=== PATIENT | female | born 1960 ===

== ENCOUNTER 2020-02-08 13:05 | Inpatient (IN) | payer MEDICAID, SELFPAY ==
[2020-02-08] VITALS (8 sets, daily range): BP systolic 124–137; BP diastolic 77–91; PULSE 72–101; RESP 18–22; TEMP 36.1–37.5; O2SAT 2–100; BMI 25.0
--- NOTE | 2020-02-08 13:27 | XR_ITS ---
EXAMINATION: XR CHEST CLINICAL INFORMATION: Shortness of breath COMPARISON: November 21, 2019 TECHNIQUE: AP portable view of the chest was obtained. FINDINGS: There is region of parenchymal disease seen within the left lower lobe as well as some blunting of the left costophrenic angle. Heart normal size. No evidence of pulmonary effusion. No pneumothorax. Mediastinal contour unremarkable. XR/XR chest 1V IMPRESSION: Left lower lobe disease. Question small left pleural effusion.
--- NOTE | 2020-02-08 13:36 | ED.SOB ---
HPI - SOB/Dyspnea General Chief Complaint: Dyspnea Stated Complaint: SOB Covid + Time Seen by Provider: 02/08/20 13:27 Source: patient Mode of arrival: ambulatory Limitations: no limitations History of Present Illness HPI Narrative: 59-year-old female with past medical history that is significant for asthma, anemia, diverticulosis, endometriosis as well as other history as noted below presenting ambulatory via triage with complaint of feeling shortness of breath. States she has had a URI for past week or so was here previous Tuesday (4 days ago) tested positive for COVID-19 and has since been feeling worse and increasing shortness of breath. States she has pain in the chest with the shortness of breath and has chills. MD elicited complaint: shortness of breath and cough Pertinent past history: asthma Onset (ago): day(s) Context: recent illness Timing: constant Severity: severe Exacerbating factors: coughing and inspiration Known history of: asthma Associated symptoms: chest pain, cough, wheezing and sputum production (clear ) Treatment prior to arrival: bronchodilator Related Data Home Medications Medication Instructions Recorded Confirmed Flovent 02/08/20 No Known Home Meds 02/08/20 02/08/20 albuterol 02/08/20 citalopram 02/08/20 simvastatin 02/08/20 Allergies Allergy/AdvReac Type Severity Reaction Status Date / Time erythromycin base Allergy Mild SWELLING/STOMACH Unverified 12/20/19 15:39 [Erythromycin Base] PAIN/ORAL BLISTERS aspirin [ASA] Allergy Unknown STOMACH Unverified 12/20/19 15:39 PAIN tramadol [TRAMADOL] AdvReac Unknown DIZZY,NAUSE Unverified 12/20/19 15:39 A Erythromycin Allergy Unknown Uncoded 07/19/19 00:00 Review of Systems Review of Systems: Constitutional: No Weight loss ENT/Mouth: No Hearing loss, No Ear Pain, + Nasal Congestion, No Sinus Pain, No Hoarseness, No sore throat, + Rhinorrhea, No Swallowing Difficulty Eyes: No Eye Pain, No Swelling, No Redness, No Foreign Body, No Discharge, No Vision Changes Cardiovascular: + Chest Pain, + SOB, + Dyspnea on Exertion, No Edema, No Palpitations Respiratory: + Cough, + Sputum, + Wheezing, No Smoke Exposure Gastrointestinal: No Nausea, No Vomiting, No Diarrhea, No Constipation, No abdominal Pain, No Hematochezia, No Melena Genitourinary: no irregular bleeding, No Dysuria, No Urinary Frequency, No Hematuria, No Urinary Incontinence, No Urgency, No Flank Pain, No Urinary Flow Changes, No Hesitancy Musculoskeletal: No joint pain, No Myalgias, No Joint Swelling Skin: No Skin Lesions, No rash Neuro: No Weakness, No Numbness, No Paresthesias, No Loss of Consciousness, No Dizziness, No Headache Psych: No Anxiety/Panic, No Depression Heme/Lymph: No Bruising, No Bleeding,No Lymphadenopathy Endocrine: No Polyuria, No Polydipsia, No Temperature Intolerance Yes all other systems are reviewed and are negative [facility] Past Medical History Attestation statement: The following information was validated with the patient. Medical History Asthma Hypercholesteremia Social History Social History Alcohol intake: never Smoked in Last 30 Days: No Use of substances other than those prescribed or required for medical reasons: No Advance Directives: No Advance Directives Information Provided: Yes Physical Exam Vital Signs: Vital Signs: Last Vital Signs Temp 99.3 F 02/08/20 19:35 Pulse 78 02/08/20 19:35 Resp 18 02/08/20 19:35 BP 136/91 H 02/08/20 19:35 Pulse Ox 97 02/08/20 19:35 Body Mass Index 25.0 Reviewed Const: General: cooperative and intoxicated appearing Nutritional Appearance: average body habitus Orientation/consciousness: patient oriented x3 HENMT: Head: Yes normal to inspection Ears: hearing grossly normal bilaterally General nose exam: Nasal discharge present Eyes: General: appearance normal, both eyes and all related structures Visual [place]: normal visual bolton by confrontation Neck: Neck: Yes normal visual inspection and No tender Thyroid: Thyroid normal Chest: Chest palpation & inspection: normal inspection of the chest Resp: Effort & Inspection: able to speak in complete sentences, audible wheezes and Actively coughing Auscultation: wheezes Cardio: Jugular venous distension: no JVD Rate: tachycardic GI: Inspection: Yes normal to inspection Percussion: Yes normal to percussion Auscultation: normal bowel sounds : General: Yes no CVA tenderness Back/Spine/Pelvis: Back: no CVA tenderness Skin: General skin exam: no rashes or lesions noted Neuro: General: patient oriented x3 Extrem: General: Yes normal to inspection Psych: Appearance: grossly normal Course Course Course Narrative: 1335 Interview 59-year-old female with history of asthma with recent positive COVID-19, 4 days ago presenting with worsening symptoms of shortness of breath and chills and cough associated chest pain. Audible wheezing and bronchial cough. Afebrile is slightly tacky and 94% on room air shortness of breath on exertion. At this time labs including cardiac enzymes, lactic acid blood cultures, chest x-ray EKG ordered. Will treat with gradual IV fluids, neb and IV Solu-Medrol. At this time does not meet sepsis criteria. 1408 CXR left lower lobe disease, question small left pleural effusion. Labs still pending Empirically given ceftriaxone/azithromycin. Reevaluation(s) Reevaluation #1: CT findings reviewed with patient. At rest her oxygen level was 94% however on exertion just dropped down to 92 and she is tachypneic. No evidence of some PE. Plan for admission she did have a COVID test that was positive and her primary care doctor at [facility] at this point no need to repeat. Case discussed with hospitalist for admission. MDM - SOB/Dyspnea Differential Diagnosis Differential diagnosis: Likely pneumonia, asthma with exacerbation and pulmonary embolism; Unlikely acute exacerbation of chronic obstructive airways disease, congestive heart failure, pleural effusion, sleep apnea and anemia Medical Records Attestation: I reviewed the patient's medical records. Lab Data Result diagrams: 02/08/20 15:35 02/08/20 15:35 Labs: Lab Results 02/08/20 02/08/20 02/08/20 Range/Units 15:35 15:35 15:35 WBC 5.1 (4.8-10.8) X10*3/uL RBC 4.94 (4.20-5.50) X10*6/uL Hgb 13.9 (12.0-16.0) g/dl Hct 41.7 (37-47) % MCV 84.4 (80-98) fL MCH 28.1 (27.0-33.0) pg MCHC 33.3 (31.0-35.0) g/dl RDW 12.5 (11.0-16.0) % Plt Count 145 L (160-400) X10*3/uL MPV 11.0 (9.4-12.3) fL Immature Gran % (Auto) 0.2 (0.0-0.4) % Neut % (Auto) 48.6 (45-73) % Lymph % (Auto) 38.8 (20-40) % [place] % (Auto) 11.4 H (2-11) % Eos % (Auto) 0.8 (0-4) % Baso % (Auto) 0.2 (0-2) % Lymph # (Auto) 2.0 (1.2-4.9) X10*3/uL [place] # (Auto) 0.6 (0.1-1.2) X10*3/uL Eos # (Auto) 0.0 (0.0-0.4) X10*3/uL Baso # (Auto) 0.0 (0.0-0.2) X10*3/uL Abs Immat Gran (auto) 0.01 (0.00-0.03) X10*3/uL Absolute Neuts (auto) 2.5 (2.0-8.3) X10*3/uL Absolute Nucleated RBC 0.000 (0.0-0.012) X10*3/uL Nucleated RBC % (auto) 0.0 (0.0-0.2) /100WBC Smear Tech's Comments VERIFIED PT 13.5 H (10.8-13.0) SEC INR 1.1 (0.9-1.1) APTT 31.7 (24.1-38.0) SEC D-Dimer 575 NG/ML Sodium 141 (135-145) mmol/L Potassium 3.5 (3.3-5.1) mmol/l Chloride 100 (96-108) mmol/L Carbon Dioxide 29 (22-29) mmol/L Anion Gap 16 (12-20) BUN 10 (9-16) mg/dL Creatinine 0.71 (0.5-1.4) mg/dL Estim Creat Clear Calc 74.8 Estimated GFR > 60 Random Glucose 91 (60-115) mg/dL Lactic Acid (0.5-2.0) mmol/L Calcium 9.0 (8.4-10.2) mg/dL Total Bilirubin 0.7 (0.0-1.0) mg/dL AST 25 (5-31) U/L ALT 16 (0-31) U/L Alkaline Phosphatase 95 (39-117) U/L Lactate Dehydrogenase 269 H (122-220) U/L Troponin I High Sens (<3.5-17.0) ng/L B-Natriuretic Peptide (<100) pg/mL Total Protein 8.4 H (6.5-8.0) g/dL Albumin 4.5 (3.5-5.0) g/dL Urine Color Urine Appearance Urine pH (5.0-8.0) Ur Specific [place] (1.005-1.025) Urine Protein (NEG-TRACE) MG/DL Urine Glucose (UA) (NEG) MG/DL Urine Ketones (NEG) MG/DL Urine Blood (NEG) Urine Nitrite (NEG) Ur Leukocyte Esterase (NEG) 02/08/20 02/08/20 02/08/20 Range/Units 15:35 15:35 17:05 WBC (4.8-10.8) X10*3/uL RBC (4.20-5.50) X10*6/uL Hgb (12.0-16.0) g/dl Hct (37-47) % MCV (80-98) fL MCH (27.0-33.0) pg MCHC (31.0-35.0) g/dl RDW (11.0-16.0) % Plt Count (160-400) X10*3/uL MPV (9.4-12.3) fL Immature Gran % (Auto) (0.0-0.4) % Neut % (Auto) (45-73) % Lymph % (Auto) (20-40) % [place] % (Auto) (2-11) % Eos % (Auto) (0-4) % Baso % (Auto) (0-2) % Lymph # (Auto) (1.2-4.9) X10*3/uL [place] # (Auto) (0.1-1.2) X10*3/uL Eos # (Auto) (0.0-0.4) X10*3/uL Baso # (Auto) (0.0-0.2) X10*3/uL Abs Immat Gran (auto) (0.00-0.03) X10*3/uL Absolute Neuts (auto) (2.0-8.3) X10*3/uL Absolute Nucleated RBC (0.0-0.012) X10*3/uL Nucleated RBC % (auto) (0.0-0.2) /100WBC Smear Tech's Comments PT (10.8-13.0) SEC INR (0.9-1.1) APTT (24.1-38.0) SEC D-Dimer NG/ML Sodium (135-145) mmol/L Potassium (3.3-5.1) mmol/l Chloride (96-108) mmol/L Carbon Dioxide (22-29) mmol/L Anion Gap (12-20) BUN (9-16) mg/dL Creatinine (0.5-1.4) mg/dL Estim Creat Clear Calc Estimated GFR Random Glucose (60-115) mg/dL Lactic Acid 1.2 (0.5-2.0) mmol/L Calcium (8.4-10.2) mg/dL Total Bilirubin (0.0-1.0) mg/dL AST (5-31) U/L ALT (0-31) U/L Alkaline Phosphatase (39-117) U/L Lactate Dehydrogenase (122-220) U/L Troponin I High Sens < 3.5 (<3.5-17.0) ng/L B-Natriuretic Peptide < 10 (<100) pg/mL Total Protein (6.5-8.0) g/dL Albumin (3.5-5.0) g/dL Urine Color YELLOW Urine Appearance CLEAR Urine pH 6.0 (5.0-8.0) Ur Specific [place] 1.010 (1.005-1.025) Urine Protein NEG (NEG-TRACE) MG/DL Urine Glucose (UA) NEG (NEG) MG/DL Urine Ketones 15 (NEG) MG/DL Urine Blood NEG (NEG) Urine Nitrite NEG (NEG) Ur Leukocyte Esterase NEG (NEG) Discharge Plan Discharge Clinical Impression: Asthma with exacerbation, Community acquired pneumonia, COVID-19 Patient Disposition: Admitted As Inpatient Prescriptions: No Action Flovent RF: 0 No Known Home Meds RF: 0 albuterol RF: 0 citalopram RF: 0 simvastatin RF: 0
[2020-02-08] MEDS: Albuterol Sulfate 90 MCG 8 GM INHALER 4 PUFF INHALE (15:02)
[2020-02-08 16:05] LABS: Basophils Percent Auto 0.2 % (0-2); Eosinophils Percent Auto 0.8 % (0-4); Hematocrit 41.7 % (37-47); Hemoglobin 13.9 g/dl (12.0-16.0); Imm Gran Abs Auto 0.01 X10*3/uL (0.00-0.03); Imm Gran Pct Auto 0.2 % (0.0-0.4); Lymphocytes Percent Auto 38.8 % (20-40); MANUAL DIFF FLAG SCAN; Mean Corpuscular HGB Conc 33.3 g/dl (31.0-35.0); Mean Corpuscular Hemoglobin 28.1 pg (27.0-33.0); Mean Corpuscular Volume 84.4 fL (80-98); Monocytes Absolute Auto 0.6 X10*3/uL (0.1-1.2); Monocytes Percent Auto 11.4 % (2-11); Neutrophils Absolute Auto 2.5 X10*3/uL (2.0-8.3); Neutrophils Percent Auto 48.6 % (45-73); Platelet Count 145 X10*3/uL (160-400); Red Blood Count 4.94 X10*6/uL (4.20-5.50); Red Cell Distribution Width 12.5 % (11.0-16.0); SCAN SMEAR FLAG 1; White Blood Count 5.1 X10*3/uL (4.8-10.8)
[2020-02-08 16:10] LABS: INTERNATIONAL NORM RATIO 1.1 (0.9-1.1); Prothrombin Time 13.5 SEC (10.8-13.0)
[2020-02-08 16:12] LABS: Partial Thromboplastin Time 31.7 SEC (24.1-38.0)
[2020-02-08 16:13] LABS: D Dimer 575 NG/ML
[2020-02-08 16:18] LABS: Lactic Acid 1.2 mmol/L (0.5-2.0)
[2020-02-08 16:31] LABS: SLIDE REVIEW VERIFIED
[2020-02-08 16:46] LABS: Alanine Aminotransferase 16 U/L (0-31); Albumin Level 4.5 g/dL (3.5-5.0); Alkaline Phosphatase 95 U/L (39-117); Anion Gap 16 (12-20); Aspartate Amino Transferase 25 U/L (5-31); Bilirubin Total 0.7 mg/dL (0.0-1.0); Blood Urea Nitrogen 10 mg/dL (9-16); Carbon Dioxide 29 mmol/L (22-29); Chloride 100 mmol/L (96-108); Creatinine Clr Calc Pharmacy 74.8; Estimated Glomerular Filt Rate > 60; Glucose Random 91 mg/dL (60-115); Lactate Dehydrogenase 269 U/L (122-220); Potassium 3.5 mmol/l (3.3-5.1); Sodium 141 mmol/L (135-145); Total Protein 8.4 g/dL (6.5-8.0)
[2020-02-08 16:50] LABS: B Type Natriuretic Peptide < 10 pg/mL (<100); Troponin-I High Sensitivity < 3.5 ng/L (<3.5-17.0)
[2020-02-08] MEDS: 0.9 % Sodium Chloride 500 ML IV (16:50)
[2020-02-08] MEDS: dexAMETHasone sod phosphate 4 MG/ML VIAL 6 MG IVPUSH (16:54)
[2020-02-08] MEDS: cefTRIAXone sodium 1 GM in 0.9 % Sodium Chloride 50 ML IV (16:54)
--- NOTE | 2020-02-08 16:54 | CT_ITS ---
EXAMINATION: CT PULMONARY EMBOLISM STUDY CLINICAL INFORMATION: Shortness of breath. Elevated d-dimer. COMPARISON: July 23, 2019. TECHNIQUE: Contiguous helical images of the chest were obtained following the administration of IV contrast. Multiplanar reconstructions were performed. MIPS were obtained and reviewed. DLP: 245 mGy-cm. CONTRAST: 65 cc of Omnipaque 350 were administered without incident. FINDINGS: The heart is of normal size. There is no pericardial effusion. The great vessels are unremarkable. Specifically, there is no pulmonary arterial filling defect. There is no CT evidence for pulmonary embolism. There are no chest wall masses. Review of lung windows demonstrates that there are neither pleural effusions nor pneumothoraces. There are small bilateral posterior basal segment lower lobe consolidations. There is patchy groundglass opacification. There are no pulmonary parenchymal nodules. Limited evaluation of the upper abdomen demonstrates that the liver is of normal size and attenuation without focal lesions. Normal adrenal glands are identified. CT/CT angio chest PE protocol IMPRESSION: No CT evidence for pulmonary embolism. Bilateral posterior basal segment lower lobe consolidations and patchy multifocal groundglass opacification. Automated exposure control (Care Dose) Adjustment of the mA and/or kv according to patient size (this includes techniques or standardized protocols for targeted exams where dose is matched to indication / reason for exam; i.e. extremities or head).
[2020-02-08 17:15] LABS: Glucose Urine UA NEG (NEG); Leukocyte Esterase Urine NEG (NEG); Nitrite Urine NEG (NEG); Urine Blood NEG (NEG); Urine Ketones 15 MG/DL (NEG); Urine Protein NEG (NEG-TRACE)
[2020-02-08 17:16] LABS: Appearance Urine CLEAR; Color Urine YELLOW
[2020-02-08] MEDS: iohexoL 350 MG/ML 100 ML INFUS..BTL IV (19:00)
[2020-02-08] MEDS: Azithromycin 500 MG in 0.9 % Sodium Chloride 250 ML 125 MG IV (19:36)
[2020-02-08 21:26] LABS: Procalcitonin 0.08 ng/mL
--- NOTE | 2020-02-08 21:46 | P.HPHOSP_ITS ---
History of Present Illness Date of Service: 02/08/20 Chief Complaint: SOB 59 y/o female with PMHx of asthma, anemia, diverticulosis, endometriosis, GERD, Psychiatric disorder, Peirpheral neuropathy and HLP who presented from home c/o SOB x 1 week. Per history provided by the patient, she has been having worsening difficulty breathing for the past week associated with dry cough, subjective fever, nausea, poor appetite and chest discomfort when coughing only. Patient reports that recently was tested for covid and found to be positive. On presentation to the ED patient was found to be tachycardic, tachypneic, BP of 134/82 mmHg, CT showing evidence of bilateral Lower lobe infiltrates concerning for PNA. Patient placed on isolation, given rocephin, zithromax and steroids. Decision for admission given. Patient seen and examined at the bedside, laying down in bed in no acute distress. ROS as above otherwise negative. Physical exam unremarkable. PMHX: asthma, anemia, diverticulosis, endometriosis, HLP, psychiatric disorder, GERD, Peripheral neuropathy PSx: none Toxic habits: No hx of alcohol abuse, smoking or IVDA Review of Systems Constitutional: Constitutional: Reports malaise Cardiovascular: Cardiovascular: Reports dyspnea Respiratory: Respiratory: Reports cough and Reports dyspnea Gastrointestinal: Gastrointestinal: Reports diarrhea and Reports nausea PMFSH Medical History Asthma Hypercholesteremia Functional capacity: independent ambulation Social History Alcohol intake: never Smoked in Last 30 Days: No Use of substances other than those prescribed or required for medical reasons: No Advance Directives: No Advance Directives Information Provided: Yes Meds Allergies Allergy/AdvReac Type Severity Reaction Status Date / Time erythromycin base Allergy Mild SWELLING/STOMACH Unverified 12/20/19 15:39 [Erythromycin Base] PAIN/ORAL BLISTERS aspirin [ASA] Allergy Unknown STOMACH Unverified 12/20/19 15:39 PAIN tramadol [TRAMADOL] AdvReac Unknown DIZZY,NAUSE Unverified 12/20/19 15:39 A Erythromycin Allergy Unknown Uncoded 07/19/19 00:00 Home Medications Medication Instructions Recorded Confirmed Type cholecalciferol (vitamin D3) 50 mcg PO DAILY 02/08/20 02/08/20 History [Vitamin D3] citalopram 20 mg PO DAILY 02/08/20 02/08/20 History clonazepam 0.5 mg PO BEDTIME PRN 02/08/20 02/08/20 History conj estrog-medroxyprogest chyna 1 tab PO DAILY 02/08/20 02/08/20 History [Prempro] gabapentin 100 mg PO BID 02/08/20 02/08/20 History loratadine 10 mg PO DAILY 02/08/20 02/08/20 History pantoprazole 40 mg PO DAILY 02/08/20 02/08/20 History penicillin V potassium 500 mg PO TID 02/08/20 02/08/20 History simvastatin 20 mg PO BEDTIME 02/08/20 02/08/20 History topiramate 25 mg PO BEDTIME 02/08/20 02/08/20 History topiramate 50 mg PO BID 02/08/20 02/08/20 History Physical Exam Vital Signs and Narrative: Vital Signs: Last Vital Signs Temp 99.3 F 02/08/20 19:35 Pulse 73 02/08/20 20:54 Resp 22 H 02/08/20 20:54 BP 134/82 02/08/20 20:54 Pulse Ox 100 02/08/20 20:54 Body Mass Index 25.0 Const: General: cooperative, comfortable and no acute distress Orientation/consciousness: oriented to person, oriented to place, oriented to time and patient oriented x3 HENMT: Head: Yes normal to inspection Eyes: General: appearance normal, both eyes and all related structures Neck: Yes normal visual inspection Chest: Chest palpation & inspection: normal inspection of the chest Resp: Effort & Inspection: normal respiratory effort Cardio: Jugular venous distension: no JVD Rate: regular rate Rhythm: regular rhythm Heart sounds: S1 normal heart sound present and S2 normal heart sound present GI: Inspection: Yes normal to inspection Skin: General skin exam: no rashes or lesions noted Neuro: General: oriented to person, oriented to place, oriented to time and p atient oriented x3 Cognition (Neuro): normal cognition Extrem: General: Yes normal to inspection Psych: Appearance: grossly normal Results Labs CBC and Chem 7: 02/08/20 15:35 02/08/20 15:35 Labs: Laboratory Results - last 24 hr 02/08/20 02/08/20 02/08/20 15:35 15:35 15:35 MCV 84.4 MCH 28.1 MCHC 33.3 RDW 12.5 Plt Count 145 L MPV 11.0 Immature Gran % (Auto) 0.2 Neut % (Auto) 48.6 Lymph % (Auto) 38.8 [place] % (Auto) 11.4 H Eos % (Auto) 0.8 Baso % (Auto) 0.2 Lymph # (Auto) 2.0 [place] # (Auto) 0.6 Eos # (Auto) 0.0 Baso # (Auto) 0.0 Abs Immat Gran (auto) 0.01 Absolute Neuts (auto) 2.5 Absolute Nucleated RBC 0.000 Nucleated RBC % (auto) 0.0 Smear Tech's Comments VERIFIED PT 13.5 H INR 1.1 APTT 31.7 D-Dimer 575 Anion Gap 16 Estim Creat Clear Calc 74.8 Estimated GFR > 60 Random Glucose 91 Lactic Acid Calcium 9.0 Total Bilirubin 0.7 AST 25 ALT 16 Alkaline Phosphatase 95 Lactate Dehydrogenase 269 H Troponin I High Sens B-Natriuretic Peptide Total Protein 8.4 H Albumin 4.5 Procalcitonin Urine Color Urine Appearance Urine pH Ur Specific [place] Urine Protein Urine Glucose (UA) Urine Ketones Urine Blood Urine Nitrite Ur Leukocyte Esterase 02/08/20 02/08/20 02/08/20 15:35 15:35 15:35 MCV MCH MCHC RDW Plt Count MPV Immature Gran % (Auto) Neut % (Auto) Lymph % (Auto) [place] % (Auto) Eos % (Auto) Baso % (Auto) Lymph # (Auto) [place] # (Auto) Eos # (Auto) Baso # (Auto) Abs Immat Gran (auto) Absolute Neuts (auto) Absolute Nucleated RBC Nucleated RBC % (auto) Smear Tech's Comments PT INR APTT D-Dimer Anion Gap Estim Creat Clear Calc Estimated GFR Random Glucose Lactic Acid 1.2 Calcium Total Bilirubin AST ALT Alkaline Phosphatase Lactate Dehydrogenase Troponin I High Sens < 3.5 B-Natriuretic Peptide < 10 Total Protein Albumin Procalcitonin 0.08 Urine Color Urine Appearance Urine pH Ur Specific [place] Urine Protein Urine Glucose (UA) Urine Ketones Urine Blood Urine Nitrite Ur Leukocyte Esterase 02/08/20 17:05 MCV MCH MCHC RDW Plt Count MPV Immature Gran % (Auto) Neut % (Auto) Lymph % (Auto) [place] % (Auto) Eos % (Auto) Baso % (Auto) Lymph # (Auto) [place] # (Auto) Eos # (Auto) Baso # (Auto) Abs Immat Gran (auto) Absolute Neuts (auto) Absolute Nucleated RBC Nucleated RBC % (auto) Smear Tech's Comments PT INR APTT D-Dimer Anion Gap Estim Creat Clear Calc Estimated GFR Random Glucose Lactic Acid Calcium Total Bilirubin AST ALT Alkaline Phosphatase Lactate Dehydrogenase Troponin I High Sens B-Natriuretic Peptide Total Protein Albumin Procalcitonin Urine Color YELLOW Urine Appearance CLEAR Urine pH 6.0 Ur Specific [place] 1.010 Urine Protein NEG Urine Glucose (UA) NEG Urine Ketones 15 Urine Blood NEG Urine Nitrite NEG Ur Leukocyte Esterase NEG Imaging Radiologist's Impressions: Impressions Chest X-Ray 02/08/20 13:27 IMPRESSION: Left lower lobe disease. Question small left pleural effusion. Chest CTA 02/08/20 16:54 IMPRESSION: No CT evidence for pulmonary embolism. Bilateral posterior basal segment lower lobe consolidations and patchy multifocal groundglass opacification. Automated exposure control (Care Dose) Adjustment of the mA and/or kv according to patient size (this includes techniques or standardized protocols for targeted exams where dose is matched to indication / reason for exam; i.e. extremities or head). Assessment and Plan (1) Community acquired pneumonia: Status: Acute S/p IV antbx in the ED and Bcx collected Continue with Rocephin for gram neg coverage Continue with doxy for atypical coverage Follow up Bcx as collected in the ED Infectious disease consult in the ED (2) Sepsis: Status: Acute plan as above trend lactate Keep MAP >65 mmHg (3) COVID-19: Status: Acute Isolation now (4) Asthma with exacerbation: Status: Acute as above Nebulizer updraft as ordered (5) Psychiatric disorder: Status: Acute continue with citalopram home dose continue with clonazepam home dose continue with topiramate home dose (6) Peripheral neuropathy: Status: Acute continue with gabapentin home dose (7) GERD (gastroesophageal reflux disease): Status: Acute continue with PPI home dose (8) Hypercholesteremia: Status: Acute continue with statin home dose
--- NOTE | 2020-02-08 22:46 | PC.NURSE ---
resting comfortably, up to br with noted sob. recovers quickly at rest. awaiting transfer to floor
[2020-02-09 02:00] VITALS: BP 130/84; PULSE 69; RESP 16; TEMP 37.6; O2SAT 2
[2020-02-09 02:50] LABS: SARS COV2 PCR INHOUSE POSITIVE (Negative)
[2020-02-09 04:41] VITALS: BP 142/80; PULSE 73; RESP 18; O2SAT 99
[2020-02-09] MEDS: Heparin Sodium,Porcine 5,000 UNIT/ML VIAL 5000 UNIT SUBCUT ×3 (06:28→23:01)
[2020-02-09] MEDS: 0.9 % Sodium Chloride Flush 3 ML SYRINGE IVFLUSH ×4 (06:28→23:16)
[2020-02-09 07:05] VITALS: BP 125/72; PULSE 75; RESP 18; TEMP 36.6; O2SAT 97
[2020-02-09 07:11] LABS: Basophils Percent Auto 0.3 % (0-2); Hemoglobin 12.4 g/dl (12.0-16.0); Imm Gran Abs Auto 0.01 X10*3/uL (0.00-0.03); Imm Gran Pct Auto 0.3 % (0.0-0.4); Lymphocytes Percent Auto 29.8 % (20-40); MANUAL DIFF FLAG SCAN; Mean Corpuscular HGB Conc 32.6 g/dl (31.0-35.0); Mean Corpuscular Volume 85.8 fL (80-98); Mean Platelet Volume 11.1 fL (9.4-12.3); Monocytes Absolute Auto 0.3 X10*3/uL (0.1-1.2); Monocytes Percent Auto 7.6 % (2-11); Platelet Count 195 X10*3/uL (160-400); Red Blood Count 4.43 X10*6/uL (4.20-5.50); Red Cell Distribution Width 12.5 % (11.0-16.0); SCAN SMEAR FLAG 1; White Blood Count 3.3 X10*3/uL (4.8-10.8)
[2020-02-09 07:45] LABS: Anion Gap 14 (12-20); Blood Urea Nitrogen 13 mg/dL (9-16); Calcium 8.4 mg/dL (8.4-10.2); Carbon Dioxide 27 mmol/L (22-29); Chloride 104 mmol/L (96-108); Creatinine Clr Calc Pharmacy 79.3; Estimated Glomerular Filt Rate > 60; Glucose Random 132 mg/dL (60-115); Potassium 4.2 mmol/l (3.3-5.1); Sodium 141 mmol/L (135-145)
[2020-02-09 07:54] LABS: SLIDE REVIEW VERIFIED
[2020-02-09] MEDS: Cholecalciferol (Vitamin D3) 25 MCG TABLET 50 MCG PO (08:37)
[2020-02-09] MEDS: Omeprazole 20 MG CAPSULE.DR PO (08:37)
[2020-02-09] MEDS: Atorvastatin Calcium 10 MG TABLET PO (08:38)
[2020-02-09] MEDS: Doxycycline Hyclate 100 MG in 0.9 % Sodium Chloride 250 ML 166.67 MG IV (08:38)
[2020-02-09] MEDS: Escitalopram Oxalate 10 MG TABLET PO (08:38)
[2020-02-09] MEDS: Gabapentin 100 MG CAPSULE PO ×2 (08:38→20:57)
[2020-02-09 11:13] VITALS: BP 107/68; PULSE 88; RESP 20; TEMP 35.5; O2SAT 97
--- NOTE | 2020-02-09 11:25 | MHC.CM.PN ---
Patient is on the Covid Unit; CM spoke with . Patient lives with her on the first floor of a 2 family house, with other family members living on the second floor. Patient is functionally independent and the goal for dc is to return home. CM has initiated and will follow for dc planning. PCP is Dr. Britni Tyler.
[2020-02-09] MEDS: guaiFENesin DM 600/30 1 TAB TAB.ER.12H PO ×2 (11:33→20:57)
[2020-02-09] MEDS: Benzonatate 100 MG CAPSULE 200 MG PO ×3 (11:33→20:57)
[2020-02-09] MEDS: dexAMETHasone sod phosphate 4 MG/ML VIAL 6 MG IVPUSH (12:47)
[2020-02-09] MEDS: Topiramate 25 MG TABLET PO (15:09)
[2020-02-09] MEDS: cefTRIAXone sodium 1 GM in 0.9 % Sodium Chloride 50 ML IV (15:10)
--- NOTE | 2020-02-09 15:11 | W.PM.IDCN ---
History of Present Illness Data of Consult Service Date: 02/09/20 Requesting physician: Geraldine Prince Primary Care Provider: Britni Tyler NP HPI Reason for consult: shortness of breath Patient reports shortness of breath for a day She has with exertion mostly She has low grade temperature and no productive sputum She had recent COVID positive test within week She has no oxygen requirements now but was on 2 liter overnight Review of Systems Review of Systems: Yes all other systems are reviewed and are negative Cardiovascular: Cardiovascular: Reports dyspnea on exertion Respiratory: Respiratory: Reports dyspnea on exertion Comments: better [facility] Past Medical History Medical History Asthma Hypercholesteremia Functional capacity: independent ambulation Social History Social History Household Members: Family Housing: House Do you presently have visiting nurse or other home services: No Alcohol intake: never Smoking Status: Former smoker Smoked in Last 30 Days: No Patient Interested in Nicotine Replacement: No Patient Given Instructions on How to Stop Smoking: No Second Hand Smoke Exposure: No Use of substances other than those prescribed or required for medical reasons: No Currently Displaying Signs/Symptoms of Drug Intoxication Withdrawal: No Any prior treatment program specific to substance use: No Have you been hit, kicked, punched, or otherwise hurt by someone within the past year? If so, by whom?: No Do you feel safe in your current relationship?: Yes Is there a partner from a previous relationship who is making you feel unsafe now?: No Are you made to feel afraid or neglected: No Advance Directives: No Advance Directives Information Provided: Yes Do you have thoughts of harming others: None Do you have a plan to hurt others: No Plan Recently lost weight without trying: No service: No Current occupational status: disabled Meds Allergies Allergy/AdvReac Type Severity Reaction Status Date / Time erythromycin base Allergy Mild SWELLING/STOMACH Unverified 12/20/19 15:39 [Erythromycin Base] PAIN/ORAL BLISTERS aspirin [ASA] Allergy Unknown STOMACH Unverified 12/20/19 15:39 PAIN tramadol [TRAMADOL] AdvReac Unknown DIZZY,NAUSE Unverified 12/20/19 15:39 A Erythromycin Allergy Unknown Uncoded 04/16/20 00:00 Home Medications Medication Instructions Recorded Confirmed Type Prempro 1 tab PO DAILY 02/08/20 02/08/20 History cholecalciferol (vitamin D3) 50 mcg PO DAILY 02/08/20 02/08/20 History [Vitamin D3] citalopram 20 mg PO DAILY 02/08/20 02/08/20 History clonazepam 0.5 mg PO BEDTIME PRN 02/08/20 02/08/20 History gabapentin 100 mg PO BEDTIME 02/08/20 02/09/20 History loratadine 10 mg PO DAILY 02/08/20 02/08/20 History pantoprazole 40 mg PO DAILY 02/08/20 02/08/20 History penicillin V potassium 500 mg PO TID 02/08/20 02/08/20 History simvastatin 20 mg PO BEDTIME 02/08/20 02/08/20 History topiramate 25 mg PO DAILY@1600 02/08/20 02/09/20 History Physical Exam Vital Signs: Vital Signs: Last Vital Signs Temp 96 F L 02/09/20 11:13 Pulse 88 02/09/20 11:13 Resp 20 02/09/20 11:13 BP 107/68 02/09/20 11:13 Pulse Ox 97 02/09/20 11:13 Body Mass Index 25.0 Const: General: cooperative and no acute distress Orientation/consciousness: oriented to person, oriented to place and oriented to time HENMT: Head: Yes normal to inspection Ears: hearing grossly normal bilaterally Mouth: oropharynx normal Eyes: General: appearance normal, both eyes and all related structures Resp: Effort & Inspection: normal respiratory effort Cardio: Rate: regular rate Rhythm: regular rhythm GI: Inspection: Yes normal to inspection : General: Yes no CVA tenderness Back/Spine/Pelvis: Back: no CVA tenderness Skin: General skin exam: no rashes or lesions noted Neuro: General: oriented to person, oriented to place and oriented to time Extrem: General: Yes normal to inspection Assessment and Plan (1) COVID-19: Status: Acute would give Dexamethasone for 10 d ,po when better No antibiotics now No need Remdesivir unless oxygen requirement increases No convalescent plasma (2) Asthma with exacerbation: Qualifiers: Asthma persistence: persistent Asthma severity: moderate Qualified Code(s): J45.41 - Moderate persistent asthma with (acute) exacerbation Status: Acute Results Labs CBC & Chem 7: 02/12/20 05:52 02/12/20 05:52 Labs: Short CBC 02/08/20 02/09/20 Range/Units 15:35 06:18 WBC 5.1 3.3 L (4.8-10.8) X10*3/uL Hgb 13.9 12.4 (12.0-16.0) g/dl Hct 41.7 38.0 (37-47) % Plt Count 145 L 195 D (160-400) X10*3/uL BMP 02/08/20 02/09/20 15:35 06:18 Sodium 141 141 Potassium 3.5 4.2 Chloride 100 104 Carbon Dioxide 29 27 BUN 10 13 Creatinine 0.71 0.67 Calcium 9.0 8.4 D Liver Function 02/08/20 Range/Units 15:35 Total Bilirubin 0.7 (0.0-1.0) mg/dL AST 25 (5-31) U/L ALT 16 (0-31) U/L Alkaline Phosphatase 95 (39-117) U/L Albumin 4.5 (3.5-5.0) g/dL Urine 02/08/20 Range/Units 17:05 Urine Color YELLOW Urine Appearance CLEAR Urine pH 6.0 (5.0-8.0) Ur Specific [place] 1.010 (1.005-1.025) Urine Protein NEG (NEG-TRACE) MG/DL Urine Glucose (UA) NEG (NEG) MG/DL Microbiology Microbiology Results: Microbiology 02/08/20 15:35 Blood - Venous Blood Culture - Preliminary
[2020-02-09 16:00] VITALS: BP 115/77; PULSE 81; RESP 18; TEMP 36.7; O2SAT 96
--- NOTE | 2020-02-09 16:11 | P.PNIM_ITS ---
Subjective Subjective Date of Service: 02/09/20 Interval History: the patient was seen and evaluated this morning Laying in bed, feels mildly short of breath, having some central chest pain related to cough Denies any fever, chills or chest pain Feels better overall since admission No reported other overnight events. Physical Exam Vital Signs: Vital Signs: Last Vital Signs Temp 98.1 F 02/09/20 16:00 Pulse 81 02/09/20 16:00 Resp 18 02/09/20 16:00 BP 115/77 02/09/20 16:00 Pulse Ox 96 02/09/20 16:00 Body Mass Index 25.0 Constitutional : Alert, oriented, not in distress Neck : Normal inspection, Supple Cardiovascular : RRR, S1 S2, no lower extremity edema Respiratory : Fair bilateral air entry, bilateral basal rhonchi and crackles Gastrointestinal: soft, lax, Normal bowel sounds, Non tender Skin : Warm/Dry, No rash Neurological : Alert & oriented x3, No focal deficit Objective Data Current Medications Generic Name Dose Route Start Last Admin Trade Name Freq PRN Reason Stop Dose Admin Atorvastatin Calcium 10 mg 02/09/20 09:00 02/09/20 08:38 Atorvastatin Calcium 10 Mg Tablet PO 10 mg DAILY MYRA Administration Benzonatate 200 mg 02/09/20 11:00 02/09/20 15:09 Benzonatate 100 Mg Capsule PO 200 mg TID MYRA Administration Clonazepam 0.5 mg 02/09/20 08:28 Clonazepam 0.5 Mg Tablet PO BEDTIME PRN Anxiety Dexamethasone Sodium Phosphate 6 mg 02/09/20 13:00 02/09/20 12:47 Dexamethasone Sod Phosphate 4 Mg/Ml Vial IVPUSH 6 mg DAILY MYRA Administration Escitalopram Oxalate 10 mg 02/09/20 09:00 02/09/20 08:38 Escitalopram Oxalate 10 Mg Tablet PO 10 mg DAILY MYRA Administration Gabapentin 100 mg 02/09/20 21:00 Gabapentin 100 Mg Capsule PO BEDTIME MYRA Guaifenesin/Dextromethorphan 1 tab 02/09/20 11:00 02/09/20 11:33 Guaifenesin Dm 600/30 1 Tab Tab.Er.12h PO 1 tab BID MYRA Administration Heparin Sodium (Porcine) 5,000 unit 02/09/20 06:00 02/09/20 12:47 Heparin Sodium,Porcine 5,000 Unit/Ml Vial SUBCUT 5,000 unit Q8H MYRA Administration Omeprazole 20 mg 02/09/20 08:30 02/09/20 08:37 Omeprazole 20 Mg Capsule. PO 20 mg DAILY@0630 [facility] Administration Pharmacy Consult 1 each 02/08/20 19:37 Consult Rx Perform Med Rec MISCELLANE ONCE PRN Consult order Sodium Chloride 3 ml 02/09/20 04:38 02/09/20 15:10 0.9 % Sodium Chloride Flush 3 Ml Syringe IVFLUSH 3 ml QSHIFT [facility] Administration Topiramate 25 mg 02/09/20 16:00 02/09/20 15:09 Topiramate 25 Mg Tablet PO 25 mg DAILY@1600 [facility] Administration Vitamin D 50 mcg 02/09/20 09:00 02/09/20 08:37 Cholecalciferol (Vitamin D3) 25 Mcg Tablet PO 50 mcg DAILY MYRA Administration Labs CBC & Chem 7: 02/09/20 06:18 02/09/20 06:18 Microbiology Microbiology Results: Microbiology 02/08/20 15:35 Blood - Venous Blood Culture - Preliminary Assessment and Plan (1) COVID-19: Status: Acute (2) Community acquired pneumonia: Status: Acute (3) Asthma with exacerbation: Status: Acute (4) Sepsis: Status: Acute (5) Hypercholesteremia: Status: Acute (6) Psychiatric disorder: Status: Acute (7) GERD (gastroesophageal reflux disease): Status: Acute (8) Peripheral neuropathy: Status: Acute Assessment and Plan: A 59 years old lady who presents to the hospital with shortness of breath and cough. Found to have COVID infection. COVID-19 infection Signs of infection on image in, no infiltrate discontinue antibiotics for now per ID Continue dexamethasone next Lyme continue O2 supplement as needed Pending culture Id input appreciated Cough medication Asthma exacerbation To give inhalers for now Mood Disorder next Lyme continue citalopram, clonazepam and topiramate Peripheral neuropathy Gabapentin HLD Statin DVT PPX Heparin
[2020-02-09 19:21] VITALS: BP 118/74; PULSE 79; RESP 18; TEMP 36.9; O2SAT 95
[2020-02-09] MEDS: clonazePAM 0.5 MG TABLET PO (20:57)
[2020-02-10] VITALS: BP 121/77; PULSE 72; RESP 18; TEMP 37.2; O2SAT 96
[2020-02-10 03:12] VITALS: BP 117/77; PULSE 69; RESP 18; TEMP 36.8; O2SAT 97
[2020-02-10] MEDS: Heparin Sodium,Porcine 5,000 UNIT/ML VIAL 5000 UNIT SUBCUT ×3 (06:00→20:02)
[2020-02-10] MEDS: Omeprazole 20 MG CAPSULE.DR PO (06:01)
[2020-02-10 07:11] LABS: MANUAL DIFF FLAG NO
[2020-02-10 07:26] LABS: D Dimer 429 NG/ML
[2020-02-10 07:31] LABS: Hematocrit 35.5 % (37-47); Hemoglobin 11.8 g/dl (12.0-16.0); Imm Gran Abs Auto 0.03 X10*3/uL (0.00-0.03); Imm Gran Pct Auto 0.4 % (0.0-0.4); Lymphocytes Absolute Auto 1.5 X10*3/uL (1.2-4.9); Lymphocytes Percent Auto 21.6 % (20-40); Mean Corpuscular HGB Conc 33.2 g/dl (31.0-35.0); Mean Corpuscular Hemoglobin 28.4 pg (27.0-33.0); Mean Corpuscular Volume 85.3 fL (80-98); Mean Platelet Volume 11.1 fL (9.4-12.3); Monocytes Absolute Auto 0.7 X10*3/uL (0.1-1.2); Monocytes Percent Auto 9.6 % (2-11); Neutrophils Absolute Auto 4.7 X10*3/uL (2.0-8.3); Neutrophils Percent Auto 68.4 % (45-73); Platelet Count 172 X10*3/uL (160-400); Red Blood Count 4.16 X10*6/uL (4.20-5.50); Red Cell Distribution Width 12.4 % (11.0-16.0); White Blood Count 6.9 X10*3/uL (4.8-10.8)
[2020-02-10 07:52] VITALS: BP 136/79; PULSE 74; RESP 18; TEMP 36.7; O2SAT 96
[2020-02-10 07:59] LABS: Anion Gap 13 (12-20); Blood Urea Nitrogen 17 mg/dL (9-16); C Reactive Protein 3.59 mg/dL (< or = 0.50); Calcium 8.1 mg/dL (8.4-10.2); Carbon Dioxide 24 mmol/L (22-29); Chloride 108 mmol/L (96-108); Creatinine Clr Calc Pharmacy 78.1; Estimated Glomerular Filt Rate > 60; Glucose Random 102 mg/dL (60-115); Lactate Dehydrogenase 194 U/L (122-220); Sodium 141 mmol/L (135-145)
[2020-02-10] MEDS: guaiFENesin DM 600/30 1 TAB TAB.ER.12H PO ×2 (08:06→20:02)
[2020-02-10] MEDS: dexAMETHasone sod phosphate 4 MG/ML VIAL 6 MG IVPUSH (08:06)
[2020-02-10] MEDS: Cholecalciferol (Vitamin D3) 25 MCG TABLET 50 MCG PO (08:06)
[2020-02-10] MEDS: 0.9 % Sodium Chloride Flush 3 ML SYRINGE IVFLUSH ×3 (08:06→20:03)
[2020-02-10] MEDS: Benzonatate 100 MG CAPSULE 200 MG PO ×3 (08:07→20:02)
[2020-02-10] MEDS: Atorvastatin Calcium 10 MG TABLET PO (08:07)
[2020-02-10] MEDS: Escitalopram Oxalate 10 MG TABLET PO (08:07)
[2020-02-10 11:51] VITALS: BP 123/74; PULSE 71; RESP 20; TEMP 36.8; O2SAT 95
--- NOTE | 2020-02-10 13:40 | HO.PM.IMPN ---
Subjective Subjective Date of Service: 02/10/20 Interval History: the patient was seen and evaluated this morning Laying in bed, feels mildly short of breath, having some central chest pain related to cough Denies any fever, chills or chest pain Feels better overall since admission No reported other overnight events. Constitutional No fever, chills or weakness No chest pain, palpitation Reporting shortness of breath or coughing No abdominal pain, nausea or vomiting No urinary symptoms No any rash or wounds Physical Exam Vital Signs: Vital Signs: Last Vital Signs Temp 98.3 F 02/10/20 11:51 Pulse 71 02/10/20 11:51 Resp 20 02/10/20 11:51 BP 123/74 02/10/20 11:51 Pulse Ox 95 02/10/20 11:51 Body Mass Index 25.0 Constitutional : Alert, oriented, not in distress Neck : Normal inspection, Supple Cardiovascular : RRR, S1 S2, no lower extremity edema Respiratory : Fair bilateral air entry, bilateral basal rhonchi and crackles Gastrointestinal: soft, lax, Normal bowel sounds, Non tender Skin : Warm/Dry, No rash Neurological : Alert & oriented x3, No focal deficit Objective Data Current Medications Generic Name Dose Route Start Last Admin Trade Name Freq PRN Reason Stop Dose Admin Atorvastatin Calcium 10 mg 02/09/20 09:00 02/10/20 08:07 Atorvastatin Calcium 10 Mg Tablet PO 10 mg DAILY MYRA Administration Benzonatate 200 mg 02/09/20 11:00 02/10/20 08:07 Benzonatate 100 Mg Capsule PO 200 mg TID MYRA Administration Clonazepam 0.5 mg 02/09/20 08:28 02/09/20 20:57 Clonazepam 0.5 Mg Tablet PO 0.5 mg BEDTIME PRN Administration Anxiety Dexamethasone Sodium Phosphate 6 mg 02/09/20 13:00 02/10/20 08:06 Dexamethasone Sod Phosphate 4 Mg/Ml Vial IVPUSH 6 mg DAILY MYRA Administration Escitalopram Oxalate 10 mg 02/09/20 09:00 02/10/20 08:07 Escitalopram Oxalate 10 Mg Tablet PO 10 mg DAILY MYRA Administration Gabapentin 100 mg 02/09/20 21:00 02/09/20 20:57 Gabapentin 100 Mg Capsule PO 100 mg BEDTIME MYRA Administration Guaifenesin/Dextromethorphan 1 tab 02/09/20 11:00 02/10/20 08:06 Guaifenesin Dm 600/30 1 Tab Tab.Er.12h PO 1 tab BID MYRA Administration Heparin Sodium (Porcine) 5,000 unit 02/09/20 06:00 02/10/20 06:00 Heparin Sodium,Porcine 5,000 Unit/Ml Vial SUBCUT 5,000 unit Q8H MYRA Administration Omeprazole 20 mg 02/09/20 08:30 02/10/20 06:01 Omeprazole 20 Mg Capsule. PO 20 mg DAILY@0630 [facility] Administration Pharmacy Consult 1 each 02/08/20 19:37 Consult Rx Perform Med Rec MISCELLANE ONCE PRN Consult order Sodium Chloride 3 ml 02/09/20 04:38 02/10/20 08:06 0.9 % Sodium Chloride Flush 3 Ml Syringe IVFLUSH 3 ml QSHIFT MYRA Administration Topiramate 25 mg 02/09/20 16:00 02/09/20 15:09 Topiramate 25 Mg Tablet PO 25 mg DAILY@1600 MYRA Administration Vitamin D 50 mcg 02/09/20 09:00 02/10/20 08:06 Cholecalciferol (Vitamin D3) 25 Mcg Tablet PO 50 mcg DAILY MYRA Administration Labs CBC & Chem 7: 02/10/20 06:17 02/10/20 06:17 Microbiology Microbiology Results: Microbiology 02/08/20 15:37 Blood - Venous Blood Culture - Preliminary No growth after 24 hours. 02/08/20 15:35 Blood - Venous Blood Culture - Preliminary Assessment and Plan (1) COVID-19: Status: Acute (2) Community acquired pneumonia: Status: Acute (3) Asthma with exacerbation: Status: Acute (4) Sepsis: Status: Acute (5) Hypercholesteremia: Status: Acute (6) Psychiatric disorder: Status: Acute (7) GERD (gastroesophageal reflux disease): Status: Acute (8) Peripheral neuropathy: Status: Acute Assessment and Plan: A 59 years old lady who presents to the hospital with shortness of breath and cough. Found to have COVID infection. COVID-19 infection Stable, hopefully improving CXR showed no infiltrates discontinue antibiotics Continue dexamethasone continue O2 supplement as needed Pending culture Id input appreciated Cough medication Asthma exacerbation To give inhalers for now Mood Disorder continue citalopram, clonazepam and topiramate Peripheral neuropathy Gabapentin HLD Statin DVT PPX Heparin
[2020-02-10] MEDS: Topiramate 25 MG TABLET PO (14:09)
[2020-02-10 15:15] VITALS: BP 120/73; PULSE 70; RESP 18; TEMP 36.9; O2SAT 95
[2020-02-10 19:06] VITALS: BP 133/87; PULSE 68; RESP 18; TEMP 36.9; O2SAT 96
[2020-02-10] MEDS: Gabapentin 100 MG CAPSULE PO (20:02)
[2020-02-10] MEDS: clonazePAM 0.5 MG TABLET PO (20:02)
[2020-02-11] VITALS (10 sets, daily range): BP systolic 113–156; BP diastolic 65–84; PULSE 56–71; RESP 18; TEMP 35.8–37; O2SAT 93–98
[2020-02-11] MEDS: Omeprazole 20 MG CAPSULE.DR PO (06:11)
[2020-02-11] MEDS: Heparin Sodium,Porcine 5,000 UNIT/ML VIAL 5000 UNIT SUBCUT ×3 (06:11→20:14)
[2020-02-11 06:19] LABS: Hematocrit 35.7 % (37-47); Hemoglobin 11.7 g/dl (12.0-16.0); Mean Corpuscular HGB Conc 32.8 g/dl (31.0-35.0); Mean Corpuscular Hemoglobin 28.3 pg (27.0-33.0); Mean Corpuscular Volume 86.4 fL (80-98); Mean Platelet Volume 10.8 fL (9.4-12.3); Platelet Count 170 X10*3/uL (160-400); Red Blood Count 4.13 X10*6/uL (4.20-5.50); Red Cell Distribution Width 12.4 % (11.0-16.0); White Blood Count 7.9 X10*3/uL (4.8-10.8)
[2020-02-11 07:13] LABS: Anion Gap 11 (12-20); Blood Urea Nitrogen 21 mg/dL (9-16); Calcium 8.7 mg/dL (8.4-10.2); Carbon Dioxide 26 mmol/L (22-29); Chloride 107 mmol/L (96-108); Estimated Glomerular Filt Rate > 60; Glucose Random 94 mg/dL (60-115); Potassium 3.8 mmol/l (3.3-5.1); Sodium 140 mmol/L (135-145)
[2020-02-11] MEDS: Cholecalciferol (Vitamin D3) 25 MCG TABLET 50 MCG PO (07:32)
[2020-02-11] MEDS: guaiFENesin DM 600/30 1 TAB TAB.ER.12H PO ×2 (07:33→20:14)
[2020-02-11] MEDS: Atorvastatin Calcium 10 MG TABLET PO (07:33)
[2020-02-11] MEDS: Escitalopram Oxalate 10 MG TABLET PO (07:33)
[2020-02-11] MEDS: Benzonatate 100 MG CAPSULE 200 MG PO ×3 (07:33→20:14)
[2020-02-11] MEDS: dexAMETHasone sod phosphate 4 MG/ML VIAL 6 MG IVPUSH (07:33)
[2020-02-11] MEDS: 0.9 % Sodium Chloride Flush 3 ML SYRINGE IVFLUSH ×3 (07:34→20:14)
--- NOTE | 2020-02-11 08:28 | P.CDIC_ITS ---
CDI Concurrent Query Service Date: 02/11/20 Documentation Clarification: Please clarify if you are treating a proba ble/suspected/likely or confirmed: Sepsis, treated Sepsis, ruled out Provider Response: Other Other Diagnosis: Sepsis, ruled out PLEASE DO NOT DELETE/MODIFY EXISTING CONTENT Additional information is needed in order to code to the highest accuracy and appropriate Severity of Illness (SOI). Please clarify the information noted below in your progress notes and discharge summary. Risk Factors/Clinical Indicators/Treatments 59 year old female admitted with + COVID with worsening dyspnea, chills, cough, chest pain Per H&P: Sepsis, CAP, COVID, Asthma WBC 5.1 LA 1.2 T99.3, P 78, R 18, BP 136/91, SAT 94% on room air Per ID: no signs bacterial superinfection No antibiotic now. Recommend Decadron CDS: Jen Kay RN Contact Number: [phone] Please Review the information above and exercise your independent professional judgment in responding to the query. If you concur, pleas document in the PROGRESS NOTES and DISCHARGE SUMMARY. If you do not agree with the query, please document in the query above. THIS QUERY IS PART OF THE PERMANENT MEDICAL RECORD
[2020-02-11] MEDS: Acetaminophen 325 MG TABLET 650 MG PO (09:34)
--- NOTE | 2020-02-11 11:36 | P.PNIM_ITS ---
Subjective Subjective Interval History: the patient was seen and evaluated this morning Laying in bed, feels mildly short of breath but overall better Denies any fever, chills or chest pain No reported other overnight events. Review of Systems Review of Systems: Yes all other systems are reviewed and are negative Constitutional No fever, chills or weakness central mild chest pain with cough, palpitation mild shortness of breath , improving coughing No abdominal pain, nausea or vomiting No urinary symptoms No any rash or wounds back pain Physical Exam Vital Signs: Vital Signs: Last Vital Signs Temp 97.2 F 02/11/20 11:31 Pulse 68 02/11/20 11:31 Resp 18 02/11/20 11:31 BP 113/74 02/11/20 11:31 Pulse Ox 95 02/11/20 11:31 Body Mass Index 25.0 Constitutional : Alert, oriented, not in distress Neck : Normal inspection, Supple Cardiovascular : RRR, S1 S2, no lower extremity edema Respiratory : Fair bilateral air entry, bilateral basal rhonchi and crackles Gastrointestinal: soft, lax, Normal bowel sounds, Non tender Skin : Warm/Dry, No rash Neurological : Alert & oriented x3, No focal deficit Objective Data Current Medications Generic Name Dose Route Start Last Admin Trade Name Freq PRN Reason Stop Dose Admin Acetaminophen 650 mg 02/11/20 08:55 02/11/20 09:34 Acetaminophen 325 Mg Tablet PO 650 mg Q6H PRN Administration Pain and Fever Atorvastatin Calcium 10 mg 02/09/20 09:00 02/11/20 07:33 Atorvastatin Calcium 10 Mg Tablet PO 10 mg DAILY MYRA Administration Benzonatate 200 mg 02/09/20 11:00 02/11/20 07:33 Benzonatate 100 Mg Capsule PO 200 mg TID MYRA Administration Clonazepam 0.5 mg 02/09/20 08:28 02/10/20 20:02 Clonazepam 0.5 Mg Tablet PO 0.5 mg BEDTIME PRN Administration Anxiety Dexamethasone Sodium Phosphate 6 mg 02/09/20 13:00 02/11/20 07:33 Dexamethasone Sod Phosphate 4 Mg/Ml Vial IVPUSH 6 mg DAILY MYRA Administration Escitalopram Oxalate 10 mg 02/09/20 09:00 02/11/20 07:33 Escitalopram Oxalate 10 Mg Tablet PO 10 mg DAILY MYRA Administration Gabapentin 100 mg 02/09/20 21:00 02/10/20 20:02 Gabapentin 100 Mg Capsule PO 100 mg BEDTIME MYRA Administration Guaifenesin/Dextromethorphan 1 tab 02/09/20 11:00 02/11/20 07:33 Guaifenesin Dm 600/30 1 Tab Tab.Er.12h PO 1 tab BID MYRA Administration Heparin Sodium (Porcine) 5,000 unit 02/09/20 06:00 02/11/20 06:11 Heparin Sodium,Porcine 5,000 Unit/Ml Vial SUBCUT 5,000 unit Q8H MYRA Administration Omeprazole 20 mg 02/09/20 08:30 02/11/20 06:11 Omeprazole 20 Mg Capsule. PO 20 mg DAILY@0630 [facility] Administration Pharmacy Consult 1 each 02/08/20 19:37 Consult Rx Perform Med Rec MISCELLANE ONCE PRN Consult order Sodium Chloride 3 ml 02/09/20 04:38 02/11/20 07:34 0.9 % Sodium Chloride Flush 3 Ml Syringe IVFLUSH 3 ml QSHIFT [facility] Administration Topiramate 25 mg 02/09/20 16:00 02/10/20 14:09 Topiramate 25 Mg Tablet PO 25 mg DAILY@1600 [facility] Administration Vitamin D 50 mcg 02/09/20 09:00 02/11/20 07:32 Cholecalciferol (Vitamin D3) 25 Mcg Tablet PO 50 mcg DAILY MYRA Administration Labs CBC & Chem 7: 02/11/20 05:38 02/11/20 05:38 Microbiology Microbiology Results: Microbiology 02/08/20 15:37 Blood - Venous Blood Culture - Preliminary No growth after 48 hours. 02/08/20 15:35 Blood - Venous Blood Culture - Preliminary No growth after 48 hours. Assessment and Plan (1) COVID-19: Status: Acute (2) Community acquired pneumonia: Status: Acute (3) Asthma with exacerbation: Status: Acute (4) Sepsis: Status: Acute (5) Hypercholesteremia: Status: Acute (6) Psychiatric disorder: Status: Acute (7) GERD (gastroesophageal reflux disease): Status: Acute (8) Peripheral neuropathy: Status: Acute Assessment and Plan: A 59 years old lady who presents to the hospital with shortness of breath and cough. Found to have COVID infection. COVID-19 infection Stable, improving CXR showed no infiltrates discontinued antibiotics Continue dexamethasone Wean O2 down as tolerated negative culture Id input appreciated Cough medication Asthma exacerbation bronchodiltor inhalers for now Mood Disorder continue citalopram, clonazepam and topiramate Peripheral neuropathy Gabapentin HLD Statin DVT PPX Heparin
--- NOTE | 2020-02-11 12:06 | PC.NURSE ---
Addendum entered by Nicolasa Portillo RN 02/11/20 16:36: In afternoon pt still dizzy with ambulation, discussed w/. Order for orthos supine HR 61 BPo 122/78 sitting HR 64 BP 125/84 standing HR 70 BP 125/81 notified, no new orders at this timel; orthos negative- will follow up on dizziness again in am and ?if need PT eval- pt has been using call pablo anytime wants to get OOB to bathroom -encouraged pt to continue Original Note: Titrated pt down to room air satting mid 90s at this time. Pt still has nonproductive cough and is slightly PEREIRA but reports feeling better. 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 Pt did appear slighty unsteady while walking and was reminded to call again if she wanted to ambulate for safety reasons while still feeling some dizziness.
[2020-02-11] MEDS: Topiramate 25 MG TABLET PO (14:27)
[2020-02-11] MEDS: Gabapentin 100 MG CAPSULE PO (20:14)
[2020-02-12 03:52] VITALS: BP 106/64; PULSE 66; RESP 18; TEMP 37.1; O2SAT 92
[2020-02-12] MEDS: Heparin Sodium,Porcine 5,000 UNIT/ML VIAL 5000 UNIT SUBCUT (06:15)
[2020-02-12] MEDS: Omeprazole 20 MG CAPSULE.DR PO (06:15)
[2020-02-12 07:12] LABS: Hematocrit 37.7 % (37-47); Hemoglobin 12.4 g/dl (12.0-16.0); Mean Corpuscular HGB Conc 32.9 g/dl (31.0-35.0); Mean Corpuscular Hemoglobin 28.2 pg (27.0-33.0); Mean Corpuscular Volume 85.9 fL (80-98); Mean Platelet Volume 11.1 fL (9.4-12.3); Platelet Count 199 X10*3/uL (160-400); Red Blood Count 4.39 X10*6/uL (4.20-5.50); Red Cell Distribution Width 12.2 % (11.0-16.0); White Blood Count 9.3 X10*3/uL (4.8-10.8)
[2020-02-12 07:37] LABS: Anion Gap 11 (12-20); Blood Urea Nitrogen 20 mg/dL (9-16); Calcium 8.6 mg/dL (8.4-10.2); Carbon Dioxide 27 mmol/L (22-29); Chloride 108 mmol/L (96-108); Creatinine Clr Calc Pharmacy 69.9; Estimated Glomerular Filt Rate > 60; Glucose Random 79 mg/dL (60-115); Potassium 4.2 mmol/l (3.3-5.1); Sodium 142 mmol/L (135-145)
[2020-02-12] MEDS: Escitalopram Oxalate 10 MG TABLET PO (07:37)
[2020-02-12] MEDS: Benzonatate 100 MG CAPSULE 200 MG PO (07:37)
[2020-02-12] MEDS: Cholecalciferol (Vitamin D3) 25 MCG TABLET 50 MCG PO (07:37)
[2020-02-12] MEDS: Atorvastatin Calcium 10 MG TABLET PO (07:37)
[2020-02-12] MEDS: dexAMETHasone sod phosphate 4 MG/ML VIAL 6 MG IVPUSH (07:38)
[2020-02-12] MEDS: guaiFENesin DM 600/30 1 TAB TAB.ER.12H PO (07:38)
[2020-02-12] MEDS: 0.9 % Sodium Chloride Flush 3 ML SYRINGE IVFLUSH (07:38)
[2020-02-12 07:47] VITALS: BP 137/86; PULSE 67; RESP 18; TEMP 36.2; O2SAT 97
[2020-02-12 11:25] VITALS: BP 112/73; PULSE 86; RESP 18; TEMP 36.2; O2SAT 96
--- NOTE | 2020-02-12 11:27 | MHC.CM.PN ---
DC today to home no services. /transport.
--- NOTE | 2020-02-12 13:01 | P.DS_ITS ---
DS: Providers Provider Date of admission: 02/08/20 21:40 Primary care physician: Britni Tyler NP Consults: 02/09/20 04:38 Consult to Infectious Diseases Routine Consulting Provider: Infectious Disease Reason for consultation: asthma exacerbation Has provider been notified: No DS: Diagnosis Discharge Diagnosis (1) COVID-19: Status: Acute (2) Community acquired pneumonia: Status: Acute (3) Asthma with exacerbation: Status: Acute (4) Sepsis: Status: Acute DS: Summary Hospital Course Hospital Course: admission note HPI 59 y/o female with PMHx of asthma, anemia, diverticulosis, endometriosis, GERD, Psychiatric disorder, Peirpheral neuropathy and HLP who presented from home c/o SOB x 1 week. Per history provided by the patient, she has been having worsening difficulty breathing for the past week associated with dry cough, subjective fever, nausea, poor appetite and chest discomfort when coughing only. Patient reports that recently was tested for covid and found to be positive. On presentation to the ED patient was found to be tachycardic, tachypneic, BP of 134/82 mmHg, CT showing evidence of bilateral Lower lobe infiltrates concerning for PNA. Patient placed on isolation, given rocephin, zithromax and steroids. Decision for admission given. Patient seen and examined at the bedside, laying down in bed in no acute distress. ROS as above otherwise negative. Physical exam unremarkable. Hospital course The patient was admitted to the hospital for treatment of COVID-19 infection. Her chest x-ray did not show any specific infiltrates. She was started on IV antibiotics which was later discontinued. Evaluated by infectious disease and treated with oxygen supplement, dexamethasone, bronchodilator inhalers and cough medicine with good response. Blood cultures remain negative during the hospital stay. She was weaned off the oxygen slowly over the course of hospital stay. To be discharged home on doxepin methadone orally to finish total of 10 Time Spent with Patient Time attestation: Total time spent providing and/or coordinating discharge services: Physical Exam Vital Signs: Vital Signs: Last Vital Signs Temp 97.1 F 02/12/20 11:25 Pulse 86 02/12/20 11:25 Resp 18 02/12/20 11:25 BP 112/73 02/12/20 11:25 Pulse Ox 96 02/12/20 11:25 Body Mass Index 25.0 Constitutional : Alert, oriented, not in distress Neck : Normal inspection, Supple Cardiovascular : RRR, S1 S2, no lower extremity edema Respiratory : good bilateral air entry, Scattered wheezes, no rhonchi and crackles Gastrointestinal: soft, lax, Normal bowel sounds, Non tender Skin : Warm/Dry, No rash Neurological : Alert & oriented x3, No focal deficit DS: Data Data Completed and Pending Labs on day of discharge: 02/08/20 13:27 XR chest 1V Stat 0.9 % Sodium Chloride [Ns] 500 ml IV 500 mls/hr 02/08/20 13:29 dexAMETHasone sod phosphate [Decadron] 6 mg IVPUSH ONCE ONE 02/08/20 13:34 Azithromycin [Zithromax] 500 mg 0.9 % Sodium Chloride [Ns] 250 ml IV ONCE cefTRIAXone sodium [Rocephin] 1 gm 0.9 % Sodium Chloride [Ns] 50 ml IV ONCE 02/08/20 13:35 Albuterol Sulfate [Ventolin] 4 puff INHALE ONCE ONE 02/08/20 15:35 B Type Natriuretic Peptide Stat Complete Blood Count Auto Diff Stat Comprehensive Met. Panel Stat D Dimer Stat Lactate Dehydrogenase Stat Lactic Acid Stat Partial Thromboplastin Time Stat Procalcitonin Stat Prothrombin Time INR Stat SLIDE REVIEW Stat Troponin-I High Sensitivity Stat 02/08/20 16:37 Azithromycin [Zithromax] 500 mg IV .STK-MED ONE cefTRIAXone sodium [Rocephin] 1 gm .ROUTE .STK-MED ONE 02/08/20 16:54 CT angio chest PE protocol Stat 02/08/20 17:05 UA CC w/rflx Micro + Cult Stat 02/08/20 19:00 iohexoL 350 MG/ML [Omnipaque 350 MG/ML] 100 ml IV ONCE ONE 02/08/20 21:35 clonazePAM [KlonoPIN] 0.5 mg PO BEDTIME PRN 02/08/20 21:40 Transfer Order Routine 02/09/20 01:50 SARS COV2 PCR INHOUSE Stat 02/09/20 06:18 Basic Metabolic Panel Routine Complete Blood Count Auto Diff Routine SLIDE REVIEW Routine 02/09/20 08:34 Doxycycline Hyclate [Vibramycin] 100 mg IV .STK-MED ONE 02/09/20 09:00 Atorvastatin Calcium [Lipitor] 10 mg PO DAILY Cholecalciferol (Vitamin D3) [Vitamin D3] 50 mcg PO DAILY Doxycycline Hyclate [Vibramycin] 100 mg 0.9 % Sodium Chloride [Ns] 250 ml IV Q12H Escitalopram Oxalate [Lexapro] 10 mg PO DAILY Gabapentin [Neurontin] 100 mg PO BID Gabapentin [Neurontin] 100 mg PO BID Omeprazole [PriLOSEC] 20 mg PO DAILY Topiramate [Topamax] 50 mg PO BID Topiramate [Topamax] 50 mg PO BID 02/09/20 Breakfast Cardiac Diet 02/09/20 15:00 cefTRIAXone sodium [Rocephin] 1 gm .ROUTE .STK-MED ONE 02/09/20 16:00 cefTRIAXone sodium [Rocephin] 1 gm 0.9 % Sodium Chloride [Ns] 50 ml IV Q24H 02/09/20 21:00 Topiramate [Topamax] 25 mg PO BEDTIME Topiramate [Topamax] 25 mg PO BEDTIME 02/10/20 06:17 Basic Metabolic Panel DAILY@0600 C Reactive Protein Routine Complete Blood Count Auto Diff DAILY@0600 D Dimer Routine Lactate Dehydrogenase Routine 02/11/20 05:38 Basic Metabolic Panel DAILY@0600 Complete Blood Count no Diff DAILY@0600 02/12/20 05:52 Basic Metabolic Panel DAILY@0600 Complete Blood Count no Diff DAILY@0600 Laboratory Last Values WBC 9.3 X10*3/uL (4.8-10.8) 02/12/20 05:52 RBC 4.39 X10*6/uL (4.20-5.50) 02/12/20 05:52 Hgb 12.4 g/dl (12.0-16.0) 02/12/20 05:52 Hct 37.7 % (37-47) 02/12/20 05:52 MCV 85.9 fL (80-98) 02/12/20 05:52 MCH 28.2 pg (27.0-33.0) 02/12/20 05:52 MCHC 32.9 g/dl (31.0-35.0) 02/12/20 05:52 RDW 12.2 % (11.0-16.0) 02/12/20 05:52 Plt Count 199 X10*3/uL (160-400) 02/12/20 05:52 MPV 11.1 fL (9.4-12.3) 02/12/20 05:52 Immature Gran % (Auto) 0.4 % (0.0-0.4) 02/10/20 06:17 Neut % (Auto) 68.4 % (45-73) 02/10/20 06:17 Lymph % (Auto) 21.6 % (20-40) 02/10/20 06:17 [place] % (Auto) 9.6 % (2-11) 02/10/20 06:17 Eos % (Auto) 0.0 % (0-4) 02/10/20 06:17 Baso % (Auto) 0.0 % (0-2) 02/10/20 06:17 Lymph # (Auto) 1.5 X10*3/uL (1.2-4.9) 02/10/20 06:17 [place] # (Auto) 0.7 X10*3/uL (0.1-1.2) 02/10/20 06:17 Eos # (Auto) 0.0 X10*3/uL (0.0-0.4) 02/10/20 06:17 Baso # (Auto) 0.0 X10*3/uL (0.0-0.2) 02/10/20 06:17 Abs Immat Gran (auto) 0.03 X10*3/uL (0.00-0.03) 02/10/20 06:17 Absolute Neuts (auto) 4.7 X10*3/uL (2.0-8.3) 02/10/20 06:17 Absolute Nucleated RBC 0.000 X10*3/uL (0.0-0.012) 02/12/20 05:52 Nucleated RBC % (auto) 0.0 /100WBC (0.0-0.2) 02/12/20 05:52 Smear Tech's Comments VERIFIED 02/09/20 06:18 PT 13.5 SEC (10.8-13.0) H 02/08/20 15:35 INR 1.1 (0.9-1.1) 02/08/20 15:35 APTT 31.7 SEC (24.1-38.0) 02/08/20 15:35 D-Dimer 429 NG/ML 02/10/20 06:17 Sodium 142 mmol/L (135-145) 02/12/20 05:52 Potassium 4.2 mmol/l (3.3-5.1) 02/12/20 05:52 Chloride 108 mmol/L (96-108) 02/12/20 05:52 Carbon Dioxide 27 mmol/L (22-29) 02/12/20 05:52 Anion Gap 11 (12-20) L 02/12/20 05:52 BUN 20 mg/dL (9-16) H 02/12/20 05:52 Creatinine 0.76 mg/dL (0.5-1.4) 02/12/20 05:52 Estim Creat Clear Calc 69.9 02/12/20 05:52 Estimated GFR > 60 02/12/20 05:52 Random Glucose 79 mg/dL (60-115) 02/12/20 05:52 Lactic Acid 1.2 mmol/L (0.5-2.0) 02/08/20 15:35 Calcium 8.6 mg/dL (8.4-10.2) 02/12/20 05:52 Total Bilirubin 0.7 mg/dL (0.0-1.0) 02/08/20 15:35 AST 25 U/L (5-31) 02/08/20 15:35 ALT 16 U/L (0-31) 02/08/20 15:35 Alkaline Phosphatase 95 U/L (39-117) 02/08/20 15:35 Lactate Dehydrogenase 194 U/L (122-220) 02/10/20 06:17 Troponin I High Sens < 3.5 ng/L (<3.5-17.0) 02/08/20 15:35 C-Reactive Protein 3.59 mg/dL (< or = 0.50) H 02/10/20 06:17 B-Natriuretic Peptide < 10 pg/mL (<100) 02/08/20 15:35 Total Protein 8.4 g/dL (6.5-8.0) H 02/08/20 15:35 Albumin 4.5 g/dL (3.5-5.0) 02/08/20 15:35 Procalcitonin 0.08 ng/mL 02/08/20 15:35 Urine Color YELLOW 02/08/20 17:05 Urine Appearance CLEAR 02/08/20 17:05 Urine pH 6.0 (5.0-8.0) 02/08/20 17:05 Ur Specific [place] 1.010 (1.005-1.025) 02/08/20 17:05 Urine Protein NEG MG/DL (NEG-TRACE) 02/08/20 17:05 Urine Glucose (UA) NEG MG/DL (NEG) 02/08/20 17:05 Urine Ketones 15 MG/DL (NEG) 02/08/20 17:05 Urine Blood NEG (NEG) 02/08/20 17:05 Urine Nitrite NEG (NEG) 02/08/20 17:05 Ur Leukocyte Esterase NEG (NEG) 02/08/20 17:05 Coronavirus (PCR) POSITIVE (Negative) A 02/09/20 01:50 Preliminary micro results at discharge 02/08/20 15:37 Blood Culture - Preliminary Blood - Venous No growth after 48 hours. 02/08/20 15:35 Blood Culture - Preliminary Blood - Venous No growth after 48 hours. Discharge Plan Discharge Patient Disposition: Home, Self-Care Referrals: Britni Tyler NP [Primary Care Provider] - Discharge Medications: New benzonatate 100 mg Capsule 200 mg PO TID PRN (Reason: Cough) Qty: 30 RF: 0 Mucinex DM 30-600 mg Tablet Extended Release 12 Hr 1 tab PO BID Qty: 12 RF: 0 dexamethasone 6 mg tablet 6 mg PO DAILY Qty: 5 RF: 0 Continued clonazepam 0.5 mg Tablet 0.5 mg PO BEDTIME PRN (Reason: Anxiety) RF: 0 penicillin V potassium 500 mg Tablet 500 mg PO TID RF: 0 topiramate 25 mg Tablet 25 mg PO DAILY@1600 RF: 0 citalopram 20 mg Tablet 20 mg PO DAILY RF: 0 pantoprazole 40 mg Tablet,Delayed Release (Dr/Ec) 40 mg PO DAILY RF: 0 simvastatin 20 mg Tablet 20 mg PO BEDTIME RF: 0 gabapentin 100 mg Capsule 100 mg PO BEDTIME RF: 0 Prempro 0.625-2.5 mg Tablet 1 tab PO DAILY RF: 0 loratadine 10 mg Tablet 10 mg PO DAILY RF: 0 cholecalciferol (vitamin D3) [Vitamin D3] 50 mcg (2,000 unit) Tablet 50 mcg PO DAILY RF: 0 Discharge Orders: Discharge Order (Routine); Ordered 02/12/20 Ordered By: Geraldine Prince Diet: advance to your usual diet Activity on Discharge: As tolerated Visit Report Forms: Patient Portal Discharge page Care Plan Goals: read below Health Concerns: read below Plan of Treatment: you were admitted to the hospital for treatment of difficulty breathing and cough. Found to COVID-19 infection. Evaluated by infectious disease and treated with steroids, Oxygen supplement, breathing treatment with good r esponse as you were weaned off the oxygen. Keep yourself in quarantine for at least 1 week Continue dexamethasone for 5 more days Cough medicine as needed To follow-up with PCP within the next 2 weeks.
== END 2020-02-12 13:38 | disposition home or self-care (01) | DRG 137 ==
LOC: HO.ED 23:04 → HO.IMC 02-09 02:59
PROVIDERS: Nurse Practitioner Primary Care; Admitting Provider Internal Medicine; Emergency Provider Internal Medicine; PCP Nurse Practitioner Family; Visit Provider Student in an Organized Health Care Education/Training Program
DX: U07.1 COVID-19 (principal); J18.9 Pneumonia, unspecified organism; J45.41 Moderate persistent asthma with (acute) exacerbation; G62.9 Polyneuropathy, unspecified; E78.5 Hyperlipidemia, unspecified; Z87.891 Personal history of nicotine dependence; Z79.890 Hormone replacement therapy; Z79.899 Other long term (current) drug therapy
CPT/HCPCS: 36415; 71045; 71275; 80048; 80053; 81003; 83605; 83615; 83880; 84145; 84484; 85025; 85027; 85379; 85610; 85730; 86140; 87040; 94640; 96361; 96365; 96367; 96375; 99285; J0456; J0696; J1100; Q9967; U0003

== ENCOUNTER → 2020-07-25 13:03 | Outpatient (BNVA) | payer MEDICAID, SELFPAY | PROVIDERS: PCP Nurse Practitioner Family; Visit Provider Student in an Organized Health Care Education/Training Program | DX: M25.50 Pain in unspecified joint (principal) | CPT/HCPCS: 99212 ==

== ENCOUNTER 2020-07-31 17:49 | Emergency (ER) | payer MEDICAID, SELFPAY ==
[2020-07-31 17:52] VITALS: BP 157/93; PULSE 72; RESP 20; TEMP 37; O2SAT 98; BMI 26.4
[2020-07-31 19:17] VITALS: BP 137/93; PULSE 79; RESP 18; O2SAT 98
--- NOTE | 2020-07-31 19:19 | PC.NURSE ---
Pt aaox4, sitting on stretcher in NAD, breathing with ease on RA. Pt reports she received covid vaccine #2 today and immediately afterwards felt severe pain in R shoulder, R axilla with radiation up to R side of neck with movement. +CMS intact though motor is limited 2/2 pain. Pt RR even and unlabored, neuros grossly intact. Stretcher in lowest locked position, rails raised, call pablo within reach.
--- NOTE | 2020-07-31 20:25 | ED.GENADULT ---
HPI - General Adult General Source: patient and family Mode of arrival: ambulatory Limitations: no limitations History of Present Illness HPI narrative: Patient had 2nd dose of Moderna vaccine today to her right deltoid and now complains of her whole arm very painful. Complains of neck pain and body aches. She denies SOB, fever or chills. Related Data Home Medications Medication Instructions Recorded Confirmed Prempro 1 tab PO DAILY 02/08/20 07/25/20 cholecalciferol (vitamin D3) 50 mcg PO DAILY 02/08/20 07/25/20 [Vitamin D3] citalopram 20 mg PO DAILY 02/08/20 07/25/20 clonazepam 0.5 mg PO BEDTIME PRN 02/08/20 07/25/20 loratadine 10 mg PO DAILY 02/08/20 07/25/20 pantoprazole 40 mg PO DAILY 02/08/20 07/25/20 simvastatin 20 mg PO BEDTIME 02/08/20 07/25/20 dextromethorphan-guaifenesin 30 1 tab PO BID tab 07/25/20 07/25/20 mg-600 mg tablet extended [id number] hr Previous Rx's Medication Instructions Recorded gabapentin 100 mg capsule 100 mg PO BEDTIME #90 cap 07/25/20 Allergies Allergy/AdvReac Type Severity Reaction Status Date / Time erythromycin base Allergy Mild SWELLING/STOMACH Verified 07/25/20 13:10 [Erythromycin Base] PAIN/ORAL BLISTERS aspirin [ASA] Allergy Unknown STOMACH Verified 07/25/20 13:10 PAIN tramadol [TRAMADOL] AdvReac Unknown DIZZY,NAUSE Verified 07/25/20 13:10 A Review of Systems Review of Systems: Yes all other systems are reviewed and are negative [facility] Past Medical History Medical History Asthma GERD (gastroesophageal reflux disease) Hypercholesteremia Peripheral neuropathy Psychiatric disorder Social History Social History Household Members: Family Housing: House Alcohol intake: never Smoking Status: Former smoker Second Hand Smoke Exposure: No Advance Directives: No Advance Directives Information Provided: Yes service: No Current occupational status: disabled Physical Exam Vital Signs: Vital Signs: Last Vital Signs Temp 98.6 F 07/31/20 17:52 Pulse 79 07/31/20 19:17 Resp 18 07/31/20 19:17 BP 137/93 H 07/31/20 19:17 Pulse Ox 98 07/31/20 19:17 Body Mass Index 26.4 Const: General: healthy appearing, no acute distress and well developed Nutritional Appearance: well nourished Orientation/consciousness: patient oriented x3 Neck: Neck: Yes normal visual inspection, Yes full ROM and Yes trachea midline Thyroid: Thyroid normal Resp: Auscultation: clear to auscultation bilaterally Cardio: Rate: regular rate Rhythm: regular rhythm GI: Inspection: Yes normal to inspection and No distended Palpation (GI): No hepatosplenomegaly present Auscultation: normal bowel sounds Skin: General skin exam: elasticity normal, turgor normal and dry skin Trauma: other (1 mm puncture from vaccine.) Neuro: General: patient oriented x3 Course Course Course Narrative: Patient received her 2nd dose of COVID vaccine and complains of right arm pain. Area of the injection site examined and negative for bruising, swelling or redness. Patient has good ROM. Patient is afebrile. Vital signs reviewed and normal except for blood pressure her diastolic pressure is elevated Discharge Plan Discharge Clinical Impression: Injection site irritation Patient Disposition: Home, Self-Care Instructions: Arm Pain (ED) Additional Instructions: You received COVID-19 vaccine today. One of the side effects of the vaccine is injection site pain, body aches. Please put warm compress to the site. Monitor for worsening symptoms. Do not take ibuprofen for the next 24 hours. Please follow-up with your primary care doctor in the next 2-3 days. You may return to emergency department with worsening symptoms or any other concerning symptoms. Prescriptions: No Action clonazepam 0.5 mg Tablet 0.5 mg PO BEDTIME PRN (Reason: Anxiety) RF: 0 citalopram 20 mg Tablet 20 mg PO DAILY RF: 0 pantoprazole 40 mg Tablet,Delayed Release (Dr/Ec) 40 mg PO DAILY RF: 0 simvastatin 20 mg Tablet 20 mg PO BEDTIME RF: 0 Prempro 0.625-2.5 mg Tablet 1 tab PO DAILY RF: 0 loratadine 10 mg Tablet 10 mg PO DAILY RF: 0 cholecalciferol (vitamin D3) [Vitamin D3] 50 mcg (2,000 unit) Tablet 50 mcg PO DAILY RF: 0 Mucinex DM 30-600 mg tablet extended release 12 hr 1 tab PO BID RF: 0 gabapentin 100 mg capsule 100 mg PO BEDTIME Qty: 90 RF: 1 Interventions: ED Discharge Assessment Last Done: 07/31/20 20:46 Discharge Date/Time: 07/31/20 20:47
== END 2020-07-31 20:47 | disposition home or self-care (01) ==
PROVIDERS: Emergency Provider Internal Medicine
DX: M79.621 Pain in right upper arm (principal); T50.B95A Adverse effect of other viral vaccines, initial encounter; X58.XXXA Exposure to other specified factors, initial encounter
CPT/HCPCS: 99282; 99284

== ENCOUNTER 2020-12-09 14:54 | Outpatient (REF) | payer MEDICAID, SELFPAY ==
--- NOTE | ~2020-12-09 | MM_ITS ---
EXAMINATION: MM SCREENING DIGITAL BREAST TOMOSYNTHESIS, BILATERAL CLINICAL INFORMATION: Screening. Asymptomatic. The lifetime risk of breast cancer based on the Tyrer-Cuzick Model is 8%. COMPARISON: Mammography: 12/03/2019, 11/24/2018, 11/22/2017 TECHNIQUE: Digital breast tomosynthesis is performed in both the craniocaudal and mediolateral oblique views along with computer-aided detection (CAD). Synthesized 2D images are generated from the tomosynthesis. FINDINGS: There are scattered areas of fibroglandular density (ACR BI-RADS breast composition Category b). Breast tissue composition borders on heterogeneously dense. There is fine fibronodular parenchymal pattern with minor asymmetries similar to prior studies. There is no significant mass or architectural abnormality or abnormal calcifications. Dermal lesion again seen overlying the posterior upper outer left breast. The axilla are unremarkable. There are no significant changes. MM/MM tomosynthesis screening BI IMPRESSION: No mammographic evidence of malignancy. ASSESSMENT: BI-RADS 2: Benign RECOMMENDATION: Routine annual mammography screening. This patient's information was entered into a reminder system with a target due date for their next mammogram.
== END 2020-12-09 14:55 | disposition home or self-care (01) ==
LOC: HO.MAMMO 14:54
PROVIDERS: Visit Provider Nurse Practitioner Family
DX: Z12.31 Encounter for screening mammogram for malignant neoplasm of breast (principal)
CPT/HCPCS: 77063; 77067

== ENCOUNTER 2021-07-04 08:02 | Outpatient (REF) | payer MEDICAID, SELFPAY ==
[2021-07-04 08:28] LABS: MANUAL DIFF FLAG NO
[2021-07-04 09:31] LABS: Eosinophils Absolute Auto 0.2 X10*3/uL (0.0-0.4); Eosinophils Percent Auto 3.9 % (0-4); Hematocrit 38.4 % (37.0-47.0); Hemoglobin 12.7 g/dl (12.0-16.0); Imm Gran Abs Auto 0.01 X10*3/uL (0.00-0.03); Imm Gran Pct Auto 0.3 % (0.0-0.4); Lymphocytes Absolute Auto 1.7 X10*3/uL (1.2-4.9); Lymphocytes Percent Auto 43.4 % (20-40); Mean Corpuscular HGB Conc 33.1 g/dl (31.0-35.0); Mean Corpuscular Hemoglobin 28.2 pg (27.0-33.0); Mean Corpuscular Volume 85.3 fL (80.0-98.0); Monocytes Absolute Auto 0.6 X10*3/uL (0.1-1.2); Monocytes Percent Auto 14.5 % (2-11); Neutrophils Absolute Auto 1.4 x10*3/uL (2.0-8.3); Neutrophils Percent Auto 36.9 % (45-73); Platelet Count 232 X10*3/uL (160-400); Red Cell Distribution Width 13.2 % (11.0-16.0); White Blood Count 3.9 X10*3/uL (4.8-10.8)
[2021-07-04 09:36] LABS: Estimated Average Glucose 114 mg/dL; Hemoglobin A1c % 5.6 %
[2021-07-04 10:12] LABS: Alanine Aminotransferase 13 U/L (0-31); Albumin Level 4.3 g/dL (3.5-5.0); Alkaline Phosphatase 127 U/L (39-117); Anion Gap 13 (12-20); Aspartate Amino Transferase 18 U/L (5-31); Bilirubin Total 0.6 mg/dL (0.0-1.0); Blood Urea Nitrogen 17 mg/dL (9-16); Calcium 9.7 mg/dL (8.4-10.2); Carbon Dioxide 27 mmol/L (22-29); Chloride 106 mmol/L (96-108); Cholesterol 192 mg/dL; Estimated Glomerular Filt Rate > 60; Glucose Random 90 mg/dL (60-115); HDL Cholesterol 47 mg/dL; LDL Cholesterol Calculated 133 mg/dl; Potassium 4.3 mmol/L (3.3-5.1); Sodium 142 mmol/L (135-145); Total Protein 7.7 g/dL (6.5-8.0); Triglycerides 62 mg/dL
[2021-07-04 10:17] LABS: TSH reflex Free T4 0.74 uIU/mL (0.32-4.0); Vitamin D 25-OH Total 26.8 ng/mL (>30)
[2021-07-06 08:45] LABS: Vitamin B12 307 pg/mL (200-900)
== END 2021-07-04 08:03 | disposition home or self-care (01) ==
LOC: HO.LAB 08:02
PROVIDERS: PCP Internal Medicine; Visit Provider Internal Medicine
DX: E53.8 Deficiency of other specified B group vitamins (principal); E55.9 Vitamin D deficiency, unspecified; E78.2 Mixed hyperlipidemia; J45.30 Mild persistent asthma, uncomplicated; M06.9 Rheumatoid arthritis, unspecified; R51.9 Headache, unspecified
CPT/HCPCS: 36415; 80053; 80061; 82306; 82607; 83036; 84443; 85025

== ENCOUNTER 2021-08-07 14:27 | Outpatient (REF) | payer MEDICAID, SELFPAY ==
--- NOTE | ~2021-08-07 | MM_ITS ---
EXAMINATION: BONE DENSITOMETRY CLINICAL INDICATION: Menopause. COMPARISON: Baseline BD dated 08/14/2009. TECHNIQUE: Using a [employer] DXA System (software version: 13.1) manufactured by [employer], dual-energy x-ray absorptiometry was performed of the lumbar spine and left hip. The images are of good technical quality. Summary results are attached. FINDINGS: AP SPINE L1-L4: Current: BMD 1.116 g/cm2, Z-score 0.8, T-score -0.5, normal, 6.3% decrease from baseline (<5% change is not significant). Baseline: BMD 1.191 g/cm2. LEFT FEMUR, NECK: Current: BMD 0.896 g/cm2, Z-score 0.3, T-score -1.0, normal. Baseline: BMD 1.052 g/cm2. LEFT FEMUR, TOTAL: Current: BMD 0.894 g/cm2, Z-score 0.1, T-score -0.9, normal, 14.7% decrease from baseline (<5% change is not significant). Baseline: BMD 1.048 g/cm2. IDENTIFIED RISK FACTORS: Rheumatoid arthritis, height loss, menopause, right oophorectomy. HISTORY OF FRACTURE: None listed. MEDICATIONS: Calcium supplements or multivitamin, vitamin D. MM/XR DEXA axial skeleton IMPRESSION: 1. DIAGNOSIS: Normal bone density based on the lowest T-score value of -1.0 in the femoral neck applying World Health Organization criteria. 2. 10-YEAR FRACTURE RISK PREDICTION, FRAX: Major osteoporotic fracture (clinical spine, forearm, hip or shoulder) 5.5%. Hip fracture 0.4%. 3. Treatment Recommendations: NOF guidelines recommend consideration for treatment in postmenopausal women and men age 50 and older presenting with the following: -A hip or vertebral (clinical or morphometric) fracture. -T-score less than or equal to -2.5 at the femoral neck or spine after appropriate evaluation to exclude secondary causes. -Low bone mass at the hip or spine and a 10-year fracture probability by FRAX of greater than or equal to 3% for hip fracture or greater than or equal to 20% for major osteoporotic fracture based on the [place] adapted WHO algorithm. 4. Other Recommendations: All treatment decisions require clinical judgment and consideration of individual patient factors, including patient preferences, comorbidities, previous drug use, risk factors not captured in the FRAX model (e.g. frailty, falls, vitamin D deficiency, increased bone turnover, interval significant decline in bone density) and possible under or overestimation of fracture risk by FRAX. FUTURE SCAN RECOMMENDATION: People with diagnosed cases of osteoporosis or at high risk for fracture should have regular bone mineral density tests. For patients eligible for Medicare, routine testing is allowed once every 2 years. The testing frequency can be increased to one year for patients who have rapidly progressing disease, those who are receiving or discontinuing medical therapy to restore bone mass, or have additional risk factors.
== END 2021-08-07 14:28 | disposition home or self-care (01) ==
LOC: HO.MAMMO 14:27
PROVIDERS: PCP Internal Medicine; Visit Provider Internal Medicine
DX: Z13.820 Encounter for screening for osteoporosis (principal); Z78.0 Asymptomatic menopausal state; M06.9 Rheumatoid arthritis, unspecified; Z90.721 Acquired absence of ovaries, unilateral
CPT/HCPCS: 77080

== ENCOUNTER → 2021-09-01 13:57 | Outpatient (BNVA) | payer MEDICAID, SELFPAY | PROVIDERS: PCP Nurse Practitioner Family; Visit Provider Nurse Practitioner Family | DX: M25.50 Pain in unspecified joint (principal); M79.671 Pain in right foot; M79.672 Pain in left foot; M25.512 Pain in left shoulder | CPT/HCPCS: 99212 ==

== ENCOUNTER 2021-09-21 08:55 | Outpatient (REF) | payer MEDICAID, SELFPAY ==
--- NOTE | ~2021-09-21 | XR_ITS ---
EXAMINATION: XR FOOT, BILATERAL XR HAND, BILATERAL XR SHOULDER, LEFT CLINICAL INFORMATION: Pain left shoulder. Pain bilateral hand and foot. COMPARISON: None TECHNIQUE: 3 views each foot, 4 views left shoulder, 3 views each hand. FINDINGS: LEFT SHOULDER: The glenohumeral and AC joint space is maintained normal. No acute fracture, dislocation or subluxation seen. No bony erosive changes. No soft tissue calcification. RIGHT HAND: There is mild loss of PIP and DIP joint spaces without bony erosive changes or spurring. No acute fracture or dislocation. LEFT HAND: There is no visible acute fracture, dislocation or bony erosive changes. Mild loss of PIP and DIP joint space is seen without any periarticular spurring or soft tissue abnormality. RIGHT FOOT: The ankle mortise and subtalar joints are normal. The joint spaces are maintained normal. No visible bony abnormality, fracture or dislocation. The soft tissues are normal. LEFT FOOT: There is maintained joint space. The ankle mortise and subtalar joints are normal. No visible acute fracture or dislocation seen. XR/XR foot RT 2V IMPRESSION: Unremarkable bilateral foot exam. Unremarkable left shoulder exam. Mild reduction of bilateral PIP and DIP joints but no periarticular spurring or bony erosive changes. Suspect diffuse mild osteopenia.
--- NOTE | ~2021-09-21 | XR_ITS ---
EXAMINATION: XR FOOT, BILATERAL XR HAND, BILATERAL XR SHOULDER, LEFT CLINICAL INFORMATION: Pain left shoulder. Pain bilateral hand and foot. COMPARISON: None TECHNIQUE: 3 views each foot, 4 views left shoulder, 3 views each hand. FINDINGS: LEFT SHOULDER: The glenohumeral and AC joint space is maintained normal. No acute fracture, dislocation or subluxation seen. No bony erosive changes. No soft tissue calcification. RIGHT HAND: There is mild loss of PIP and DIP joint spaces without bony erosive changes or spurring. No acute fracture or dislocation. LEFT HAND: There is no visible acute fracture, dislocation or bony erosive changes. Mild loss of PIP and DIP joint space is seen without any periarticular spurring or soft tissue abnormality. RIGHT FOOT: The ankle mortise and subtalar joints are normal. The joint spaces are maintained normal. No visible bony abnormality, fracture or dislocation. The soft tissues are normal. LEFT FOOT: There is maintained joint space. The ankle mortise and subtalar joints are normal. No visible acute fracture or dislocation seen. XR/XR foot LT 2V IMPRESSION: Unremarkable bilateral foot exam. Unremarkable left shoulder exam. Mild reduction of bilateral PIP and DIP joints but no periarticular spurring or bony erosive changes. Suspect diffuse mild osteopenia.
--- NOTE | ~2021-09-21 | XR_ITS ---
EXAMINATION: XR FOOT, BILATERAL XR HAND, BILATERAL XR SHOULDER, LEFT CLINICAL INFORMATION: Pain left shoulder. Pain bilateral hand and foot. COMPARISON: None TECHNIQUE: 3 views each foot, 4 views left shoulder, 3 views each hand. FINDINGS: LEFT SHOULDER: The glenohumeral and AC joint space is maintained normal. No acute fracture, dislocation or subluxation seen. No bony erosive changes. No soft tissue calcification. RIGHT HAND: There is mild loss of PIP and DIP joint spaces without bony erosive changes or spurring. No acute fracture or dislocation. LEFT HAND: There is no visible acute fracture, dislocation or bony erosive changes. Mild loss of PIP and DIP joint space is seen without any periarticular spurring or soft tissue abnormality. RIGHT FOOT: The ankle mortise and subtalar joints are normal. The joint spaces are maintained normal. No visible bony abnormality, fracture or dislocation. The soft tissues are normal. LEFT FOOT: There is maintained joint space. The ankle mortise and subtalar joints are normal. No visible acute fracture or dislocation seen. XR/XR hand RT min 3V IMPRESSION: Unremarkable bilateral foot exam. Unremarkable left shoulder exam. Mild reduction of bilateral PIP and DIP joints but no periarticular spurring or bony erosive changes. Suspect diffuse mild osteopenia.
--- NOTE | ~2021-09-21 | XR_ITS ---
EXAMINATION: XR FOOT, BILATERAL XR HAND, BILATERAL XR SHOULDER, LEFT CLINICAL INFORMATION: Pain left shoulder. Pain bilateral hand and foot. COMPARISON: None TECHNIQUE: 3 views each foot, 4 views left shoulder, 3 views each hand. FINDINGS: LEFT SHOULDER: The glenohumeral and AC joint space is maintained normal. No acute fracture, dislocation or subluxation seen. No bony erosive changes. No soft tissue calcification. RIGHT HAND: There is mild loss of PIP and DIP joint spaces without bony erosive changes or spurring. No acute fracture or dislocation. LEFT HAND: There is no visible acute fracture, dislocation or bony erosive changes. Mild loss of PIP and DIP joint space is seen without any periarticular spurring or soft tissue abnormality. RIGHT FOOT: The ankle mortise and subtalar joints are normal. The joint spaces are maintained normal. No visible bony abnormality, fracture or dislocation. The soft tissues are normal. LEFT FOOT: There is maintained joint space. The ankle mortise and subtalar joints are normal. No visible acute fracture or dislocation seen. XR/XR shoulder LT min 2V IMPRESSION: Unremarkable bilateral foot exam. Unremarkable left shoulder exam. Mild reduction of bilateral PIP and DIP joints but no periarticular spurring or bony erosive changes. Suspect diffuse mild osteopenia.
--- NOTE | ~2021-09-21 | XR_ITS ---
EXAMINATION: XR FOOT, BILATERAL XR HAND, BILATERAL XR SHOULDER, LEFT CLINICAL INFORMATION: Pain left shoulder. Pain bilateral hand and foot. COMPARISON: None TECHNIQUE: 3 views each foot, 4 views left shoulder, 3 views each hand. FINDINGS: LEFT SHOULDER: The glenohumeral and AC joint space is maintained normal. No acute fracture, dislocation or subluxation seen. No bony erosive changes. No soft tissue calcification. RIGHT HAND: There is mild loss of PIP and DIP joint spaces without bony erosive changes or spurring. No acute fracture or dislocation. LEFT HAND: There is no visible acute fracture, dislocation or bony erosive changes. Mild loss of PIP and DIP joint space is seen without any periarticular spurring or soft tissue abnormality. RIGHT FOOT: The ankle mortise and subtalar joints are normal. The joint spaces are maintained normal. No visible bony abnormality, fracture or dislocation. The soft tissues are normal. LEFT FOOT: There is maintained joint space. The ankle mortise and subtalar joints are normal. No visible acute fracture or dislocation seen. XR/XR hand LT min 3V IMPRESSION: Unremarkable bilateral foot exam. Unremarkable left shoulder exam. Mild reduction of bilateral PIP and DIP joints but no periarticular spurring or bony erosive changes. Suspect diffuse mild osteopenia.
== END 2021-09-21 08:56 | disposition home or self-care (01) ==
LOC: HO.XRAY 08:55
PROVIDERS: PCP Internal Medicine; Visit Provider Nurse Practitioner Family
DX: M25.512 Pain in left shoulder (principal); M79.641 Pain in right hand; M79.642 Pain in left hand; M79.671 Pain in right foot; M79.672 Pain in left foot
CPT/HCPCS: 73030; 73130; 73620

== ENCOUNTER → 2021-12-02 14:28 | Outpatient (BNVA) | payer MEDICAID, SELFPAY | PROVIDERS: PCP Internal Medicine; Visit Provider Nurse Practitioner Family | DX: M79.7 Fibromyalgia (principal); M79.641 Pain in right hand; M79.642 Pain in left hand; M79.671 Pain in right foot; M79.672 Pain in left foot; M25.512 Pain in left shoulder | CPT/HCPCS: 99212 ==

== ENCOUNTER 2021-12-11 09:54 | Outpatient (REF) | payer MEDICAID, SELFPAY ==
[2021-12-11 11:22] LABS: Alanine Aminotransferase 18 U/L (0-31); Aspartate Amino Transferase 22 U/L (5-31); C Reactive Protein 0.28 mg/dL (< or = 0.50); Estimated Glomerular Filt Rate > 60
[2021-12-11 11:27] LABS: Erythrocyte Sedimentation Rate 20 MM/HR (0-20)
== END 2021-12-11 09:55 | disposition home or self-care (01) ==
LOC: HO.LAB 09:54
PROVIDERS: PCP Internal Medicine; Visit Provider Nurse Practitioner Family
DX: M25.50 Pain in unspecified joint (principal)
CPT/HCPCS: 36415; 82565; 84450; 84460; 85652; 86140

== ENCOUNTER 2021-12-14 14:15 | Outpatient (REF) | payer MEDICAID, SELFPAY ==
--- NOTE | ~2021-12-14 | MM_ITS ---
EXAMINATION: MM SCREENING DIGITAL BREAST TOMOSYNTHESIS, BILATERAL CLINICAL INFORMATION: Screening. Asymptomatic. The lifetime risk of breast cancer based on the Tyrer-Cuzick Model is 7%. COMPARISON: Mammography: 12/09/2020, 12/03/2019, 11/24/2018 TECHNIQUE: Digital breast tomosynthesis is performed in both the craniocaudal and mediolateral oblique views along with computer-aided detection (CAD). Synthesized 2D images are generated from the tomosynthesis. FINDINGS: There are scattered areas of fibroglandular density (ACR BI-RADS breast composition Category b). Parenchymal pattern is similar to prior studies. There is no developing density or interval architectural abnormality. No abnormal calcifications. The axilla are unremarkable. There are dermal lesions overlying the bilateral upper breasts on MLO views. MM/MM tomosynthesis screening BI IMPRESSION: No mammographic evidence of malignancy. ASSESSMENT: BI-RADS 2: Benign RECOMMENDATION: Routine annual mammography screening. This patient's information was entered into a reminder system with a target due date for their next mammogram.
== END 2021-12-14 14:16 | disposition home or self-care (01) ==
LOC: HO.MAMMO 14:15
PROVIDERS: PCP Internal Medicine; Visit Provider Internal Medicine
DX: Z12.31 Encounter for screening mammogram for malignant neoplasm of breast (principal)
CPT/HCPCS: 77063; 77067

== ENCOUNTER 2022-01-07 08:00 | Outpatient (RCR) | payer MEDICAID, SELFPAY ==
--- NOTE | 2022-02-09 08:47 | MHC.PT.DC ---
[facility] [place] Office [place] Office [place] Office [address] Sabine Marino [address] [phone] F: [phone] F: [phone] F: [phone] F: [phone] Physical Therapy Discharge Report Diagnosis: PAIN IN LEFT SHOULDER (KP) Date of Surgery: NA Date of Evaluation: 12/31/21 Date of Discharge: 02/09/22 Treatments to Date: 3 Cancellations to Date: 0 No Shows to Date: 0 Discharge Status: Discharge Summary: Spring unfortunately called to cancel her visits stating she was ill and would call to reschedule when she felt better. As it has been over 30 days since her last attended visit we will discharge her at this time and if further therapy is required we will perform a new evaluation at that time. Electronically signed by: Suzi Cisneros PT, DPT Please sign and return to therapist. Thank you for your referral.
== END 2022-02-09 08:47 | disposition home or self-care (01) ==
LOC: HO.PT 08:00
PROVIDERS: PCP Internal Medicine; Visit Provider Nurse Practitioner Family
DX: M25.512 Pain in left shoulder (principal)
CPT/HCPCS: 97110; 97112; 97140; 97161

== ENCOUNTER 2022-03-01 11:33 | Emergency (ER) | payer MEDICAID, SELFPAY ==
--- NOTE | ~2022-03-01 | CT_ITS ---
EXAMINATION: CT ABDOMEN AND PELVIS WITH CONTRAST CLINICAL INFORMATION: Urinary sx, left flank pain, fever COMPARISON: CT abdomen pelvis 04/12/2011 TECHNIQUE: Multidetector volumetric images were obtained from the superior aspect of the liver through the pubic symphysis following administration 85 mL of Omnipaque 350 intravenous contrast. Sagittal and coronal reformatted images were obtained on the technologist's workstation. Oral contrast: No This CT examination was performed using dose optimization techniques as appropriate, variously including the following: *Automated exposure control *Adjustment of mA and/or kV according to patient size (this includes techniques or standardized protocols for targeted exams where dose is matched to indication/reason for exam; i.e. extremities or head) *Use of iterative reconstruction technique DLP: 529 mGy-cm FINDINGS: LUNG BASES: The visualized lung bases are unremarkable. LIVER, GALLBLADDER, AND BILIARY TREE: The liver is normal in size, shape, and attenuation. No focal hepatic lesion or biliary ductal dilatation is present. The gallbladder is unremarkable with no evidence of radiopaque gallstones, gallbladder wall thickening, or obvious pericholecystic inflammatory changes. PANCREAS: Unremarkable. SPLEEN: Unremarkable. ADRENAL GLANDS: Unremarkable. KIDNEYS AND URETERS: The kidneys are normal in size, shape, and attenuation. No hydronephrosis, hydroureter, or calculi seen. No perinephric stranding. BLADDER: Unremarkable. GASTROINTESTINAL TRACT: The small and large bowel are unremarkable. The appendix is unremarkable. ABDOMINAL WALL: No significant hernia is appreciated. LYMPH NODES: Normal. VASCULAR: Unremarkable. PELVIC VISCERA: Unremarkable. OSSEOUS STRUCTURES: Mild degenerative changes are present in the spine. Changes are most marked at L2-L3 where there is grade 1 retrolisthesis of L2 upon L3. CT/CT abdomen pelvis w IV con IMPRESSION: A cause for the patient's left flank pain and fever has not been found. Fleischner guidelines were followed.
--- NOTE | 2022-03-01 13:08 | ED_ITS ---
HPI - General Adult General Chief complaint: Abdominal Pain <NAVNEET Yang - Last Filed: 03/01/22 13:12> Stated complaint: Pelvic pain sent by [facility] <NAVNEET Yang - Last Filed: 03/01/22 13:12> Time Seen by Provider: 03/01/22 21:44 <NAVNEET Yang - Last Filed: 03/01/22 13:12> Source: patient <Germaine Medeiros CNP - Last Filed: 03/01/22 23:29> Mode of arrival: ambulatory <Germaine Medeiros CNP - Last Filed: 03/01/22 23:29> Limitations: no limitations <Germaine Medeiros CNP - Last Filed: 03/01/22 23:29> History of Present Illness HPI narrative: Patient is a 61-year-old female who presents to the emergency department today coming from the doctor's office. She has been experiencing right lower quadrant abdominal pain, left flank pain, and fever and associated nausea for the past 2 days. Denies any vomiting. She states ?I feel terrible?. Had outpatient COVID-19 influenza testing which were negative. Denies dysuria, urinary frequency. Denies upper right-sided abdominal pain, denies dizziness or constipation. Denies pelvic pain, abnormal vaginal bleeding or pelvic discharge. <Germaine Medeiros CNP - Last Filed: 03/01/22 23:29> Related Data Home medications: Home Medications Medication Instructions Recorded Confirmed cholecalciferol (vitamin D3) 50 50 mcg PO DAILY 02/08/20 09/01/21 mcg (2,000 unit) tablet (Vitamin D3) clonazepam 0.5 mg tablet 0.5 mg PO BEDTIME PRN Anxiety 02/08/20 09/01/21 loratadine 10 mg tablet 10 mg PO DAILY 02/08/20 09/01/21 pantoprazole 40 mg tablet,delayed 40 mg PO DAILY 02/08/20 09/01/21 release cyanocobalamin (vitamin B-12) 1,000 mcg PO DAILY 09/01/21 09/01/21 1,000 mcg tablet fluticasone propionate 220 0 mcg PO BID 09/01/21 09/01/21 mcg/actuation HFA aerosol inhaler (Flovent HFA) meloxicam 15 mg tablet 15 mg PO DAILY 09/01/21 09/01/21 rosuvastatin 10 mg tablet 10 mg PO DAILY 09/01/21 09/01/21 sertraline 25 mg tablet 25 mg PO DAILY 12/02/21 Previous Rx's Medication Instructions Recorded gabapentin 100 mg capsule 100 mg PO BEDTIME #90 caps 12/24/21 cefuroxime axetil 250 mg tablet 500 mg PO Q12H 7 days #28 tabs 03/01/22 <NAVNEET Yang - Last Filed: 03/01/22 13:12> Allergies/adverse reactions: Allergies Allergy/AdvReac Type Severity Reaction Status Date / Time erythromycin base Allergy Mild SWELLING/STOMACH Verified 12/02/21 14:51 [Erythromycin Base] PAIN/ORAL BLISTERS aspirin [ASA] Allergy Unknown STOMACH Verified 12/02/21 14:51 PAIN tramadol [TRAMADOL] AdvReac Unknown DIZZY,NAUSE Verified 12/02/21 14:51 A <NAVNEET Yang - Last Filed: 03/01/22 13:12> Review of Systems Review of Systems: Constitutional : No Weight loss, No Fever, No Chills ENT/Mouth :? No sore throat, No Rhinorrhea Eyes: No Swelling, No Redness Cardiovascular : No Chest Pain, No SOB, No Edema Respiratory : No Cough, No Sputum, No Wheezing Gastrointestinal : Positive Nausea, no Vomiting, no Diarrhea, positive abdominal pain, No Hematochezia, No Melena Genitourinary : No Dysuria, No Urinary Frequency, No Hematuria, No Urgency? Musculoskeletal : No joint pain, No Myalgias, No Joint Swelling Skin : No Skin Lesions, No rash Neuro : No Weakness, No Numbness, No Dizziness, No Headache Psych : No Anxiety/Panic, No Depression Heme/Lymph: No Bruising, No Lymphadenopathy Endocrine : No Polyuria, No Polydipsia <Germaine Medeiros CNP - Last Filed: 03/01/22 23:29> Yes all other systems are reviewed and are negative <Germaine Medeiros CNP - Last Filed: 03/01/22 23:29> PMFSH Past Medical History Attestation statement: The following information was validated with the patient. <Germaine Medeiros CNP - Last Filed: 03/01/22 23:29> Source: old records reviewed <Germaine Medeiros CNP - Last Filed: 03/01/22 23:29> Medical History: Medical History Asthma GERD (gastroesophageal reflux disease) Hypercholesteremia Peripheral neuropathy Psychiatric disorder <NAVNEET Yang - Last Filed: 03/01/22 13:12> Surgical History: Surgical History H/O ovarian cystectomy History of endometrial ablation History of tonsillectomy and adenoidectomy <NAVNEET Yang - Last Filed: 03/01/22 13:12> Family History Family History: Family History Father No problems noted. Mother Rheumatoid arthritis <NAVNEET Yang - Last Filed: 03/01/22 13:12> Social History Social History: Social History Household Members: Family Housing: House Do you presently have visiting nurse or other home services: No Alcohol intake: never Second Hand Smoke Exposure: No Advance Directives: No Advance Directives Information Provided: Yes service: No Current occupational status: disabled <NAVNEET Yang - Last Filed: 03/01/22 13:12> Physical Exam ED Vital Signs: Vital Signs - 24 hr 03/01/22 13:11 03/01/22 20:34 03/01/22 23:03 Temperature 100 F 98.9 F 98.0 F Pulse Rate 100 84 80 Respiratory Rate 16 16 16 Blood Pressure 116/75 121/74 144/87 H Pulse Oximetry 95 98 98 Oxygen Delivery Method Room Air Room Air Room Air BMI result Body Mass Index 25.0 <NAVNEET Yang - Last Filed: 03/01/22 13:12> Vital Signs - 24 hr 03/01/22 13:11 03/01/22 20:34 03/01/22 23:03 Temperature 100 F 98.9 F 98.0 F Pulse Rate 100 84 80 Respiratory Rate 16 16 16 Blood Pressure 116/75 121/74 144/87 H Pulse Oximetry 95 98 98 Oxygen Delivery Method Room Air Room Air Room Air BMI result Body Mass Index 25.0 <Germaine Medeiros CNP - Last Filed: 03/01/22 23:29> Appearance: Alert.?Oriented to person, place and time. No acute distress.?Normal affect. Eyes: Pupils equal, round and reactive to light.? ENT: Pharynx normal.?? Neck: Normal inspection.? Neck supple.?? CVS: Heart sounds normal. Normal heart rate and rhythm.? Pulses normal.?? Respiratory: No respiratory distress.? Lung sounds clear to auscultation bilaterally?? Abdomen: Soft with left lower quadrant tenderness upon palpation. Positive left CVA tenderness. Normoactive bowel sounds. No pulsatile mass.?? Skin: Skin warm and dry.? Normal skin color.? Extremities: No lower extremity edema.? Neuro: Moves all extremities spontaneously. Sensation intact bilaterally. No focal neuro deficits. Ambulates with normal steady gait. <Germaine Medeiros CNP - Last Filed: 03/01/22 23:29> Course Course Course Narrative: Patient is a 61-year-old female with a past medical history of asthma, GERD, hyperlipidemia, peripheral neuropathy, hypertension, rheumatoid arthritis, depression, anxiety, hermansky oudlak syndrome presenting for abdominal pain as noted in HPI. At the time of examination she states that her nausea has subsided. Pain is currently 8/10. The labs obtained from [facility] reviewed, CBC and CMP are overall unremarkable. Urinalysis with 1+ leukocyte esterase, >50 WBC and 4+ bacteria concerning for urinary tract infection, no microscopic hematuria. Ceftriaxone 1 g IV ordered. 1 L normal saline, Toradol 15 mg IV for pain. At this time she is nontoxic appearing, vital signs are stable, afebrile without tachycardia. CT of the abdomen and pelvis is pending at this time. <Germaine Medeiros CNP - Last Filed: 03/01/22 23:29> Reevaluation(s) Reevaluation #1: RME: 61 year old female pmhx htn, bpv, hermansky oudlak syndrome, RA, depression, anxiety presents w/ llq abd pain, flank pain, fever (T max 104 at home today 100.4 at [facility]), nause X2 days. Sent in by [facility], had negative flu and covid test. Reports decreased urinary frequency. Feels terrible. PE: temp 100. LLQ pain on exam and L. CVA tenderness. Plan: labs, ct abd and pelvis w/ contrast (? pylo) <NAVNEET Yang - Last Filed: 03/01/22 13:12> Time: 13:11 <NAVNEET Yang - Last Filed: 03/01/22 13:12> Reevaluation #2: CT of the abdomen and pelvis without acute abnormalities. Discussed all findings with patient. At this time patient will be discharged home, treatment for urinary tract infection, possible early pyelonephritis. Does not meet SIRS/sepsis criteria. Lactic acid is within normal limits. No prior urine cultures available for review. Will discharge patient home with oral Ceftin. All questions answered. Discharged in stable condition. <Germaine Medeiros CNP - Last Filed: 03/01/22 23:29> Time: 23:17 <Germaine Medeiros CNP - Last Filed: 03/01/22 23:29> Medications Administered Discontinued Medications Generic Name Dose Route Start Last Admin Trade Name Adrianq PRN Reason Stop Dose Admin Sodium Chloride 1,000 mls @ 999 mls/hr 03/01/22 22:00 03/01/22 22:02 Ns IV 03/01/22 23:00 999 mls/hr .Q1H1M MYRA Administration Ceftriaxone Sodium 1 gm/ 50 mls @ 100 mls/hr 03/01/22 22:01 03/01/22 22:37 Sodium Chloride IV 03/01/22 22:30 100 mls/hr ONCE ONE Administration Iohexol 100 ml 03/01/22 22:21 03/01/22 22:21 Iohexol 350 Mg/Ml 100 Ml Infus..Btl IV 03/01/22 22:22 85 ml ONCE ONE Administration Ketorolac Tromethamine 15 mg 03/01/22 21:55 03/01/22 22:02 Ketorolac Tromethamine 15 Mg/Ml Vial IVPUSH 03/01/22 21:56 15 mg ONCE ONE Administration <NAVNEET Yang - Last Filed: 03/01/22 13:12> Medications Administered Discontinued Medications Generic Name Dose Route Start Last Admin Trade Name Delfino PRN Reason Stop Dose Admin Sodium Chloride 1,000 mls @ 999 mls/hr 03/01/22 22:00 03/01/22 22:02 Ns IV 03/01/22 23:00 999 mls/hr .Q1H1M MYRA Administration Ceftriaxone Sodium 1 gm/ 50 mls @ 100 mls/hr 03/01/22 22:01 03/01/22 22:37 Sodium Chloride IV 03/01/22 22:30 100 mls/hr ONCE ONE Administration Iohexol 100 ml 03/01/22 22:21 03/01/22 22:21 Iohexol 350 Mg/Ml 100 Ml Infus..Btl IV 03/01/22 22:22 85 ml ONCE ONE Administration Ketorolac Tromethamine 15 mg 03/01/22 21:55 03/01/22 22:02 Ketorolac Tromethamine 15 Mg/Ml Vial IVPUSH 03/01/22 21:56 15 mg ONCE ONE Administration <Germaine Medeiros CNP - Last Filed: 03/01/22 23:29> Medical Decision Making Medical Records Medical records reviewed: Yes I reviewed the patient's medical records. <Germaine Medeiros CNP - Last Filed: 03/01/22 23:29> Lab Data Lab results reviewed: Yes I reviewed the patient's lab results. <Germaine Medeiros CNP - Last Filed: 03/01/22 23:29> Result diagrams: : 03/01/22 19:00 03/01/22 19:00 <NAVNEET Yang - Last Filed: 03/01/22 13:12> Labs: Lab Results 03/01/22 03/01/22 03/01/22 Range/Units 19:00 19:00 19:00 WBC 9.5 (4.8-10.8) X10*3/uL RBC 5.01 (4.20-5.50) X10*6/uL Hgb 14.0 (12.0-16.0) g/dl Hct 42.0 (37.0-47.0) % MCV 83.8 (80.0-98.0) fL MCH 27.9 (27.0-33.0) pg MCHC 33.3 (31.0-35.0) g/dl RDW 13.9 (11.0-16.0) % Plt Count 194 (160-400) X10*3/uL MPV 11.2 (9.4-12.3) fL Immature Gran % (Auto) 0.4 (0.0-0.4) % Neut % (Auto) 65.7 (45-73) % Lymph % (Auto) 20.0 (20-40) % [place] % (Auto) 13.6 H (2-11) % Eos % (Auto) 0.0 (0-4) % Baso % (Auto) 0.3 (0-2) % Lymph # (Auto) 1.9 (1.2-4.9) X10*3/uL [place] # (Auto) 1.3 H (0.1-1.2) X10*3/uL Eos # (Auto) 0.0 (0.0-0.4) X10*3/uL Baso # (Auto) 0.0 (0.0-0.2) X10*3/uL Abs Immat Gran (auto) 0.04 H (0.00-0.03) X10*3/uL Absolute Neuts (auto) 6.3 (2.0-8.3) x10*3/uL Absolute Nucleated RBC 0.000 (0.0-0.012) X10*3/uL Nucleated RBC % (auto) 0.0 (0.0-0.2) /100WBC Sodium 139 (135-145) mmol/L Potassium 3.6 (3.3-5.1) mmol/L Chloride 101 (96-108) mmol/L Carbon Dioxide 23 (22-29) mmol/L Anion Gap 19 (12-20) BUN 20 H (9-16) mg/dL Creatinine 0.96 (0.5-1.4) mg/dL Estim Creat Clear Calc 56.1 Estimated GFR 59 Random Glucose 94 (60-115) mg/dL Lactic Acid 0.9 (0.5-2.0) mmol/L Calcium 10.1 (8.4-10.2) mg/dL Magnesium 2.1 (1.6-2.6) mg/dL Total Bilirubin 1.4 H (0.0-1.0) mg/dL AST 23 (5-31) U/L ALT 17 (0-31) U/L Alkaline Phosphatase 114 (39-117) U/L Total Protein 8.6 H (6.5-8.0) g/dL Albumin 4.9 (3.5-5.0) g/dL Urine Color Urine Appearance Urine pH (5.0-9.0) Ur Specific Pillow (1.005-1.025) Urine Protein (Neg-Trace) mg/dL Urine Glucose (UA) (Negative) mg/dL Urine Ketones (Negative) mg/dL Urine Blood (Negative) Urine Nitrite (Negative) Ur Leukocyte Esterase (Negative) Urine RBC (0-2) /HPF Urine WBC (0-5) /HPF Ur Squamous Epith Cells (0-2) /HPF Urine Bacteria (None Seen) Hyaline Casts (0-2) /LPF COVID-19 ([facility]) (Negative) COVID-19 Clin Com 03/01/22 03/01/22 Range/Units 19:00 20:36 WBC (4.8-10.8) X10*3/uL RBC (4.20-5.50) X10*6/uL Hgb (12.0-16.0) g/dl Hct (37.0-47.0) % MCV (80.0-98.0) fL MCH (27.0-33.0) pg MCHC (31.0-35.0) g/dl RDW (11.0-16.0) % Plt Count (160-400) X10*3/uL MPV (9.4-12.3) fL Immature Gran % (Auto) (0.0-0.4) % Neut % (Auto) (45-73) % Lymph % (Auto) (20-40) % [place] % (Auto) (2-11) % Eos % (Auto) (0-4) % Baso % (Auto) (0-2) % Lymph # (Auto) (1.2-4.9) X10*3/uL [place] # (Auto) (0.1-1.2) X10*3/uL Eos # (Auto) (0.0-0.4) X10*3/uL Baso # (Auto) (0.0-0.2) X10*3/uL Abs Immat Gran (auto) (0.00-0.03) X10*3/uL Absolute Neuts (auto) (2.0-8.3) x10*3/uL Absolute Nucleated RBC (0.0-0.012) X10*3/uL Nucleated RBC % (auto) (0.0-0.2) /100WBC Sodium (135-145) mmol/L Potassium (3.3-5.1) mmol/L Chloride (96-108) mmol/L Carbon Dioxide (22-29) mmol/L Anion Gap (12-20) BUN (9-16) mg/dL Creatinine (0.5-1.4) mg/dL Estim Creat Clear Calc Estimated GFR Random Glucose (60-115) mg/dL Lactic Acid (0.5-2.0) mmol/L Calcium (8.4-10.2) mg/dL Magnesium (1.6-2.6) mg/dL Total Bilirubin (0.0-1.0) mg/dL AST (5-31) U/L ALT (0-31) U/L Alkaline Phosphatase (39-117) U/L Total Protein (6.5-8.0) g/dL Albumin (3.5-5.0) g/dL Urine Color Dark Yellow Urine Appearance Cloudy Urine pH 5.5 (5.0-9.0) Ur Specific Pillow >= 1.030 H (1.005-1.025) Urine Protein 30 (1+) H (Neg-Trace) mg/dL Urine Glucose (UA) Negative (Negative) mg/dL Urine Ketones 15 (Negative) mg/dL Urine Blood Negative (Negative) Urine Nitrite Negative (Negative) Ur Leukocyte Esterase Small (1+) H (Negative) Urine RBC 6-10 H (0-2) /HPF Urine WBC >50 H (0-5) /HPF Ur Squamous Epith Cells >20 (0-2) /HPF Urine Bacteria 4+ (None Seen) Hyaline Casts 0-2 (0-2) /LPF COVID-19 ([facility]) Negative (Negative) COVID-19 Clin Com See Note <NAVNEET Yang - Last Filed: 03/01/22 13:12> Lab Results 03/01/22 03/01/22 03/01/22 Range/Units 19:00 19:00 19:00 WBC 9.5 (4.8-10.8) X10*3/uL RBC 5.01 (4.20-5.50) X10*6/uL Hgb 14.0 (12.0-16.0) g/dl Hct 42.0 (37.0-47.0) % MCV 83.8 (80.0-98.0) fL MCH 27.9 (27.0-33.0) pg MCHC 33.3 (31.0-35.0) g/dl RDW 13.9 (11.0-16.0) % Plt Count 194 (160-400) X10*3/uL MPV 11.2 (9.4-12.3) fL Immature Gran % (Auto) 0.4 (0.0-0.4) % Neut % (Auto) 65.7 (45-73) % Lymph % (Auto) 20.0 (20-40) % [place] % (Auto) 13.6 H (2-11) % Eos % (Auto) 0.0 (0-4) % Baso % (Auto) 0.3 (0-2) % Lymph # (Auto) 1.9 (1.2-4.9) X10*3/uL [place] # (Auto) 1.3 H (0.1-1.2) X10*3/uL Eos # (Auto) 0.0 (0.0-0.4) X10*3/uL Baso # (Auto) 0.0 (0.0-0.2) X10*3/uL Abs Immat Gran (auto) 0.04 H (0.00-0.03) X10*3/uL Absolute Neuts (auto) 6.3 (2.0-8.3) x10*3/uL Absolute Nucleated RBC 0.000 (0.0-0.012) X10*3/uL Nucleated RBC % (auto) 0.0 (0.0-0.2) /100WBC Sodium 139 (135-145) mmol/L Potassium 3.6 (3.3-5.1) mmol/L Chloride 101 (96-108) mmol/L Carbon Dioxide 23 (22-29) mmol/L Anion Gap 19 (12-20) BUN 20 H (9-16) mg/dL Creatinine 0.96 (0.5-1.4) mg/dL Estim Creat Clear Calc 56.1 Estimated GFR 59 Random Glucose 94 (60-115) mg/dL Lactic Acid 0.9 (0.5-2.0) mmol/L Calcium 10.1 (8.4-10.2) mg/dL Magnesium 2.1 (1.6-2.6) mg/dL Total Bilirubin 1.4 H (0.0-1.0) mg/dL AST 23 (5-31) U/L ALT 17 (0-31) U/L Alkaline Phosphatase 114 (39-117) U/L Total Protein 8.6 H (6.5-8.0) g/dL Albumin 4.9 (3.5-5.0) g/dL Urine Color Urine Appearance Urine pH (5.0-9.0) Ur Specific Pillow (1.005-1.025) Urine Protein (Neg-Trace) mg/dL Urine Glucose (UA) (Negative) mg/dL Urine Ketones (Negative) mg/dL Urine Blood (Negative) Urine Nitrite (Negative) Ur Leukocyte Esterase (Negative) Urine RBC (0-2) /HPF Urine WBC (0-5) /HPF Ur Squamous Epith Cells (0-2) /HPF Urine Bacteria (None Seen) Hyaline Casts (0-2) /LPF COVID-19 ([facility]) (Negative) COVID-19 Clin Com 03/01/22 03/01/22 Range/Units 19:00 20:36 WBC (4.8-10.8) X10*3/uL RBC (4.20-5.50) X10*6/uL Hgb (12.0-16.0) g/dl Hct (37.0-47.0) % MCV (80.0-98.0) fL MCH (27.0-33.0) pg MCHC (31.0-35.0) g/dl RDW (11.0-16.0) % Plt Count (160-400) X10*3/uL MPV (9.4-12.3) fL Immature Gran % (Auto) (0.0-0.4) % Neut % (Auto) (45-73) % Lymph % (Auto) (20-40) % [place] % (Auto) (2-11) % Eos % (Auto) (0-4) % Baso % (Auto) (0-2) % Lymph # (Auto) (1.2-4.9) X10*3/uL [place] # (Auto) (0.1-1.2) X10*3/uL Eos # (Auto) (0.0-0.4) X10*3/uL Baso # (Auto) (0.0-0.2) X10*3/uL Abs Immat Gran (auto) (0.00-0.03) X10*3/uL Absolute Neuts (auto) (2.0-8.3) x10*3/uL Absolute Nucleated RBC (0.0-0.012) X10*3/uL Nucleated RBC % (auto) (0.0-0.2) /100WBC Sodium (135-145) mmol/L Potassium (3.3-5.1) mmol/L Chloride (96-108) mmol/L Carbon Dioxide (22-29) mmol/L Anion Gap (12-20) BUN (9-16) mg/dL Creatinine (0.5-1.4) mg/dL Estim Creat Clear Calc Estimated GFR Random Glucose (60-115) mg/dL Lactic Acid (0.5-2.0) mmol/L Calcium (8.4-10.2) mg/dL Magnesium (1.6-2.6) mg/dL Total Bilirubin (0.0-1.0) mg/dL AST (5-31) U/L ALT (0-31) U/L Alkaline Phosphatase (39-117) U/L Total Protein (6.5-8.0) g/dL Albumin (3.5-5.0) g/dL Urine Color Dark Yellow Urine Appearance Cloudy Urine pH 5.5 (5.0-9.0) Ur Specific Pillow >= 1.030 H (1.005-1.025) Urine Protein 30 (1+) H (Neg-Trace) mg/dL Urine Glucose (UA) Negative (Negative) mg/dL Urine Ketones 15 (Negative) mg/dL Urine Blood Negative (Negative) Urine Nitrite Negative (Negative) Ur Leukocyte Esterase Small (1+) H (Negative) Urine RBC 6-10 H (0-2) /HPF Urine WBC >50 H (0-5) /HPF Ur Squamous Epith Cells >20 (0-2) /HPF Urine Bacteria 4+ (None Seen) Hyaline Casts 0-2 (0-2) /LPF COVID-19 ([facility]) Negative (Negative) COVID-19 Clin Com See Note <Germaine Medeiros CNP - Last Filed: 03/01/22 23:29> Imaging Data CT scan - abdomen: Radiologist's impression: CT/CT abdomen pelvis w IV con IMPRESSION: A cause for the patient's left flank pain and fever has not been found. <Germaine Medeiros CNP - Last Filed: 03/01/22 23:29> Discharge Plan Discharge Clinical Impression: Pyelonephritis <NAVNEET Yang - Last Filed: 03/01/22 13:12> Patient Disposition: Home, Self-Care <NAVNEET Yang - Last Filed: 03/01/22 13:12> Instructions: Kidney Infection (ED) <NAVNEET Yang - Last Filed: 03/01/22 13:12> Additional Instructions: As discussed, please be sure to stay well hydrated and drink plenty of fluids. Take the entire course of antibiotic as prescribed. Return to emergency department for any new or worsening symptoms or concerns. This might include but is not limited to, fevers, shaking chills, nausea persistent vomiting, severe worsening abdominal pain, pain with urination, inability to urinate. Contact your primary care provider and arrange for follow-up visit within the next week. <NAVNEET Yang - Last Filed: 03/01/22 13:12> Prescriptions: New cefuroxime axetil 250 mg tablet 500 mg PO Q12H 7 Days Qty: 28 0RF No Action gabapentin 100 mg capsule 100 mg PO BEDTIME Qty: 90 0RF clonazepam 0.5 mg Tablet 0.5 mg PO BEDTIME PRN (Reason: Anxiety) pantoprazole 40 mg Tablet,Delayed Release (Dr/Ec) 40 mg PO DAILY loratadine 10 mg Tablet 10 mg PO DAILY cholecalciferol (vitamin D3) [Vitamin D3] 50 mcg (2,000 unit) Tablet 50 mcg PO DAILY rosuvastatin 10 mg tablet 10 mg PO DAILY cyanocobalamin (vitamin B-12) 1,000 mcg tablet 1,000 mcg PO DAILY meloxicam 15 mg tablet 15 mg PO DAILY Flovent HFA 220 mcg/actuation HFA aerosol inhaler 0 mcg PO BID sertraline 25 mg tablet 25 mg PO DAILY <NAVNEET Yang - Last Filed: 03/01/22 13:12> Referrals: Julius Sahu MD [Primary Care Provider] - <NAVNEET Yang - Last Filed: 03/01/22 13:12>
[2022-03-01 13:11] VITALS: BP 116/75; PULSE 100; RESP 16; TEMP 37.7; O2SAT 95; BMI 25.0
[2022-03-01 19:07] LABS: MANUAL DIFF FLAG NO
[2022-03-01 19:18] LABS: Basophils Percent Auto 0.3 % (0-2); Imm Gran Abs Auto 0.04 X10*3/uL (0.00-0.03); Imm Gran Pct Auto 0.4 % (0.0-0.4); Lymphocytes Absolute Auto 1.9 X10*3/uL (1.2-4.9); Mean Corpuscular HGB Conc 33.3 g/dl (31.0-35.0); Mean Corpuscular Hemoglobin 27.9 pg (27.0-33.0); Mean Corpuscular Volume 83.8 fL (80.0-98.0); Mean Platelet Volume 11.2 fL (9.4-12.3); Monocytes Absolute Auto 1.3 X10*3/uL (0.1-1.2); Monocytes Percent Auto 13.6 % (2-11); Neutrophils Absolute Auto 6.3 x10*3/uL (2.0-8.3); Neutrophils Percent Auto 65.7 % (45-73); Platelet Count 194 X10*3/uL (160-400); Red Blood Count 5.01 X10*6/uL (4.20-5.50); Red Cell Distribution Width 13.9 % (11.0-16.0); White Blood Count 9.5 X10*3/uL (4.8-10.8)
[2022-03-01 19:22] LABS: COVID-19 Test Negative (Negative); IDNOW Serial# 16C4AD1C; Lactic Acid 0.9 mmol/L (0.5-2.0)
[2022-03-01 19:27] LABS: Alanine Aminotransferase 17 U/L (0-31); Albumin Level 4.9 g/dL (3.5-5.0); Alkaline Phosphatase 114 U/L (39-117); Anion Gap 19 (12-20); Aspartate Amino Transferase 23 U/L (5-31); Bilirubin Total 1.4 mg/dL (0.0-1.0); Blood Urea Nitrogen 20 mg/dL (9-16); Calcium 10.1 mg/dL (8.4-10.2); Carbon Dioxide 23 mmol/L (22-29); Chloride 101 mmol/L (96-108); Creatinine Clr Calc Pharmacy 56.1; Estimated Glomerular Filt Rate 59; Glucose Random 94 mg/dL (60-115); Magnesium 2.1 mg/dL (1.6-2.6); Potassium 3.6 mmol/L (3.3-5.1); Sodium 139 mmol/L (135-145); Total Protein 8.6 g/dL (6.5-8.0)
[2022-03-01 20:34] VITALS: BP 121/74; PULSE 84; RESP 16; TEMP 37.2; O2SAT 98
[2022-03-01 21:20] LABS: Appearance Urine Cloudy; Color Urine Dark Yellow; Glucose Urine UA Negative (Negative); Leukocyte Esterase Urine Small (1+) (Negative); Nitrite Urine Negative (Negative); PH 5.5 (5.0-9.0); Specific Gravity - Urine >= 1.030 (1.005-1.025); UMIC TRIGGER UACC YES; Urine Blood Negative (Negative); Urine Ketones 15 mg/dL (Negative); Urine Protein 30 (1+) mg/dL (Neg-Trace)
[2022-03-01 21:53] LABS: Bacteria Urine 4+ (None Seen); Hyaline Casts Urine 0-2 /LPF (0-2); Squamous Epithelial Cell Urine >20 /HPF (0-2); UACC Culture Trigger YES; WBC Urine >50 /HPF (0-5)
[2022-03-01] MEDS: 0.9 % Sodium Chloride 1,000 ML 999 ML IV (22:02)
[2022-03-01] MEDS: Ketorolac Tromethamine 15 MG/ML VIAL IVPUSH (22:02)
[2022-03-01] MEDS: iohexoL 350 MG/ML 100 ML INFUS..BTL IV (22:21)
[2022-03-01] MEDS: cefTRIAXone sodium 1 GM in 0.9 % Sodium Chloride 50 ML IV (22:37)
--- NOTE | 2022-03-01 23:02 | PC.NURSE ---
Pt. resting in bed with at bedside. IV access in place and pt. pending results from CT.
[2022-03-01 23:03] VITALS: BP 144/87; PULSE 80; RESP 16; TEMP 36.7; O2SAT 98
== END 2022-03-01 23:57 | disposition home or self-care (01) ==
PROVIDERS: Physician Assistant; Emergency Provider Internal Medicine; PCP Internal Medicine
DX: N12 Tubulo-interstitial nephritis, not specified as acute or chronic (principal); R50.9 Fever, unspecified; R10.32 Left lower quadrant pain; Z20.822 Contact with and (suspected) exposure to COVID-19; I10 Essential (primary) hypertension; E78.00 Pure hypercholesterolemia, unspecified; Z79.02 Long term (current) use of antithrombotics/antiplatelets
CPT/HCPCS: 74177; 80053; 81001; 81003; 83605; 83735; 85025; 87040; 87086; 87635; 96361; 96374; 96375; 99284; J0696; J1885; Q9967

== ENCOUNTER 2022-06-03 12:16 | Outpatient (REF) | payer MEDICAID, SELFPAY ==
--- NOTE | ~2022-06-03 | XR_ITS ---
EXAMINATION: XR FOOT, LEFT CLINICAL INFORMATION: Pain COMPARISON: Foot radiographs 09/21/2021 TECHNIQUE: 3 views of the foot FINDINGS: No fracture or dislocation. Joint spaces are maintained. No joint effusion. Soft tissues are unremarkable. XR/XR foot LT 2V IMPRESSION: No acute osseous abnormality.
[2022-06-03 14:54] LABS: Alanine Aminotransferase 23 U/L (0-31); Albumin Level 4.6 g/dL (3.5-5.0); Alkaline Phosphatase 117 U/L (39-117); Anion Gap 13 (12-20); Aspartate Amino Transferase 28 U/L (5-31); Bilirubin Total 0.9 mg/dL (0.0-1.0); Blood Urea Nitrogen 15 mg/dL (9-16); C Reactive Protein 0.37 mg/dL (< or = 0.50); Calcium 9.9 mg/dL (8.4-10.2); Carbon Dioxide 29 mmol/L (22-29); Chloride 104 mmol/L (96-108); Estimated Glomerular Filt Rate > 60; Glucose Random 90 mg/dL (60-115); Potassium 4.1 mmol/L (3.3-5.1); Sodium 142 mmol/L (135-145); Total Protein 7.9 g/dL (6.5-8.0)
[2022-06-03 15:30] LABS: Erythrocyte Sedimentation Rate 26 MM/HR (0-20)
== END 2022-06-03 12:17 | disposition home or self-care (01) ==
LOC: HO.XRAY 12:16
PROVIDERS: PCP Internal Medicine; Visit Provider Nurse Practitioner Family
DX: M25.50 Pain in unspecified joint (principal); M25.512 Pain in left shoulder; M79.672 Pain in left foot; M06.00 Rheumatoid arthritis without rheumatoid factor, unspecified site; M79.7 Fibromyalgia; Z79.899 Other long term (current) drug therapy
CPT/HCPCS: 36415; 73620; 80053; 85652; 86140; 99212

== ENCOUNTER 2022-07-05 12:50 | Outpatient (REF) | payer MEDICAID, SELFPAY ==
--- NOTE | ~2022-07-05 | MR_ITS ---
EXAMINATION: MR SHOULDER WITHOUT CONTRAST, LEFT CLINICAL INFORMATION: Left shoulder pain, ? impingement, ? rotator cuff dysfunction. COMPARISON: X-rays of left shoulder September 2021. TECHNIQUE: MRI of the left shoulder was performed on a high-field 1.5 [employer] MRI scanner. FINDINGS: ROTATOR CUFF: Supraspinatus: There is a full-thickness insertional tear of the anterior supraspinatus tendon. The tear results in a tendon gap measuring 11 mm transverse and 12 mm AP. The tendon gap/defect is new compared to the prior examination. Previously, there is abnormality of the tendon more compatible with tendinosis and partial tearing. The muscle is normal without atrophy or fatty infiltration. Infraspinatus: There is a small area of cystic change at the musculotendinous junction indicative of minimal partial tearing but no measurable defect. This is new compared to prior. No atrophy or fatty infiltration of the muscle. Teres Minor: Normal. Subscapularis: Normal. BICEPS TENDON: Normal. CORACOACROMIAL ARCH: Normal. BURSA: Trace fluid in the subacromial-subdeltoid bursa. LABRUM/CAPSULE: Normal. GLENOHUMERAL JOINT: Normal. MR/MR shoulder LT wo con IMPRESSION: 1. Small full-thickness insertional tear of the anterior supraspinatus tendon, new compared to MRI in 2006. Findings noted previously compatible with partial tearing and tendinosis. 2. Minimal cystic change at the musculotendinous junction of the infraspinatus compatible with minimal partial tearing but no measurable defect. 3. Trace fluid in the subacromial-subdeltoid bursa compatible with a mild bursitis.
== END 2022-07-05 12:51 | disposition home or self-care (01) ==
LOC: HO.MRI 12:50
PROVIDERS: PCP Internal Medicine; Visit Provider Nurse Practitioner Family
DX: M25.512 Pain in left shoulder (principal)
CPT/HCPCS: 73221

== ENCOUNTER → 2022-08-19 13:59 | Outpatient (BNVA) | payer MEDICAID, SELFPAY | PROVIDERS: PCP Registered Nurse; Visit Provider Physician Assistant | DX: M75.102 Unspecified rotator cuff tear or rupture of left shoulder, not specified as traumatic (principal) | CPT/HCPCS: 99202 ==

== ENCOUNTER → 2022-08-26 13:04 | Outpatient (BNVA) | payer MEDICAID, SELFPAY | PROVIDERS: PCP Registered Nurse; Visit Provider Orthopaedic Surgery | DX: M75.102 Unspecified rotator cuff tear or rupture of left shoulder, not specified as traumatic (principal) | CPT/HCPCS: 99212 ==

== ENCOUNTER → 2022-09-16 13:53 | Outpatient (BNVA) | payer MEDICAID, SELFPAY | PROVIDERS: PCP Registered Nurse; Visit Provider Physician Assistant | DX: M75.100 Unspecified rotator cuff tear or rupture of unspecified shoulder, not specified as traumatic (principal) | CPT/HCPCS: 99212 ==

== ENCOUNTER 2022-09-20 10:34 | Emergency (ER) | payer MEDICAID, SELFPAY ==
--- NOTE | ~2022-09-20 | CT_ITS ---
EXAMINATION: CT ABDOMEN AND PELVIS WITH CONTRAST CLINICAL INFORMATION: Question diverticulitis COMPARISON: Previous CT of the abdomen and pelvis most recent February 2022 TECHNIQUE: Multidetector volumetric images were obtained from the superior aspect of the liver through the pubic symphysis following administration 85 mL of Omnipaque 350 intravenous contrast. Sagittal and coronal reformatted images were obtained on the technologist's workstation. Oral contrast: Yes This CT examination was performed using dose optimization techniques as appropriate, variously including the following: *Automated exposure control *Adjustment of mA and/or kV according to patient size (this includes techniques or standardized protocols for targeted exams where dose is matched to indication/reason for exam; i.e. extremities or head) *Use of iterative reconstruction technique DLP: 446 mGy-cm FINDINGS: LUNG BASES: The visualized lung bases are unremarkable. LIVER, GALLBLADDER, AND BILIARY TREE: The liver is normal in size, shape, and attenuation. No focal hepatic lesion or biliary ductal dilatation is present. The gallbladder is unremarkable with no evidence of radiopaque gallstones, gallbladder wall thickening, or obvious pericholecystic inflammatory changes. PANCREAS: Unremarkable. SPLEEN: Unremarkable. ADRENAL GLANDS: Unremarkable. KIDNEYS AND URETERS: The kidneys are normal in size, shape, and attenuation. No hydronephrosis, hydroureter, or calculi seen. No perinephric stranding. BLADDER: Unremarkable. GASTROINTESTINAL TRACT: There is diverticulosis of the colon. There is wall thickening and wall edema of the left colon. There is stranding of the adjacent fat. Differential would include diverticulitis and colitis. No evidence of obstruction, perforation or abscess. Small and large bowel are otherwise unremarkable. The appendix is unremarkable. ABDOMINAL WALL: No significant hernia is appreciated. LYMPH NODES: Normal. VASCULAR: There is evidence of atherosclerotic disease. No aneurysm. PELVIC VISCERA: Unremarkable. OSSEOUS STRUCTURES: Unremarkable. CT/CT abdomen pelvis w IV con IMPRESSION: Diverticulitis versus colitis of the left colon. No evidence of obstruction, perforation or abscess. Fleischner guidelines were followed.
[2022-09-20 11:11] VITALS: BP 149/100; PULSE 84; RESP 18; TEMP 37.1; O2SAT 97; BMI 24.5
--- NOTE | 2022-09-20 11:13 | ED.GENADULT ---
HPI - General Adult General Chief complaint: Abdominal Pain Stated complaint: abd pain, side pain Time Seen by Provider: 09/20/22 12:14 Source: patient Mode of arrival: ambulatory Limitations: no limitations History of Present Illness HPI narrative: 61-year-old female with a past medical history of asthma, GERD, hyperlipidemia, peripheral neuropathy, hypertension, rheumatoid arthritis, depression, anxiety, pyelonephritis, diverticulitis, ovarian cysts, hermansky oudlak syndrome presenting today with intermittent left sided abdominal pain x4 days. Patient reports acute onset of left sided abdominal pain and nausea 4 days ago that's been intermittent. gradually worsening, and never completely resolves, worse with palpation. Associated with one episode of thin black stool. Last colonoscopy was 2-3 yrs ago and unremarkable. Denies fever, chills, chest pain, SOB, flank pain, vomiting, diarrhea, constipation, dysuria, hematuria, or vaginal discharge. Onset (ago): day(s) (5) Location: abdomen (left lower and left upper) Radiation: abdomen (right lower abdomen) Pain Consistency: intermittent Associated symptoms: nausea/vomiting Treatments prior to arrival: none Related Data Home Medications Medication Instructions Recorded Confirmed cholecalciferol (vitamin D3) 50 50 mcg PO DAILY 02/08/20 09/16/22 mcg (2,000 unit) tablet (Vitamin D3) clonazepam 0.5 mg tablet 0.5 mg PO BEDTIME PRN Anxiety 02/08/20 09/16/22 pantoprazole 40 mg tablet,delayed 40 mg PO DAILY 02/08/20 09/16/22 release cyanocobalamin (vitamin B-12) 1,000 mcg PO DAILY 09/01/21 09/16/22 1,000 mcg tablet fluticasone propionate 220 0 mcg PO BID 09/01/21 09/16/22 mcg/actuation HFA aerosol inhaler (Flovent HFA) rosuvastatin 10 mg tablet 10 mg PO DAILY 09/01/21 09/16/22 sertraline 25 mg tablet 25 mg PO DAILY 12/02/21 09/16/22 azelastine 137 mcg (0.1 %) nasal 2 spray intranasal DAILY 06/03/22 09/16/22 spray aerosol cetirizine 10 mg tablet 10 mg PO QAM PRN allergies 06/03/22 09/16/22 Previous Rx's Medication Instructions Recorded gabapentin 100 mg capsule 100 mg PO BEDTIME #90 caps 07/23/22 amoxicillin 875 mg-potassium 1 tab PO BID #20 tabs 09/20/22 clavulanate 125 mg tablet ketorolac 10 mg tablet 10 mg PO Q8H PRN pain #15 tabs 09/20/22 ondansetron 4 mg disintegrating 4 mg PO Q8H PRN nausea and 09/20/22 tablet vomiting 3 days #12 tabs Allergies Allergy/AdvReac Type Severity Reaction Status Date / Time erythromycin base Allergy Mild SWELLING/STOMACH Verified 09/20/22 11:14 [Erythromycin Base] PAIN/ORAL BLISTERS aspirin [ASA] Allergy Unknown STOMACH Verified 09/20/22 11:14 PAIN doxycycline Allergy Abdominal Verified 09/20/22 11:14 Pain tramadol [TRAMADOL] AdvReac Unknown DIZZY,NAUSE Verified 09/20/22 11:14 A Review of Systems Review of Systems: Yes all other systems are reviewed and are negative PMFSH Past Medical History Attestation statement: The following information was validated with the patient. Source: old records reviewed and nursing notes reviewed Medical History Asthma GERD (gastroesophageal reflux disease) Hypercholesteremia Peripheral neuropathy Psychiatric disorder Surgical History H/O ovarian cystectomy History of endometrial ablation History of tonsillectomy and adenoidectomy Family History Family History Father No problems noted. Mother Rheumatoid arthritis Social History Social History Household Members: Family Housing: House Do you presently have visiting nurse or other home services: No Alcohol intake: never Patient Tobacco Use Status: Never used Tobacco Second Hand Smoke Exposure: No Advance Directives: No Advance Directives Information Provided: Yes service: No Current occupational status: disabled Physical Exam ED Vital Signs: Vital Signs - 24 hr 09/20/22 11:11 09/20/22 14:10 09/20/22 14:57 Temperature 98.7 F 98.7 F Pulse Rate 84 70 90 Respiratory Rate 18 18 18 Blood Pressure 149/100 H 126/84 115/81 Pulse Oximetry 97 97 96 Oxygen Delivery Method Room Air Room Air Room Air BMI result Body Mass Index 24.5 Appearance: Alert. Oriented X3. No acute distress. Head: normocephalic, atraumatic. Eyes: Pupils equal, round and reactive to light. Neck: Normal inspection. Neck supple. CVS: Normal heart rate and rhythm. Pulses normal. Respiratory: No respiratory distress. Breath sounds normal. Abdomen: Soft, nondistended, tender to palpation to LLQ and RUQ with guarding bilaterally, no rebound, normoactive BS throughout Skin: Skin warm and dry. Normal skin color. Normal skin turgor. No rashes. Extremities: No lower extremity edema. No joint swelling. Neuro/psych: Oriented X 3. Course Course Course Narrative: RME- 61-year-old female presents for evaluation of left lower quadrant. She reports a history of diverticulitis. Her symptoms started 3 days ago and have been gradually worsening. She is guarding to palpation of the left lower quadrant. Plan for labs, UA and CT scan of the abdomen pelvis. Medications Administered Discontinued Medications Generic Name Dose Route Start Last Admin Trade Name Adrianq PRN Reason Stop Dose Admin Iohexol 85 ml 09/20/22 12:07 09/20/22 12:08 Iohexol 350 Mg/Ml 100 Ml Infus..Btl IV 09/20/22 12:08 85 ml ONCE ONE Administration Ketorolac Tromethamine 30 mg 09/20/22 12:58 09/20/22 13:01 Ketorolac Tromethamine 30 Mg/Ml Vial IVPUSH 09/20/22 12:59 30 mg ONCE ONE Administration Ondansetron HCl 4 mg 09/20/22 12:48 09/20/22 13:02 Ondansetron Hcl 4 Mg/2 Ml Vial IVPUSH 09/20/22 12:49 4 mg ONCE ONE Administration Medical Decision Making Medical Decision Making MDM Narrative: 61-year-old female with a past medical history of asthma, GERD, hyperlipidemia, peripheral neuropathy, hypertension, rheumatoid arthritis, depression, anxiety, pyelonephritis, diverticulitis, ovarian cysts, hermansky oudlak syndrome presenting today with intermittent and gradudally worsening left sided abdominal pain, nausea, and one episode of thin black stool x4 days. Patient is hemodynamically stable, patient is afebrile. Physical exam significant for tenderness to palpation in the RLQ and LLQ with guarding bilaterally, no rebound tenderness, normoactive BS throughout. Clinical suspicion for acute diverticulitis vs colon malignancy vs ruptured ovarian cyst Low suspicion for SBO, appendicitis, ischemic colitis, TOA, pyelonephritis, UTI Plan: labs, CT abd/ pelvis, pain control, antiemetics On re-evaluation, patient is feeling better. Discussed lab results and imaging results. Discussed diagnosis of diverticulitis. Patient feel safe for discharge with outpatient antibiotic and pain control with GI follow up. At this time patient is stable for discharge. Differential Diagnosis Differential Diagnoses: The differential diagnosis associated with the presentation includes diverticulitis, colon malignancy, ruptured ovarian cyst, ovarian torsion, pyelonephritis, nephrolithiasis, TOA Admission/Observation Consideration of admission/observation: Escalation of care including admission/observation considered I considered admission due to history of diverticulitis and patient's worsening pain/ nausea with diverticulitis noted on CT, however patient is hemodynamically stable with pain under control. I feel safe treating them as outpatient. Lab Data MDM Lab Attestation statement: I reviewed the patient's lab results. No leukocytosis 09/20/22 11:18 09/20/22 11:18 Labs: Lab Results 09/20/22 09/20/22 09/20/22 Range/Units 11:18 11:18 12:14 WBC 10.7 (4.8-10.8) X10*3/uL RBC 5.01 (4.20-5.50) X10*6/uL Hgb 14.0 (12.0-16.0) g/dl Hct 42.5 (37.0-47.0) % MCV 84.8 (80.0-98.0) fL MCH 27.9 (27.0-33.0) pg MCHC 32.9 (31.0-35.0) g/dl RDW 14.0 (11.0-16.0) % Plt Count 216 (160-400) X10*3/uL MPV 10.7 (9.4-12.3) fL Immature Gran % (Auto) 0.3 (0.0-0.4) % Neut % (Auto) 75.1 H (45-73) % Lymph % (Auto) 13.8 L (20-40) % [place] % (Auto) 9.8 (2-11) % Eos % (Auto) 0.7 (0-4) % Baso % (Auto) 0.3 (0-2) % Lymph # (Auto) 1.5 (1.2-4.9) X10*3/uL [place] # (Auto) 1.0 (0.1-1.2) X10*3/uL Eos # (Auto) 0.1 (0.0-0.4) X10*3/uL Baso # (Auto) 0.0 (0.0-0.2) X10*3/uL Abs Immat Gran (auto) 0.03 (0.00-0.03) X10*3/uL Absolute Neuts (auto) 8.0 (2.0-8.3) x10*3/uL Absolute Nucleated RBC 0.000 (0.0-0.012) X10*3/uL Nucleated RBC % (auto) 0.0 (0.0-0.2) /100WBC Sodium 140 (135-145) mmol/L Potassium 4.1 (3.3-5.1) mmol/L Chloride 104 (96-108) mmol/L Carbon Dioxide 27 (22-29) mmol/L Anion Gap 13 (12-20) BUN 12 (9-16) mg/dL Creatinine 0.80 (0.5-1.4) mg/dL Estim Creat Clear Calc 62.1 Estimated GFR > 60 Random Glucose 96 (60-115) mg/dL Calcium 10.3 H (8.4-10.2) mg/dL Total Bilirubin 1.4 H (0.0-1.0) mg/dL AST 25 (5-31) U/L ALT 21 (0-31) U/L Alkaline Phosphatase 134 H (39-117) U/L Total Protein 8.5 H (6.5-8.0) g/dL Albumin 4.6 (3.5-5.0) g/dL Lipase 16 (8-78) U/L Urine Color Yellow Urine Appearance Clear Urine pH 7.5 (5.0-9.0) Ur Specific Barney 1.010 (1.005-1.025) Urine Protein Negative (Neg-Trace) mg/dL Urine Glucose (UA) Negative (Negative) mg/dL Urine Ketones Negative (Negative) mg/dL Urine Blood Negative (Negative) Urine Nitrite Negative (Negative) Ur Leukocyte Esterase Small (1+) H (Negative) Urine RBC 0-2 (0-2) /HPF Urine WBC 0-5 (0-5) /HPF Ur Squamous Epith Cells 0-2 (0-2) /HPF Urine Bacteria None Seen (None Seen) Hyaline Casts 0-2 (0-2) /LPF Independent Interpretation I performed an independent interpretation of an: CT Scan Interpretation: CT showing inflammation and outpouching of the colon, agree with radiologists interpretation. Radiology Impression Discussion of test interpretation with radiology: I have reviewed the radiologist's reading. Radiologist Impression: CT abdomen pelvis w IV con IMPRESSION: Diverticulitis versus colitis of the left colon. No evidence of obstruction, perforation or abscess. Independent Historian Clinical information obtained from an independent historian. History obtained from or confirmed by: Spouse External Record Review External record reviewed: Inpatient record Prescription Management I considered prescription management with: Pain Medication Chronic Conditions Patient?s care impacted by: Other asthma, GERD, hyperlipidemia, peripheral neuropathy, hypertension, rheumatoid arthritis, depression, anxiety, pyelonephritis, diverticulitis, ovarian cysts, hermansky oudlak syndrome Critical Care Time Critical Care Time Critical Care Time: No Discharge Plan Discharge Clinical Impression: Diverticulitis, Abdominal pain Patient Disposition: Home, Self-Care Instructions: Diverticulitis (ED), Diverticulitis Diet (ED) Additional Instructions: Your lab work was normal. Your CT scan showed that you have diverticulitis with inflammation of the colon. An antibiotic has been sent to your pharmacy. Take this as prescribed and do not miss any doses Toradol has also been sent to your pharmacy. Take this as needed for pain. Zofran has been sent to your pharmacy. Take this as needed for nausea. Consume a liquid diet for the next few days and slowly incorporate more solid foods into your diet. Return to the ED if symptoms worsen. Follow up with out of town collection clerk. Prescriptions: New amoxicillin-pot clavulanate 875-125 mg tablet 1 tab PO BID Qty: 20 0RF ketorolac 10 mg tablet 10 mg PO Q8H PRN (Reason: pain) Qty: 15 0RF ondansetron 4 mg tablet,disintegrating 4 mg PO Q8H PRN (Reason: nausea and vomiting) 3 Days Qty: 12 0RF No Action gabapentin 100 mg capsule 100 mg PO BEDTIME Qty: 90 0RF clonazepam 0.5 mg Tablet 0.5 mg PO BEDTIME PRN (Reason: Anxiety) pantoprazole 40 mg Tablet,Delayed Release (Dr/Ec) 40 mg PO DAILY cholecalciferol (vitamin D3) [Vitamin D3] 50 mcg (2,000 unit) Tablet 50 mcg PO DAILY rosuvastatin 10 mg tablet 10 mg PO DAILY cyanocobalamin (vitamin B-12) 1,000 mcg tablet 1,000 mcg PO DAILY Flovent HFA 220 mcg/actuation HFA aerosol inhaler 0 mcg PO BID azelastine 137 mcg (0.1 %) aerosol,spray 2 spray intranasal DAILY cetirizine 10 mg tablet 10 mg PO QAM PRN (Reason: allergies) sertraline 25 mg tablet 25 mg PO DAILY Referrals: [facility] [place] [facility] [Provider Group] Interventions: ED Discharge Assessment Last Done: 09/20/22 15:19 Discharge Date/Time: 09/20/22 15:19
[2022-09-20 11:22] LABS: MANUAL DIFF FLAG NO
[2022-09-20 11:23] LABS: Basophils Percent Auto 0.3 % (0-2); Eosinophils Absolute Auto 0.1 X10*3/uL (0.0-0.4); Eosinophils Percent Auto 0.7 % (0-4); Hematocrit 42.5 % (37.0-47.0); Imm Gran Abs Auto 0.03 X10*3/uL (0.00-0.03); Imm Gran Pct Auto 0.3 % (0.0-0.4); Lymphocytes Absolute Auto 1.5 X10*3/uL (1.2-4.9); Lymphocytes Percent Auto 13.8 % (20-40); Mean Corpuscular HGB Conc 32.9 g/dl (31.0-35.0); Mean Corpuscular Hemoglobin 27.9 pg (27.0-33.0); Mean Corpuscular Volume 84.8 fL (80.0-98.0); Mean Platelet Volume 10.7 fL (9.4-12.3); Monocytes Percent Auto 9.8 % (2-11); Neutrophils Percent Auto 75.1 % (45-73); Platelet Count 216 X10*3/uL (160-400); Red Blood Count 5.01 X10*6/uL (4.20-5.50); White Blood Count 10.7 X10*3/uL (4.8-10.8)
[2022-09-20 11:37] LABS: Alanine Aminotransferase 21 U/L (0-31); Albumin Level 4.6 g/dL (3.5-5.0); Alkaline Phosphatase 134 U/L (39-117); Anion Gap 13 (12-20); Aspartate Amino Transferase 25 U/L (5-31); Bilirubin Total 1.4 mg/dL (0.0-1.0); Blood Urea Nitrogen 12 mg/dL (9-16); Calcium 10.3 mg/dL (8.4-10.2); Carbon Dioxide 27 mmol/L (22-29); Chloride 104 mmol/L (96-108); Creatinine Clr Calc Pharmacy 62.1; Estimated Glomerular Filt Rate > 60; Glucose Random 96 mg/dL (60-115); Lipase 16 U/L (8-78); Potassium 4.1 mmol/L (3.3-5.1); Sodium 140 mmol/L (135-145); Total Protein 8.5 g/dL (6.5-8.0)
[2022-09-20] MEDS: iohexoL 350 MG/ML 100 ML INFUS..BTL 85 ML IV (12:08)
[2022-09-20 12:23] LABS: Appearance Urine Clear; Color Urine Yellow; Glucose Urine UA Negative (Negative); Leukocyte Esterase Urine Small (1+) (Negative); Nitrite Urine Negative (Negative); PH 7.5 (5.0-9.0); UMIC TRIGGER UACC YES; Urine Blood Negative (Negative); Urine Ketones Negative (Negative); Urine Protein Negative (Neg-Trace)
[2022-09-20 12:31] LABS: Bacteria Urine None Seen (None Seen); Hyaline Casts Urine 0-2 /LPF (0-2); RBC Urine 0-2 /HPF (0-2); Squamous Epithelial Cell Urine 0-2 /HPF (0-2); UACC Culture Trigger YES; WBC Urine 0-5 /HPF (0-5)
[2022-09-20] MEDS: Ketorolac Tromethamine 30 MG/ML VIAL IVPUSH (13:01)
[2022-09-20] MEDS: ondansetron HCL 4 MG/2 ML VIAL IVPUSH (13:02)
--- NOTE | 2022-09-20 13:47 | PC.NURSE ---
Alert and oriented, declined morphine. Medicated with prn toradol with some effect.
[2022-09-20 14:10] VITALS: BP 126/84; PULSE 70; RESP 18; TEMP 37.1; O2SAT 97
[2022-09-20 14:57] VITALS: BP 115/81; PULSE 90; RESP 18; O2SAT 96
--- NOTE | 2022-09-20 15:19 | PC.NURSE ---
Alert and oriented, reviewed discharge instructions with patient and who verbalized understanding
== END 2022-09-20 15:19 | disposition home or self-care (01) ==
PROVIDERS: Physician Assistant; Emergency Provider Student in an Organized Health Care Education/Training Program
DX: K57.92 Diverticulitis of intestine, part unspecified, without perforation or abscess without bleeding (principal); R10.31 Right lower quadrant pain; R10.12 Left upper quadrant pain; Z79.899 Other long term (current) drug therapy
CPT/HCPCS: 36415; 74177; 80053; 81001; 83690; 85025; 87086; 96374; 96375; 99284; J1885; J2405; Q9967

== ENCOUNTER 2022-10-09 07:43 | Outpatient (REF) | payer MEDICAID, SELFPAY ==
[2022-10-09 08:59] LABS: Alanine Aminotransferase 15 U/L (0-31); Albumin Level 4.3 g/dL (3.5-5.0); Alkaline Phosphatase 132 U/L (39-117); Anion Gap 14 (12-20); Aspartate Amino Transferase 20 U/L (5-31); Bilirubin Total 0.6 mg/dL (0.0-1.0); Blood Urea Nitrogen 17 mg/dL (9-16); Calcium 10.2 mg/dL (8.4-10.2); Carbon Dioxide 27 mmol/L (22-29); Chloride 108 mmol/L (96-108); Cholesterol 164 mg/dL; Estimated Glomerular Filt Rate > 60; Glucose Random 93 mg/dL (60-115); HDL Cholesterol 49 mg/dL; LDL Cholesterol Calculated 100 mg/dl; Potassium 4.1 mmol/L (3.3-5.1); Sodium 145 mmol/L (135-145); Total Protein 7.8 g/dL (6.5-8.0); Triglycerides 79 mg/dL
[2022-10-09 09:19] LABS: TSH reflex Free T4 0.88 uIU/mL (0.32-4.0)
[2022-10-14 15:34] LABS: HIV RNA PCR Qn Copies Not Detected Copies/mL; HIV RNA PCR Qn Log Copies Not Detected Log cps/mL
== END 2022-10-09 07:44 | disposition home or self-care (01) ==
LOC: HO.LAB 07:43
PROVIDERS: PCP Registered Nurse; Visit Provider Registered Nurse
DX: Z00.00 Encounter for general adult medical examination without abnormal findings (principal); Z11.4 Encounter for screening for human immunodeficiency virus [HIV]
CPT/HCPCS: 0353U; 80053; 80061; 83036; 84443; 85025; 86780; 86803; 87536; 87900

== ENCOUNTER 2022-12-04 08:31 | Outpatient (REF) | payer MEDICAID, SELFPAY ==
[2022-12-04 10:09] LABS: Alanine Aminotransferase 16 U/L (0-31); Albumin Level 4.5 g/dL (3.5-5.0); Alkaline Phosphatase 126 U/L (39-117); Aspartate Amino Transferase 22 U/L (5-31); Bilirubin Direct 0.3 mg/dL (0.0-0.5); Bilirubin Total 0.9 mg/dL (0.0-1.0); Total Protein 8.1 g/dL (6.5-8.0)
[2022-12-04 10:38] LABS: Gamma Glutamyl Transpeptidase 18 U/L (7-33)
== END 2022-12-04 08:32 | disposition home or self-care (01) ==
LOC: HO.LAB 08:31
PROVIDERS: PCP Registered Nurse; Visit Provider Registered Nurse
DX: R74.8 Abnormal levels of other serum enzymes (principal)
CPT/HCPCS: 36415; 80076; 82977

== ENCOUNTER 2022-12-16 13:51 | Outpatient (REF) | payer MEDICAID, SELFPAY | END 2022-12-16 13:52 | disposition home or self-care (01) | LOC: HO.MAMMO 13:51 | PROVIDERS: PCP Registered Nurse; Visit Provider Internal Medicine | DX: Z12.31 Encounter for screening mammogram for malignant neoplasm of breast (principal) | CPT/HCPCS: 77063; 77067 ==

== ENCOUNTER → 2022-12-16 14:00 | Outpatient (BNV) | payer MEDICAID, SELFPAY | PROVIDERS: PCP Registered Nurse; Visit Provider Radiology Diagnostic Radiology | DX: Z12.31 Encounter for screening mammogram for malignant neoplasm of breast (principal) | CPT/HCPCS: 77063; 77067 ==

== ENCOUNTER 2023-02-11 13:20 | Outpatient (REF) | payer MEDICAID, SELFPAY ==
[2023-02-11 14:29] LABS: Appearance Urine Clear; Color Urine Yellow; Glucose Urine UA Negative (Negative); Leukocyte Esterase Urine Large (3+) (Negative); Nitrite Urine Negative (Negative); UMIC TRIGGER UACC YES; Urine Blood Negative (Negative); Urine Ketones Negative (Negative); Urine Protein Negative (Neg-Trace)
[2023-02-11 14:35] LABS: Bacteria Urine Trace (None Seen); Hyaline Casts Urine 0-2 /LPF (0-2); RBC Urine 0-2 /HPF (0-2); UACC Culture Trigger YES
== END 2023-02-11 13:21 | disposition home or self-care (01) ==
LOC: HO.CHCLNP 13:20
PROVIDERS: Visit Provider Registered Nurse
DX: R39.9 Unspecified symptoms and signs involving the genitourinary system (principal)
CPT/HCPCS: 81001; 87086

== ENCOUNTER 2023-02-14 16:14 | Outpatient (REF) | payer MEDICAID, SELFPAY ==
[2023-02-16 11:32] LABS: Influenza A PCR NEGATIVE (Negative); Influenza B PCR NEGATIVE (Negative); Resp Syncy Virus RNA Qual PCR NEGATIVE (Negative); SARS COV2 PCR INHOUSE NEGATIVE (Negative)
== END 2023-02-14 16:15 | disposition home or self-care (01) ==
LOC: HO.CHCLNP 16:14
PROVIDERS: Visit Provider Registered Nurse
DX: R50.9 Fever, unspecified (principal); Z11.52 Encounter for screening for COVID-19
CPT/HCPCS: 0241U; 87070

== ENCOUNTER 2023-02-26 08:35 | Outpatient (REF) | payer MEDICAID, SELFPAY ==
[2023-02-26 09:34] LABS: Alanine Aminotransferase 20 U/L (0-31); Albumin Level 4.1 g/dL (3.5-5.0); Alkaline Phosphatase 112 U/L (39-117); Aspartate Amino Transferase 20 U/L (5-31); Bilirubin Direct 0.2 mg/dL (0.0-0.5); Bilirubin Total 0.6 mg/dL (0.0-1.0); Gamma Glutamyl Transpeptidase 29 U/L (7-33); Total Protein 7.9 g/dL (6.5-8.0)
== END 2023-02-26 08:36 | disposition home or self-care (01) ==
LOC: HO.LAB 08:35
PROVIDERS: PCP Registered Nurse; Visit Provider Internal Medicine Gastroenterology
DX: R79.89 Other specified abnormal findings of blood chemistry (principal)
CPT/HCPCS: 36415; 80076; 82977

== ENCOUNTER 2023-03-15 09:43 | Day surgery (SDC) | payer MEDICAID, SELFPAY ==
[2023-02-11 14:00] VITALS: BMI 24.2
--- NOTE | 2023-02-14 08:38 | P.CONAN_ITS ---
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 Mother Rheumatoid arthritis Surgical History Surgical History Hx of cystoscopy Hx of colonoscopy Hx of esophagogastroduodenoscopy H/O ovarian cystectomy History of tonsillectomy and adenoidectomy History of endometrial ablation Social History Social History Household Members: Family Housing: House Do you presently have visiting nurse or other home services: No Alcohol intake: never Comment: PT SLEEPING Patient Tobacco Use Status: Never used Tobacco Second Hand Smoke Exposure: No Are you DNR?: No Advance Directives: No Advance Directives Information Provided: Yes Nutrition Risks: No Nutritional Risk service: No Current occupational status: disabled Meds Allergies Allergy/AdvReac Type Severity Reaction Status Date / Time erythromycin base Allergy Mild SWELLING/STOMACH Verified 03/15/23 09:56 [Erythromycin Base] PAIN/ORAL BLISTERS aspirin [ASA] Allergy Unknown STOMACH Verified 03/15/23 09:56 PAIN doxycycline Allergy Abdominal Verified 03/15/23 09:56 Pain tramadol [TRAMADOL] AdvReac Unknown DIZZY,NAUSE Verified 03/15/23 09:56 A Home Medications Medication Instructions Recorded Confirmed Last Taken Type cholecalciferol (vitamin D3) 50 50 mcg PO DAILY 02/08/20 09/16/22 Unknown History mcg (2,000 unit) tablet (Vitamin D3) clonazepam 0.5 mg tablet 0.5 mg PO BEDTIME PRN Anxiety 02/08/20 09/16/22 Unknown History pantoprazole 40 mg tablet,delayed 40 mg PO DAILY 02/08/20 03/15/23 03/15/23 History release cyanocobalamin (vitamin B-12) 1,000 mcg PO DAILY 09/01/21 09/16/22 Unknown History 1,000 mcg tablet fluticasone propionate 220 0 mcg PO BID 09/01/21 09/16/22 Unknown History mcg/actuation HFA aerosol inhaler (Flovent HFA) rosuvastatin 10 mg tablet 10 mg PO DAILY 09/01/21 09/16/22 Unknown History sertraline 25 mg tablet 25 mg PO DAILY 12/02/21 03/15/23 03/15/23 History azelastine 137 mcg (0.1 %) nasal 2 spray intranasal DAILY 06/03/22 09/16/22 Unknown History spray aerosol cetirizine 10 mg tablet 10 mg PO QAM PRN allergies 06/03/22 09/16/22 Unknown History Exam Exam Date and Time: February 14, 2023 0838 Height,Weight and Vital Signs: Height 5 ft 4.5 in Weight 64.864 kg Pertinent Lab Results Pertinent Lab Results: Laboratory Tests 10/09/22 08:06 WBC 4.7 L Hgb 13.4 Hct 40.3 Plt Count 222 Sodium 145 Potassium 4.1 Chloride 108 Carbon Dioxide 27 BUN 17 H Creatinine 0.82 Assessment and Plan Assessment Anesthesia Assessment: Chart Reviewed Documented by User: Mahendra James MD 03/15/23 10:09 [facility] Past Medical History Medical History Rheumatoid arthritis Hermansky-Pudlak syndrome Interstitial cystitis Arthritis Diverticulosis Depression GERD (gastroesophageal reflux disease) Peripheral neuropathy Psychiatric disorder Hypercholesteremia Asthma Family History Family History Father No problems noted. Mother Rheumatoid arthritis Family history of problems with anesthesia: No Surgical History Surgical History Hx of cystoscopy Hx of colonoscopy Hx of esophagogastroduodenoscopy H/O ovarian cystectomy History of tonsillectomy and adenoidectomy History of endometrial ablation History of Problems with Anesthesia: No Social History Social History Household Members: Family Housing: House Do you presently have visiting nurse or other home services: No Alcohol intake: never Comment: PT SLEEPING Patient Tobacco Use Status: Never used Tobacco Second Hand Smoke Exposure: No Are you DNR?: No Advance Directives: No Advance Directives Information Provided: Yes Nutrition Risks: No Nutritional Risk service: No Current occupational status: disabled Meds Allergies Allergy/AdvReac Type Severity Reaction Status Date / Time erythromycin base Allergy Mild SWELLING/STOMACH Verified 03/15/23 09:56 [Erythromycin Base] PAIN/ORAL BLISTERS aspirin [ASA] Allergy Unknown STOMACH Verified 03/15/23 09:56 PAIN doxycycline Allergy Abdominal Verified 03/15/23 09:56 Pain tramadol [TRAMADOL] AdvReac Unknown DIZZY,NAUSE Verified 03/15/23 09:56 A Home Medications Medication Instructions Recorded Confirmed Last Taken Type cholecalciferol (vitamin D3) 50 50 mcg PO DAILY 02/08/20 09/16/22 Unknown History mcg (2,000 unit) tablet (Vitamin D3) clonazepam 0.5 mg tablet 0.5 mg PO BEDTIME PRN Anxiety 02/08/20 09/16/22 Unknown History pantoprazole 40 mg tablet,delayed 40 mg PO DAILY 02/08/20 03/15/23 03/15/23 History release cyanocobalamin (vitamin B-12) 1,000 mcg PO DAILY 09/01/21 09/16/22 Unknown History 1,000 mcg tablet fluticasone propionate 220 0 mcg PO BID 09/01/21 09/16/22 Unknown History mcg/actuation HFA aerosol inhaler (Flovent HFA) rosuvastatin 10 mg tablet 10 mg PO DAILY 09/01/21 09/16/22 Unknown History sertraline 25 mg tablet 25 mg PO DAILY 12/02/21 03/15/23 03/15/23 History azelastine 137 mcg (0.1 %) nasal 2 spray intranasal DAILY 06/03/22 09/16/22 Unknown History spray aerosol cetirizine 10 mg tablet 10 mg PO QAM PRN allergies 06/03/22 09/16/22 Unknown History Exam Airway Mallampati Class: II TM Dist: >3cm Neck ROM: Limited Heart: rrr Lungs: cta Assessment and Plan Assessment Anesthesia Assessment: Anesthesia Plan Discussed Final Anesthetic Review Family History of Problems with Anesthesia: No History of Problems with Anesthesia: No NPO: Yes ASA Class: II Final Preanesthetic Review: No Changes in Pt Med Stat, Meds/Allgs Chart Reviewed and Anes Risks/Benef Reviewed Patient Risk: Intermediate Procedure Risk: Low Anesthetic Plan Anesthetic Plan: MAC: and Agree w/ Assess. and Plan Disposition: Standard PACU
[2023-03-15 09:56] VITALS: BMI 23.8
[2023-03-15] MEDS: Lactated Ringers 1,000 ML 100 ML IVCONT (10:00)
[2023-03-15 10:05] VITALS: BP 118/79; PULSE 67; RESP 18; TEMP 36.8; O2SAT 99
--- NOTE | 2023-03-15 10:39 | MHC.SHP ---
Pre-Procedural Eval Section A Date of Service: 03/15/23 Section B Chief Complaint: Diverticulitis of intestine, part unspecified, Details of Present Illness: see H&P no changes Relevant Family History (Specify if Yes): No Relevant Social History: None Present Medications: see Short Stay Collaborative assessment Medical History: No relevant PMH History of Previous Operations: No relevant previous surgery Allergies: Allergies Allergy/AdvReac Type Severity Reaction Status Date / Time erythromycin base Allergy Mild SWELLING/STOMACH Verified 03/15/23 09:56 [Erythromycin Base] PAIN/ORAL BLISTERS aspirin [ASA] Allergy Unknown STOMACH Verified 03/15/23 09:56 PAIN doxycycline Allergy Abdominal Verified 03/15/23 09:56 Pain tramadol [TRAMADOL] AdvReac Unknown DIZZY,NAUSE Verified 03/15/23 09:56 A Review of Systems Sugical H&P ROS: Negative: Constitution, Cardiovascular, Respiratory, Neurological, Psychiatric, Hem-Onc, Allergic/Immunologic, Gastrointestinal, Genitourinary, Musculoskeletal, Integumentary, Endocrine and Eyes/Ears/Nose/Throat Exam Surgical H&P Exam: Normal: HEENT, Normal: Heart, Normal: Lungs, Normal: Extremities, Normal: Abdomen, Normal: Skin and Normal: Neurological Plan Diagnosis/Plan: Unchanged I have reviewed the history and physical and performed a pertinent physical examination on my patient. No changes have occurred unless specified. Time Spent With Patient Time: Total time managing care of this patient today ____ minutes.
--- NOTE | 2023-03-15 11:13 | PM.OP ---
Brief Operative Note Date of Service: 03/15/23 Pre-op diagnosis: diverticulitis Post-op diagnosis: same Procedure: colonoscopy Surgeon: Deepak Rogers MD Anesthesia: MAC Was an Can Reconditioner used for this Procedure?: No Estimated blood loss (mL): 2 Pathology: other Condition: stable Disposition: PACU
[2023-03-15 11:18] VITALS: BP 111/69; PULSE 74; RESP 16; TEMP 36.3; O2SAT 98
[2023-03-15 11:33] VITALS: BP 124/86; PULSE 61; RESP 16; TEMP 36.9; O2SAT 99
--- NOTE | 2023-03-15 11:45 | OP_ITS ---
DATE OF SERVICE: 03/15/2023 SURGEON: Deepak Rogers MD INDICATIONS: Diverticulitis PREOPERATIVE DIAGNOSIS: POSTOPERATIVE DIAGNOSIS: PROCEDURE PERFORMED: Colonoscopy to the terminal ileum with biopsy. ESTIMATED BLOOD LOSS: COMPLICATIONS: ANESTHESIA: Monitored anesthesia care. ASSISTANTS: SPECIMENS: DESCRIPTION OF PROCEDURE: A history and physical was performed. The risks and benefits of the procedure were explained to the patient. Informed consent was obtained. The patient was placed in the left lateral decubitus position. A digital rectal exam was performed and was found to be normal. The Olympus pediatric video colonoscope was introduced into the rectum and advanced to the cecum. The cecum was identified by transillumination, palpation, and identification of ileocecal valve. Examination was performed. The scope was removed. She tolerated the procedure well and was returned to the recovery area in stable condition. FINDINGS: The terminal ileum was normal. The visualized colonic mucosa was normal. There was moderate sigmoid diverticulosis but no evidence of diverticulitis. There were few scattered diverticula throughout the remainder of the colon. A single polyp measuring less than 5 mm was identified at 70 cm from the anal verge, removed with biopsy forceps. Retroflexed examination showed moderate-sized internal hemorrhoids. The quality of the prep was good. IMPRESSION: Colon polyp. RECOMMENDATION: Follow up the biopsy results. MD RICHARD Hurley/SANTY / [id number]
== END 2023-03-15 12:12 | disposition home or self-care (01) ==
PROVIDERS: PCP Registered Nurse; Visit Provider Internal Medicine Gastroenterology
PROC: 0DJD8ZZ Inspection of Lower Intestinal Tract, Via Natural or Artificial Opening Endoscopic (ICD-10-PCS; CPT 45378; principal; 2023-03-15 11:20)
DX: D12.4 Benign neoplasm of descending colon (principal); K57.30 Diverticulosis of large intestine without perforation or abscess without bleeding; K64.8 Other hemorrhoids; E78.00 Pure hypercholesterolemia, unspecified; K21.9 Gastro-esophageal reflux disease without esophagitis; J45.909 Unspecified asthma, uncomplicated; E70.30 Albinism, unspecified; Z79.02 Long term (current) use of antithrombotics/antiplatelets; Z79.899 Other long term (current) drug therapy
CPT/HCPCS: 45380; 88305; J2704

== ENCOUNTER 2023-04-25 11:22 | Outpatient (REF) | payer MEDICAID, SELFPAY | END 2023-04-25 11:23 | disposition home or self-care (01) | LOC: HO.LNP 11:22 | PROVIDERS: PCP Registered Nurse; Visit Provider Nurse Practitioner Family | DX: N39.0 Urinary tract infection, site not specified (principal) | CPT/HCPCS: 51798; 81003; 87086; 99212 ==

== ENCOUNTER 2023-04-25 11:22 | Outpatient (AMB) | payer MEDICAID, SELFPAY ==
--- NOTE | 2023-04-25 11:25 | A.OFFVIS_ITS ---
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 Accompanied by: Self / Same As Patient Allergies doxycycline Allergy (Verified 04/25/23 12:09) Unknown erythromycin Allergy (Unknown, Uncoded 04/25/23 12:09) Unknown Medication List - Last Reconciled 04/25/23 by OVIDIO Lujan azelastine 2 sprays intranasal DAILY chlorthalidone 25 mg PO DAILY clonazepam 0.5 mg PO BID PRN fluticasone propionate 220 mcg/actuation (Flovent HFA) inhalation BID gabapentin 100 mg PO BEDTIME pantoprazole 40 mg PO QAM rosuvastatin 10 mg PO BEDTIME sertraline 25 mg PO DAILY PFSH Medical History Diverticulitis Tear of left supraspinatus tendon Headache disorder Fibromyalgia Allergic rhinitis Benign paroxysmal positional vertigo Cobalamin deficiency Dysphagia Dyssomnia Essential hypertension Gastroesophageal reflux disease Hermansky-Pudlak syndrome Mixed anxiety and depressive disorder Legal blindness Mild persistent asthma Hypercholesteremia 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 Vitamin D deficiency Office Procedures Post Void Residual Post Residual Void Post Void Residual (PVR): 0 [id number] Void Residual by ultrasound Results AMB Urinalysis, Automated UA Leukoctes 15 Becky/uL Last Edit by Rome Guerra on 04/25/23 11:57 UA Nitrite Negative Last Edit by Rome Guerra on 04/25/23 11:57 UA Urobilinogen 0.2 mg/dL Last Edit by Rome Guerra on 04/25/23 11:57 UA Protein 0 mg/dL Last Edit by Rome Guerra on 04/25/23 11:57 UA pH 6.0 Last Edit by Rome Guerra on 04/25/23 11:57 UA Blood 0 Denzel/uL Last Edit by Rome Guerra on 04/25/23 11:57 UA Specific [place] 1.015 Last Edit by Rome Guerra on 04/25/23 11:57 UA Ketone Negative Last Edit by Rome Guerra on 04/25/23 11:57 UA Bilirubin 0 mg/dL Last Edit by Rome Guerra on 04/25/23 11:57 UA Glucose 0 mg/dL Last Edit by Rome Guerra on 04/25/23 11:57 Results Reviewed Results Reviewed: Laboratory Last Values Urine pH (Auto) 6.0 04/25/23 11:53 Specific [place] (Auto) 1.015 04/25/23 11:53 Urine Protein (Auto) 0 mg/dL 04/25/23 11:53 Glucose (UA)(Auto) 0 mg/dL 04/25/23 11:53 Urine Ketones (Auto) Negative 04/25/23 11:53 Urine Blood (Auto) 0 Denzel/uL 04/25/23 11:53 Urine Nitrite (Auto) Negative 04/25/23 11:53 Urine Bilirubin (Auto) 0 mg/dL 04/25/23 11:53 Urine Urobilinogen (Auto) 0.2 mg/dL 04/25/23 11:53 Leukocyte Esterase (Auto) 15 Becky/uL 04/25/23 11:53 Assessment & Plan Assessment & Plan Orders: Orders Urine Culture Today Z13.9 - Encounter for screening, unspecified US retroperitoneal comp Today N39.0 - Urinary tract infection, site not specified AMB Urinalysis Automated Today Z13.9 - Encounter for screening, unspecified AMB Post Void Residual by ultrasound Today Z13.9 - Encounter for screening, unspecified Coding CPT Codes Post Residual Void - PVR CPT Code: 21287-Mftz Void Residual by ultrasound ([id number])
--- NOTE | 2023-04-25 11:47 | A.OFFVIS_ITS ---
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 Name: Priyank--[id number] Allergies doxycycline Allergy (Verified 04/25/23 12:09) Unknown erythromycin Allergy (Unknown, Uncoded 04/25/23 12:09) Unknown Medication List - Last Reconciled 04/25/23 by YENY Lujan- azelastine 2 sprays intranasal DAILY chlorthalidone 25 mg PO DAILY clonazepam 0.5 mg PO BID PRN fluticasone propionate 220 mcg/actuation (Flovent HFA) inhalation BID gabapentin 100 mg PO BEDTIME pantoprazole 40 mg PO QAM rosuvastatin 10 mg PO BEDTIME sertraline 25 mg PO DAILY HPI HPI Comments History of Present Illness Details Spring is a pleasant Portuguese-speaking 62-year-old female patient of Dr. Waters. She has a past medical history of diverticulitis, headaches, fibromyalgia, allergic rhinitis, hypertension, GERD, anxiety, depression, legally blind, asthma, hypercholesteremia, ocular albinism, rheumatoid arthritis, vitamin-D deficiency, and Hermansky-Pudlak Syndrome. She presents to the office today as a new patient for recurrent urinary tract symptoms. In discussion with the patient today she reports having followed up with her PCP for ongoing lower urinary tract symptoms she had been experiencing. She reports she was unsure if symptoms were related to urology verses gastroenterology. She reports having had recent colonoscopy at which time polyps were removed and she continues to deal with her ongoing diverticulitis. She reports noting symptoms have since subsided since February. She reports symptoms of left-sided lower abdominal pressure/discomfort with feelings of incomplete bladder emptying. She otherwise denies urinary urgency, urinary frequency, incontinence, nocturia, hematuria, dysuria, foul smelling urine, changes to urinary stream, flank pain, fever, and or chills. She is happy with her current voiding parameters. Discussed at length potential causes for lower urinary tract symptoms patient has experience. Discussed further workup with retroperitoneal ultrasound. Discussed bladder triggers/irritants. In office urinalysis results reviewed with the patient today. PVR 0 mL. She otherwise offers no other issues or concerns at this time. 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 Vitamin D deficiency Review of Systems Eyes Reports as per HPI ENT Reports no additional complaints Card Reports as per HPI Resp Reports as per [facility] GI Reports as per HPI Reports as per HPI Musc Reports as per HPI Neuro Reports as per HPI Psych Reports as per HPI Endo Reports no additional complaints Castillo/Lymph Reports no additional complaints Aller/Immun Reports no additional complaints Physical Exam Const General: cooperative, healthy appearing, comfortable, no acute distress, well developed, alert and awake Orientation/consciousness: patient oriented x3 Limitations: no limitations HEENT Head: Yes normal to inspection, Yes normocephalic and Yes atraumatic Ears: hearing grossly normal bilaterally Eyes General: appearance normal, both eyes and all related structures Neck Neck: Yes normal visual inspection and Yes trachea midline Chest Chest palpation & inspection: normal inspection of the chest Resp Effort & Inspection: normal respiratory effort and able to speak in complete sentences Cardio Rate: regular rate GI Inspection: Yes normal to inspection General: Yes no CVA tenderness Back/Spine/Pelvis Back: no CVA tenderness Skin General skin exam: no rashes or lesions noted Neuro General: patient oriented x3 Extrem General: Yes normal to inspection Psych Appearance: grossly normal and well kempt Mental Status: mental status grossly normal Speech and movement: Normal speech and movement present and Clear speech present Affect: normal affect Attitude: cooperative Thought process: Normal thought process present Thought content: Normal thought content present Insight: Fair insight present (Psych) Judgement: Fair judgement present (Psych) Office Procedures Post Void Residual Post Residual Void Post Void Residual (PVR): 0 [id number] Void Residual by ultrasound Results AMB Urinalysis, Automated UA Leukoctes 15 Becky/uL Last Edit by Rome Guerra on 04/25/23 11:57 UA Nitrite Negative Last Edit by Rome Guerra on 04/25/23 11:57 UA Urobilinogen 0.2 mg/dL Last Edit by Rome Guerra on 04/25/23 11:57 UA Protein 0 mg/dL Last Edit by Rome Guerra on 04/25/23 11:57 UA pH 6.0 Last Edit by Rome Guerra on 04/25/23 11:57 UA Blood 0 Denzel/uL Last Edit by Rome Guerra on 04/25/23 11:57 UA Specific [place] 1.015 Last Edit by Rome Guerra on 04/25/23 11:57 UA Ketone Negative Last Edit by Rome Guerra on 04/25/23 11:57 UA Bilirubin 0 mg/dL Last Edit by Rome Guerra on 04/25/23 11:57 UA Glucose 0 mg/dL Last Edit by Rome Guerra on 04/25/23 11:57 Results Reviewed Results Reviewed: Laboratory Last Values Urine pH (Auto) 6.0 04/25/23 11:53 Specific [place] (Auto) 1.015 04/25/23 11:53 Urine Protein (Auto) 0 mg/dL 04/25/23 11:53 Glucose (UA)(Auto) 0 mg/dL 04/25/23 11:53 Urine Ketones (Auto) Negative 04/25/23 11:53 Urine Blood (Auto) 0 Denzel/uL 04/25/23 11:53 Urine Nitrite (Auto) Negative 04/25/23 11:53 Urine Bilirubin (Auto) 0 mg/dL 04/25/23 11:53 Urine Urobilinogen (Auto) 0.2 mg/dL 04/25/23 11:53 Leukocyte Esterase (Auto) 15 Becky/uL 04/25/23 11:53 Assessment & Plan Assessment & Plan (1) Recurrent UTI: Code(s): N39.0 - Urinary tract infection, site not specified Plan In office urinalysis results reviewed with the patient today; as noted above; will send for urine culture. PVR 0 mL Patient currently denies any bothersome urinary issues or concerns. Will obtain retroperitoneal ultrasound for further assessment evaluation. Discussed possible Estrace cream in the setting a hisotry of recurrent urinary tract infections. Discussed UTI prevention with D mannose supplement, vitamin-C, increasing fluid intake, behavioral therapy with timed voiding, perineal hygiene and postcoital voiding, and management of constipation with stool softeners and increased fiber intake. She is happy with her current voiding parameters. Follow-up in 1-2 months with imaging to be completed prior; or sooner with any issues, concerns, and or questions. Orders: Orders Urine Culture Today Z13.9 - Encounter for screening, unspecified US retroperitoneal comp Today N39.0 - Urinary tract infection, site not sp ecified AMB Urinalysis Automated Today Z13.9 - Encounter for screening, unspecified AMB Post Void Residual by ultrasound Today Z13.9 - Encounter for screening, unspecified Patient Instructions: The patient had an opportunity to ask questions regarding the treatment plan. All questions were answered. Physical exam, labs, and imaging were discussed and reviewed in detail. As well as risks, benefits, and discussion of treatment choices. No major barriers to understanding were identified. The patient expressed understanding and agreement with the above treatment plan. The patient was made aware they should contact our office by phone for worsening of their current condition, the appearance of new symptoms, or with any questions or concerns. Compliance is encouraged with any medications and follow up testing that is ordered. It is a privilege to be allowed the opportunity to participate in? your urological care.? Again, if you have any questions or concerns If you have any questions or concerns please do not hesitate to contact me. The office is [phone]. This note is constructed using voice recognition software. While every effort has been made to ensure accuracy lump inspector errors may have been included. Yours sincerely, OVIDIO Lujan Coding Level of Care Code New Pt Level 3 (01521) Diagnoses Recurrent UTI N39.0 CPT Codes Post Residual Void - PVR CPT Code: 38070-Ekoi Void Residual by ultrasound ([id number])
== END 2023-04-25 12:09 | disposition home or self-care (01) ==
LOC: HO.HUSH 11:22
PROVIDERS: PCP Registered Nurse; Visit Provider Nurse Practitioner Family
DX: N39.0 Urinary tract infection, site not specified (principal); Z13.9 Encounter for screening, unspecified
CPT/HCPCS: 99203

== ENCOUNTER 2023-06-06 09:57 | Outpatient (REF) | payer MEDICAID, SELFPAY ==
--- NOTE | ~2023-06-06 | US_ITS ---
EXAMINATION: US RETROPERITONEAL COMPLETE (RENAL) CLINICAL INFORMATION: Urinary tract infection, site not specified. COMPARISON: CT abdomen and pelvis 09/20/2022. X-ray abdomen KUB 04/03/2014. Ultrasound abdomen 08/14/2008. Renal ultrasound 12/06/2007. TECHNIQUE: Real-time imaging of the kidneys and bladder. FINDINGS: RIGHT KIDNEY: 9.9 x 4.6 x 5.4 cm (SAG x AP x TRV). The kidney is normal in size, contour, and echogenicity. Renal cortical thickness is normal. No calculi or focal parenchymal lesions. No hydronephrosis. LEFT KIDNEY: 10.2 x 4.1 x 5.5 cm (SAG x AP x TRV). The kidney is normal in size, contour, and echogenicity. Renal cortical thickness is normal. No renal calculi or focal parenchymal lesions. BLADDER: Well distended and normal. Bilateral ureteral jets are demonstrated. Prevoid bladder volume is 316.6 mL. Postvoid bladder volume is 20.4 mL. US/US retroperitoneal comp IMPRESSION: Mild left hydronephrosis.
== END 2023-06-06 09:58 | disposition home or self-care (01) ==
LOC: HO.US 09:57
PROVIDERS: PCP Registered Nurse; Visit Provider Nurse Practitioner Family
DX: N39.0 Urinary tract infection, site not specified (principal)
CPT/HCPCS: 76770

== ENCOUNTER 2023-06-10 08:24 | Outpatient (AMB) | payer MEDICAID, SELFPAY ==
--- NOTE | 2023-06-10 08:34 | MHC.OFFVIS ---
Intake Intake Visit Reasons: 6w/US Intake Note: Patient presents for follow up visit for incomplete bladder emptying Urology Medications: none Blood Thinner: none PVR: 0ml's Checker In Required: Yes Accompanied by: Self / Same As Patient Allergies erythromycin base [Erythromycin Base] Allergy (Mild, Verified 06/10/23 09:08) SWELLING/STOMACH PAIN/ORAL BLISTERS aspirin [ASA] Allergy (Unknown, Verified 06/10/23 09:08) STOMACH PAIN doxycycline Allergy (Verified 06/10/23 09:08) Abdominal Pain tramadol [TRAMADOL] Adverse Reaction (Unknown, Verified 06/10/23 09:08) DIZZY,NAUSEA erythromycin Allergy (Unknown, Uncoded 06/10/23 09:08) Unknown Medication List - Last Reconciled 06/10/23 by OVIDIO Lujan amoxicillin-pot clavulanate 875-125 mg 1 tab PO BID azelastine 2 sprays intranasal DAILY azelastine 2 sprays intranasal DAILY cetirizine 10 mg PO QAM PRN chlorthalidone 25 mg PO DAILY cholecalciferol (vitamin D3) (Vitamin D3) 50 mcg PO DAILY clonazepam 0.5 mg PO BID PRN cyanocobalamin (vitamin B-12) 1,000 mcg PO DAILY fluticasone propionate 220 mcg/actuation (Flovent HFA) 0 mcg PO BID fluticasone propionate 220 mcg/actuation (Flovent HFA) inhalation BID gabapentin 100 mg PO BEDTIME pantoprazole 40 mg PO QAM rosuvastatin 10 mg PO BEDTIME sertraline 25 mg PO DAILY HPI HPI Comments History of Present Illness Details Spring is a pleasant Tajik-speaking 62-year-old female patient of Dr. Waters. She has a past medical history of diverticulitis, headaches, fibromyalgia, allergic rhinitis, hypertension, GERD, anxiety, depression, legally blind, asthma, hypercholesteremia, ocular albinism, rheumatoid arthritis, vitamin-D deficiency, and Hermansky-Pudlak Syndrome. She presents to the office today for follow-up. Of note, patient was seen approximately 6 weeks ago as a new patient for recurrent urinary tract symptoms at which time a retroperitoneal ultrasound was ordered for further assessment evaluation. These results reviewed with the patient today. Bilateral kidneys with no lesions or calculi. Mild left hydronephrosis. Bladder is well distended and normal. Bilateral ureteral jets are demonstrated. Pre void bladder volume is approximately 315 mL. Postvoid bladder volume is approximately 20 mL. In discussion with the patient today she reports noting improvement in lower urinary tract symptoms since her last office visit here. She reports she has not experienced any bladder pressure, lower abdominal pain, urinary urgency and or urinary frequency. Discussed at length potential causes for symptom she had been experiencing. She otherwise denies urinary urgency, urinary frequency, incontinence, nocturia, hematuria, dysuria, foul smelling urine, changes to urinary stream, flank pain, fever, and or chills. She is happy with her current voiding parameters. Discussed bladder triggers/irritants. In office urinalysis results reviewed with the patient today. PVR 0 mL. She otherwise offers no other issues or concerns at this time. 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 Mother Rheumatoid arthritis Social History (System 06/03/23 @ 16:10 by Connie Almendarez) Household Members: Family Housing: House Do you presently have visiting nurse or other home services: No Alcohol intake: never Comment: PT SLEEPING Patient Tobacco Use Status: Never used Tobacco Second Hand Smoke Exposure: No service: No Current occupational status: disabled Review of Systems Eyes Reports as per HPI ENT Reports no additional complaints Card Reports as per HPI Resp Reports as per HPI GI Reports as per HPI Reports as per HPI Musc Reports as per HPI Neuro Reports as per HPI Psych Reports as per HPI Endo Reports no additional complaints Castillo/Lymph Reports no additional complaints Aller/Immun Reports no additional complaints Physical Exam Const General: cooperative, healthy appearing, comfortable, no acute distress, well developed, alert and awake Orientation/consciousness: patient oriented x3 Limitations: no limitations HEENT Head: Yes normal to inspection, Yes normocephalic and Yes atraumatic Ears: hearing grossly normal bilaterally Eyes General: appearance normal, both eyes and all related structures Neck Neck: Yes normal visual inspection and Yes trachea midline Chest Chest palpation & inspection: normal inspection of the chest Resp Effort & Inspection: normal respiratory effort and able to speak in complete sentences Cardio Rate: regular rate GI Inspection: Yes normal to inspection General: Yes no CVA tenderness Back/Spine/Pelvis Back: no CVA tenderness Skin General skin exam: no rashes or lesions noted Neuro General: patient oriented x3 Extrem General: Yes normal to inspection Psych Appearance: grossly normal and well kempt Mental Status: mental status grossly normal Speech and movement: Normal speech and movement present and Clear speech present Affect: normal affect Attitude: cooperative Thought process: Normal thought process present Thought content: Normal thought content present Insight: Fair insight present (Psych) Judgement: Fair judgement present (Psych) Office Procedures Post Void Residual Post Residual Void Post Void Residual (PVR): 0 [id number] Void Residual by ultrasound Results AMB Urinalysis, Automated UA Leukoctes 0 Becky/uL Last Edit by Rome Guerra on 06/10/23 09:00 UA Nitrite Negative Last Edit by Rome Guerra on 06/10/23 09:00 UA Urobilinogen 0.2 mg/dL Last Edit by Rome Guerra on 06/10/23 09:00 UA Protein 0 mg/dL Last Edit by Rome Guerra on 06/10/23 09:00 UA pH 7.0 Last Edit by Rome Guerra on 06/10/23 09:00 UA Blood 0 Denzel/uL Last Edit by Rome Guerra on 06/10/23 09:00 UA Specific [place] 1.010 Last Edit by Rome Guerra on 06/10/23 09:00 UA Ketone Negative Last Edit by Rome Guerra on 06/10/23 09:00 UA Bilirubin 0 mg/dL Last Edit by [facility] Guerra on 06/10/23 09:00 UA Glucose 0 mg/dL Last Edit by Rome Guerra on 06/10/23 09:00 Results Reviewed Results Reviewed: Laboratory Last Values Urine pH (Auto) 7.0 06/10/23 08:57 Specific [place] (Auto) 1.010 06/10/23 08:57 Urine Protein (Auto) 0 mg/dL 06/10/23 08:57 Glucose (UA)(Auto) 0 mg/dL 06/10/23 08:57 Urine Ketones (Auto) Negative 06/10/23 08:57 Urine Blood (Auto) 0 Denzel/uL 06/10/23 08:57 Urine Nitrite (Auto) Negative 06/10/23 08:57 Urine Bilirubin (Auto) 0 mg/dL 06/10/23 08:57 Urine Urobilinogen (Auto) 0.2 mg/dL 06/10/23 08:57 Leukocyte Esterase (Auto) 0 Becky/uL 06/10/23 08:57 Date of Service: 06/06/23 EXAMINATION: US RETROPERITONEAL COMPLETE (RENAL) FINDINGS: RIGHT KIDNEY: 9.9 x 4.6 x 5.4 cm (SAG x AP x TRV). The kidney is normal in size, contour, and echogenicity. Renal cortical thickness is normal. No calculi or focal parenchymal lesions. No hydronephrosis. LEFT KIDNEY: 10.2 x 4.1 x 5.5 cm (SAG x AP x TRV). The kidney is normal in size, contour, and echogenicity. Renal cortical thickness is normal. No renal calculi or focal parenchymal lesions. BLADDER: Well distended and normal. Bilateral ureteral jets are demonstrated. Prevoid bladder volume is 316.6 mL. Postvoid bladder volume is 20.4 mL. IMPRESSION: Mild left hydronephrosis. Assessment & Plan Assessment & Plan (1) Recurrent UTI: Code(s): N39.0 - Urinary tract infection, site not specified Plan In office urinalysis results reviewed with the patient today; as noted above. PVR 0 mL. Patient reports lower urinary tract symptoms she had been experiencing have since subsided. She is happy with her current voiding parameters. Recent retroperitoneal ultrasound results reviewed with the patient today; as noted above. Discussed bladder triggers/irritants. Discussed possible Estrace cream in the setting of recurrent urinary tract infections. Discussed UTI prevention with D mannose supplement, vitamin-C, increasing fluid intake, behavioral therapy with timed voiding, perineal hygiene and postcoital voiding, and management of constipation with stool softeners and increased fiber intake. Will continue with surveillance monitoring at this time Follow-up in 3 months with PVR; or sooner with any issues, concerns, and or questions. Orders: Orders AMB Post Void Residual by ultrasound Today N39.0 - Urinary tract infection, site not specified AMB Urinalysis Automated Today Z13.9 - Encounter for screening, unspecified Patient Instructions: The patient had an opportunity to ask questions regarding the treatment plan. All questions were answered. Physical exam, labs, and imaging were discussed and reviewed in detail. As well as risks, benefits, and discussion of treatment choices. No major barriers to understanding were identified. The patient expressed understanding and agreement with the above treatment plan. The patient was made aware they should contact our office by phone for worsening of their current condition, the appearance of new symptoms, or with any questions or concerns. Compliance is encouraged with any medications and follow up testing that is ordered. It is a privilege to be allowed the opportunity to participate in? your urological care.? Again, if you have any questions or concerns If you have any questions or concerns please do not hesitate to contact me. The office is [phone]. This note is constructed using voice recognition software. While every effort has been made to ensure accuracy annealing torch operator errors may have been included. Yours sincerely, OVIDIO Lujan Coding Level of Care Code Est Pt Level 3 (71215) Diagnoses Recurrent UTI N39.0 CPT Codes Post Residual Void - PVR CPT Code: 46256-[id number] Void Residual by ultrasound ([id number])
== END 2023-06-10 09:03 | disposition home or self-care (01) ==
LOC: HO.HUSH 08:25
PROVIDERS: PCP Registered Nurse; Visit Provider Nurse Practitioner Family
DX: N39.0 Urinary tract infection, site not specified (principal); Z13.9 Encounter for screening, unspecified
CPT/HCPCS: 99213

== ENCOUNTER → 2023-06-10 08:24 | Outpatient (BNVA) | payer MEDICAID, SELFPAY | PROVIDERS: PCP Registered Nurse; Visit Provider Nurse Practitioner Family | DX: N39.0 Urinary tract infection, site not specified (principal) | CPT/HCPCS: 51798; 81003; 99212 ==

== ENCOUNTER 2023-08-01 06:50 | Day surgery (SDC) | payer MEDICAID, SELFPAY ==
[2023-07-26 14:42] VITALS: BMI 24.8
--- NOTE | 2023-07-28 15:10 | P.CONAN_ITS ---
Documented by User: Angeles Arechiga NP 07/28/23 15:10 HPI - Anesthesia Eval Consult details Narrative: 62yo F for Right Cataract Extraction IOL Insertion Medically Cleared No previous cataract on record COUNT INCLUDES THE [facility] Active Problems Active Problems: All Active Problems Recurrent UTI (Acute) Supraspinatus tendon tear (Acute) Albinism (Acute) Strabismus (Acute) Myopia of both eyes (Acute) Polyarthralgia (Acute) Past Medical History Medical History Diverticulitis Tear of left supraspinatus tendon Headache disorder Fibromyalgia Allergic rhinitis Benign paroxysmal positional vertigo Cobalamin deficiency Dysphagia Dyssomnia Essential hypertension Gastroesophageal reflux disease Hermansky-Pudlak syndrome Mixed anxiety and depressive disorder Legal blindness Mild persistent asthma Hypercholesteremia 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 Mother Rheumatoid arthritis Family history of problems with anesthesia: No Surgical History Surgical History Hx of cystoscopy Hx of colonoscopy Hx of esophagogastroduodenoscopy H/O ovarian cystectomy History of tonsillectomy and adenoidectomy History of endometrial ablation History of Problems with Anesthesia: No Social History Social History Household Members: Family Housing: House Do you presently have visiting nurse or other home services: No Alcohol intake: never Comment: PT SLEEPING Patient Tobacco Use Status: Never used Tobacco Second Hand Smoke Exposure: No Advance Directives: No Advance Directives Information Provided: Yes Advance Directives on File: No service: No Current occupational status: disabled Meds Allergies Allergy/AdvReac Type Severity Reaction Status Date / Time aspirin [ASA] Allergy Intermediate STOMACH Verified 08/01/23 07:14 PAIN doxycycline Allergy Intermediate Abdominal Verified 08/01/23 07:14 Pain erythromycin base Allergy Mild SWELLING/STOMACH Verified 08/01/23 07:14 [Erythromycin Base] PAIN/ORAL BLISTERS tramadol [TRAMADOL] AdvReac Intermediate DIZZY,NAUSE Verified 08/01/23 07:14 A Home Medications ?Medication ?Instructions ?Recorded ?Confirmed ?Last Taken ?Type cholecalciferol (vitamin D3) 50 50 mcg PO DAILY 02/08/20 07/26/23 Unknown History mcg (2,000 unit) tablet (Vitamin D3) cyanocobalamin (vitamin B-12) 1,000 mcg PO DAILY 09/01/21 07/26/23 Unknown History 1,000 mcg tablet cetirizine 10 mg tablet 10 mg PO QAM PRN allergies 06/03/22 07/26/23 Unknown History azelastine 137 mcg (0.1 %) nasal 2 spray intranasal DAILY 04/25/23 07/26/23 Unknown History spray aerosol chlorthalidone 25 mg tablet 25 mg PO DAILY 04/25/23 07/26/23 Unknown History clonazepam 0.5 mg tablet 0.5 mg PO BID PRN Anxiety 04/25/23 07/26/23 Unknown History fluticasone propionate 220 inhalation BID 04/25/23 Unknown History mcg/actuation HFA aerosol inhaler (Flovent HFA) gabapentin 100 mg capsule 100 mg PO BEDTIME 04/25/23 07/26/23 Unknown History pantoprazole 40 mg tablet,delayed 40 mg PO QAM 04/25/23 08/01/23 08/01/23 History release rosuvastatin 10 mg tablet 10 mg PO BEDTIME 04/25/23 07/26/23 Unknown History sertraline 25 mg tablet 25 mg PO DAILY 04/25/23 07/26/23 Unknown History albuterol sulfate 2.5 mg/3 mL 2.5 mg inhalation Q4H PRN 07/26/23 07/26/23 Unknown History (0.083 %) solution for nebulization Shortness Of Breath albuterol sulfate 90 mcg/actuation 1 inh inhalation QID PRN Shortness 07/26/23 07/26/23 Unknown History aerosol inhaler (Ventolin HFA) Of Breath fluticasone furoate 27.5 1 spray intranasal BID 07/26/23 07/26/23 Unknown History mcg/actuation nasal spray,suspension (Flonase Sensimist) ibuprofen 800 mg tablet 800 mg PO Q8H PRN Pain 07/26/23 07/26/23 Unknown History mometasone 200 mcg/actuation HFA 1 inh inhalation BID 07/26/23 07/26/23 Unknown History aerosol inhaler (Asmanex HFA) ondansetron 4 mg disintegrating 4 mg PO BID PRN Nausea 07/26/23 07/26/23 Unknown History tablet Exam Height,Weight and Vital Signs: Height 5 ft 4 in Weight 65.5 kg Assessment and Plan Assessment Anesthesia Assessment: Chart Reviewed Final Anesthetic Review Family History of Problems with Anesthesia: No History of Problems with Anesthesia: No Documented by User: Winnie Dao MD 08/01/23 07:34 COUNT INCLUDES THE [facility] Past Medical History Medical History Diverticulitis Tear of left supraspinatus tendon Headache disorder Fibromyalgia Allergic rhinitis Benign paroxysmal positional vertigo Cobalamin deficiency Dysphagia Dyssomnia Essential hypertension Gastroesophageal reflux disease Hermansky-Pudlak syndrome Mixed anxiety and depressive disorder Legal blindness Mild persistent asthma Hypercholesteremia 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 Mother Rheumatoid arthritis Surgical History Surgical History Hx of cystoscopy Hx of colonoscopy Hx of esophagogastroduodenoscopy H/O ovarian cystectomy History of tonsillectomy and adenoidectomy History of endometrial ablation Social History Social History Household Members: Family Housing: House Do you presently have visiting nurse or other home services: No Alcohol intake: never Comment: PT SLEEPING Patient Tobacco Use Status: Never used Tobacco Second Hand Smoke Exposure: No Advance Directives: No Advance Directives Information Provided: Yes Advance Directives on File: No service: No Current occupational status: disabled Meds Allergies Allergy/AdvReac Type Severity Reaction Status Date / Time aspirin [ASA] Allergy Intermediate STOMACH Verified 08/01/23 07:14 PAIN doxycycline Allergy Intermediate Abdominal Verified 08/01/23 07:14 Pain erythromycin base Allergy Mild SWELLING/STOMACH Verified 08/01/23 07:14 [Erythromycin Base] PAIN/ORAL BLISTERS tramadol [TRAMADOL] AdvReac Intermediate DIZZY,NAUSE Verified 08/01/23 07:14 A Home Medications ?Medication ?Instructions ?Recorded ?Confirmed ?Last Taken ?Type cholecalciferol (vitamin D3) 50 50 mcg PO DAILY 02/08/20 07/26/23 Unknown History mcg (2,000 unit) tablet (Vitamin D3) cyanocobalamin (vitamin B-12) 1,000 mcg PO DAILY 09/01/21 07/26/23 Unknown History 1,000 mcg tablet cetirizine 10 mg tablet 10 mg PO QAM PRN allergies 06/03/22 07/26/23 Unknown History azelastine 137 mcg (0.1 %) nasal 2 spray intranasal DAILY 04/25/23 07/26/23 Unknown History spray aerosol chlorthalidone 25 mg tablet 25 mg PO DAILY 04/25/23 07/26/23 Unknown History clonazepam 0.5 mg tablet 0.5 mg PO BID PRN Anxiety 04/25/23 07/26/23 Unknown History fluticasone propionate 220 inhalation BID 04/25/23 Unknown History mcg/actuation HFA aerosol inhaler (Flovent HFA) gabapentin 100 mg capsule 100 mg PO BEDTIME 04/25/23 07/26/23 Unknown History pantoprazole 40 mg tablet,delayed 40 mg PO QAM 04/25/23 08/01/23 08/01/23 History release rosuvastatin 10 mg tablet 10 mg PO BEDTIME 04/25/23 07/26/23 Unknown History sertraline 25 mg tablet 25 mg PO DAILY 04/25/23 07/26/23 Unknown History albuterol sulfate 2.5 mg/3 mL 2.5 mg inhalation Q4H PRN 07/26/23 07/26/23 Unknown History (0.083 %) solution for nebulization Shortness Of Breath albuterol sulfate 90 mcg/actuation 1 inh inhalation QID PRN Shortness 07/26/23 07/26/23 Unknown History aerosol inhaler (Ventolin HFA) Of Breath fluticasone furoate 27.5 1 spray intranasal BID 07/26/23 07/26/23 Unknown History mcg/actuation nasal spray,suspension (Flonase Sensimist) ibuprofen 800 mg tablet 800 mg PO Q8H PRN Pain 07/26/23 07/26/23 Unknown History mometasone 200 mcg/actuation HFA 1 inh inhalation BID 07/26/23 07/26/23 Unknown History aerosol inhaler (Asmanex HFA) ondansetron 4 mg disintegrating 4 mg PO BID PRN Nausea 07/26/23 07/26/23 Unknown History tablet Exam Airway Mallampati Class: II TM Dist: >3cm Neck ROM: Full Loose/Missing/Broken Teeth: No Heart: RRR Lungs: CTA Assessment and Plan Assessment Anesthesia Assessment: Anesthesia Plan Discussed Final Anesthetic Review NPO: Yes ASA Class: II Final Preanesthetic Review: Meds/Allgs Chart Reviewed, Consent Obtained/Reviewed and Anes Risks/Benef Reviewed Patient Risk: Low Procedure Risk: Low Anesthetic Plan Anesthetic Plan: MAC: Disposition: Standard PACU
[2023-08-01] MEDS: Tetracaine HCl/PF 0.5% Oph Sol 4 ML DROPS 1 DROP EYE-RIGHT (07:17)
[2023-08-01] MEDS: Tropicamide 1 % Ophth Sol 3 ML BTL 1 DROP EYE-RIGHT ×3 (07:18→07:36)
[2023-08-01] MEDS: Ketorolac Tromethamine 0.5% Op 10 ML DROPS 1 DROP EYE-RIGHT ×3 (07:21→07:39)
[2023-08-01] MEDS: Lactated Ringers 500 ML 50 ML IV (07:22)
[2023-08-01] MEDS: Phenylephrine HCL 2.5% Oph SoL 2 ML BOTTLE 1 DROP EYE-RIGHT ×3 (07:24→07:42)
[2023-08-01 07:25] VITALS: BP 128/87; PULSE 67; RESP 16; TEMP 36.1; O2SAT 97
--- NOTE | 2023-08-01 07:28 | MHC.SHP ---
Pre-Procedural Eval Section A - 24 Hr Update-Section A only Date of Service: 08/01/23 The patient is an INPATIENT: No Changes since office visit: No Cold of Flu in the past 2 weeks, No New Medical Problems, No Changes in Medication and No Patient answered all questions The patient has been examined within 24 hours of the surgical procedure. The History & Physical has been completed within 30 days and I have reviewed it.: Yes Section B - Complete if H&P > 30 days Chief Complaint: Age-related nuclear cataract, right eye Allergies: Allergies Allergy/AdvReac Type Severity Reaction Status Date / Time aspirin [ASA] Allergy Intermediate STOMACH Verified 08/01/23 07:14 PAIN doxycycline Allergy Intermediate Abdominal Verified 08/01/23 07:14 Pain erythromycin base Allergy Mild SWELLING/STOMACH Verified 08/01/23 07:14 [Erythromycin Base] PAIN/ORAL BLISTERS tramadol [TRAMADOL] AdvReac Intermediate DIZZY,NAUSE Verified 08/01/23 07:14 A Plan Diagnosis/Plan: Unchanged I have reviewed the history and physical and performed a pertinent physical examination on my patient. No changes have occurred unless specified. Time Spent With Patient Time: Total time managing care of this patient today ____ minutes.
--- NOTE | 2023-08-01 09:39 | P.PCNO_ITS ---
Ophthalmology Procedure Procedure Date of Service: 08/01/23 Ophthalmology Viscoelastic: Healon Duet Dual Pack Pro Ophthalmology Lenses: IOL Acrysof MP - [id number] (17) Procedure Notes: PREOPERATIVE DIAGNOSIS: Decreased visual acuity right eye secondary to cataract POSTOPERATIVE DIAGNOSIS: Same PROCEDURE: Right cataract extraction with intraocular lens insertion SURGEON: Raffy Barrow M.D. ANESTHESIA: Topical/MAC ESTIMATED BLOOD LOSS: None COMPLICATIONS: None After obtaining informed consent, the patient was brought to the operating room suite and placed in the supine position. After adequate sedation per anesthesia, topical drops of Tetracaine were given to the right eye. The eye was then prepped and draped in the usual sterile fashion. The operating room microscope was then positioned over the operative eye and a lid speculum placed. A paracentesis was created. Viscoelastic was then instilled into the anterior chamber. A three plane incision was then created temporally, utilizing a 2.85 mm keratome. Capsulotomy forceps were then utilized to create a circular tear capsulotomy. Hydrodissection and hydrodelineation were carried out until adequate mobilization of the nucleus occurred. Phacoemulsification was then utilized to remove the dense central nucl eus followed by removal of the cortical material utilizing the automated aspiration irrigation unit. Viscoelastic was instilled into the posterior capsular bag followed by placement of a posterior chamber intraocular lens without difficulty. The residual Viscoelastic was then removed utilizing the automated IA machine. The wound was checked and found to be watertight. The patient tolerated the procedure well and the lid speculum was removed. Intracameral injection of Vigamox 0.1 mL followed by a subtenon injection of Kenalog-40 0.2 mL were administered. The patient will be seen in the a.m.
[2023-08-01 10:16] VITALS: BP 116/69; PULSE 62; RESP 16; TEMP 36.1; O2SAT 96
== END 2023-08-01 10:38 | disposition home or self-care (01) ==
PROVIDERS: PCP Registered Nurse; Visit Provider Ophthalmology
PROC: (CPT 66985; principal; 2023-08-01 09:00)
DX: H25.11 Age-related nuclear cataract, right eye (principal); H52.4 Presbyopia; E70.3 Albinism; H50.00 Unspecified esotropia; H04.123 Dry eye syndrome of bilateral lacrimal glands; H55.09 Other forms of nystagmus; M06.9 Rheumatoid arthritis, unspecified; G43.909 Migraine, unspecified, not intractable, without status migrainosus; Z79.899 Other long term (current) drug therapy; Z88.1 Allergy status to other antibiotic agents
CPT/HCPCS: 66984; J2250; J3010; J3301; V2630

== ENCOUNTER 2023-08-15 06:30 | Day surgery (SDC) | payer MEDICAID, SELFPAY ==
[2023-07-26 14:47] VITALS: BMI 24.8
--- NOTE | 2023-08-11 15:21 | P.CONAN_ITS ---
Documented by User: Angeles Arechiga NP 08/11/23 15:21 HPI - Anesthesia Eval Consult details Narrative: 62yo F for Left Cataract Extraction IOL Insertion s/p Right eye 08/01/23: Fent 50, Midaz 2 PMFSH Active Problems Active Problems: All Active Problems Recurrent UTI (Acute) Supraspinatus tendon tear (Acute) Albinism (Acute) Strabismus (Acute) Myopia of both eyes (Acute) Polyarthralgia (Acute) Past Medical History Medical History Diverticulitis Tear of left supraspinatus tendon Headache disorder Fibromyalgia Allergic rhinitis Benign paroxysmal positional vertigo Cobalamin deficiency Dysphagia Dyssomnia Essential hypertension Gastroesophageal reflux disease Hermansky-Pudlak syndrome Mixed anxiety and depressive disorder Legal blindness Mild persistent asthma Hypercholesteremia 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 Mother Rheumatoid arthritis Family history of problems with anesthesia: No Surgical History Surgical History Hx of cystoscopy Hx of colonoscopy Hx of esophagogastroduodenoscopy H/O ovarian cystectomy History of tonsillectomy and adenoidectomy History of endometrial ablation History of Problems with Anesthesia: No Social History Social History Household Members: Family Housing: House Do you presently have visiting nurse or other home services: No Alcohol intake: never Comment: PT SLEEPING Patient Tobacco Use Status: Never used Tobacco Second Hand Smoke Exposure: No Advance Directives: No (unknown) Advance Directives Information Provided: Yes Advance Directives on File: No service: No Current occupational status: disabled Meds Allergies Allergy/AdvReac Type Severity Reaction Status Date / Time aspirin [ASA] Allergy Intermediate STOMACH Verified 08/15/23 06:46 PAIN doxycycline Allergy Intermediate Abdominal Verified 08/15/23 06:46 Pain erythromycin base Allergy Mild SWELLING/STOMACH Verified 08/15/23 06:46 [Erythromycin Base] PAIN/ORAL BLISTERS tramadol [TRAMADOL] AdvReac Intermediate DIZZY,NAUSE Verified 08/15/23 06:46 A Home Medications ?Medication ?Instructions ?Recorded ?Confirmed ?Last Taken ?Type cholecalciferol (vitamin D3) 50 50 mcg PO DAILY 02/08/20 07/26/23 Unknown His tory mcg (2,000 unit) tablet (Vitamin D3) cyanocobalamin (vitamin B-12) 1,000 mcg PO DAILY 09/01/21 07/26/23 Unknown History 1,000 mcg tablet cetirizine 10 mg tablet 10 mg PO QAM PRN allergies 06/03/22 07/26/23 Unknown History azelastine 137 mcg (0.1 %) nasal 2 spray intranasal DAILY 04/25/23 07/26/23 Unknown History spray aerosol chlorthalidone 25 mg tablet 25 mg PO DAILY 04/25/23 07/26/23 Unknown History clonazepam 0.5 mg tablet 0.5 mg PO BID PRN Anxiety 04/25/23 07/26/23 Unknown History fluticasone propionate 220 inhalation BID 04/25/23 Unknown History mcg/actuation HFA aerosol inhaler (Flovent HFA) gabapentin 100 mg capsule 100 mg PO BEDTIME 04/25/23 07/26/23 Unknown History pantoprazole 40 mg tablet,delayed 40 mg PO QAM 04/25/23 08/01/23 08/15/23 05:00 History release rosuvastatin 10 mg tablet 10 mg PO BEDTIME 04/25/23 07/26/23 Unknown History sertraline 25 mg tablet 25 mg PO DAILY 04/25/23 07/26/23 Unknown History albuterol sulfate 2.5 mg/3 mL 2.5 mg inhalation Q4H PRN 07/26/23 07/26/23 Unknown History (0.083 %) solution for nebulization Shortness Of Breath albuterol sulfate 90 mcg/actuation 1 inh inhalation QID PRN Shortness 07/26/23 07/26/23 Unknown History aerosol inhaler (Ventolin HFA) Of Breath fluticasone furoate 27.5 1 spray intranasal BID 07/26/23 07/26/23 Unknown History mcg/actuation nasal spray,suspension (Flonase Sensimist) ibuprofen 800 mg tablet 800 mg PO Q8H PRN Pain 07/26/23 07/26/23 Unknown History mometasone 200 mcg/actuation HFA 1 inh inhalation BID 07/26/23 07/26/23 Unknown History aerosol inhaler (Asmanex HFA) ondansetron 4 mg disintegrating 4 mg PO BID PRN Nausea 07/26/23 07/26/23 Unknown History tablet Exam Height,Weight and Vital Signs: Height 5 ft 4 in Weight 65.5 kg Assessment and Plan Final Anesthetic Review Family History of Problems with Anesthesia: No History of Problems with Anesthesia: No Documented by User: Winnie Dao MD 08/15/23 07:21 [facility] Past Medical History Medical History Diverticulitis Tear of left supraspinatus tendon Headache disorder Fibromyalgia Allergic rhinitis Benign paroxysmal positional vertigo Cobalamin deficiency Dysphagia Dyssomnia Essential hypertension Gastroesophageal reflux disease Hermansky-Pudlak syndrome Mixed anxiety and depressive disorder Legal blindness Mild persistent asthma Hypercholesteremia 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 Mother Rheumatoid arthritis Surgical History Surgical History Hx of cystoscopy Hx of colonoscopy Hx of esophagogastroduodenoscopy H/O ovarian cystectomy History of tonsillectomy and adenoidectomy History of endometrial ablation Social History Social History Household Members: Family Housing: House Do you presently have visiting nurse or other home services: No Alcohol intake: never Comment: PT SLEEPING Patient Tobacco Use Status: Never used Tobacco Second Hand Smoke Exposure: No Advance Directives: No (unknown) Advance Directives Information Provided: Yes Advance Directives on File: No service: No Current occupational status: disabled Meds Allergies Allergy/AdvReac Type Severity Reaction Status Date / Time aspirin [ASA] Allergy Intermediate STOMACH Verified 08/15/23 06:46 PAIN doxycycline Allergy Intermediate Abdominal Verified 08/15/23 06:46 Pain erythromycin base Allergy Mild SWELLING/STOMACH Verified 08/15/23 06:46 [Erythromycin Base] PAIN/ORAL BLISTERS tramadol [TRAMADOL] AdvReac Intermediate DIZZY,NAUSE Verified 08/15/23 06:46 A Home Medications ?Medication ?Instructions ?Recorded ?Confirmed ?Last Taken ?Type cholecalciferol (vitamin D3) 50 50 mcg PO DAILY 02/08/20 07/26/23 Unknown History mcg (2,000 unit) tablet (Vitamin D3) cyanocobalamin (vitamin B-12) 1,000 mcg PO DAILY 09/01/21 07/26/23 Unknown History 1,000 mcg tablet cetirizine 10 mg tablet 10 mg PO QAM PRN allergies 06/03/22 07/26/23 Unknown History azelastine 137 mcg (0.1 %) nasal 2 spray intranasal DAILY 04/25/23 07/26/23 Unknown History spray aerosol chlorthalidone 25 mg tablet 25 mg PO DAILY 04/25/23 07/26/23 Unknown History clonazepam 0.5 mg tablet 0.5 mg PO BID PRN Anxiety 04/25/23 07/26/23 Unknown History fluticasone propionate 220 inhalation BID 04/25/23 Unknown History mcg/actuation HFA aerosol inhaler (Flovent HFA) gabapentin 100 mg capsule 100 mg PO BEDTIME 04/25/23 07/26/23 Unknown History pantoprazole 40 mg tablet,delayed 40 mg PO QAM 04/25/23 08/01/23 08/15/23 05:00 History release rosuvastatin 10 mg tablet 10 mg PO BEDTIME 04/25/23 07/26/23 Unknown History sertraline 25 mg tablet 25 mg PO DAILY 04/25/23 07/26/23 Unknown History albuterol sulfate 2.5 mg/3 mL 2.5 mg inhalation Q4H PRN 07/26/23 07/26/23 Unknown History (0.083 %) solution for nebulization Shortness Of Breath albuterol sulfate 90 mcg/actuation 1 inh inhalation QID PRN Shortness 07/26/23 07/26/23 Unknown History aerosol inhaler (Ventolin HFA) Of Breath fluticasone furoate 27.5 1 spray intranasal BID 07/26/23 07/26/23 Unknown History mcg/actuation nasal spray,suspension (Flonase Sensimist) ibuprofen 800 mg tablet 800 mg PO Q8H PRN Pain 07/26/23 07/26/23 Unknown History mometasone 200 mcg/actuation HFA 1 inh inhalation BID 07/26/23 07/26/23 Unknown History aerosol inhaler (Asmanex HFA) ondansetron 4 mg disintegrating 4 mg PO BID PRN Nausea 07/26/23 07/26/23 Unknown History tablet Exam Airway Mallampati Class: II TM Dist: >3cm Neck ROM: Full Loose/Missing/Broken Teeth: No Heart: RRR Lungs: CTA Assessment and Plan Assessment Anesthesia Assessment: Anesthesia Plan Discussed and Chart Reviewed Final Anesthetic Review NPO: Yes ASA Class: II Final Preanesthetic Review: Meds/Allgs Chart Reviewed, Consent Obtained/Reviewed and Anes Risks/Benef Reviewed Patient Risk: Low Procedure Risk: Low Anesthetic Plan Anesthetic Plan: MAC: Disposition: Standard PACU
[2023-08-15 06:58] VITALS: BP 138/83; PULSE 64; RESP 15; TEMP 36.3; O2SAT 97
[2023-08-15] MEDS: Tetracaine HCl/PF 0.5% Oph Sol 4 ML DROPS 1 DROP EYE-LEFT (07:02)
[2023-08-15] MEDS: Cyclopentolate 1 % Ophth Sol 2 ML DRPBTL 1 DROP EYE-LEFT ×3 (07:05→07:17)
[2023-08-15] MEDS: Lactated Ringers 500 ML 50 ML IV (07:06)
[2023-08-15] MEDS: Tropicamide 1 % Ophth Sol 3 ML BTL 1 DROP EYE-LEFT ×3 (07:07→07:18)
[2023-08-15] MEDS: Ketorolac Tromethamine 0.5% Op 10 ML DROPS 1 DROP EYE-LEFT ×3 (07:08→07:19)
[2023-08-15] MEDS: Phenylephrine HCL 2.5% Oph SoL 2 ML BOTTLE 1 DROP EYE-LEFT ×3 (07:10→07:20)
--- NOTE | 2023-08-15 07:55 | MHC.SHP ---
Pre-Procedural Eval Section A - 24 Hr Update-Section A only Date of Service: 08/15/23 The patient is an INPATIENT: No Changes since office visit: No Cold of Flu in the past 2 weeks, No New Medical Problems, No Changes in Medication and No Patient answered all questions The patient has been examined within 24 hours of the surgical procedure. The History & Physical has been completed within 30 days and I have reviewed it.: Yes Section B - Complete if H&P > 30 days Chief Complaint: Age-related nuclear cataract, left eye Allergies: Allergies Allergy/AdvReac Type Severity Reaction Status Date / Time aspirin [ASA] Allergy Intermediate STOMACH Verified 08/15/23 06:46 PAIN doxycycline Allergy Intermediate Abdominal Verified 08/15/23 06:46 Pain erythromycin base Allergy Mild SWELLING/STOMACH Verified 08/15/23 06:46 [Erythromycin Base] PAIN/ORAL BLISTERS tramadol [TRAMADOL] AdvReac Intermediate DIZZY,NAUSE Verified 08/15/23 06:46 A Plan Diagnosis/Plan: Unchanged I have reviewed the history and physical and performed a pertinent physical examination on my patient. No changes have occurred unless specified. Time Spent With Patient Time: Total time managing care of this patient today ____ minutes.
--- NOTE | 2023-08-15 07:55 | HO.PNOPHT ---
Ophthalmology Procedure Procedure Date of Service: 08/15/23 Ophthalmology Viscoelastic: Tatiana Fernandezt Dual Pack Pro (14.5) Procedure Notes: PREOPERATIVE DIAGNOSIS: Decreased visual acuity left eye secondary to cataract POSTOPERATIVE DIAGNOSIS: Same PROCEDURE: Left cataract extraction with intraocular lens insertion SURGEON: Raffy Barrow M.D. ANESTHESIA: Topical/MAC ESTIMATED BLOOD LOSS: None COMPLICATIONS: None After obtaining informed consent, the patient was brought to the operation room suite and placed in the supine position. After adequate sedation per anesthesia, topical drops of Tetracaine were given to the left eye. The eye was then prepped and draped in the usual sterile fashion. The operating room microscope was then positioned over the operative eye and a lid speculum placed. A paracentesis was created. Viscoelastic was then instilled into the anterior chamber. A three plane incision was then created temporally, utilizing a 2.85 mm keratome. Capsulotomy forceps were then utilized to create a circular tear capsulotomy. Hydrodissection and hydrodelineation were carried out until adequate mobilization of the nucleus occurred. Phacoemulsification was then utilized to remove the dense central nucleus followed by removal of the cortical material utilizing the automated aspiration irrigation unit. Viscoat elastic was instilled into the posterior capsular bag followed by placement of a posterior chamber intraocular lens without difficulty. The residual Viscoat elastic was then removed utilizing the automated IA machine. The wound was check and found to be watertight. The patient tolerated the procedure well and the lid speculum was removed. Intracameral injection of Vigamox 0.1 mL followed by a subtenon injection of Kenalog-40 0.2 mL were administered. The patient will be seen in the a.m.
[2023-08-15 08:24] VITALS: BP 135/80; PULSE 65; RESP 18; TEMP 36.9; O2SAT 94
== END 2023-08-15 08:31 | disposition home or self-care (01) ==
PROVIDERS: PCP Registered Nurse; Visit Provider Ophthalmology
PROC: (CPT 66985; principal; 2023-08-15 08:00)
DX: H25.12 Age-related nuclear cataract, left eye (principal); H52.4 Presbyopia; H50.00 Unspecified esotropia; H04.123 Dry eye syndrome of bilateral lacrimal glands; E70.3 Albinism; H55.09 Other forms of nystagmus; M06.9 Rheumatoid arthritis, unspecified; G43.909 Migraine, unspecified, not intractable, without status migrainosus; Z79.899 Other long term (current) drug therapy; Z88.8 Allergy status to other drugs, medicaments and biological substances
CPT/HCPCS: 66984; J2250; J2405; J3010; J3301; V2630

== ENCOUNTER 2023-09-12 10:48 | Outpatient (AMB) | payer MEDICAID, SELFPAY ==
--- NOTE | 2023-09-12 11:05 | MHC.OFFVIS ---
Intake Visit Reasons: 3m/PVR Intake Note: Patient presents for follow up visit for incomplete bladder emptying Urology Medications: none Blood Thinner: none PVR: 0ml's Chemotherapist Required: Yes Accompanied by: Self / Same As Patient Allergies aspirin [ASA] Allergy (Intermediate, Verified 09/12/23 11:21) STOMACH PAIN doxycycline Allergy (Intermediate, Verified 09/12/23 11:21) Abdominal Pain erythromycin base [Erythromycin Base] Allergy (Mild, Verified 09/12/23 11:21) SWELLING/STOMACH PAIN/ORAL BLISTERS tramadol [TRAMADOL] Adverse Reaction (Intermediate, Verified 09/12/23 11:21) DIZZY,NAUSEA Medication List - Last Reconciled 09/12/23 by OVIDIO Lujan albuterol sulfate 2.5 mg inhalation Q4H PRN albuterol sulfate 90 mcg/actuation (Ventolin HFA) 1 inh inhalation QID PRN azelastine 2 sprays intranasal DAILY cetirizine 10 mg PO QAM PRN chlorthalidone 25 mg PO DAILY cholecalciferol (vitamin D3) (Vitamin D3) 50 mcg PO DAILY clonazepam 0.5 mg PO BID PRN cyanocobalamin (vitamin B-12) 1,000 mcg PO DAILY fluticasone furoate 27.5 mcg/actuation (Flonase Sensimist) 1 spray intranasal BID fluticasone propionate 220 mcg/actuation (Flovent HFA) inhalation BID gabapentin 100 mg PO BEDTIME ibuprofen 800 mg PO Q8H PRN mometasone 200 mcg/actuation (Asmanex HFA) 1 inh inhalation BID ondansetron 4 mg PO BID PRN pantoprazole 40 mg PO QAM rosuvastatin 10 mg PO BEDTIME sertraline 25 mg PO DAILY HPI Comments Details: Spring is a pleasant 62-year-old female patient of Dr. Waters. She has a past medical history of diverticulitis, headaches, fibromyalgia, allergic rhinitis, hypertension, GERD, anxiety, depression, legally blind, asthma, hypercholesteremia, ocular albinism, rheumatoid arthritis, vitamin-D deficiency, and Hermansky-Pudlak Syndrome. She presents to the office today for follow-up of her lower urinary tract symptoms. In discussion with the patient today she reports to be doing and feeling well. She reports feeling urinary symptoms very however does not find them bothersome. She reports having episodes of urinary urgency and frequency and feelings of incomplete bladder emptying at times. In office urinalysis results reviewed with the patient today. PVR 0 mL. Previous workup has included a retroperitoneal ultrasound noting bilateral kidneys with no lesions or calculi. Mild left hydronephrosis. Bladder is well distended and normal. Bilateral ureteral jets are demonstrated. Pre void bladder volume is approximately 315 mL. Postvoid bladder volume is approximately 20 mL. In discussion with the patient today she reports noting improvement in lower urinary tract symptoms since her last office visit here. Discussed at length potential causes for lower urinary tract symptoms patient experiences from time to time. She currently denies any bothersome urinary issues or concerns. She denies urinary urgency, urinary frequency, incontinence, nocturia, hematuria, dysuria, foul smelling urine, changes to urinary stream, flank pain, fever, and or chills. She is happy with her current voiding parameters. Discussed bladder triggers/irritants. She otherwise offers no other issues or concerns at this time. 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 Mother Rheumatoid arthritis Social History Household Members: Family Housing: House Do you presently have visiting nurse or other home services: No Alcohol intake: never Comment: PT SLEEPING Patient Tobacco Use Status: Never used Tobacco Second Hand Smoke Exposure: No service: No Current occupational status: disabled Review of Systems Eyes Reports as per HPI ENT Reports no additional complaints Card Reports as per [facility] Resp Reports as per [facility] GI Reports as per [facility] Reports as per [facility] Musc Reports as per [facility] Neuro Reports as per [facility] Psych Reports as per [facility] Endo Reports no additional complaints Castillo/Lymph Reports no additional complaints Aller/Immun Reports no additional complaints Physical Exam Const General: cooperative, healthy appearing, comfortable, no acute distress, well developed, alert and awake Orientation/consciousness: patient oriented x3 Limitations: no limitations HEENT Head: Yes normal to inspection, Yes normocephalic and Yes atraumatic Ears: hearing grossly normal bilaterally Eyes General: appearance normal, both eyes and all related structures Neck Neck: Yes normal visual inspection and Yes trachea midline Chest Chest palpation & inspection: normal inspection of the chest Resp Effort & Inspection: normal respiratory effort and able to speak in complete sentences Cardio Rate: regular rate GI Inspection: Yes normal to inspection General: Yes no CVA tenderness Back/Spine/Pelvis Back: no CVA tenderness Skin General skin exam: no rashes or lesions noted Neuro General: patient oriented x3 Extrem General: Yes normal to inspection Psych Appearance: grossly normal and well kempt Mental Status: mental status grossly normal Speech and movement: Normal speech and movement present and Clear speech present Affect: normal affect Attitude: cooperative Thought process: Normal thought process present Thought content: Normal thought content present Insight: Fair insight present (Psych) Judgement: Fair judgement present (Psych) Office Procedures Post Void Residual Post Residual Void Post Void Residual (PVR): 0 49584-[id number] Void Residual by ultrasound Results AMB Urinalysis, Automated UA Leukoctes 15 Becky/uL Last Edit by Live[employer] on 09/12/23 11:17 UA Nitrite Negative Last Edit by [employer] on 09/12/23 11:17 UA Urobilinogen 0.2 mg/dL Last Edit by [employer] on 09/12/23 11:17 UA Protein 0 mg/dL Last Edit by [employer] on 09/12/23 11:17 UA pH 6.0 Last Edit by [employer] on 09/12/23 11:17 UA Blood 0 Denzel/uL Last Edit by [employer] on 09/12/23 11:17 UA Specific [place] 1.010 Last Edit by [employer] on 09/12/23 11:17 UA Ketone Negative Last Edit by Rome Guerra on 09/12/23 11:17 UA Bilirubin 0 mg/dL Last Edit by Rome Guerra on 09/12/23 11:17 UA Glucose 0 mg/dL Last Edit by Rome Guerra on 09/12/23 11:17 Results Reviewed Results Reviewed: Laboratory Last Values Urine pH (Auto) 6.0 09/12/23 11:16 Specific [place] (Auto) 1.010 09/12/23 11:16 Urine Protein (Auto) 0 mg/dL 09/12/23 11:16 Glucose (UA)(Auto) 0 mg/dL 09/12/23 11:16 Urine Ketones (Auto) Negative 09/12/23 11:16 Urine Blood (Auto) 0 Denzel/uL 09/12/23 11:16 Urine Nitrite (Auto) Negative 09/12/23 11:16 Urine Bilirubin (Auto) 0 mg/dL 09/12/23 11:16 Urine Urobilinogen (Auto) 0.2 mg/dL 09/12/23 11:16 Leukocyte Esterase (Auto) 15 Becky/uL 09/12/23 11:16 Assessment & Plan Assessment & Plan (1) Recurrent UTI: Code(s): N39.0 - Urinary tract infection, site not specified Category: Medical Plan In office urinalysis results reviewed with the patient today; as noted above. PVR 0 mL. Patient reports lower urinary tract symptoms very and does not feel they are bothersome at this time She is happy with her current voiding parameters. Discussed bladder triggers/irritants. Discussed UTI prevention with D mannose supplement, vitamin-C, increasing fluid intake, behavioral therapy with timed voiding, perineal hygiene and postcoital voiding, and management of constipation with stool softeners and increased fiber intake. Will continue with surveillance monitoring at this time. Follow-up in 6months with PVR; or sooner with any issues, concerns, and or questions. Orders: Orders AMB Urinalysis Automated Today Z13.9 - Encounter for screening, unspecified AMB Post Void Residual by ultrasound Today N39.0 - Urinary tract infection, site not specified Patient Instructions: The patient had an opportunity to ask questions regarding the treatment plan. All questions were answered. Physical exam, labs, and imaging were discussed and reviewed in detail. As well as risks, benefits, and discussion of treatment choices. No major barriers to understanding were identified. The patient expressed understanding and agreement with the above treatment plan. The patient was made aware they should contact our office by phone for worsening of their current condition, the appearance of new symptoms, or with any questions or concerns. Compliance is encouraged with any medications and follow up testing that is ordered. It is a privilege to be allowed the opportunity to participate in? your urological care.? Again, if you have any questions or concerns If you have any questions or concerns please do not hesitate to contact me. The office is [phone]. This note is constructed using voice recognition software. While every effort has been made to ensure accuracy psychiatric rn errors may have been included. Yours sincerely, YENY Lujan-RICHARD Coding Level of Care Code Est Pt Level 3 (65050) Diagnoses Recurrent UTI N39.0 CPT Codes Post Residual Void - PVR CPT Code: 38477-Pekb Void Residual by ultrasound ([id number])
== END 2023-09-12 11:25 | disposition home or self-care (01) ==
PROVIDERS: PCP Registered Nurse; Visit Provider Nurse Practitioner Family
DX: Z13.9 Encounter for screening, unspecified (principal); N39.0 Urinary tract infection, site not specified
CPT/HCPCS: 99213

== ENCOUNTER → 2023-09-12 10:48 | Outpatient (BNVA) | payer MEDICAID, SELFPAY | PROVIDERS: PCP Registered Nurse; Visit Provider Nurse Practitioner Family | DX: N39.0 Urinary tract infection, site not specified (principal) | CPT/HCPCS: 51798; 81003; 99212 ==

== ENCOUNTER 2023-10-12 14:50 | Outpatient (AMB) | payer MEDICAID, SELFPAY ==
--- NOTE | 2023-10-12 14:51 | MHC.OFFVIS ---
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 ramosen/htn/racing heart beat Manufacturing Finance Manager Required: No Manufacturing Finance Manager Services: Manufacturing Finance Manager Present Manufacturing Finance Manager Name: Balbir-spouse Accompanied by: Spouse Allergies aspirin [ASA] Allergy (Intermediate, Verified 09/12/23 11:21) STOMACH PAIN doxycycline Allergy (Intermediate, Verified 09/12/23 11:21) Abdominal Pain erythromycin base [Erythromycin Base] Allergy (Mild, Verified 09/12/23 11:21) SWELLING/STOMACH PAIN/ORAL BLISTERS tramadol [TRAMADOL] Adverse Reaction (Intermediate, Verified 09/12/23 11:21) DIZZY,NAUSEA Medication List - Last Reconciled 10/12/23 by Blair Montoya MD albuterol sulfate 2.5 mg inhalation Q4H PRN albuterol sulfate 90 mcg/actuation (Ventolin HFA) 1 inh inhalation QID PRN azelastine 2 sprays intranasal DAILY cetirizine 10 mg PO QAM PRN cholecalciferol (vitamin D3) (Vitamin D3) 50 mcg PO DAILY clonazepam 0.5 mg PO BID PRN cyanocobalamin (vitamin B-12) 1,000 mcg PO DAILY fluticasone furoate 27.5 mcg/actuation (Flonase Sensimist) 1 spray intranasal BID fluticasone propionate 220 mcg/actuation (Flovent HFA) inhalation BID ibuprofen 800 mg PO Q8H PRN mometasone 200 mcg/actuation (Asmanex HFA) 1 inh inhalation BID pantoprazole 40 mg PO QAM rosuvastatin 10 mg PO BEDTIME sertraline 25 mg PO DAILY HPI Comments Details: Patient is here for cardiac evaluation. is helping with interpretation. PCP note also reviewed. Patient does not have any history of known cardiac issues like coronary disease or cardiomyopathy. It seems that she has sensations of heart racing at different times. Additionally, she feels as though her chest gets tight and she cannot breathe at times. Associated with headache and additionally, she may feel as though she is very weak and tired after these symptoms. Per PCP note, there is also mention of high blood pressures at home as much as 170 mm Hg but clinic pressures here are completely normal at 120/76 mm Hg. 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 Vitamin D deficiency Rheumatoid arthritis Interstitial cystitis Arthritis Diverticulosis Depression GERD (gastroesophageal reflux disease) Peripheral neuropathy Psychiatric disorder Hypercholesteremia Asthma Surgical History Hx of cystoscopy Hx of colonoscopy Hx of esophagogastroduodenoscopy H/O ovarian cystectomy History of tonsillectomy and adenoidectomy History of endometrial ablation Family History (Updated 10/12/23 @ 14:58 by Tere Maravilla CMA) Father Heart attack Mother Rheumatoid arthritis Social History Household Members: Family Housing: House Do you presently have visiting nurse or other home services: No Alcohol intake: never Comment: PT SLEEPING Patient Tobacco Use Status: Never used Tobacco Second Hand Smoke Exposure: No service: No Current occupational status: disabled Review of Systems Const Denies chills, Denies daytime sleepiness, Denies fatigue, Denies fever(s), Denies poor appetite, Denies snoring, Denies stops breathing during sleep, Denies weakness, Denies weight gain and Denies weight loss Eyes Denies loss of vision ENT Denies dizziness and Reports hearing loss Card Denies chest pain, Denies irregular heart rhythm, Denies claudication, Denies leg edema, Denies lightheadedness, Denies palpitations, Denies dyspnea on exertion and Denies orthopnea Resp Denies cough, Denies excessive phlegm production, Denies dyspnea on exertion, Denies snoring and Denies wheezing GI Denies abdominal pain, Denies hematochezia, Denies change in bowel habits, Denies nausea and Denies vomiting Denies urinary frequency and Denies dysuria Musc Denies arthralgias, Denies muscle weakness, Denies numbness and Denies other Skin/Breast Denies nail changes and Denies rash Neuro Denies Abnormal speech present, Denies dizziness, Denies loss of vision, Denies memory loss, Denies numbness and Denies weakness Psych Denies depression and Denies memory loss Endo Denies fatigue and Denies palpitations Castillo/Lymph Denies easy bruising Aller/Immun Denies wheezing Physical Exam Vital Signs: Last Vital Signs Pulse 69 10/12/23 14:54 BP 120/76 10/12/23 14:54 BMI result Body Mass Index 24.7 Const General: comfortable and no acute distress Orientation/consciousness: patient oriented x3 HEENT Other: Unremarkable Head: Yes normal to inspection Neck Neck: Yes normal visual inspection Chest Chest palpation & inspection: normal inspection of the chest Resp Auscultation: clear to auscultation bilaterally Cardio Palpation: normal PMI Heart sounds: S1 normal heart sound present, S2 normal heart sound present, no gallops, no murmurs and no rubs GI Palpation (GI): Soft to palpation Back/Spine/Pelvis Other: unremarkable Skin General skin exam: no rashes or lesions noted Neuro General: patient oriented x3 Speech: No Abnormal speech present Extrem General: Yes normal to inspection Psych Mental Status: mental status grossly normal Office Procedures EKG Details: EKG with sinus rhythm at 69/Min; no significant ST-T changes and otherwise unremarkable. [place] [address]-[id number], Complete Assessment & Plan Assessment & Plan (1) SOB (shortness of breath): Code(s): R06.02 - Shortness of breath Category: Medical (2) Chest tightness: Code(s): R07.89 - Other chest pain Category: Medical (3) Heart palpitations: Code(s): R00.2 - Palpitations Category: Medical Plan Various symptoms including chest tightness, shortness of breath and palpitations associated with weakness but difficult to clarify due to language barrier. Nothing obvious on clinical exam. Baseline EKGs unremarkable. We will get a comprehensive workup with echocardiogram/stress test and Holter. Follow-up after the above. Discussed with who understands Lebanese and acted as spanish medical interpreter. Appropriate form was signed. Orders: Orders CA echo transthoracic complete Today R07.89 - Other chest pain CA echo stress exercise Today R07.89 - Other chest pain ECG holter monitor 48 hour Today R00.2 - Palpitations Coding Level of Care Code New Pt Level 4 (22897) Diagnoses SOB (shortness of breath) R06.02 Chest tightness R07.89 Heart palpitations R00.2 CPT Codes EKG - CPT: 62882-[id number], Complete ([id number])
[2023-10-12 14:54] VITALS: BP 120/76; PULSE 69; BMI 24.7
== END 2023-10-12 15:17 | disposition home or self-care (01) ==
LOC: HO.HCS 14:50
PROVIDERS: PCP Registered Nurse; Visit Provider Internal Medicine
DX: R06.02 Shortness of breath (principal); R07.89 Other chest pain; R00.2 Palpitations
CPT/HCPCS: 93010; 99204

== ENCOUNTER → 2023-10-12 14:50 | Outpatient (BNVA) | payer MEDICAID, SELFPAY | PROVIDERS: PCP Registered Nurse; Visit Provider Internal Medicine | DX: R06.02 Shortness of breath (principal); R07.89 Other chest pain; R00.2 Palpitations | CPT/HCPCS: 93005; 99202 ==

== ENCOUNTER → 2023-10-31 13:31 | Outpatient (REF) | payer MEDICAID, SELFPAY ==
--- NOTE | 2023-10-31 13:34 | CA_ITS ---
Transthoracic Echocardiogram Patient (Last, First, Middle): Spring De Oliveira, Gender: Female Date of : 1960 Age: 62 Procedure Date: 10/31/2023 Procedure Type: Transthoracic Echocardiogram Location: OP Height: 162. cm Weight: 64.87 kg BSA: 1.69 m2 Heart Rate: 69 bpm BP: 130 / 80 mmHg Sales Mgr: EVAN Referring MD: Blair Montoya MD Symptoms: R07.89 - Other chest pain Study Quality: Adequate ECG Rhythm: Sinus Conclusions: - The calculated ejection fraction is 68% by biplane method. There is no evidence of regional wall motion abnormalities. - No obvious valvular pathology seen on this study. Findings Left Ventricle Normal left ventricular cavity size. The left ventricular systolic function is normal. The calculated ejection fraction is 68% by biplane method. There is no evidence of regional wall motion abnormalities. Diastolic function is normal for age. There is mild septal and mild basal asymmetric hypertrophy. LV peak GLS -16.8%, possible under-estimation. Right Ventricle Normal right ventricular cavity size and systolic function. Atria Both atria are normal in size. Aortic Valve There is a normal trileaflet aortic valve. There is no aortic valve stenosis. There is no aortic valve regurgitation. Mitral Valve The mitral valve appears normal. There is trace mitral valve regurgitation. There is no mitral valve stenosis. Pulmonic Valve There is trace to mild pulmonic valve regurgitation. Tricuspid Valve Normal tricuspid valve structure. There is mild tricuspid valve regurgitation. There is no evidence of pulmonary hypertension. Great Vessels The asc aorta is normal in size. Venous The inferior vena cava is normal in size and collapses greater than 50% with inspiration. Pericardium/Pleural There is no evidence of pericardial effusion. Prior Study Comparison No significant change compared to prior study dated: 12/30/2003. Recommendations, Care & Conclusions No obvious valvular pathology seen on this study. Measurements 2D Linear Measurements IVSd: 1.21 0.6-0.9/0.6-1.0 cm LVIDd: 3.31 3.9-5.3/4.2-5.9 cm LVIDd Index: 1.96 2.4-3.2/2.2-3.1 cm/m2 LVIDs: 2.02 2.0-3.6 cm LVPWd: 1.00 0.7-1.1 cm LA Diam: 3.00 2.7-3.8/3.0-4.0 cm LAIDs Index: 1.78 1.5-2.3 cm/m2 LV Mass: 137.21 67-162/88-224 g LV Mass Index: 81.19 43-95/49-115 g/m2 LVOT Diam: 1.80 3.0+(-)1.3 cm 2D Systolic Function EF 4C: 63.10 >55% EF 2C: 70.80 >55% EF BiP: 68.00 >55% Mitral Valve MV Pk E: 0.89 MV PK A: 0.97 MV Decel Time: 168.00 E/A: 0.90 E'Lateral: 9.57 E'Medial: 5.22 E/E' Med: 17.00 E/E' Lat: 9.30 PHT: 49.00 MVA PHT: 4.49 Decel [place]: 5.28 Aortic Valve AoV Pk Sancho: 1.46 AoV Mn Sancho: 1.00 AoV VTI: 0.30 AoV Pk Grad: 9.00 Aov Mn Grad: 5.00 MONIQUE Cont.VTI: 1.77 LVOT LVOT Pk Sancho: 1.00 LVOT Mn Sancho: 0.65 LVOT VTI: 0.21 LVOT Pk Grad: 4.00 LVOT Mn Grad: 2.00 LVOT Diam: 1.80 LVOT Area: 2.54 Diastolic Function MV Pk E: 0.89 MV Pk A: 0.97 E/A: 0.90 E'Medial: 5.22 E/E' Med: 17.00 E' Laterial: 9.57 E/E' Lat: 9.30 Right Ventricle TAPSE (mm): 22.40 TVS' Sancho: 11.50 Tricuspid Valve TR Pk Sancho: 2.00 TR Pk Grad: 16.00 RA Press: 8.00 RVSP: 24.00 Great Vessels Aorta Sinus of Valsalva: 2.80 2.0-3.5 cm Ao Asc: 3.20 2.1-3.4 cm Pulmonary Valve PV Pk Sancho: 0.94 Peak PV Grad: 4.00 Updated in Other Vendor System with Status of Final Blair Montoya MD electronically signed on 11/01/2023 11:50:59 AM with status of Final
--- NOTE | 2023-10-31 13:34 | HM_ITS ---
Conclusion: 1. Patient was monitored for total period of 2 days 2. Baseline was normal sinus rhythm with average heart rate of 73 beats per minute 3. Rare PACs and PVCs noted 4. No significant pauses noted n xt 5. No patient reported events MTDD
== END ==
LOC: HO.CARD 13:31
PROVIDERS: PCP Registered Nurse; Visit Provider Internal Medicine
DX: R07.89 Other chest pain (principal); R00.2 Palpitations
CPT/HCPCS: 93225; 93306

== ENCOUNTER → 2023-10-31 13:34 | Outpatient (BNV) | payer MEDICAID, SELFPAY | PROVIDERS: PCP Registered Nurse; Visit Provider Internal Medicine | DX: I49.1 Atrial premature depolarization (principal); I49.3 Ventricular premature depolarization | CPT/HCPCS: 93227; 93306; 93356 ==

== ENCOUNTER 2023-12-22 13:51 | Outpatient (REF) | payer MEDICARE, MEDICAID, SELFPAY ==
--- NOTE | ~2023-12-22 | MM_ITS ---
EXAMINATION: MM SCREENING DIGITAL BREAST TOMOSYNTHESIS, BILATERAL CLINICAL INFORMATION: Screening. Asymptomatic. COMPARISON: Mammography: Comparison is made with available priors TECHNIQUE: Digital breast mammography with tomosynthesis is performed in both the craniocaudal and mediolateral oblique views along with computer-aided detection (CAD). FINDINGS: The breasts are heterogeneously dense, which may obscure small masses (ACR BI-RADS breast composition Category c). There are no significant masses, abnormal calcifications, or other abnormalities. MM/MM tomosynthesis screening BI IMPRESSION: No mammographic evidence of malignancy. ASSESSMENT: BI-RADS BI-RADS 1 - Negative RECOMMENDATION: Routine annual mammography screening. 1 year F/U This examination should not preclude the clinical evaluation of a suspicious palpable abnormality. This patient's information was entered into a reminder system with a target due date for their next mammogram. Electronically signed by: Joann Love DO 01/04/2024 11:57 AM EDT
== END 2023-12-22 13:52 | disposition home or self-care (01) ==
LOC: HO.MAMMO 13:51
PROVIDERS: PCP Registered Nurse; Visit Provider Registered Nurse
DX: Z12.31 Encounter for screening mammogram for malignant neoplasm of breast (principal)
CPT/HCPCS: 77063; 77067

== ENCOUNTER → 2023-12-22 14:00 | Outpatient (BNV) | payer MEDICARE, MEDICAID, SELFPAY | PROVIDERS: PCP Registered Nurse; Visit Provider Internal Medicine | DX: Z12.31 Encounter for screening mammogram for malignant neoplasm of breast (principal) | CPT/HCPCS: 77063; 77067 ==

== ENCOUNTER 2024-01-14 08:07 | Outpatient (REF) | payer OTHER, SELFPAY ==
[2024-01-14 09:27] LABS: Alanine Aminotransferase 17 U/L (0-31); Albumin Level 4.4 g/dL (3.5-5.0); Alkaline Phosphatase 108 U/L (39-117); Aspartate Amino Transferase 19 U/L (5-31); Bilirubin Direct 0.2 mg/dL (0.0-0.5); Bilirubin Total 0.8 mg/dL (0.0-1.0); Gamma Glutamyl Transpeptidase 17 U/L (7-33); Total Protein 7.7 g/dL (6.5-8.0)
== END 2024-01-14 08:08 | disposition home or self-care (01) ==
LOC: HO.LAB 08:07
PROVIDERS: PCP Registered Nurse; Visit Provider Registered Nurse
DX: R74.8 Abnormal levels of other serum enzymes (principal)
CPT/HCPCS: 36415; 80076; 82977

== ENCOUNTER 2024-03-12 07:47 | Outpatient (REF) | payer OTHER, SELFPAY ==
[2024-03-12 08:31] LABS: Anion Gap 12 (12-20); Blood Urea Nitrogen 16 mg/dL (9-16); Calcium 9.8 mg/dL (8.4-10.2); Carbon Dioxide 28 mmol/L (22-29); Chloride 108 mmol/L (96-108); Estimated Glomerular Filt Rate > 60; Glucose Random 93 mg/dL (60-115); Potassium 4.1 mmol/L (3.3-5.1); Sodium 144 mmol/L (135-145)
== END 2024-03-12 07:48 | disposition home or self-care (01) ==
LOC: HO.LAB 07:47
PROVIDERS: PCP Registered Nurse; Visit Provider Internal Medicine
DX: R07.89 Other chest pain (principal)
CPT/HCPCS: 36415; 80048

== ENCOUNTER 2024-03-13 13:16 | Outpatient (AMB) | payer OTHER, SELFPAY ==
--- NOTE | 2024-03-13 13:29 | A.OFFVIS_ITS ---
Intake Visit Reasons: 6m/PVR Cutting Table Operator Required: Yes Cutting Table Operator Language: Tobacco Wetter Name: BRITTNEY CALVIN Accompanied by: Self / Same As Patient Allergies aspirin [ASA] Allergy (Intermediate, Verified 03/13/24 14:13) STOMACH PAIN doxycycline Allergy (Intermediate, Verified 03/13/24 14:13) Abdominal Pain erythromycin base [Erythromycin Base] Allergy (Mild, Verified 03/13/24 14:13) SWELLING/STOMACH PAIN/ORAL BLISTERS tramadol [TRAMADOL] Adverse Reaction (Intermediate, Verified 03/13/24 14:13) DIZZY,NAUSEA Medication List - Last Reconciled 03/13/24 by YENY Lujan- albuterol sulfate 2.5 mg inhalation Q4H PRN albuterol sulfate 90 mcg/actuation (Ventolin HFA) 1 inh inhalation QID PRN azelastine 2 sprays intranasal DAILY cetirizine 10 mg PO QAM PRN cholecalciferol (vitamin D3) (Vitamin D3) 50 mcg PO DAILY clonazepam 0.5 mg PO BID PRN cyanocobalamin (vitamin B-12) 1,000 mcg PO DAILY fluticasone furoate 27.5 mcg/actuation (Flonase Sensimist) 1 spray intranasal BID fluticasone propionate 220 mcg/actuation (Flovent HFA) inhalation BID ibuprofen 800 mg PO Q8H PRN mometasone 200 mcg/actuation (Asmanex HFA) 1 inh inhalation BID pantoprazole 40 mg PO QAM rosuvastatin 10 mg PO BEDTIME sertraline 25 mg PO DAILY HPI Comments Details: Spring is a pleasant 63-year-old /Bolivian speaking female patient of Dr. Waters. She has a past medical history of diverticulitis, headaches, fibromyalgia, allergic rhinitis, hypertension, GERD, anxiety, depression, legally blind, asthma, hypercholesteremia, ocular albinism, rheumatoid arthritis, vitamin-D deficiency, and Hermansky-Pudlak Syndrome. She presents to the office today for follow-up of her lower urinary tract symptoms. In discussion with the patient today she reports to be doing and feeling well. She reports feeling urinary symptoms very however does not find them bothersome. She reports having episodes of urinary urgency and frequency and feelings of incomplete bladder emptying at times however describes these episodes as infrequent and self-limiting. In office urinalysis results reviewed with the patient today. PVR 0 mL. Previous workup has included a retroperitoneal ultrasound 06/25 noting bilateral kidneys with no lesions or calculi. Mild left hydronephrosis. Bladder is well distended and normal. Bilateral ureteral jets are demonstrated. Pre void bladder volume is approximately 315 mL. Postvoid bladder volume is approximately 20 mL. Discussed potential causes for lower urinary tract symptoms patient experiences from time to time. She currently denies any bothersome urinary issues or concerns. She denies urinary urgency, urinary frequency, incontinence, nocturia, hematuria, dysuria, foul smelling urine, changes to urinary stream, flank pain, fever, and or chills. She is happy with her current voiding parameters. Discussed bladder triggers/irritants. She otherwise offers no other issues or concerns at this time. 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 Vitamin D deficiency Rheumatoid arthritis Interstitial cystitis Arthritis Diverticulosis Depression GERD (gastroesophageal reflux disease) Peripheral neuropathy Psychiatric disorder Hypercholesteremia Asthma Surgical History Hx of cystoscopy Hx of colonoscopy Hx of esophagogastroduodenoscopy H/O ovarian cystectomy History of tonsillectomy and adenoidectomy History of endometrial ablation Family History (Updated 10/12/23 @ 14:58 by Tere Maravilla CMA) Father Heart attack Mother Rheumatoid arthritis Social History Household Members: Family Housing: House Do you presently have visiting nurse or other home services: No Alcohol intake: never Comment: PT SLEEPING Patient Tobacco Use Status: Never used Tobacco Second Hand Smoke Exposure: No service: No Current occupational status: disabled Review of Systems Eyes Reports as per HPI ENT Reports no additional complaints Card Reports as per HPI Resp Reports as per HPI GI Reports as per HPI Reports as per HPI Musc Reports as per HPI Neuro Reports as per HPI Psych Reports as per HPI Endo Reports no additional complaints Castillo/Lymph Reports no additional complaints Aller/Immun Reports no additional complaints Physical Exam Const General: cooperative, healthy appearing, comfortable, no acute distress, well developed, alert and awake Orientation/consciousness: patient oriented x3 Limitations: no limitations HEENT Head: Yes normal to inspection, Yes normocephalic and Yes atraumatic Ears: hearing grossly normal bilaterally Eyes General: appearance normal, both eyes and all related structures Neck Neck: Yes normal visual inspection and Yes trachea midline Chest Chest palpation & inspection: normal inspection of the chest Resp Effort & Inspection: normal respiratory effort and able to speak in complete sentences Cardio Rate: regular rate GI Inspection: Yes normal to inspection General: Yes no CVA tenderness Back/Spine/Pelvis Back: no CVA tenderness Skin General skin exam: no rashes or lesions noted Neuro General: patient oriented x3 Extrem General: Yes normal to inspection Psych Appearance: grossly normal and well kempt Mental Status: mental status grossly normal Speech and movement: Normal speech and movement present and Clear speech present Affect: normal affect Attitude: cooperative Thought process: Normal thought process present Thought content: Normal thought content present Insight: Fair insight present (Psych) Judgement: Fair judgement present (Psych) Office Procedures Post Void Residual Post Residual Void Post Void Residual (PVR): 0 [id number]-[id number] Void Residual by ultrasound Results AMB Urinalysis, Automated UA Leukoctes 0 Becky/uL Last Edit by Kamryn Mooney CMA on 03/13/24 13:54 UA Nitrite Negative Last Edit by Kamryn Mooney CMA on 03/13/24 13:54 UA Urobilinogen 0.2 mg/dL Last Edit by Kamryn Mooney CMA on 03/13/24 13:5 4 UA Protein 0 mg/dL Last Edit by Kamryn Mooney CMA on 03/13/24 13:54 UA pH 6.0 Last Edit by Kamryn Mooney CMA on 03/13/24 13:54 UA Blood 0 Denzel/uL Last Edit by Kamryn Mooney CMA on 03/13/24 13:54 UA Specific [place] 1.015 Last Edit by Kamryn Mooney CMA on 03/13/24 13: 54 UA Ketone Negative Last Edit by Kamryn Mooney CMA on 03/13/24 13:54 UA Bilirubin 0 mg/dL Last Edit by Kamryn Mooney CMA on 03/13/24 13:54 UA Glucose 0 mg/dL Last Edit by Kamryn Mooney CMA on 03/13/24 13:54 Results Reviewed Results Reviewed: Laboratory Last Values Urine pH (Auto) 6.0 03/13/24 13:51 Specific [place] (Auto) 1.015 03/13/24 13:51 Urine Protein (Auto) 0 mg/dL 03/13/24 13:51 Glucose (UA)(Auto) 0 mg/dL 03/13/24 13:51 Urine Ketones (Auto) Negative 03/13/24 13:51 Urine Blood (Auto) 0 Denzel/uL 03/13/24 13:51 Urine Nitrite (Auto) Negative 03/13/24 13:51 Urine Bilirubin (Auto) 0 mg/dL 03/13/24 13:51 Urine Urobilinogen (Auto) 0.2 mg/dL 03/13/24 13:51 Leukocyte Esterase (Auto) 0 Becky/uL 03/13/24 13:51 Assessment & Plan Assessment & Plan (1) Lower urinary tract symptoms: Code(s): R39.9 - Unspecified symptoms and signs involving the genitourinary system Category: Medical Plan In office urinalysis results reviewed with the patient today; as noted above. PVR 0 mL. Patient reports lower urinary tract symptoms very and does not feel they are bothersome at this time She is happy with her current voiding parameters. Discussed bladder triggers/irritants. Discussed UTI prevention with D mannose supplement, vitamin-C, increasing fluid intake, behavioral therapy with timed voiding, perineal hygiene and postcoital voiding, and management of constipation with stool softeners and increased fiber intake. Will continue with surveillance monitoring at this time. Follow-up in 6months with PVR; or sooner with any issues, concerns, and or questions. Orders: Orders AMB Urinalysis Automated Today Z13.9 - Encounter for screening, unspecified AMB Post Void Residual by ultrasound Today N39.0 - Urinary tract infection, site not specified Patient Instructions: The patient had an opportunity to ask questions regarding the treatment plan. All questions were answered. Physical exam, labs, and imaging were discussed and reviewed in detail. As well as risks, benefits, and discussion of treatment lewis luisa. No major barriers to understanding were identified. The patient expressed understanding and agreement with the above treatment plan. The patient was made aware they should contact our office by phone for worsening of their current condition, the appearance of new symptoms, or with any questions or concerns. Compliance is encouraged with any medications and follow up testing that is ordered. It is a privilege to be allowed the opportunity to participate in? your urological care.? Again, if you have any questions or concerns If you have any questions or concerns please do not hesitate to contact me. The office is [phone]. This note is constructed using voice recognition software. While every effort has been made to ensure accuracy thermostatic controls supervisor errors may have been included. Yours sincerely, YENY Lujan-RICHARD Coding Level of Care Code Est Pt Level 3 (65852) Diagnoses Lower urinary tract symptoms R39.9 CPT Codes Post Residual Void - PVR CPT Code: 61553-Hjww Void Residual by ultrasound ([id number])
== END 2024-03-13 14:11 | disposition home or self-care (01) ==
PROVIDERS: PCP Registered Nurse; Visit Provider Nurse Practitioner Family
DX: Z13.9 Encounter for screening, unspecified (principal); R39.9 Unspecified symptoms and signs involving the genitourinary system
CPT/HCPCS: 99213

== ENCOUNTER → 2024-03-13 13:16 | Outpatient (BNVA) | payer MEDICARE, MEDICAID, SELFPAY | PROVIDERS: PCP Registered Nurse; Visit Provider Nurse Practitioner Family | DX: R39.9 Unspecified symptoms and signs involving the genitourinary system (principal) | CPT/HCPCS: 51798; 81003; 99212 ==

== ENCOUNTER 2024-03-26 12:40 | Outpatient (AMB) | payer MEDICARE, MEDICAID, SELFPAY ==
[2024-03-26 12:42] VITALS: BP 120/68; PULSE 78; BMI 25.0
--- NOTE | 2024-03-26 12:42 | A.OFFVIS_ITS ---
Vital Signs 03/26/24 12:42 Height 5 ft 4 in Weight 145 lb 8.081 oz BMI 25.0 BP 120/68 Blood Pressure Location Lt brachial Position Sitting Pulse 78 Pulse Source Pulse Oximeter Intake Visit Reasons: Follow up post coronary CTA Banbury Mixer Operator Required: Yes Banbury Mixer Operator Services: Banbury Mixer Operator Offered & Declined Allergies aspirin [ASA] Allergy (Intermediate, Verified 03/13/24 14:13) STOMACH PAIN doxycycline Allergy (Intermediate, Verified 03/13/24 14:13) Abdominal Pain erythromycin base [Erythromycin Base] Allergy (Mild, Verified 03/13/24 14:13) SWELLING/STOMACH PAIN/ORAL BLISTERS tramadol [TRAMADOL] Adverse Reaction (Intermediate, Verified 03/13/24 14:13) DIZZY,NAUSEA Medication List - Last Reconciled 03/26/24 by Blair Montoya MD albuterol sulfate 2.5 mg inhalation Q4H PRN albuterol sulfate 90 mcg/actuation (Ventolin HFA) 1 inh inhalation QID PRN cetirizine 10 mg PO QAM PRN cholecalciferol (vitamin D3) (Vitamin D3) 50 mcg PO DAILY clonazepam 0.5 mg PO BID PRN cyanocobalamin (vitamin B-12) 1,000 mcg PO DAILY fluticasone furoate 27.5 mcg/actuation (Flonase Sensimist) 1 spray intranasal BID fluticasone propionate 220 mcg/actuation (Flovent HFA) inhalation BID mometasone 200 mcg/actuation (Asmanex HFA) 1 inh inhalation BID pantoprazole 40 mg PO QAM rosuvastatin 10 mg PO BEDTIME sertraline 25 mg PO DAILY HPI Comments Details: Spring returns for follow up. She was recently seen for cardiac evaluation. is helping with interpretation. PCP note also reviewed. Patient does not have any history of cardiac issues like coronary disease or cardiomyopathy. It seems that she has sensations of heart racing at different times. Additionally, she feels as though her chest gets tight and she cannot breathe at times. Associated with headache and additionally, she may feel as though she is very weak and tired after these symptoms. Per PCP note, there is also mention of high blood pressures at home as much as 170 mm Hg but clinic pressures here are completely normal at 120/76 mm Hg. She is legally blind and hence there was concern about stress testing. She has undergone echocardiogram/Holter/coronary CTA. 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 Vitamin D deficiency Rheumatoid arthritis Interstitial cystitis Arthritis Diverticulosis Depression GERD (gastroesophageal reflux disease) Peripheral neuropathy Psychiatric disorder Hypercholesteremia Asthma Surgical History Hx of cystoscopy Hx of colonoscopy Hx of esophagogastroduodenoscopy H/O ovarian cystectomy History of tonsillectomy and adenoidectomy History of endometrial ablation Family History (Updated 10/12/23 @ 14:58 by Tere Maravilla CMA) Father Heart attack Mother Rheumatoid arthritis Social History Household Members: Family Housing: House Do you presently have visiting nurse or other home services: No Alcohol intake: never Comment: PT SLEEPING Patient Tobacco Use Status: Never used Tobacco Second Hand Smoke Exposure: No service: No Current occupational status: disabled Review of Systems Const Denies weakness ENT Denies dizziness Card Denies chest pain, Denies chest pain with activity, Denies syncope, Denies rapid heart rate, Denies pedal edema, Denies edema, Denies leg edema, Denies lightheadedness, Denies palpitations, Denies dyspnea, Denies dyspnea on exertion and Denies orthopnea Resp Denies cough, Denies dyspnea and Denies dyspnea on exertion GI Denies hematochezia and Denies change in stool character Musc Denies abnormal gait, Denies muscle cramps, Denies muscle weakness, Denies numbness, Denies radiating pain into limb and Denies tingling Neuro Denies abnormal gait, Denies dizziness, Denies syncope, Denies numbness, Denies tingling and Denies weakness Endo Denies palpitations Physical Exam Vital Signs: Last Vital Signs Pulse 78 03/26/24 12:42 BP 120/68 03/26/24 12:42 BMI result Body Mass Index 25.0 Const General: comfortable and no acute distress Orientation/consciousness: patient oriented x3 HEENT Other: Unremarkable Head: Yes normal to inspection Neck Neck: Yes normal visual inspection Chest Chest palpation & inspection: normal inspection of the chest Resp Auscultation: clear to auscultation bilaterally Cardio Palpation: normal PMI Heart sounds: S1 normal heart sound present, S2 normal heart sound present, no gallops, no murmurs and no rubs GI Palpation (GI): Soft to palpation Back/Spine/Pelvis Other: unremarkable Skin General skin exam: no rashes or lesions noted Neuro General: patient oriented x3 Extrem General: Yes normal to inspection Psych Mental Status: mental status grossly normal Assessment & Plan Assessment & Plan (1) Atherosclerotic cardiovascular disease: Code(s): I25.10 - Atherosclerotic heart disease of [place] tribe coronary artery without angina pectoris Category: Medical (2) Heart palpitations: Code(s): R00.2 - Palpitations Category: Medical Plan Various symptoms including chest tightness, shortness of breath and palpitations associated with weakness. In the echocardiogram, LVEF 68%. No wall motion abnormalities. Coronary CTA was performed last week but not yet reported. Prelim findings from Dr. Xiong by tiger text-hypertensive looking coronaries based on tortuosity; scattered mixed plaques in LAD; several scattered mixed plaques throughout the RCA. Distal LAD near LV apex is not well seen possibly from tapering. Official report is still pending. We will follow-up on that. We will probably increase the statin dose after we review the final data. With regard to the palpitations, she is still experiencing the same but she gets several weeks without any symptoms. Hence do a 30 day monitor. Discussed with who understands [place] and acted as automotive parts interpreter. Appropriate form was signed. Orders: Orders ECG 30 day event monitor Today R00.2 - Palpitations Coding Level of Care Code Est Pt Level 4 (08044) Diagnoses Atherosclerotic cardiovascular disease I25.10 Heart palpitations R00.2
== END 2024-03-26 13:04 | disposition home or self-care (01) ==
PROVIDERS: PCP Registered Nurse; Visit Provider Internal Medicine
DX: I25.10 Atherosclerotic heart disease of native coronary artery without angina pectoris (principal); R00.2 Palpitations
CPT/HCPCS: 99214

== ENCOUNTER → 2024-03-26 12:40 | Outpatient (BNVA) | payer MEDICARE, MEDICAID, SELFPAY | PROVIDERS: PCP Registered Nurse; Visit Provider Internal Medicine | DX: I25.10 Atherosclerotic heart disease of native coronary artery without angina pectoris (principal); R00.2 Palpitations | CPT/HCPCS: 99212 ==

== ENCOUNTER → 2024-04-23 10:56 | Outpatient (REF) | payer OTHER, SELFPAY | LOC: HO.CARD 10:56 | PROVIDERS: PCP Registered Nurse; Visit Provider Internal Medicine | DX: R00.2 Palpitations (principal) | CPT/HCPCS: 93270 ==

== ENCOUNTER → 2024-04-23 10:58 | Outpatient (BNV) | payer OTHER, SELFPAY | PROVIDERS: PCP Registered Nurse; Visit Provider Internal Medicine | DX: I47.10 Supraventricular tachycardia, unspecified (principal) | CPT/HCPCS: 93272 ==

== ENCOUNTER 2024-06-25 09:53 | Outpatient (AMB) | payer OTHER, SELFPAY ==
[2024-06-25 09:57] VITALS: BP 120/92; PULSE 66; BMI 25.5
--- NOTE | 2024-06-25 09:57 | A.OFFVIS_ITS ---
Vital Signs 06/25/24 09:57 Height 5 ft 4 in Weight 148 lb 9.465 oz BMI 25.5 BP 120/92 H Blood Pressure Location Lt brachial Position Sitting Pulse 66 Pulse Source Pulse Oximeter Intake Visit Reasons: 3 mth f/up HS Bi Manager Required: No Field Support Specialist: Field Support Specialist Present Allergies aspirin [ASA] Allergy (Intermediate, Verified 06/25/24 10:00) STOMACH PAIN doxycycline Allergy (Intermediate, Verified 06/25/24 10:00) Abdominal Pain erythromycin base [Erythromycin Base] Allergy (Mild, Verified 06/25/24 10:00) SWELLING/STOMACH PAIN/ORAL BLISTERS tramadol [TRAMADOL] Adverse Reaction (Intermediate, Verified 06/25/24 10:00) DIZZY,NAUSEA Medication List - Last Reconciled 06/25/24 by GIA Watt albuterol sulfate 2.5 mg inhalation Q4H PRN albuterol sulfate 90 mcg/actuation (Ventolin HFA) 1 inh inhalation QID PRN cetirizine 10 mg PO QAM PRN cholecalciferol (vitamin D3) (Vitamin D3) 50 mcg PO DAILY clonazepam 0.5 mg PO BID PRN cyanocobalamin (vitamin B-12) 1,000 mcg PO DAILY fluticasone furoate 27.5 mcg/actuation (Flonase Sensimist) 1 spray intranasal BID fluticasone propionate 220 mcg/actuation (Flovent HFA) inhalation BID mometasone 200 mcg/actuation (Asmanex HFA) 1 inh inhalation BID pantoprazole 40 mg PO QAM rosuvastatin 10 mg PO BEDTIME sertraline 50 mg PO DAILY HPI HPI 3 mth f/up HS: Details: Spring is a 63-year-old female with past medical history of hypertension, hyperlipidemia, and nonobstructive coronary artery disease who was recently evaluated for chest tightness and heart palpitations. She went underwent a cardiac event monitor and now presents for follow-up. Today she reports that she continues to feel episodes where her heart is beating fast for a few seconds. Then she is left with fatigue and weakness that can last a few hours. At times she has had episodes of tightness in her chest with shortness of breath. This can occur randomly and has not been a primary problem since her last visit. No shortness of breath at rest, PND, orthopnea or edema. No lightheadedness, presyncope, syncope, falls. She is legally blind. is present and it is assisting with translation at their request. [facility] Medical History (Updated 06/25/24 @ 11:34 by Nallely Steward NP-C) Diverticulitis Tear of left supraspinatus tendon Headache disorder Fibromyalgia Allergic rhinitis Benign paroxysmal positional vertigo Cobalamin deficiency Dysphagia Dyssomnia Essential hypertension Gastroesophageal reflux disease Hermansky-Pudlak syndrome Mixed anxiety and depressive disorder Legal blindness Mild persistent asthma Hypercholesteremia 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 Vitamin D deficiency Rheumatoid arthritis Interstitial cystitis Arthritis Diverticulosis Depression GERD (gastroesophageal reflux disease) Peripheral neuropathy Psychiatric disorder Hypercholesteremia Asthma Surgical History Hx of cystoscopy Hx of colonoscopy Hx of esophagogastroduodenoscopy H/O ovarian cystectomy History of tonsillectomy and adenoidectomy History of endometrial ablation Family History Father Heart attack Mother Rheumatoid arthritis Social History Household Members: Family Housing: House Do you presently have visiting nurse or other home services: No Alcohol intake: never Comment: PT SLEEPING Patient Tobacco Use Status: Never used Tobacco Second Hand Smoke Exposure: No service: No Current occupational status: disabled Review of Systems Const All systems reviewed & are unremarkable except as noted in HPI and below Reports fatigue (follows palpitation) ENT Denies dizziness Card Denies chest pain, Denies chest pain at rest, Denies chest pain with activity, Reports rapid heart rate (palpitations), Denies pedal edema, Denies edema, De nies leg edema, Denies lightheadedness, Denies palpitations, Denies dyspnea, Denies dyspnea on exertion and Denies orthopnea Resp Denies cough, Denies dyspnea and Denies dyspnea on exertion GI Denies hematochezia and Denies change in stool character Musc Denies abnormal gait, Denies limited range of motion, Denies muscle cramps, Denies muscle weakness, Denies numbness, Denies radiating pain into limb, Denies stiffness and Denies tingling Neuro Denies abnormal gait, Denies dizziness, Denies numbness and Denies tingling Endo Reports fatigue (follows palpitation) and Denies palpitations Physical Exam Vital Signs: Last Vital Signs Pulse 66 06/25/24 09:57 BP 120/92 H 06/25/24 09:57 BMI result Body Mass Index 25.5 Const General: cooperative, healthy appearing, comfortable and no acute distress Orientation/consciousness: patient oriented x3 Neck Neck: Yes normal visual inspection and Yes no JVD Resp Effort & Inspection: normal respiratory effort Auscultation: clear to auscultation bilaterally, no crackles, no rales, no rhonchi and no wheezes Cardio Rate: regular rate Rhythm: regular rhythm Heart sounds: S1 normal heart sound present, S2 normal heart sound present, no gallops, no murmurs and no rubs Neuro General: patient oriented x3 Extrem General: Yes normal to inspection, No no pedal edema and No calf tenderness Psych Appearance: grossly normal Mental Status: mental status grossly normal Speech and movement: Normal speech and movement present Assessment & Plan Assessment & Plan (1) Heart palpitations: Code(s): R00.2 - Palpitations Category: Medical Plan: Reports of heart palpitations where she feels her heart going fast for a few seconds then has residual fatigue and weakness for up to a few hours. Holter m onitor done 10/31/2023 for 2 days showed sinus rhythm, average rate 73, rare PACs and PVCs. Echocardiogram done 10/31/2023 showed EF 68%, no regional wall motion abnormalities, no valve abnormalities. A 30 day cardiac event monitor was done 04/23/2024 showing sinus rhythm with average heart rate 79, rare ectopy, 1 episode NSVT, 5 beats. Patient tells me she had 2 episodes of her heart palpitations when wearing the cardiac event monitor. Test results reviewed with her. She was previously given metoprolol however tells me she became lightheaded while taking it. She does not want to take it daily since her palpitations are not frequent. We discussed taking it as needed for days when she notices heart palpitations. She will try taking half a tablet p.r.n.. Unclear if this will be effective for her, we will further discuss at next visit. Emergency care if ever needed for sustained palpitations. Cardiology follow-up 3-4 months, sooner if needed. (2) Chest tightness: Code(s): R07.89 - Other chest pain Category: Medical Plan: Reports of intermittent chest tightness with shortness of breath, nonexertional. She did have a CTA of the coronary arteries in the recent past which showed mixed plaque in the LAD and RCA. She has nonobstructive coronary disease. Her echo showed normal EF and no regional wall motion abnormalities. Her symptoms are not from angina. Reviewed this with her. Continue rosuvastatin. (3) Atherosclerotic cardiovascular disease: Code(s): I25.10 - Atherosclerotic heart disease of [place] tribe coronary artery without angina pectoris Category: Medical Plan: As above (4) Essential hypertension: Code(s): I10 - Essential (primary) hypertension Category: Medical Plan: Controlled at present. Recheck done by me 120/72. She is not on any antihypertensives. (5) Hypercholesteremia: Code(s): E78.00 - Pure hypercholesterolemia, unspecified Category: Medical Plan: [place] LDL goal less than 70. Labs done 10/09/2022 showed LDL 100. She is due for an updated fasting lipid profile. Will order. Continue rosuvastatin. Plan Time spent on chart review, documentation, interview and assessment Medications: Changed From metoprolol succinate ER (Toprol XL) 25 mg PO DAILY 30 tabs 5RF To metoprolol succinate ER (Toprol XL) (does not need refill at this time) 25 mg PO DAILY PRN 30 tabs 5RF Palpitation Coding Level of Care Code Est Pt Level 4 (76142) Complex EM visit Add On G2211 Diagnoses Heart palpitations R00.2 Chest tightness R07.89 Atherosclerotic cardiovascular disease I25.10 Essential hypertension I10 Hypercholesteremia E78.00 Time Spent (min) 28
== END 2024-06-25 10:17 | disposition home or self-care (01) ==
LOC: HO.HCS 09:54
PROVIDERS: PCP Registered Nurse; Visit Provider Nurse Practitioner Family
DX: R00.2 Palpitations (principal); R07.89 Other chest pain; I25.10 Atherosclerotic heart disease of native coronary artery without angina pectoris; I10 Essential (primary) hypertension; E78.00 Pure hypercholesterolemia, unspecified
CPT/HCPCS: 99214; G2211

== ENCOUNTER → 2024-06-25 09:53 | Outpatient (BNVA) | payer OTHER, SELFPAY | PROVIDERS: PCP Registered Nurse; Visit Provider Nurse Practitioner Family | DX: I25.10 Atherosclerotic heart disease of native coronary artery without angina pectoris (principal); I10 Essential (primary) hypertension; E78.5 Hyperlipidemia, unspecified; R00.2 Palpitations; R07.89 Other chest pain; E78.00 Pure hypercholesterolemia, unspecified | CPT/HCPCS: 99212 ==

== ENCOUNTER 2024-07-12 14:40 | Outpatient (REF) | payer OTHER, SELFPAY ==
--- OUTSIDE RECORDS SUMMARY | 2024-07-12 17:18 | XMS_ITS ---
Author Organization [facility] Address [address] [place] [address] Care Team Providers Care Breaker Mechanic Name Role Phone Julius Sahu Primary Care Provider Deepak Lane Jr Unavailable REASON FOR VISIT colon screening Problems Problem Type SNOMED Code ICD Code Onset Dates Problem Status W/U Status Risk Notes Problem Diverticulitis of colon (200238375) Diverticulitis of large intestine without perforation or abscess without bleeding (K57.32) Active confirmed Encounters Encounter Location Date Provider Diagnosis [facility] [address] [place] [id number] 03/15/2023 Deepak Rogers Jr Colon polyps K63.5 and Diverticulitis of large intestine without perforation or abscess without bleeding K57.32 Assessments Encounter Date Diagnosis (ICD Code) Assessment Notes Treatment Notes Treatment Clinical Notes Section Notes 03/15/2023 Colon polyps (ICD-10 - K63.5) 03/15/2023 Diverticulitis of large intestine without perforation or abscess without bleeding (ICD-10 - K57.32) Plan Of Treatment No Information Progress Notes * MARIAJOSE MELENDEZADOB:1960 (63 yo F)Acc No.[id number]:03/15/2023 COLON WITH MAC Patient:?REMA MELENDEZ Provider:?Deepak Rogers MD :1960???Age:62 Y???Sex:Female D ate:03/15/2023 Address:[address] [place], [place] [id number] Pcp:Julius Sahu Subjective: * Chief Complaints: * ???1. Colon screening. * Medical History:? Objective: * Vitals:? Assessment: * Assessment: 1.?Colon polyps - K63.5 (An terry)???2.?Diverticulitis of large intestine without perforation or abscess without bleeding - K57.32??? Plan: * Treatment: * Procedure Codes:?50955 COLON OSCOPY AND BIOPSY * * The named appointment provid er may or may not be the originator of this progress note, and it is not deemed complete until electronically signed by the appointment provider. Sign off status: Pending * Provider:?Deepak Rogers MD Date:?1 05/16/2022 Generated for Lian aguirre/John/Albaitting on:?07/12/2024 05:18 PM EDT
--- OUTSIDE RECORDS SUMMARY | 2024-07-12 17:18 | XMS_ITS | Encounter Summary ---
Author Organization [employer] Address [address] [facility] [address] [place] [address] Care Team Providers Care Residential Mortgage Underwriter Name Role Phone Amparo Waters YENY Primary Care Provider [phone] Mayra Yang MORTGAGE LENDER Unavailable Blair Montoya MD Unavailable [phone] Encounter Details Date Type Department Care Team (Late st Contact Info) Description 01/09/2024 Orders Only [facility] [address] [place], [place] [id number] Provider, MD Sanjana Social History Tobacco Use Types Packs/Day Years Used Date Smoking Tobacco: Former Cigarettes 1 05/05/1980 - 03/04/1987 Passive Smoke Exposure: Never Smokeless Tobacco: Never Alcohol Use Standard Drinks/Week Comments Never 0 (1 standard drink = 0.6 oz pur e alcohol) Depression Answer Date Recorded Patient Health Questionnaire-9 Score 2 01/06/2024 Patient Health Questionnaire-9 Score 2 01/06/2024 Last PHQ-9: Questionnaire Data Not on file 1 Housing Stability Answer Date Recorded What is your housing situation today? I have sheltonrufina leahy 10/13/[address] you li ve. Do you have problems with any of the following? None of the above 10/13/2023 Food Insecurity Answer Date Recorded Within the past 12 months, y ou worried that your food would run out before you got money to buy more: Never True 10/13/2023 Within the past 12 months,th e food you bought just didn't last and you didn't have enough money to get more: Never True 02/2024 Transportation Answer Date Recorded In the past 12 months, has l ack of transportation kept you from medical appts, meetings, work or from getting things needed for daily living? No 10/13/2023 Utilities Answer Date Recorded In the past 12 months, has t he electric, gas, oil or water company threatened to shut off services in your home? No 10/13/2023 Depression Answer Date Recorded Patient Health Questionnaire-2 Score 2 01/06/2024 Internet Access Answer Date Recorded Internet Access Q1 Yes 12/05/2023 Internet Access Q2 Not on file 12/05/2023 Comments Unknown Sex and Gender Information Value Date Recorded Sex Assigned at Female 02/01/2022 10:14 AM EDT Legal Sex Female 10:14 AM EDT Gender Identity Female 02/01/2022 10:14 AM EDT Sexual Orientation Choose not to disclose 2024 1:38 PM EDT Sexual Orientation Straight 06/24/2024 1: 38 PM EDT documented as of this encounter Plan of Treatment Upcoming Encounters Date Type Department Care Team (Late st Contact Info) Description 08/06/2024 9:00 AM EDT Office Visit [facility] [address] [place] [address] Robbie, Fanta [address] [place] [address] 08/17/2024 9:30 AM EDT Office Visit [facility] [address] [place] [address] Amparo Waters FNP [address] [place] [address] documented as of this encounter Procedures Procedure Name Priority Date/Time Associated Diagnosis Comments HM COLONOSCOPY Routine 03/15/2023 3:18 PM EST HM PAP/HPV Routine 01/29/2022 3:30 PM EDT documented in this encounter Results * Hm Colonoscopy (03/15/2023 3:18 PM EST) us Historical Provider HEALTH MAINTENANCE Final Result * HM PAP/HPV (01/29/2022 3:30 PM EDT) us Historical Provider HEALTH MAINTENANCE Final Result documented in this encounter Visit Diagnoses Not on filedocumented in this encounter Additional Health Concerns Assessment Noted Time PHQ-9 Depression Total Score: 2 01/06/20 24 10:02 AM EDT documented as of this encounter Care Teams Residential Mortgage Underwriter Relationship Specialty Start Date End Date Amparo Waters FNP [address] [place] [address] PCP - General Family Medicine 09/15/22 Mayra Yang NP [address] [facility] [address] [place] [address] Urology 05/21/24 Blair Montoya MD [address] [place] [address] Cardiology 05/21/24 documented as of this encounter
--- OUTSIDE RECORDS SUMMARY | 2024-07-12 17:19 | XMS_ITS | Encounter Summary ---
Author Organization [employer] Address [address] [place] [address] [place] [address] Care Team Providers Care Nursing Assistant Name Role Phone Debra Hernández [facility] Primary Care Provider [phone] Amparo Waters [facility] Primary Care Provider [phone] Mayra Yang NP Unavailable Blair Montoya MD Unavailable [phone] Reason for Visit * Reason Comments Med Refill Encounter Details Date Type Department Care Team (Late st Contact Info) Description 07/20/2022 Refill [facility] [address] [place] [address] Debra Hernández FNP [address] [place] [address] Dept [place] [address] Seasonal allergic rhinitis, unspecified trigger Social History Tobacco Use Types Packs/Day Years Used Date Smoking Tobacco: Former Cigarettes 1 05/05/1980 - 03/04/1987 Passive Smoke Exposure: Never Smokeless Tobacco: Never Alcohol Use Standard Drinks/Week Comments Never 0 (1 standard drink = 0.6 oz pur e alcohol) Comments Unknown Sex and Gender Information Value Date Recorded Sex Assigned at Female 02/01/2022 10:14 AM EDT Legal Sex Female 10:14 AM EDT Gender Identity Female 02/01/2022 10:14 AM EDT Sexual Orientation Choose not to disclose 2024 1:38 PM EDT Sexual Orientation Straight 06/24/2024 1: 38 PM EDT COVID-19 Exposure Response Date Recorded In the last 10 days, have yo u been in contact with someone who was confirmed or suspected to have Coronavirus/COVID-19? No / Unsure 06/30/2022 2:32 PM EDT documented as of this encounter Plan of Treatment Upcoming Encounters Date Type Department Care Team (Late st Contact Info) Description 08/06/2024 9:00 AM EDT Office Visit [facility] [address] [place] [address] Robbie, Fanta [address] [place] [address] 08/17/2024 9:30 AM EDT Office Visit [facility] [address] [place] [address] Amparo Waters FNP [address] [place] [address] documented as of this encounter Visit Diagnoses Diagnosis Seasonal allergic rhinitis, unspecified trigger documented in this encounter Care Teams Nursing Assistant Relationship Specialty Start Date End Date Debra Hernández FNP PCP - General Family Medicine 04/30/22 09/14/22 Amparo Waters FNP [address] [place] [address] PCP - General Family Medicine 09/15/22 Mayra Yang NP [address] [place] [id number] Urology 05/21/24 Blair Montoya MD [address] [place] [address] Cardiology 05/21/24 documented as of this encounter
--- OUTSIDE RECORDS SUMMARY | 2024-07-12 17:19 | XMS_ITS | Encounter Summary ---
Author Organization [employer] Address [address] [facility] 7t [place] [address] Care Team Providers Care Inspector Health Care Facilities Name Role Phone Amparo Waters YENY Primary Care Provider [phone] Mayra Yang NP Unavailable Blair Montoya MD Unavailable [phone] Encounter Details Date Type Department Care Team (Latest Contact Info) Description 07/12/2024 Travel Social History Tobacco Use Types Packs/Day Years [...] is your housing situation today? I have shelton leahy 10/13/[address] you [...] Access Q2 Not on file 12/05/2023 Comments No Sex and Gender Information Value Date Recorded [...] Description 08/06/2024 9:00 AM EDT Office Visit [facility] ADULT DENTAL [address] [place] [address] Robbie, Fanta [address] [place] [address] 08/17/2024 9:30 AM EDT Office Visit [facility]C MED & PEDS [address] [place] [address] Amparo Waters FNP [address] [place] [address] documented as of this encounter Visit Diagnoses Not on filedocumented in this encounter Additional Health Concerns Assessment Noted Time PHQ-9 Depression Total Score: 2 01/06/20 24 10:02 AM EDT documented as of this encounter Care Teams Inspector Health Care Facilities Relationship Specialty Start Date End Date Amparo Waters FNP [address] [place] [address] PCP - General Family Medicine 09/15/22 Mayra Yang NP [address] [place] [address] Urology 05/21/24 Blair Montoya MD [address] [place] [address] Cardiology 05/21/24 documented as of this encounter
--- OUTSIDE RECORDS SUMMARY | 2024-07-12 17:19 | XMS_ITS | Encounter Summary ---
Author Organization [employer] Address [address] [facility] 7t [place] [address] Care Team Providers Care Product Development Intern Name Role Phone Julius Sahu MD Primary Care Provider Debra Lloyd REGIONAL GUIDE Primary Care Provider [phone] Amparo Waters REGIONAL GUIDE Primary Care Provider Mayra Yang NP Unavailable Blair Montoya MD Unavailable [phone] Encounter Details Date Type Department Care Team (Latest Contact Info) Description 07/17/2021 Abstract [facility] CONVERSIONS Dental, Provider, DDS Social History Tobacco Use Types Packs/Day Years Used Date Smoking Tobacco: Never Assessed Comments Unknown Sex and Gender Information Value [...] Description 08/06/2024 9:00 AM EDT Office Visit [facility] ADULT DENTAL [address] [place], [place] [phone] Robbie Fanta [address] [place], [place] [phone] 08/17/2024 9:30 AM EDT Office Visit [facility] PEDS [address] [place] [address] Amparo Waters FNP [address] [place] [address] documented as of this encounter Visit Diagnoses Not on filedocumented in this encounter Care Teams Product Development Intern Relationship Specialty Start Date End Date Julius Sahu MD PCP - General Family Medicine 05/15/20 04/29/22 Debra Hernández FNP PCP - General Family Medicine 04/30/22 09/14/22 Amparo Waters FNP [address] [place] [address] PCP - General Family Medicine 09/15/22 Mayra Yang NP [address] [place] [address] Urology 05/21/24 Blair Montoya MD [address] [place] [address] Cardiology 05/21/24 documented as of this encounter
--- OUTSIDE RECORDS SUMMARY | 2024-07-12 17:19 | XMS_ITS | Encounter Summary ---
Author Organization [employer] Address [address] [place] [address] Care Team Providers Care Manager Merchandise Name Role Phone Debra Hernández Primary Care Provider [phone] Amparo Waters Primary Care Provider [phone] Mayra Yang NP Unavailable Blair Montoya MD Unavailable [phone] Encounter Details Date Type Department Care Team (Late st Contact Info) Description 06/25/2022 Telephone [facility] MEDICINE [address] [place], [place] [phone] Debra Hernández FNP [address] [place] [address] [place] [address] Social History Tobacco Use Types Packs/Day Years [...] 1:38 PM EDT Sexual Orientation Straight 06/24/2024 1 :38 PM EDT documented as of this encounter Plan of Treatment Upcoming Encounters Date Type Department Care Team (Late st Contact Info) Description 08/06/2024 9:00 AM EDT Office Visit [facility] ADULT DENTAL [address] [place] [address] Robbie, Fanta [address] [place] [address] 08/17/2024 9:30 AM EDT Office Visit [facility] CHC MED & PEDS [address] [place] [address] Amparo Waters FNP 505 [place] [address] documented as of this encounter Visit Diagnoses Not on filedocumented in this encounter Care Teams Manager Merchandise Relationship Specialty Start Date End Date Debra Hernández FNP PCP - General Family Medicine 04/30/22 09/14/22 Amparo Waters FNP [address] [place] [address] PCP - General Family Medicine 09/15/22 Mayra Yang NP [address] [place] [address] Urology 05/21/24 Blair Montoya MD 11 [place] [address] Cardiology 05/21/24 documented as of this encounter
--- OUTSIDE RECORDS SUMMARY | 2024-07-12 17:19 | XMS_ITS | Encounter Summary ---
Author Organization [employer] Address [address] [facility] 7t [place] [address] Care Team Providers Care Clinical Trials Nurse Name Role Phone Amparo Waters YENY Primary Care Provider [phone] Mayra Yang NP Unavailable Blair Montoya MD Unavailable [phone] Reason for Visit * Reason Comments Med Change Request Encounter Details Date Type Department Care Team (Late st Contact Info) Description 07/12/2024 Refill [facility] CHC MED & PEDS [address] [place], [place] [phone] Kitty Barrientos CNM [address] [place] [address] Social History Tobacco Use Types Packs/Day Years [...] Description 08/06/2024 9:00 AM EDT Office Visit [facility] ADULT DENTAL [address] [place] [address] Robbie, Fanta [address] [place] [address] 08/17/2024 9:30 AM EDT Office Visit [facility] CHC MED & PEDS 505 [place] [address] Amparo Waters FNP 505 [place] [address] documented as of this encounter Visit Diagnoses Not on filedocumented in this encounter Additional Health Concerns Assessment Noted Time PHQ-9 Depression Total Score: 2 01/06/20 24 10:02 AM EDT documented as of this encounter Care Teams Clinical Trials Nurse Relationship Specialty Start Date End Date Amparo Waters FNP [address] [place] [address] PCP - General Family Medicine 09/15/22 Mayra Yang NP [address] [facility] [address] [place] [address] Urology 05/21/24 Blair Montoya MD 11 [place] [address] Cardiology 05/21/24 documented as of this encounter
--- OUTSIDE RECORDS SUMMARY | 2024-07-12 17:19 | XMS_ITS ---
Author Organization [facility] Address [address] [place] [address] Care Team Providers Care Beater Room Helper Name Role Phone Luis Alberto, Julius Primary Care Provider Deepak Lane Jr Unavailable REASON FOR VISIT labs Encounters Encounter Location Date Provider Diagnosis [facility] [address] [place] [address] 03/10/2023 Deepak Rogers Jr Plan Of Treatment No Information Progress Notes * MARIAJOSE MELENDEZADOB:1960 (62 yo F)Acc No.[id number]:03/10/2023 Patient:?REMA MELENDEZ :1960???Age:62 Y???Sex:Female Address:[address] [facility] [address], [place] [address] * true * Date:? Generated for Lian aguirre/John/eTransmitting on:?07/12/2024 05:18 PM EDT
--- OUTSIDE RECORDS SUMMARY | 2024-07-12 17:19 | XMS_ITS | Encounter Summary ---
Author Organization [employer] Address [address] [facility] 7t [place] [address] Care Team Providers Care Small Equipment Operator Name Role Phone Amparo Waters Primary Care Provider [phone] Mayra Yang NP Unavailable Blair Montoya MD Unavailable Reason for Visit * Reason Comments Med Refill Encounter Details Date Type Department Care Team ([facility] st Contact Info) Description 07/07/2024 Refill [facility] CHC MED & PEDS [address] [place], [place] [phone] Amparo Waters FNP [address] [place], [place] [phone] Social History Tobacco Use Types Packs/Day Years [...] AM EDT Office Visit [facility] ADULT DENTAL [address] [place] [address] Robbie, Fanta [address] [place] [address] 08/17/2024 9:30 AM EDT Office Visit [facility] CHC MED & PEDS [address] [place] [address] Amparo Waters FNP 505 [place] [address] documented as of this encounter Visit Diagnoses Not on filedocumented in this encounter Additional Health Concerns Assessment Noted Time PHQ-9 Depression Total Score: 2 01/06/20 24 10:02 AM EDT documented as of this encounter Care Teams Small Equipment Operator Relationship Specialty Start Date End Date Amparo Waters FNP [address] [place] [address] PCP - General Family Medicine 09/15/22 Mayra Yang NP [address] [place] [address] Urology 05/21/24 Blair Montoya MD 11 [place] [address] Cardiology 05/21/24 documented as of this encounter
--- OUTSIDE RECORDS SUMMARY | 2024-07-12 17:19 | XMS_ITS | Patient Health Record ---
Author Organization [facility] Address [address] [place] [address] Care Team Providers Care Kitchen Designer Name Role Phone Julius Sahu Primary Care Provider Deepak Lane Jr Unavailable [phone] Allergies Allergen (clinical drug ingredient) Drug/Non Drug Allergy documented on EMR Reaction Allergy Type Onset Date Status doxycycline Doxycycline Unknown Drug Allergy Act ankur erythromycin Erythromycin (uncoded) Unknown Allergy Active Reason For Referral No Information Medications Medication SIG (Take, Route, Frequency, Duration) Notes Start Date End Date Status clonazePAM 0.5 MG (Schedule IV Drug) T OME DELPHINE TABLETA TODOS LOS D EN LA MA LINDA CUANDO SEA NECESARIO Oral for 30 PRN Active Loratadine 10 MG TOME DELPHINE TABLETA TOD OS LOS D Oral for 30 PRN Active Crestor 10 MG 1 tablet Orally Once a day for 30 day(s) Active Vitamin D3 50 MCG (1999 UT) TOME DELPHINE C P SULA TODOS LOS D Oral for 30 Active Pantoprazole Sodium 40 MG TOME DELPHINE TABLE TA TODOS LOS D EN LA MA LINDA Oral for 30 Active Gabapentin 100 MG TOME DELPHINE C PSULA DOS VECES AL D A Oral for 30 Active Citalopram Hydrobromide 20 MG TOME DELPHINE TABLETA TODOS LOS D Oral for 30 Active Fluticasone Propionate 50 MCG/ACT TAKE 2 SPRAYS BY EACH NOSTRIL ROUTE EVERY MORNING NEEDED Nasal for 30 PRN Active Z71-Fgepwe - as directed Orally o nce a day Active Acetaminophen 650 MG as directed Orally Active Vitamin E 400 UNIT 1 capsule Orally Onc e a day for 30 day(s) Active MiraLax (colon prep) 17 GM/SCOOP mixed with Gatorade or Crystal Light Orally begin at 5:00 p.m. the day before the procedure for 1 day 01/03/2023 Active Prempro 0.625-2.5 MG 1 tablet Orally Onc e a day for 30 day(s) Active Flovent HFA 220 MCG/ACT 1 puff Inhalatio n Twice a day Active ProAir HFA 108 (90 Base) MCG/ACT 1 puff as needed Inhalation every 4 hrs PRN Active Immunizations Vaccine Route Administration Date Status Comme nts Influenza Unknown 12/03/2018 Administered Influenza Unknown 01/23/2020 Administered Influenza Unknown 01/20/2021 Administered Influenza Unknown 01/12/2022 Administered Problems Problem Type SNOMED Code ICD Code Onset Dates Problem Status W/U Status Risk Notes Problem 65006995 Epigastric pain (R10.13) Active confirmed Problem Diverticulitis of colon (372097191) Diverticulitis of large intestine without perforation or abscess without bleeding (K57.32) Active confirmed Problem 140079197 Diverticulitis (K57.92) Active confirmed Problem 424937832 Elevated LFTs (R79.89) Active confirmed Problem 68174361 Dysphagia, unspecified type (R13.10) Active confirmed Problem 901134594 LLQ pain (R10.32) Active confirmed Problem 084505884 Diverticulitis o f colon (without mention of hemorrhage) (K57.32) Active confirmed Problem 149483050 Gastroesophageal reflux disease, unspecified whether esophagitis present (K21.9) Active confirmed Plan Of Treatment Pending Test Test Name Order Date LIVER PROFILE 01/03/2023 GGT 01/03/2023 Future Test Test Name Order Date COLONOSCOPY 07/14/2011 UPPER GI ENDOSCOPY 06/22/2019 COLONOSCOPY 06/22/2019 COLONOSCOPY 01/03/2023 Insurance Providers Payer Name Payer Address Payer Phone Subscriber Number Group Number Insured Name Patient Relationship to Insured Coverage Start Date Coverage End Date MEDICAID OF [employer] [address] [place] [phone] [phone] [id number] REMA MELENDEZ Self - patient is the insured Medical (General) History Medical History History ICD Code depression diverticulitis gastroesophageal reflux dise ase, EGD 06/29/19, no H. pylori or Milan's esophagus. asthma B12 deficiency seronegative inflammatory arthritis interstitial cystitis Hermansky Pudlak syndrome rheumatoid arthritis colonoscopy 06/29/19, diverti culosis, and normal sigmoid biopsies, ten-year followup 07/01. Surgical History Surgery Date(Month/Year) cystoscopy Hospitalization History Reason Date(Month/Year) pain in side, patient was in ER october 3
--- OUTSIDE RECORDS SUMMARY | 2024-07-12 17:19 | XMS_ITS | Encounter Summary ---
Author Organization [employer] Address [address] [facility] 7t [place] [address] Care Team Providers Care Vocational Evaluator Name Role Phone Julius Sahu MD Primary Care Provider Debra Lloyd INTERLIBRARY LOAN SPECIALIST Primary Care Provider [phone] Amparo Waters INTERLIBRARY LOAN SPECIALIST Primary Care Provider Mayra Yang NP Unavailable Blair Montoya MD Unavailable [phone] Encounter Details Date Type Department Care Team (Latest Contact Info) Description 07/10/2020 Abstract [facility] CONVERSIONS Dental, Provider, DDS Social History Tobacco [...] Description 08/06/2024 9:00 AM EDT Office Visit [facility] ADULT DENTAL [address] [place], [place] [phone] Robbie Fanta [address] [place], [place] [phone] 08/17/2024 9:30 AM EDT Office Visit [facility] [address] [place] [address] Amparo Waters FNP 505 [place] [address] documented as of this encounter Visit Diagnoses Not on filedocumented in this encounter Care Teams Vocational Evaluator Relationship Specialty Start Date End Date Julius Sahu MD PCP - General Family Medicine 05/15/20 04/29/22 Debra Hernández FNP PCP - General Family Medicine 04/30/22 09/14/22 Amparo Waters FNP [address] [place] [address] PCP - General Family Medicine 09/15/22 Mayra Yang NP [address] [place] [address] Urology 05/21/24 Blair Montoya MD [address] [place] [address] Cardiology 05/21/24 documented as of this encounter
--- OUTSIDE RECORDS SUMMARY | 2024-07-12 17:19 | XMS_ITS ---
Author Organization [facility] Address [address] [place] [address] Care Team Providers Care Flexible Nanny Name Role Phone Luis Alberto, Julius Primary Care Provider Deepak Lane Jr Unavailable REASON FOR VISIT pathology Encounters Encounter Location Date Provider Diagnosis [facility] [address] [place] [address] 03/23/2023 Deepak Rogers Jr Plan Of Treatment No Information Progress Notes * MARIAJOSE MELENDEZADOB:1960 (62 yo F)Acc No.[id number]:03/23/2023 Patient:?REMA MELENDEZ :1960???Age:62 Y???Sex:Female Address:[address] [facility] [address], [place] [address] * true * Date:? Generated for Lian aguirre/John/eTransmitting on:?07/12/2024 08:45 AM EDT
--- OUTSIDE RECORDS SUMMARY | 2024-07-12 17:19 | XMS_ITS | Encounter Summary ---
Author Organization [employer] Address [address] [facility] 7t [place] [address] Care Team Providers Care Bowl Attendant Name Role Phone Amparo Waters Primary Care Provider Mayra Yang NP Unavailable Blair Montoya MD Unavailable Encounter Details Date Type Department Care Team (Late st Contact Info) Description 10/08/2022 Abstract [facility] MEDICINE [address] [place] [address] Amparo Waters FNP [address] [place], [place] [phone] Healthcare maintenance (Primary Dx) Social History Tobacco Use Types Packs/Day Years Used Date Smoking Tobacco: Former Cigarettes 1 05/05/1980 - 03/04/1987 Passive Smoke Exposure: Never Smokeless Tobacco: Never Alcohol Use Standard Drinks/Week Comments Never 0 (1 standard drink = 0.6 oz pur e alcohol) Depression Answer Date Recorded Patient Health Questionnaire-9 Score 6 09/27/2022 Depression Answer Date Recorded Patient Health Questionnaire-2 Score 2 09/27/2022 Comments Unknown Sex and Gender Information Value Date Recorded Sex Assigned at Female 02/01/2022 10:14 AM EDT Legal Sex Female 10:14 AM EDT Gender Identity Female 02/01/2022 10:14 AM EDT Sexual Orientation Choose not to disclose 2024 1:38 PM EDT Sexual Orientation Straight 06/24/2024 1: 38 PM EDT COVID-19 Exposure Response Date Recorded In the last 10 days, have rosalind almaraz been in contact with someone who was confirmed or suspected to have Coronavirus/COVID-19? No / Unsure 09/27/2022 10:20 AM EDT documented as of this encounter Plan of Treatment Upcoming Encounters Date Type Department Care Team (Late st Contact Info) Description 08/06/2024 9:00 AM EDT Office Visit [facility] ADULT DENTAL [address] [place], [place] [phone] Robbie, Fanta [address] [place] [address] 08/17/2024 9:30 AM EDT Office Visit [facility] CHC MED & PEDS [address] [place], [place] [phone] Amparo Waters, CORRECTIONAL MAINTENANCE TECHNICIAN [address] [place], [place] [phone] Scheduled Orders Name Type Priority Associated Diagnoses Orde r Schedule Hepatitis C Antibody with Reflex to HCV, RNA, Quantitative, Real-Time PCR Lab Routine Healthcare maintenance Expected: 10/08/2022 (Approximate), Expires: 10/09/2023 Comprehensive Metabolic Panel Lab Routine Healthcare maintenance Expected: 10/08/2022 (Approximate), Expires: 10/09/2023 Hemoglobin A1c Lab Routine Healthcare maintenance Expected: 10/08/2022 (Approximate), Expires: 10/09/2023 TSH W/Reflex to FT4 Lab Routine Healthcare maintenance Expected: 10/08/2022 (Approximate), Expires: 10/09/2023 Lipid Panel, Standard Lab Routine Healthcare maintenance Expected: 10/08/2022 (Approximate), Expires: 10/09/2023 CBC auto differential Lab Routine Healthcare maintenance Expected: 10/08/2022 (Approximate), Expires: 10/09/2023 HIV-1 RNA, Quantitative, Real-Time PCR with Reflex to Genotype (RTI, PI, Integrase) Lab Routine Healthcare maintenance Expected: 10/08/2022 (Approximate), Expires: 10/09/2023 RPR (Diagnosis) with Reflex to Titer??and Confirmatory Testing Lab Routine Healthcare maintenance Expected: 10/08/2022 (Approximate), Expires: 10/09/2023 documented as of this encounter Visit Diagnoses Diagnosis Healthcare maintenance- Primary documented in this encounter Additional Health Concerns Assessment Noted Time PHQ-9 Depression Total Score: 6 09/28/19 23 11:07 AM EDT documented as of this encounter Care Teams Bowl Attendant Relationship Specialty Start Date End Date Amparo Waters FNP [address] [place] [address] PCP - General Family Medicine 09/15/22 Mayra Yang NP [address] [address] Urology 05/21/24 Blair Montoya MD 11 [place] [address] Cardiology 05/21/24 documented as of this encounter
--- OUTSIDE RECORDS SUMMARY | 2024-07-12 17:19 | XMS_ITS | Encounter Summary ---
Author Organization [employer] Address [address] [place] [address] 7 [place] [address] Care Team Providers Care Solder Technician Name Role Phone Amparo Waters YENY Primary Care Provider Mayra Yang NP Unavailable Blair Montoya MD Unavailable [phone] Reason for Referral * Imaging (Routine) - Authorized Specialty Diagnoses / Procedures Referred By Emeli ruth Referred To Contact Radiology Diagnoses Menopausal and postmenopausal disorder Procedures BD DEXA Axial Kitty Barrientos CNM [address] [place] [address] Phone: tel: fax: [address] Phone: tel: fax: Referral ID Status Reason Start Date Expiration Date V isits Requested Visits Authorized [id number] Authorized 07/12/2024 07/12/2025 1 1 Reason for Visit * Reason Comments Gynecologic Exam Encounter Details Date Type Department Care Team (Latest Contact Info) Description 07/12/2024 10:30 AM EDT Procedure Visit [facility] [address] [place], [place] [id number] Kitty Barrientos CNM [address] [place], [place] [phone] Routine cervical smear (Primary Dx); Menopausal and postmenopausal disorder; Candidiasis of vulva and vagina; Atrophic vaginitis Social History Tobacco Use Types Packs/Day Years [...] your housing situation today? I have shelton armond 10/13/[address] you li [...] PM EDT documented as of this encounter Last Filed Vital Signs Vital Sign Reading Time Taken Comments Blood Pressure 135/86 07/12/2024 10:45 AM EDT Pulse 80 07/12/2024 10:45 AM EDT Temperature 36.8 ??C (98.3 ??F) 07/12/2024 10:45 AM E DT Respiratory Rate 20 07/12/2024 10:45 AM EDT Oxygen Saturation 99% 07/12/2024 10:45 AM EDT Inhaled Oxygen Concentration - - Weight 67.2 kg (148 lb 3.2 oz) 07/12/2024 10:45 AM EDT Height 162.6 cm (5' 4 ) 07/12/2024 10:45 AM EDT Body Mass Index 25.44 07/12/2024 10:45 AM EDT documented in this encounter Progress Notes * Kitty Barrientos CNM - 07/12/2024 10:30 AM EDT Subjective Patient ID: Spring Tyson is a 63 y.o. female who presents for pap Pap NIL/HPV neg 01/2022. Mammogram BIRADS 1, cat c 12/2023. Unclear history of abnormal paps. She would like pap today as precaution. 1 usp AMAB partner, not sexually active in 2 years due to dryness/pain with sex. Previously on vaginal estrogen, would like to resume. Notes some vaginal itching after being on Amoxicillin. No personal fracture, no parental hip fracture. Patient seen in conjunction with Carli Dillon, [employer] student. I was present for and confirmed all pertinent elements in the history, exam, assessment of the patient, and the plan of care, and agree with all findings. Review of Systems Genitourinary: Positive for dyspareunia and vaginal discharge. Negative for dysuria, frequency, genital sores, hematuria, pelvic pain, urgency, vaginal bleeding and vaginal pain. No abnormal bleeding, no breast pain, no breast mass, no nipple discharge Objective BP 135/86 (BP Location: Left arm, Patient Position: Sitting, BP Cuff Size: Adult) Pulse 80 Temp98.3 ??F (36.8 ??C) (Oral) Resp 20 Ht 5' 4 (1.626 m) Wt 148 lb 3.2 oz (67.2 kg) LMP (LMP Unknown) SpO2 99% BMI 25.44 kg/m?? Physical Exam Exam conducted with a avionics systems technician present (Kitty Barrientos CNM). Constitutional: Appearance: Normal appearance. Chest: Breasts: Right: Normal. No swelling, bleeding, inverted nipple, mass, nipple discharge, skin change or tenderness. Left: Normal. No swelling, bleeding, inverted nipple, mass, nipple discharge, skin change or tenderness. Genitourinary: General: Normal vulva. Labia: Right: No rash, tenderness, lesion or injury. Left: No rash, tenderness, lesion or injury. Vagina: Normal. No signs of injury and foreign body. No vaginal discharge, erythema, tenderness, bleeding or lesions. Cervix: No cervical motion tenderness, discharge, friability, lesion, erythema, cervical bleeding or eversion. Uterus: Normal. Not enlarged and not tender. Adnexa: Right adnexa normal and left adnexa normal. Right: No mass, tenderness or fullness. Left: No mass, tenderness or fullness. Comments: Ovaries non palpable bilaterally. Fair tone with Kegels, no prolapse with Valsalva. Atrophic changes vaginally. Cervix flush with vaginal wall. Lymphadenopathy: Upper Body: Right upper body: No supraclavicular or axillary adenopathy. Left upper body: No supraclavicular or axillary adenopathy. Neurological: Mental Status: She is alert. Psychiatric: Mood and Affect: Mood normal. Behavior: Behavior normal. Assessment/Plan Diagnoses and all orders for this visit: Routine cervical smear - Pap Smear Cotest today. Will repeat 3 years pending records. Report bleeding. Routine mammogram. Menopausal and postmenopausal disorder - BD DEXA Axial; Future Last 08/2021 normal. Ordered today as she is 63 and 3 years since last screening. Candidiasis of vulva and vagina - POCT fern test, vaginal fluid manually resulted For terconazole as prescribed. Report worsening or persistent symptoms. Atrophic vaginitis Premarin rx'd, start after finishing terconazole. Let me know if not helpful. Other orders - terconazole (Terazol 7) 0.4 % vaginal cream; Insert 1 applicator into the vagina at bedtime for 7days. - Estrogens Conjugated (Premarin) 0.625 MG/GM cream; Insert 0.5 g into the vagina See administration instructions. 0.5g vaginally nightly x 14 days then twice weekly thereafter documented in this encounter Plan of Treatment Upcoming Encounters Date Type Department Care Team (Late st Contact Info) Description 08/06/2024 9:00 AM EDT Office Visit [facility] [address] [place] [address] Robbie, Fanta [address] [place] [address] 08/17/2024 9:30 AM EDT Office Visit [facility] [address] [place] [address] Amparo Waters FNP [address] [place] [address] Scheduled Orders Name Type Priority Associated Diagnoses Orde r Schedule Pap Smear Pathology and Cytology Routine Routine cervical smear Ordered: 07/12/2024 BD DEXA Axial Imaging Routine Menopausal and postmenopausal disorder Expected: 07/12/2024, Expires: 07/12/2025 documented as of this encounter Procedures Procedure Name Priority Date/Time Associated Diagnosis Comments POCT WET [place]/HAWA Routine 07/12/2024 11 :28 AM EDT Candidiasis of vulva and vagina documented in this encounter Results * POCT fern test, vaginal fluid manually resulted (07/12/2024 11:28 AM EDT) HAWA Prep Positive Comment:pos hyphae, neg tric h, neg clue, neg wbc Vaginal Fluid Vaginal structure / Unknown 07/12/2024 11:28 AM EDT Kitty Barrientos CNM POINT OF CARE TEST ENTER/ EDIT ORDERABLES Final Result documented in this encounter Visit Diagnoses Diagnosis Routine cervical smear- Primary Screening for malignant neoplasm of the cervix Menopausal and postmenopausal disorder Unspecified menopausal and postmenopausal disorder Candidiasis of vulva and vagina Atrophic vaginitis Postmenopausal atrophic vaginitis documented in this encounter Additional Health Concerns Assessment Noted Time PHQ-9 Depression Total Score: 2 01/06/20 24 10:02 AM EDT documented as of this encounter Care Teams Solder Technician Relationship Specialty Start Date End Date Amparo Waters FNP [address] [place] [address] PCP - General Family Medicine 09/15/22 Mayra Yang NP [address] [place] [address] Urology 05/21/24 Blair Montoya MD [address] [place] [address] Cardiology 05/21/24 documented as of this encounter
--- OUTSIDE RECORDS SUMMARY | 2024-07-12 17:19 | XMS_ITS | Encounter Summary ---
Author Organization [facility] Address [address] [facility] [address] [place] [address] Care Team Providers Care Knitting Tester Name Role Phone Julius Sahu MD Primary Care Provider Debra Lloyd SECUR[employer] OPER[employer] C[employer] ANALYST Primary Care Provider [phone] Amparo Waters SECUR[employer] OPER[employer] C[employer] ANALYST Primary Care Provider Mayra Yang NP Unavailable Blair Montoya MD Unavailable [phone] Encounter Details Date Type Department Care Team (Latest Contact Info) Description 11/07/[address] [facility] Dental, Provider, DDS Social History [...] Description 08/06/2024 9:00 AM EDT Office Visit [facility] [address] [place], [place] [phone] Robbie, Fanta [address] [place], [place] [phone] 08/17/2024 9:30 AM EDT Office Visit [facility] [address] [place] [address] Amparo Waters FNP [address] [place] [address] documented as of this encounter Visit Diagnoses Not on filedocumented in this encounter Care Teams Knitting Tester Relationship Specialty Start Date End Date Julius Sahu MD PCP - General Family Medicine 05/15/20 04/29/22 Debra Hernández FNP PCP - General Family Medicine 04/30/22 09/14/22 Amparo Waters FNP [address] [place] [id number] PCP - General Family Medicine 09/15/22 Mayra Yang NP [address] [place] [address] Urology 05/21/24 Blair Montoya MD [address] [place] [address] Cardiology 05/21/24 documented as of this encounter
--- OUTSIDE RECORDS SUMMARY | 2024-07-12 17:19 | XMS_ITS | Clinical Summary ---
Author Organization [employer] Address [address] [place] [address] [address] [place] [address] Care Team Providers Care Certified Dental Assistant Name Role Phone Amparo Waters YENY Primary Care Provider [phone] Mayra Yang NP Unavailable Blair Montoya MD Unavailable Allergies Active Allergy Reactions Criticality Noted Date Comments Doxycycline Unknown 04/14/2016 Other reaction(s): vomiting, dizziness, abd pain Erythromycin Unknown 06/23/2010 Other reaction(s): unspecified Shrimp (Diagnostic) Anaphylaxis High 07/15/2023 Medications acetaminophen (Tylenol 8 Hour) 650 MG ER tablet Take 2 tablets by mouth in the morning and 2 tablets at noon and 2 tablets in the evening. Active albuterol 108 (90 Base) MCG/ACT inhaler Inhale 2 puffs every 4 (four) hours. Active clonazePAM (KlonoPIN) 0.5 MG tablet (Schedule IV Drug) TOME DELPHINE TABLETA TODOS LOS D EN LA MA LINDA CUANDO SEA NECESARIO Active cyanocobalamin (Vitamin B-12) 1000 MCG tablet Take by mouth at bed time. Active Docusate Sodium (DSS) 100 MG capsule Take 1 capsule by mouth in the morning and 1 capsule in the evening. Active fluticasone (Flonase Sensimist) 27.5 MCG/SPRAY nasal spray use 1 spray per nostril BID 05/09/2 022 Active ondansetron (Zofran) 4 MG tablet Take 1 tablet by mouth in the morning and 1 tablet in the evening. 021 Active sertraline (Zoloft) 25 MG tablet TOME DELPHINE TABLETA TODOS LOS D 022 Active alpha tocopherol (Vitamin E) 400 units capsule Take 1 capsule by mouth at bed time. 018 Active gabapentin (Neurontin) 100 MG capsule TOME DELPHINE C PSULA DOS LOS D AL ACOSTARSE 023 Active Mometasone Furoate (Asmanex HFA) 200 MCG/ACT aerosol INHALE 2 PUFFS BY MOUTH TWICE A DAY 39 g 1 023 Active Additional Information Patient not taking.Reported on 06/27/2023 loratadine (Claritin) 10 MG tabletIndicati ons:Allergic rhinitis, unspecified seasonality, unspecified trigger Take 1 tablet (10 mg) by mouth Once per day. 90 tablet 3 024 2024 Active albuterol (2.5 MG/3ML) 0.083% nebulizer solution Take 3 mL (2.5 mg) by nebulization every 6 (six) hours if needed for wheezing or shortness of breath. 75 mL 1 025 Active metoprolol succinate XL (Toprol-XL) 25 MG 24 hr tablet 25 mg. 025 Active triamcinolone (Kenalog) 0.1 % creamIndicatio ns:Xerosis of skin MIX 80G TUBE OF TRIAMCINOLONE 0.1% CREAM WITH 16OZ JAR OF CERAVE CREAM. APPLY 1-2 TIMES PER DAY AFTER SHOWER OR BATH FROM THE NECK DOWN (NOT ON FACE) 80 g 1 025 Active rosuvastatin (Crestor) 10 MG tablet TOME 1 TABLETA POR VIA ORAL TODOS LOS MENDOZA AL ACOSTARSE 90 tablet 3 025 Active pantoprazole (ProtoNix) 40 MG EC tablet TOME 1 TABLETA POR VIA ORAL TODOS LOS MENDOZA EN LA MANANA 90 tablet 3 025 Active terconazole (Terazol 7) 0.4 % vaginal cream Insert 1 applicator into the vagina at bedtime for 7 days. 45 g 025 2024 Active Estrogens Conjugated (Premarin) 0.625 MG/GM cream Insert 0.5 g into the vagina See administration instructions. 0.5g vaginally nightly x 14 days then twice weekly thereafter 45 g 2 025 2025 Active rosuvastatin (Crestor) 10 MG tablet TOME DELPHINE TABLETA TODOS LOS MENDOZA AL ACOSTARSE 90 tablet 3 024 2024 Discontinued pantoprazole (ProtoNix) 40 MG EC tablet TOME DELPHINE TABLETA TODOS LOS MENDOZA EN LA MANANA 90 tablet 2 024 2024 Discontinued triamcinolone (Kenalog) 0.1 % creamIndicatio ns:Xerosis of skin MIX 80G TUBE OF TRIAMCINOLONE 0.1% CREAM WITH 16OZ JAR OF CERAVE CREAM. APPLY 1-2 TIMES PER DAY AFTER SHOWER OR BATH FROM THE NECK DOWN (NOT ON FACE) 80 g 1 024 2024 Discontinued amoxicillin (Amoxil) 500 MG capsule Take 1 capsule (500 mg) by mouth every 8 (eight) hours for 7 days. 21 capsule 025 2024 ibuprofen 800 MG tablet Take 1 tablet (800 mg) by mouth every 8 (eight) hours if needed for mild pain for up to 10 days. 15 tablet 025 2024 acetaminophen (Tylenol 8 Hour) 650 MG ER tablet Take 1 tablet (650 mg) by mouth every 8 (eight) hours if needed for moderate pain for up to 10 days. Do not crush, chew, or split. 15 tablet 025 2024 Active Problems Problem Noted Date Diagnosed Date Palpitations 05/21/2024 Overview (05/21/2024): Following with [facility] Cards - Dr. Montoya May 2024 - 30 day holter History of endometriosis 05/21/2024 Assessment & Plan (05/21/2024 10:23 AM EST): - Reports previously following with [facility] for 15+ years, but says will need to re-establish with office closing down - Hx of endometriosis, and reports had been following for annual pelvic. - Plan: request notes from [facility], pelvic/pap with [facility] CNM. Referral to outside FRONT DESK COORDINATOR PRN. Vaginal dryness 07/18/2023 Assessment & Plan (07/18/2023 6:09 PM EDT): Initiated on topical conjugated estrogens 07/15/23. Reviewed med use and SE Alkaline phosphatase elevation 03/20/2023 Overview (05/21/2024): -Isolated Alk phos elevation initially noted in October 2022, normalized as of January 2024 -GGT WNL Dec 2022 -Encourage low fat diet Lab Results Component Value Date ALP 108 01/14/2024 ALP 126 (H) 12/04/2022 ALP 132 (H) 10/09/2022 Tear of left supraspinatus tendon 10/06/2022 Overview (10/06/2022): Ortho appt 08/19/22: physical therapy and steroid injections which she has already tried and failed, I would like her to meet Dr. Painter to discuss surgical intervention and whether or not she would be a candidate for RTC repair given her MRI findings 08/26/22: Ortho appt to discuss surgery Headache disorder 10/01/2022 Overview (10/01/2022): ?? Following with Neurology ?? Continues on topiramate nightly Healthcare maintenance 10/01/2022 Overview (05/21/2024): Mammo: BIRADs 1 on 12/22/23 Pap: NILM/HPV Neg 11/03/2017, NILM Jan 2022 at [facility]. Colonoscopy: Colonoscopy June 2019 w/ diverticulosis (). Repeat Colonoscopy Mar 2023 (Dr. Rogers) that revealed fragments of tubular adenoma, neg for high-grade dysplasia or carcinoma. Optometry: followed by [facility] - Dr. Barrow. Last CEE 05/17/23 Dental: [facility] Dental PE Form completed 07/15/23 for employment Fibromyalgia 09/27/2022 Assessment & Plan (10/01/2022 1:12 PM EDT): ?? Following with [facility] Rheum ?? Continues with gabapentin ?? During last consult referred to PT ?? 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 Continues with Pantoprazole 40mg daily Seronegative rheumatoid arthritis 07/12/2017 Essential hypertension 07/12/2017 Assessment & Plan (05/21/2024 10:10 AM EST): BP goal <140/90 mmHg, elevated in office but with home readings well controlled. F/up if home readings elevated Pt currently w/o pharmacotherapy, but does have medication at home as needed Following with [facility] Cards - Dr. Montoya for intermittent palpitations and chest tightness. Upcoming stress test and echo for further eval Encouraged to continue with lifestyle interventions such as physical activity and low salt diet at this time, as well as monitoring home readings Assessment & Plan (10/14/2023 3:16 PM EDT): BP goal <140/90 mmHg, currently well controlled Pt currently w/o pharmacotherapy, but does have medication at home as needed Following with [facility] Cards - Dr. Montoya for intermittent palpitations and chest tightness. Upcoming stress test and echo for further eval Encouraged to continue with lifestyle interventions such as physical activity and low salt diet at this time, as well as monitoring home readings Assessment & Plan (07/18/2023 6:04 PM EDT): BP goal <140/90 mmHg, home readings appear more elevated than office readings, although both above goal Pt currently w/o pharmacotherapy, but does have medication at home. Plan to bring in medication to next visit, previous plan to take med if AM BP above goal. Will require further discussion/eval. Given hx of intermittent cards symptoms, referral to Cards for further eval Encouraged to continue with lifestyle interventions such as physical activity and low salt diet at this time, as well as monitoring home readings Advised to call office if home readings continue to be elevated/above goal Assessment & Plan (03/20/2023 10:39 PM EST): ?? BP goal <140/90 mmHg, home readings well controlled ?? Plan to cont w/o pharmacotherapy ?? Encouraged to continue with lifestyle interventions such as physical activity and low salt diet at this time, as well as monitoring home readings ?? Advised to call office if home readings continue to be elevated/above goal Assessment & Plan (02/12/2023 5:33 PM EST): ?? BP goal <140/90 mmHg, initial and repeat readings in office above goal ?? Shared decision making regarding proceeding with lifestyle interventions vs med initiation ?? Plan to START chlorthalidone 25mg daily. Reviewed med use and SE ?? Encouraged to continue with lifestyle interventions such as physical activity and low salt diet at this time, as well as monitoring home readings ?? Advised to call office if home readings continue to be elevated/above goal Assessment & Plan (10/14/2022 7:43 PM EDT): ?? Not currently using pharmacotherapy ?? Home readings on average below goal <140/90 mmHg ?? Shared decision making regarding proceeding with lifestyle interventions vs med initiation ?? Plan to continue with lifestyle interventions such as physical activity and low salt diet at this time, as well as monitoring home readings ?? Advised to call office if home readings continue to be elevated/above goal ?? Pt in agreement with plan Vitamin D deficiency 01/31/2017 Spondylosis without myelopathy 04/08/2015 Hypercholesterolemia 04/08/2015 Mild persistent asthma 04/08/2015 Assessment & Plan (03/20/2023 10:40 PM EST): ?? Maintenance med: switch Flovent 220 2 puffs BID to mometasone 200 mcg/act 2 puffs BID (d/t upcoming insurance coverage changes) ?? Reliever: albuterol PRN (inhaler & neb machine) ?? Reports feels well controlled at this time Assessment & Plan (10/01/2022 1:12 PM EDT): ?? Maintenance med: Flovent 220 2 puffs BID ?? Reliever: albuterol PRN (inhaler & neb machine) ?? Reports feels well controlled at this time Mixed anxiety and depressive disorder 04/08/2015 Overview (10/01/2022): ?? Following with mental health team (per last notes, psych prescriber Q3 months and therapist 2x/month) ?? Continues with sertraline 25mg daily ?? 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 Cobalamin deficiency 04/08/2015 Benign paroxysmal positional vertigo 04/08/2015 Allergic rhinitis 04/08/2015 Assessment & Plan (05/21/2024 10:11 AM EST): Improvement noted with change to loratadine, cont current therapy Assessment & Plan (01/08/2024 3:02 PM EDT): Stop cetirizine Start loratadine Resolved Problems Problem Noted Date Diagnosed Date Resolved Date Dental plaque 06/27/2023 01/08/2024 Gingival bleeding 06/27/2023 07/18/2023 Diverticulitis 02/12/2023 02/12/2023 01/08/2024 Dysphagia 03/18/2022 01/08/2024 Diverticulitis of colon 03/18/202209/04 Dyssomnia 04/08/2015 01/08/2024 Encounters Date Type Department Care Team Description 07/12/2024 10:30 AM EDT Procedure Visit [facility] [address] [place] [address] Kitty Barrientos CNM Routine cervical smear (Primary Dx); Menopausal and postmenopausal disorder; Candidiasis of vulva and vagina; Atrophic vaginitis 07/12/2024 Refill [facility] [address] [place] [address] Kitty Barrientos CNM 07/12/2024 Travel 07/07/2024 Refill [facility] [address] [place] [address] Amparo Waters FNP 06/30/2024 Refill [facility] [address] [place] [address] Amparo Waters FNP Xerosis of skin 06/25/2024 1:00 PM EDT Office Visit [facility] [address] [place] [address] Umm Ceja, DDS 06/11/2024 1:00 PM EDT Office Visit [facility] [address] [place] [address] Simpson-Monahan , Kathy, DDS Symptomatic irreversible pulpitis (Primary Dx) 06/08/2024 10:00 AM EST Office Visit [facility] [address] [place] [address] Simpson-Monahan , Kathy, DDS Gingival recession, localized (Primary Dx); Tooth sensitivity to cold 06/01/2024 Telephone [facility] [address] [place] [address] Amparo Waters FNP Medication Question 05/25/2024 1:00 PM EST Office Visit [facility] [address] [place] [address] Simpson-Monahan , Kathy, DDS Clenching of teeth (Primary Dx) 05/18/2024 11:00 AM EST Office Visit [facility] [address] [place] [address] Amparo Waters FNP Essential hypertension (Primary Dx); Allergic rhinitis, unspecified seasonality, unspecified trigger; Alkaline phosphatase elevation; Palpitations; Subacute cough; Dietary counseling; Exercise counseling; History of endometriosis; Healthcare maintenance 05/18/2024 Travel 05/17/2024 Telephone [facility] [address] [place] [address] Sadie Bingham MA Chart Prep 05/17/2024 Travel 04/24/2024 Telephone [facility] [address] [place] [address] Amparo Waters FNP April recall from Last 3 Months Immunizations Name Administration Dates Next Due Hep B, adult 05/15/2019,10/20/2018,09/15/2018 Influenza injectable quadriv alent IIV4 with preservative 12/21/2018,01/09/2018,12/04/2015 Influenza injectable quadriv alent preservative free 02/11/2023,04/02/2022,01/06/2021,12/19,01/11/2018,12/16/2016,12/09/2015 ,12/19/2014 Influenza, High Dose Seasona l, Preservative Free 01/06/2024 Influenza, IIV3, injectable 01/20/2021,1 ,12/03/2018,01/21 Influenza, Split (incl. kym fied surface antigen) 12/20/2012,12/14/2011 MMR 09/25/1997 Moderna Covid-19 Vaccine 12+ 03/09/2021,08/01/19 21,07/03/2020 Pneumococcal Conjugate PCV 20 02/11/2023 Pneumococcal Polysaccharide PPSV23 01/09/2013 TD (adult), 2 Lf tetanus tox oid, preservative free, adsorbed 04/25/2006,11/16/1996 Tdap 07/15/2023,04/18/2012 Zoster, Recombinant 02/08/2019 Family History Medical History Relation Name Comments Heart attack Father Liver disease Father Prostate cancer Father Heart attack Father's Brother 1 Heart attack Father's Brother 2 Stroke Father's Brother 3 Brain cancer Father's Sister Dementia Mother Hyperlipidemia Mother Hypertension Mother Thyroid disease Mother Breast cancer Other Maternal Cousin prediabetes Sister Relation Name Status Comments Father Father's Brother 1 Father's Brother 2 Father's Brother 3 Father's Sister Mother Other Maternal Cousin Sister Social History Tobacco Use Types Packs/Day Years Used Date Smoking Tobacco: Former Cigarettes 1 05/05/1980 - 03/04/1987 Passive Smoke Exposure: Never Smokeless Tobacco: Never Tobacco Cessation:Counseling Given: Not Answered Alcohol Use Standard Drinks/Week Comments Never 0 [...] Orientation Straight 06/24/2024 1: 38 PM EDT Last Filed Vital Signs Vital Sign Reading [...] Mass Index 25.44 07/12/2024 10:45 AM EDT Plan of Treatment Upcoming Encounters Date Type Department Care Team (Late st Contact Info) Description 08/06/2024 9:00 AM EDT Office Visit [facility] [address] [place] [address] Robbie, Fanta [address] [place] [address] 08/17/2024 9:30 AM EDT Office Visit [facility] [address] [place] [address] Amparo Waters, RECOVERY ADVOCATE [address] [place] [address] Health Maintenance Due Date Last Done Comments CT Colonography 1960 FIT DNA/Cologuard 1960 FIT 1960 FOBT 1960 Sigmoidoscopy 1960 RSV Patients and Patients Aged 60 years or older (1 - Risk 60-74 years 1-dose series) 2018 Zoster Vaccines (2 of 2) 04/05/2019 02/08/2019 Dental X-Ray: Full Mouth 07/12/2023 07/10/2020, 06/12/2013 Dental Oral Exam 12/29/2023 06/27/2023, , 07/17/2021, Additional history exists Dental Prophylaxis 08/06/2024 02/06/2024, 0 06/27/2023, 02/22/2022, Additional history exists SDOH Screening 10/12/2024 10/13/2023 Mammogram 12/21/2024 12/22/2023, 12/03, 12/14/2021, Additional history exists Depression Screening 01/05/2025 01/06/2024, 01/06/20 Cervical Cancer Screening 01/29/2025 HPV/Cotest 01/29/2025 Pap Smear 01/29/2025 01/29/2022 Alcohol/Substance Use Screening 05/18/2025 05/18/2024 COVID-19 Vaccine ( season) 2025 03/09/2021, 07/31/2020, 07/03/2020 Postponed from 12/04/2023 (Patient Refused) Dental X-Ray: Bitewings 06/12/2025 06/12/19 25, 05/25/2024, 06/27/2023, Additional history exists Tobacco Screening 07/12/2025 07/12/2024 Colonoscopy 03/15/2026 03/15/2023 Colorectal Cancer Screening 03/15/2026 Lipid Panel 10/10/2027 10/09/2022, 07/04/2021 DTaP/Tdap/Td Vaccines (3 - Td or Tdap) 07/14/2033 07/15/2023, 04/18/2012, 04/25/2006, Additional history exists Hepatitis B Vaccines Completed 05/15/2019, 10/20/2018, 09/15/2018 Hepatitis C Screening Completed 10/09/2022 Pneumococcal Vaccine: 50+ Years Completed 02/11/2023, 01/09/2013 Influenza Vaccine Completed 01/06/2024, , 04/02/2022, Additional history exists HIB Vaccines Aged Out No longer eligi ble based on patient's age to complete this topic HPV Vaccines Aged Out No longer eligi ble based on patient's age to complete this topic Hepatitis A Vaccines Aged Out No long er eligible based on patient's age to complete this topic IPV Vaccines Aged Out No longer eligi ble based on patient's age to complete this topic Meningococcal Vaccine Aged Out No reji merry eligible based on patient's age to complete this topic RSV under 20 months Aged Out No longe r eligible based on patient's age to complete this topic Rotavirus Vaccines Aged Out No longer eligible based on patient's age to complete this topic Procedures Procedure Name Priority Date/Time Associated Diagnosis Comments POCT WET MOUNT/HAWA Routine 07/12/2024 11 :28 AM EDT Candidiasis of vulva and vagina NO CHARGE PROCEDURE Routine 06/25/2024 1 :00 PM EDT BITEWING - SINGLE RADIOGRAPHIC IMAGE Routine 06/11/2024 1:00 PM EDT INTRAORAL - PERIAPICAL FIRST RADIOGRAPHIC IMAGE Routine 06/11/2024 1:00 PM EDT CASE PRESENTATION, DETAILED AND EXTENSIVE TREATMENT PLANNING Routine 06/08/2024 10:00 AM EST Gingival recession, localized Tooth sensitivity to cold 20 B(V) RESIN-BASED COMPOSITE - 1 SURF, POSTERIOR Routine 06/08/2024 10:00 AM EST Gingival recession, localized Tooth sensitivity to cold 19 B(V) RESIN-BASED COMPOSITE - 1 SURF, POSTERIOR Routine 06/08/2024 10:00 AM EST Gingival recession, localized Tooth sensitivity to cold 18 B(V) RESIN-BASED COMPOSITE - 1 SURF, POSTERIOR Routine 06/08/2024 10:00 AM EST Gingival recession, localized Tooth sensitivity to cold CASE PRESENTATION, DETAILED AND EXTENSIVE TREATMENT PLANNING Routine 05/25/2024 1:00 PM EST BITEWING - SINGLE RADIOGRAPHIC IMAGE Routine 05/25/2024 1:00 PM EST INTRAORAL - PERIAPICAL FIRST RADIOGRAPHIC IMAGE Routine 05/25/2024 1:00 PM EST LIMITED ORAL EVALUATION - PROBLEM FOCUSED Routine 05/25/2024 1:00 PM EST PROPHYLAXIS - ADULT Routine 02/06/2024 1 :00 PM EST Dental plaque BI MAMMOGRAM SCREENING TOMOSYNTHESIS BILATERAL Routine 12/22/2023 2:00 PM EDT PERIODIC ORAL EVALUATION - ESTABLISHED PATIENT Routine 06/27/2023 1:00 PM EDT HM COLONOSCOPY Routine 03/15/2023 3:18 PM EST HEPATITIS C ANTIBODY Routine 10/09/2022 8:06 AM EDT LIPID PANEL, STANDARD Routine 10/09/2022 8:06 AM EDT HM PAP/HPV Routine 01/29/2022 3:30 PM EDT INTRAORAL - COMPLETE SERIES OF RADIOGRAPHIC IMAGES Routine 07/10/2020 12:00 AM EDT from Last 3 Months or Most Recently Relevant to Health Maintenance Results * POCT fern test, vaginal fluid manually resulted (07/12/2024 11:28 AM EDT) HAWA Prep Positive Comment:pos hyphae, neg tric h, neg clue, neg wbc Vaginal Fluid Vaginal structure / Unknown 07/12/2024 11:28 AM EDT us Kitty Barrientos CNM POINT OF CARE TEST ENTER/ EDIT ORDERABLES Final Result * BI Mammogram Screening Tomosynthesis Bilateral (12/22/2023 2:00 PM EDT) Anatomical Region Laterality Modality Breast Bilateral Mammography 12/22/2023 2:00 PM EDT Narrative 01/04/2024 12:00 PM EDT ? [facility] ? [address] ?[place] [address] ? Mammography Report ? Signed ? Patient: Maravilla Tyson,Spring ?MR#: [id number] ?? [id number] ? : 1960 ?Acct:[id number] ? Age/Sex: 63 / F ?ADM Date: 12/22/23 ? Loc: HO.MAMMO ? Attending Dr: Amparo Waters RECOVERY ADVOCATE ? Ordering Physician: Amparo Waters RECOVERY ADVOCATE ?Results: 1Negat ?? ankur ? Date of Service: 12/22/23 ?Follow Up: 1 Year From Orig ?? inal Mammogram ? Procedure(s): MM tomosynthesis screening BI ?? Accession Number(s): [id number] ? cc: AlfonsomalathiAmparo [employer]OVERY ADVOCATE ? EXAMINATION: ?? MM SCREENING DIGITAL BREAST TOMOSYNTHESIS, BILATERAL ? CLINICAL INFORMATION: ? Screening. Asymptomatic. ? COMPARISON: ?? Mammography: Comparison is made with available priors ? TECHNIQUE: ?? Digital breast mammography with tomosynthesis is performed in both the ?? craniocaudal and mediolateral oblique views along with computer-aided ?? detection (CAD). ? FINDINGS: ?? The breasts are heterogeneously dense, which may obscure small masses ?? (ACR BI-RADS breast composition Category c). ? There are no significant masses, abnormal calcifications, or other ?? abnormalities. ? MM/MM tomosynthesis screening BI ?? IMPRESSION: ?? No mammographic evidence of malignancy. ? ASSESSMENT: ? BI-RADS BI-RADS 1 - Negative ? RECOMMENDATION: ?? Routine annual mammography screening. ? 1 year F/U ? This examination should not preclude the clinical evaluation of a ?? suspicious palpable abnormality. ? This patient's information was entered into a reminder system with a ?? target due date for their next mammogram. ? Electronically signed by: ??Joann Love DO ??01/04/2024 11:57 AM EDT ? Dictated By: ?Joann Love DO ? Signed By: ?<Electronically signed by Joann Love, DO in OV> ? 01/04/24 1157 ? DD/ 1400 ? TD/TT: 12/22/23 1415 ? Shopper: ? Procedure Note Corey, Image - 01/04/2024 [facility] [address] [place] [address] Mammography Report Signed Patient: Nargis De OliveiraR#: [id number] : 9Acct:[id number] Age/Sex: 63 / FADM Date: 12/22/23 Loc: [facility] Attending Dr: Amparo Waters [employer]OV[employer] ADVOCATE Ordering Physician: Amparo Waters FNPResults: 1Negat ankur Date of Service: 12/22/23Follow Up: 1 Year From Orig inal Mammogram Procedure(s): MM tomosynthesis screening BI Accession Number(s): [id number] cc: Phalen,Amparo RECOVERY ADVOCATE EXAMINATION: MM SCREENING DIGITAL BREAST TOMOSYNTHESIS, BILATERAL CLINICAL INFORMATION: Screening. Asymptomatic. COMPARISON: Mammography: Comparison is made with available priors TECHNIQUE: Digital breast mammography with tomosynthesis is performed in both the craniocaudal and mediolateral oblique views along with computer-aided detection (CAD). FINDINGS: The breasts are heterogeneously dense, which may obscure small masses (ACR BI-RADS breast composition Category c). There are no significant masses, abnormal calcifications, or other abnormalities. MM/MM tomosynthesis screening BI IMPRESSION: No mammographic evidence of malignancy. ASSESSMENT: BI-RADS BI-RADS 1 - Negative RECOMMENDATION: Routine annual mammography screening. 1 year F/U This examination should not preclude the clinical evaluation of a suspicious palpable abnormality. This patient's information was entered into a reminder system with a target due date for their next mammogram. Electronically signed by: Joann Love DO 01/04/2024 11:57 AM EDT Dictated By: Joann Love DO Signed By: <Electronically signed by Joann Love DO in OV> 01/04/24 1157 DD/ 1400 TD/TT: 12/22/23 1415 Shopper: Amparo Waters [employer]OVERY ADVOCATE IMG BI PROCEDURES Final Result * Hm Colonoscopy (03/15/2023 3:18 PM EST) Historical Provider HEALTH MAINTENANCE Final Result * Hepatitis C Ab (10/09/2022 8:06 AM EDT) Hepatitis C Antibody Nonreactive Nonreactive [facility] Comment:Antibodies to HCV no t detected; does not exclude early acuteHCV infection. 10/09/2022 8:06 AM EDT 10/09/2022 8:06 AM EDT [facility] External Provider LAB BLO OD ORDERABLES Final Result [facility] [address] [place] [phone] * Lipid Panel, Standard (10/09/2022 8:06 AM EDT) Triglycerides 79 mg/dL [facility] Comment:Desirable Triglyceri de: less than 150 mg/dLBorderline High Triglyceride 150-199 mg/dLHigh Triglyceride: 200-499 mg/dLVery High Triglyceride: greater than or equal to 5OO mg/dL Cholesterol 164 mg/dL [facility] Comment:Desirable Cholestero l: less than 200 mg/dLBorderline High Cholesterol: 200-239 mg/dLHigh Cholesterol: greater than 239 mg/dL LDL Cholesterol Calculated 100 mg/dl [facility] Comment:Desirable LDL: less than 100 mg/dLNear Optimal/Above Optimal LDL: 110- 129 mg/dLBorderline High LDL: 130-159 mg/dLHigh LDL: 160-189 mg/dLVery High LDL: greater than or equal to 190 mg/dL HDL Cholesterol 49 mg/dL [facility] Comment:Desirable HDL: great er than 40 mg/dL Note: This HDL assay may give artificially low results in patients with liver disease. 10/09/2022 8:06 AM EDT 10/09/2022 8:06 AM EDT [facility] External Provider LAB BLO OD ORDERABLES Final Result [facility] [address] [place] [address] [phone] * HM PAP/HPV (01/29/2022 3:30 PM EDT) Historical Provider MD HEALTH MAINTENANCE Final Result from Last 3 Months or Most Recently Relevant to Health Maintenance Insurance [facility] Member Subscriber Plan / Payer (Ef fective 2024-) Name:Spring De Oliveira Relation to Subscriber:Self Name:Spring De Oliveira Payer ID:Not on file Group ID:[id number] Type:Not on file Address: [facility] [address] [employer] OPT[employer] (HMO D-SNP) [facility] Care Teams Certified Dental Assistant Relationship Specialty Start Date End Date Amparo Watres FNP [address] [place] [address] PCP - General Family Medicine 09/15/22 Mayra Yang NP [address] [place] [address] Urology 05/21/24 Blair Montoya MD [address] [place] [address] Cardiology 05/21/24
[2024-07-17 14:20] LABS: HPV Genotype 16 Negative (Negative); HPV Genotype 18 Negative (Negative); HPV High Risk Negative (Negative)
== END 2024-07-12 14:41 | disposition home or self-care (01) ==
LOC: HO.CHCLNP 14:40
PROVIDERS: Visit Provider Advanced Practice Midwife
DX: Z12.4 Encounter for screening for malignant neoplasm of cervix (principal)
CPT/HCPCS: 87626; 88175

== ENCOUNTER 2024-08-17 14:16 | Outpatient (REF) | payer OTHER, SELFPAY ==
--- NOTE | ~2024-08-17 | MM_ITS ---
EXAMINATION: DXA BONE DENSITY AXIAL HISTORY: N95.9 MENOPAUSAL TECHNIQUE: [employer] Dual energy absorptiometry (DEXA) of the lumbar spine, total left hip, and femoral neck was performed. COMPARISON: Comparison is made with the prior examination dated 08/07/2021. FINDINGS: The bone mineral density of the lumbar spine is 0.987 with a T-score of -1.6, and a Z-score of -0.1. This is indicative of osteopenia. This represents a BMD change of -11.6% compared to the prior exam. This is statistically significant. The bone mineral density of the left total hip is 0.934 with a T-score of -0.6, and a Z-score of 0.6. This is indicative of normal bone mineral density. This represents a BMD change of 4.5% compared to the prior exam. This is statistically significant. The bone mineral density of the left femoral neck is 0.960 with a T-score of -0.6, and a Z-score of 0.9. This is indicative of normal bone mineral density. This represents a BMD change of 7.1% compared to the prior exam. FRACTURE RISK: The FRAX index suggests a ten year probability of major osteoporotic fracture of 5.3%, and of hip fracture 0.3%. MM/XR DEXA axial skeleton IMPRESSION: Based on bone mineral density, and according to World Health Organization (WHO) criteria, the diagnosis is consistent with osteopenia. All bone density values are in grams per centimeter squared (g/cm2). Statistically, 68% of repeat scans fall within 1 SD (+/- 0.010 g/cm2 for AP spine L1-L4) and 1 SD (+/- 0.012 g/cm2 for femur total) FRAX is a trademark of the [employer]'s [place] [employer] Met[employer] Disease, a World Health Organization (WHO) Collaborating Center. Electronically signed by: Jese Reddy MD 08/17/2024 03:15 PM EDT
--- OUTSIDE RECORDS SUMMARY | 2024-08-17 14:19 | XMS_ITS | Encounter Summary ---
Author Organization [employer] Address [address] [facility] [address] [place] [address] Care Team Providers Care Iv Rn Name Role Phone Amparo Waters Primary Care Provider Mayra Yang NP Unavailable Blair Montoya MD Unavailable Reason for Visit * Reason Onset Date Comments Chart Prep 08/15/2024 Encounter Details Date Type Department Care Team (Late st Contact Info) Description 08/15/2024 Telephone [facility] [address] [place], [place] [phone] Amparo Waters FNP [address] [place], [place] [phone] Chart Prep Social History Tobacco Use Types Packs/Day Years [...] PM EDT documented as of this encounter Miscellaneous Notes * Telephone Encounter - Sadie Tracey [place] - 08/15/2024 2:36 PM EDT Chart Prep Labs: done Images: not done Referrals: ''Scheduled 08/17/24 at 2:30 PM'' Vaccines due: RSV and Zoster Screenings: not applicable Overdue care gaps: SDOH documented in this encounter Plan of Treatment Upcoming Encounters Date Type Department Care Team (Late st Contact Info) Description 08/23/2024 10:30 AM EDT Office Visit [facility] ADULT DENTAL [address] [place] [address] Kathy Pool, DDS [address] [place] [address] 11/16/2024 8:45 AM EDT Office Visit [facility] [address] [place] [address] Amparo Waters FNP [address] [place] [address] 02/18/2025 3:00 PM EST Office Visit [facility] AD[facility] [address] [place] [address] Robbie, Fanta [address] [place] [address] documented as of this encounter Visit Diagnoses Not on filedocumented in this encounter Additional Health Concerns Assessment Noted Time PHQ-9 Depression Total Score: 2 01/06/20 24 10:02 AM EDT documented as of this encounter Care Teams Iv Rn Relationship Specialty Start Date End Date Amparo Waters FNP [address] [place] [address] PCP - General Family Medicine 09/15/22 Mayra Yang NP [address] [facility] [address] [place] [address] Urology 05/21/24 Blair Montoya MD [address] [place] [address] Cardiology 05/21/24 documented as of this encounter
--- OUTSIDE RECORDS SUMMARY | 2024-08-17 14:19 | XMS_ITS | Clinical Summary ---
Author Organization [employer] Address [address] [place] [address] 7 [place] [address] Care Team Providers Care Labor Operator Name Role Phone Amparo Waters YENY Primary Care Provider [phone] Mayra Yang NP Unavailable Blair Montoya MD Unavailable [phone] Allergies Active Allergy Reactions Criticality Noted Date Comments Doxycycline Unknown 04/14/2016 Other reaction(s): vomiting, dizziness, abd pain Erythromycin Unknown 06/23/2010 Other reaction(s): unspecified Shrimp (Diagnostic) Anaphylaxis High 07/15/2023 Medications albuterol 108 (90 Base) MCG/ACT inhaler Inhale 2 puffs every 4 (four) hours. 022 Active clonazePAM (KlonoPIN) 0.5 MG tablet (Schedule IV Drug) TOME DELPHINE TABLETA TODOS LOS D EN LA MA LINDA CUANDO SEA NECESARIO Active cyanocobalamin (Vitamin B-12) 1000 MCG tablet Take by mouth at bed time. 022 Active Docusate Sodium (DSS) 100 MG capsule Take 1 capsule by mouth in the morning and 1 capsule in the evening. 019 Active sertraline (Zoloft) 25 MG tablet TOME DELPHINE TABLETA TODOS LOS D 022 Active alpha tocopherol (Vitamin E) 400 units capsule Take 1 capsule by mouth at bed time. 018 Active gabapentin (Neurontin) 100 MG capsule TOME DELPHINE C PSULA TODOS LOS D AL ACOSTARSE 023 Active Mometasone Furoate (Asmanex HFA) 200 MCG/ACT aerosol INHALE 2 PUFFS BY MOUTH TWICE A DAY 39 g 1 023 Active Additional Information Patient not taking.Reported on 06/27/2023 albuterol (2.5 MG/3ML) 0.083% nebulizer solution Take [...] LA MANANA 90 tablet 3 025 Active estradiol (Estrace) 0.1 MG/GM vaginal cream 1 g vaginally nightly x 14 days, then 1 g vaginally twice weekly ongoing. 42.5 g 025 Active acetaminophen (Tylenol 8 Hour) 650 MG ER tabletIndicati ons:Odontalgia ,Dental abscess Take 1 tablet (650 mg) by mouth every 8 (eight) hours if needed for mild pain. Do not crush, chew, or split. 30 tablet 025 Active fluticasone (Flonase Sensimist) 27.5 MCG/SPRAY nasal spray use 1 spray per nostril BID 10 g 11 025 Active fluconazole (Diflucan) 150 MG tablet Take 1 tablet by mouth today 1 tablet 025 Active loratadine (Claritin) 10 MG tabletIndicati ons:Allergic rhinitis, unspecified seasonality, unspecified trigger Take 1 tablet (10 mg) by mouth Once per day. 90 tablet 3 025 2025 Active fluticasone (Flonase Sensimist) 27.5 MCG/SPRAY nasal spray use 1 spray per nostril BID 022 2024 Discontinued(R eorder (will not trigger notification to Pharmacy)) ondansetron (Zofran) 4 MG tablet Take 1 tablet by mouth in the morning and 1 tablet in the evening. 021 2024 Discontinued(T herapy completed) loratadine (Claritin) 10 MG tabletIndicati ons:Allergic rhinitis, unspecified seasonality, unspecified trigger Take 1 tablet (10 mg) by mouth Once per day. 90 tablet 3 024 2024 Discontinued(R eorder (will not trigger notification to Pharmacy)) terconazole (Terazol 7) 0.4 % vaginal cream Insert 1 applicator into the vagina at bedtime for 7 days. 45 g 025 2024 amoxicillin (Amoxil) 500 MG capsuleIndicat ions:Odontalgi a,Dental abscess Take 1 capsule (500 mg) by mouth every 8 (eight) hours for 7 days. 21 capsule 025 2024 acetaminophen (Tylenol 8 Hour) 650 MG ER tabletIndicati ons:Odontalgia ,Dental abscess Take 1 tablet (650 mg) by mouth every 8 (eight) hours if needed for mild pain. Do not crush, chew, or split. 30 tablet 025 2024 Discontinued(D uplicate order (will not trigger notification to Pharmacy)) amoxicillin (Amoxil) 500 MG capsuleIndicat ions:Odontalgi a,Dental abscess Take 1 capsule (500 mg) by mouth every 8 (eight) hours for 7 days. 21 capsule 025 2024 Active Problems Problem Noted Date Diagnosed Date Dental plaque 08/06/2024 Missing teeth, acquired 08/06/2024 Dental abscess 07/16/2024 Odontalgia 07/16/2024 Palpitations 05/21/2024 Overview (08/17/2024): Following with [facility] - Dr. Montoya/JUNIOR NET DEVELOPER Bin May 2024 - 30 day holter June 2024: initiated metoprolol 25mg 0.5 tablet PRN History of endometriosis 05/21/2024 Assessment & Plan (05/21/2024 10:23 AM EST): - Reports previously following with [facility] for 15+ years, but says will need to re-establish with office closing down - Hx of endometriosis, and reports had been following for annual pelvic. - Plan: request notes from [facility], pelvic/pap with [facility] CNM. Referral to outside SURFBOARD MAKER PRN. Vaginal dryness 07/18/2023 Assessment & Plan [...] on topiramate nightly Healthcare maintenance 10/01/2022 Overview (08/17/2024): Mammo: BIRADs 1 on 12/22/23 Pap: NILM/HPV Neg 07/12/24 Colonoscopy: Colonoscopy June 2019 w/ diverticulosis (). Repeat Colonoscopy Mar 2023 (Dr. Rogers) that revealed fragments of tubular adenoma, neg for high-grade dysplasia or carcinoma. Optometry: [facility] - Dr. Barrow. Last CEE 05/17/23 Dental: [facility] Dental PE Form completed 07/15/23 for employment Fibromyalgia 09/27/2022 Assessment & Plan (10/01/2022 1:12 PM EDT): ?? Following with [facility] Rheum ?? Continues with gabapentin ?? During last consult referred to PT ?? 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 Continues with Pantoprazole 40mg daily Seronegative rheumatoid arthritis 07/12/2017 Essential hypertension 07/12/2017 Assessment & Plan (08/17/2024 9:31 AM EDT): BP goal <140/90 mmHg, elevated in office but with home readings well controlled. F/up if home readings elevated Pt currently w/o pharmacotherapy, but does have medication at home as needed Following with [facility] - Dr. Montoya for intermittent palpitations and chest tightness. Reports completed stress test and echo Encouraged to continue with lifestyle interventions such as physical activity and low salt diet at this time, as well as monitoring home readings Assessment & Plan (05/21/2024 10:10 AM EST): BP goal <140/90 mmHg, elevated in office but with home readings well controlled. F/up if home readings elevated Pt currently w/o pharmacotherapy, but does have medication at home as needed Following with [facility] - Dr. Montoya for intermittent palpitations [...] medication at home as needed Following with [facility] - Dr. Montoya for intermittent palpitations [...] 01/31/2017 Spondylosis without myelopathy 04/08/2015 Hypercholesterolemia 04/08/2015 Overview (08/17/2024): Lab Results Component Value Date CHOL 164 10/09/2022 TRIG 79 10/09/2022 HDL 49 10/09/2022 LDLCHOLCAL 100 10/09/2022 -continue lifestyle modification Mild persistent asthma 04/08/2015 Assessment & Plan (08/17/2024 9:33 AM EDT): Maintenance med: switch Flovent 220 2 puffs BID to mometasone 200 mcg/act 2 puffs BID (d/t upcoming insurance coverage changes) Reliever: albuterol PRN (inhaler & neb machine) Reports feels well controlled at this time Assessment & Plan (03/20/2023 10:40 PM EST): [...] 04/08/2015 Allergic rhinitis 04/08/2015 Assessment & Plan (08/17/2024 9:31 AM EDT): Improvement noted with change to loratadine, cont current therapy Assessment & Plan (05/21/2024 10:11 AM EST): [...] Encounters Date Type Department Care Team Description 08/17/2024 9:30 AM EDT Office Visit [facility] [address] [place] [address] Amparo Waters FNP Palpitations (Primary Dx); Healthcare maintenance; Hypercholesterolemia; Essential hypertension; Allergic rhinitis, unspecified seasonality, unspecified trigger; Vitamin D deficiency; Gastroesophageal reflux disease without esophagitis; Mixed anxiety and depressive disorder; Fibromyalgia; Headache disorder; Mild persistent asthma without complication; Vaginal itching 08/17/2024 Travel 08/15/2024 Telephone [facility] MED[facility] [address] [place] [address] Amparo Waters FNP Chart Prep 08/06/2024 9:00 AM EDT Office Visit [facility] ADULT DENTAL [address] [place] [address] Robbie, Fanta Dental plaque (Primary Dx); Missing teeth, acquired; Gingival recession, localized 07/24/2024 9:30 AM EDT Office Visit [facility] ADULT DENTAL [address] [facility] [place] [address] Robin Hillman DDS Odontalgia; Dental abscess 07/16/2024 1:00 PM EDT Office Visit [facility] ADULT DENTAL [address] [place] [address] Robin Hillman DDS Odontalgia (Primary Dx); Dental abscess 07/16/2024 Telephone [facility] ADULT DENTAL [address] [place] [address] Robin Hillman DDS APPT 07/12/2024 10:30 AM EDT Procedure Visit [facility] [address] [place] [address] Rell Mcgrath, [facility] Routine cervical smear (Primary Dx); Menopausal and postmenopausal disorder; Candidiasis of vulva and vagina; Atrophic vaginitis 07/12/2024 Orders Only [facility] [address] [place] [phone] Rell Mcgrath, DORIS 07/12/2024 Refill [facility] [address] [place] [address] Rell Mcgrath, [facility] 07/12/2024 Travel 07/07/2024 Refill [facility] [address] [place] [address] Amparo Waters FNP 06/30/2024 Refill [facility] [address] [place] [address] Amparo Waters, SUPPORT TECHNICIAN Xerosis of skin 06/25/2024 1:00 PM EDT Office Visit [facility] ADULT DENTAL [address] [place] [address] Umm Ceja DDS 06/11/2024 1:00 PM EDT Office Visit [facility] ADULT DENTAL [address] [place] [phone] Kathy Pool DDS Symptomatic irreversible pulpitis (Primary Dx) 06/08/2024 10:00 AM EST Office Visit [facility] ADULT DENTAL [address] [place] [address] Kathy Pool, EMYS Gingival recession, localized (Primary Dx); Tooth sensitivity to cold 06/01/2024 Telephone [facility] [address] [place] [address] Amparo Waters FNP Medication Question 05/25/2024 1:00 PM EST Office Visit [facility] ADULT DENTAL [address] [place] [address] Kathy Pool, DDS Clenching of teeth (Primary Dx) from Last 3 Months Immunizations Immunization Administration Dates Next Due Hep B, adult [...] Answer Date Recorded Patient Health Questionnaire-9 Score 7 08/17/2024 Patient Health Questionnaire-9 Score 7 08/17/2024 Last PHQ-9: Questionnaire Data Not on file 0 08/17/2024 Housing Stability Answer Date Recorded What is [...] the past 12 months, has t he [employer], gas, oil or water company threatened to shut off services in your home? No 10/13/2023 Depression Answer Date Recorded Patient Health Questionnaire-2 Score 2 08/17/2024 Internet Access Answer Date Recorded Internet Access [...] Sign Reading Time Taken Comments Blood Pressure 122/70 08/17/2024 9:33 AM EDT Pulse 80 08/17/2024 9:33 AM EDT Temperature 37.1 ??C (98.7 ??F) 08/17/2024 9:33 AM ED T Respiratory Rate 20 08/17/2024 9:33 AM EDT Oxygen Saturation 99% 07/12/2024 10:45 AM EDT Inhaled Oxygen Concentration - - Weight 66.7 kg (147 lb) 08/17/2024 9:33 AM EDT Height 162.6 cm (5' 4 ) 08/17/2024 9:33 AM EDT Body Mass Index 25.23 08/17/2024 9:33 AM EDT Plan of Treatment Upcoming Encounters Date Type Department Care Team (Late st Contact Info) Description 08/23/2024 10:30 AM EDT Office Visit [facility] ADULT DENTAL [address] [place] [address] Simpson-Monahan, Kathy, DDS [address] [place] [address] 11/16/2024 8:45 AM EDT Office Visit [facility] [address] [place] [address] Amparo Waters, SUPPORT TECHNICIAN [address] [place] [address] 02/18/2025 3:00 PM EST Office Visit [facility] ADULT DENTAL [address] [place] [address] Robbie, Fanta [address] [place] [address] Health Maintenance Due Date Last Done Comments CT Colonography 1960 FIT DNA/Cologuard 1960 FIT 1960 FOBT 1960 Sigmoidoscopy 1960 RSV Patients and Patients Aged 60 years or older (1 - Risk 60-74 years 1-dose series) 2018 Zoster Vaccines (2 of 2) 04/05/2019 02/08/2019 SDOH Screening 10/12/2024 10/13/2023 Mammogram 12/21/2024 12/22/2023, 12/03, 12/14/2021, Additional history exists Dental Oral Exam 02/07/2025 08/06/2024, , 02/22/2022, Additional history exists Dental Prophylaxis 02/07/2025 08/06/2024, 1 04/07/2023, 06/27/2023, Additional history exists COVID-19 Vaccine ( season) 2025 03/09/2021, 07/31/2020, 07/03/2020 Postponed from 12/04/2023 (Patient Refused) Dental X-Ray: Bitewings 08/07/2025 08/07/19 25, 06/11/2024, 05/25/2024, Additional history exists Alcohol/Substance Use Screening 08/17/2025 08/17/2024 Depression Screening 08/17/2025 08/17/2024, 08/18/19 Tobacco Screening 08/17/2025 08/17/2024 Colonoscopy 03/15/2026 03/15/2023 Colorectal Cancer Screening 03/15/2026 Cervical Cancer Screening 07/13/2027 HPV/Cotest 07/13/2027 07/12/2024 Pap Smear 07/13/2027 07/12/2024, 01/29/2022 Dental X-Ray: Full Mouth 08/08/2027 025, 07/10/2020, 09/10/2013 Lipid Panel 10/10/2027 10/09/2022, 07/04/2021 DTaP/Tdap/Td Vaccines [...] patient's age to complete this topic Meningococcal B Vaccine Aged Out No l onger eligible based on patient's age to complete [...] Procedure Name Priority Date/Time Associated Diagnosis Comments PERIODIC ORAL EVALUATION - ESTABLISHED PATIENT Routine 08/06/2024 9:00 AM EDT TOPICAL APPLICATION OF FLUORIDE VARNISH Routine 08/06/2024 9:00 AM EDT CASE PRESENTATION, DETAILED AND EXTENSIVE TREATMENT PLANNING Routine 08/06/2024 9:00 AM EDT Dental plaque Missing teeth, acquired ORAL HYGIENE INSTRUCTIONS Routine 08/06/2024 9:00 AM EDT Dental plaque Missing teeth, acquired PROPHYLAXIS - ADULT Routine 08/06/2024 9 :00 AM EDT Dental plaque Missing teeth, acquired INTRAORAL - COMPLETE SERIES OF RADIOGRAPHIC IMAGES Routine 08/06/2024 9:00 AM EDT Dental plaque Missing teeth, acquired 18 EXTRACTION, ERUPTED TOOTH OR EXPOSED ROOT (ELEVATION/FORCEPS REMOVAL) Routine 07/24/2024 9:30 AM EDT CASE PRESENTATION, DETAILED AND EXTENSIVE TREATMENT PLANNING Routine 07/24/2024 9:30 AM EDT CASE PRESENTATION, DETAILED AND EXTENSIVE TREATMENT PLANNING Routine 07/16/2024 1:00 PM EDT INTRAORAL - PERIAPICAL FIRST RADIOGRAPHIC IMAGE Routine 07/16/2024 1:00 PM EDT LIMITED ORAL EVALUATION - PROBLEM FOCUSED Routine 07/16/2024 1:00 PM EDT POCT WET MOUNT/HAWA Routine 07/12/2024 11 :28 AM EDT Candidiasis of vulva and vagina PAP SMEAR Routine 07/12/2024 12:00 AM EDT Routine cervical smear HPV DNA, LOW/HIGH RISK Routine 12:00 AM EDT NO CHARGE PROCEDURE Routine 06/25/2024 1 :00 [...] PROBLEM FOCUSED Routine 05/25/2024 1:00 PM EST BI MAMMOGRAM SCREENING TOMOSYNTHESIS BILATERAL Routine 12/22/2023 2:00 PM EDT HM COLONOSCOPY Routine 03/15/2023 3:18 PM EST HEPATITIS C ANTIBODY Routine 10/09/2022 8:06 AM EDT LIPID PANEL, STANDARD Routine 10/09/2022 8:06 AM EDT from Last 3 Months or Most Recently Relevant to Health Maintenance Results * POCT fern test, vaginal fluid manually resulted (07/12/2024 11:28 AM EDT) HAWA Prep Positive Comment:pos hyphae, neg tric h, neg clue, neg wbc Vaginal Fluid Vaginal structure / Unknown 07/12/2024 11:28 AM EDT Rell [facility] POINT OF CARE TEST ENTER/ EDIT ORDERABLES Final Result * HPV DNA, Low/High Risk (07/12/2024 12:00 AM EDT) HPV High Risk Negative Negative [facility] HPV Genotype 16 Negative Negative [facility] HPV Genotype 18 Negative Negative [facility] Comment:HPV testing performe d at [facility] (CLIA#[id number]), [address] [place] [id number].Testing for HPV was performed using the [employer] JENNIFER Cimetrix0system. The presence of HPV in the female genital tract isassociated with a number of diseases, including cervicalcarcinoma. The HPV DNA high risk pool tests for HPV 31, 33,35, 39, 45, 51, 52, 56, 58, 59, 66 and 68. The testing forHPV 16 and 18 genotypes has also been performed. A positiveresult indicates detection of nucleic acid sequences fromone or more subtypes, whereas a negative result indicatessuch sequences were not detected. 07/12/2024 07/13/2024 6:0 4 AM EDT Rell [facility] LAB BLOOD ORDERABLES Amy l Result [facility] [address] [place] [phone] * Pap Smear (07/12/2024 12:00 AM EDT) Swab Cervix uteri structure / Unknown 07/12/2024 07/13/2024 6:04 AM EDT Narrative [facility] - 07/17/2024 9:54 AM EDT ----- ------- Name: Spring De Oliveira ?Age/Sex: 63/F ? : 1960 Unit#: [id number] ?? Attend Dr: RELL MCGRATH CNM ?Re07/12/24 ?Status: DEP REF ? Location: HO.CHCLNP ? Disch: ? ----- ------- SPEC : [id number] ? RECD: 07/13/24 ? STATUS: ??SOUT ? REQ NUM: [id number] ? OLIVIA: 07/12/24- ? SUBM DR: RELL MCGRATH CNM ? ENTERED: ??07/13/24 ?SP TYPE: Pap Smr ?OTHR : ? ORDERED: ??Pap Smear ? Interpretation ?? Satisfactory for evaluation. ?? Negative for intraepithelial lesion or malignancy. ?? Atrophic. ? HPV High Risk: ??Negative ? HPV Genotyping 16: ??Negative ?? HPV Genotyping 18: ??Negative ?Clinical Information LMP:Post menopausal Previous PAP test:2021 ? Material Received ?? ThinPrep-Cervical ----- ------- Signed (signature on file) DORA Plata (ASCP) 07/17/2454 ? ----- ------- ? END OF REPORT ? us Rell [facility] LAB CYTOLOGY ORDERABLES F inal Result [facility] [address] [place] [phone] * BI Mammogram Screening Tomosynthesis Bilateral (12/22/2023 2:00 PM EDT) Anatomical Region Laterality Modality Breast Bilateral Mammography 12/22/2023 2:00 PM EDT Narrative 01/04/2024 12:00 PM EDT ? [place] [facility] ? [address] [place] [address] ? Mammography Report ? Signed ? Patient: Maravilla Tyson,Spring ?MR#: [id number] ?? [id number] ? : 1960 ?Acct:[id number] ? Age/Sex: 63 / F ?ADM Date: 12/22/23 ? Loc: HO.MAMMO ? Attending Dr: Amparo Waters SUPPORT TECHNICIAN ? Ordering Physician: Amparo Waters SUPPORT TECHNICIAN ?Results: 1Negat ?? ankur ? Date of Service: 12/22/23 ?Follow Up: 1 Year From Orig ?? inal Mammogram ? Procedure(s): MM tomosynthesis screening BI ?? Accession Number(s): [id number] ? cc: Amparo Waters SUPPORT TECHNICIAN ? EXAMINATION: ?? MM SCREENING DIGITAL BREAST [...] Joann Love, DO in OV> ? 01/04/24 115 ? DD/ 1400 ? TD/TT: 12/22/23 1415 ? Bakery Worker: ? Procedure Note Corey, Image - 01/04/2024 [facility] [address] [place] [address] Mammography Report Signed Patient: Farhan De Oliveira#: [id number] : 9Acct:[id number] Age/Sex: 63 / FADM Date: 12/22/23 Loc: HO.MAMMO Attending Dr: Amparo Waters SUPPORT TECHNICIAN Ordering Physician: Amparo Waters FNPResults: 1Negat ankur Date of Service: 12/22/23Follow Up: 1 Year From Orig inal Mammogram Procedure(s): MM tomosynthesis screening BI Accession Number(s): [id number] cc: Amparo Waters EXAMINATION: MM SCREENING DIGITAL BREAST TOMOSYNTHESIS, BILATERAL [...] Joann Love DO 01/04/2024 11:57 AM EDT RP Dictated By: Joann Love DO Signed By: <Electronically signed by Joann Love DO in OV> 01/04/24 1157 DD/ 1400 TD/TT: 12/22/23 1415 Bakery Worker: Amparo Waters SUPPORT TECHNICIAN IMG BI PROCEDURES Final Result * Hm Colonoscopy (03/15/2023 3:18 PM EST) Historical Provider HEALTH MAINTENANCE Final Result * Hepatitis C Ab (10/09/2022 8:06 AM EDT) Hepatitis C Antibody Nonreactive Nonreactive [facility] Comment:Antibodies to HCV no t detected; does not exclude early acuteHCV infection. 10/09/2022 8:06 AM EDT 10/09/2022 8:06 AM EDT [facility] External Provider LAB BLO OD ORDERABLES Final Result [facility] [address] [place] [address] [phone] * Lipid Panel, Standard (10/09/2022 8:06 AM EDT) Triglycerides 79 mg/dL [facility] Comment:Desirable Triglyceri de: less than 150 mg/dLBorderline High Triglyceride 150-199 mg/dLHigh Triglyceride: 200-499 mg/dLVery High Triglyceride: greater than or equal to 5OO mg/dL Cholesterol 164 mg/dL [facility] Comment:Desirable Cholestero l: less than 200 mg/dLBorderline High Cholesterol: 200-239 mg/dLHigh Cholesterol: greater than 239 mg/dL LDL Cholesterol Calculated 100 mg/dl [facility] Comment:Desirable LDL: less than 100 mg/dLNear Optimal/Above Optimal LDL: 110- 129 mg/dLBorderline High LDL: 130-159 mg/dLHigh LDL: 160-189 mg/dLVery High LDL: greater than or equal to 190 mg/dL HDL Cholesterol 49 mg/dL [facility] Comment:Desirable HDL: great er than 40 mg/dL Note: This HDL assay may give artificially low results in patients with liver disease. 10/09/2022 8:06 AM EDT 10/09/2022 8:06 AM EDT [facility] External Provider LAB BLO OD ORDERABLES Final Result [facility] [address] [place] [address] [phone] from Last 3 Months or Most Recently Relevant to Health Maintenance Insurance [employer] (HMO D-SNP) [place] [id number] [facility] Care Teams Labor Operator Relationship Specialty Start Date End Date Amparo Waters FNP [address] [place] [phone] PCP - General Family Medicine 09/15/22 Mayra Yang NP [address] [place] [address] Urology 05/21/24 Blair Montoya MD [address] [place] [address] Cardiology 05/21/24
--- OUTSIDE RECORDS SUMMARY | 2024-08-17 14:19 | XMS_ITS ---
Author Organization [facility] Address [address] [place] [address] Care Team Providers Care Guitar Player Name Role Phone Julius Sahu Primary Care Provider Deepak Lane Jr Unavailable REASON FOR VISIT colon screening Problems Problem Type SNOMED Code ICD Code Onset Dates Problem Status W/U Status Risk Notes Problem Diverticulitis o f large intestine without perforation or abscess without bleeding (K57.32) Active confirmed Encounters Encounter Location Date Provider Diagnosis [facility] Outpatient [address] [place] [phone] 03/15/2023 Deepak Rogers Jr Colon polyps K63.5 [...] Notes * MARIAJOSE MELENDEZADOB:1960 (63 yo F)Acc No.[id number]:03/15/2023 COLON WITH MAC Patient:?REMA MELENDEZ Provider:?Deepak Rogers MD :1960???Age:62 Y???Sex:Female D ate:03/15/2023 Address:[address] [place], [place] [id number] Pcp:Julius Sahu Subjective: * Chief Complaints: * ???1. Colon screening. * Medical History:? Objective: * Vitals:? Assessment: * Assessment: 1.?Colon polyps - K63.5 (An terry)???2.?Diverticulitis of large intestine without perforation or abscess without bleeding - K57.32??? Plan: * Treatment: * Procedure Codes:?15885 COLON OSCOPY AND BIOPSY * * The named appointment provid er may or may not be the originator of this progress note, and it is not deemed complete until electronically signed by the appointment provider. Sign off status: Pending * Provider:?Deepak Rogers MD Date:?1 05/16/2022 Generated for Lian aguirre/John/Giovanysmitting on:?08/17/2024 02:19 PM EDT
--- OUTSIDE RECORDS SUMMARY | 2024-08-17 14:19 | XMS_ITS | Encounter Summary ---
Author Organization [employer] Address [address] [place] [address] Care Team Providers Care Regional Rehabilitation Director Name Role Phone Debra Hernández Primary Care Provider [phone] Amparo Waters Primary Care Provider [phone] Mayra Yang NP Unavailable Blair Montoya MD Unavailable Encounter Details Date Type Department Care Team (Late Contact Info) Description 06/25/2022 Telephone [facility] [address] [place], [place] [phone] Debra Hernández FNP [address] [place] [address] Dept [place] [address] Social History Tobacco Use Types Packs/Day Years [...] Encounters Date Type Department Care Team (Late Contact Info) Description 08/23/2024 10:30 AM EDT Office Visit [facility]ULT [facility] [address] [place] [address] Simpson-Monahan, Kathy, DDS 230 [place] [address] 11/16/2024 8:45 AM EDT Office Visit [facility] PED[facility] 505 [place] [address] Amparo Waters FNP 505 [place] [address] 02/18/2025 3:00 PM EST Office Visit [facility] [address] [place] [address] Robbie Fanta 230 [place] [address] documented as of this encounter Visit Diagnoses Not on filedocumented in this encounter Care Teams Regional Rehabilitation Director Relationship Specialty Start Date End Date Debra Hernández FNP PCP - General Family Medicine 04/30/22 09/14/22 Amparo Waters FNP 230 [place] [address] PCP - General Family Medicine 09/15/22 Mayra Yang NP [address] [place] [address] Urology 05/21/24 Blair Montoya MD 11 [place] [address] Cardiology 05/21/24 documented as of this encounter
--- OUTSIDE RECORDS SUMMARY | 2024-08-17 14:19 | XMS_ITS | Encounter Summary ---
Author Organization [employer] Address [address] [place] [address] 7 [place] [address] Care Team Providers Care Fishing Worker Name Role Phone Julius Sahu MD Primary Care Provider Debra Lloyd BERRY PICKER MACHINE OPERATOR Primary Care Provider [phone] Amparo Waters BERRY PICKER MACHINE OPERATOR Primary Care Provider [phone] Mayra Yang NP Unavailable Blair Montoya MD Unavailable [phone] Encounter Details Date Type Department Care Team (Latest Contact Info) Description 07/17/2021 Abstract [facility] CONVERSIONS Dental, Provider, DDS Social History [...] Description 08/23/2024 10:30 AM EDT Office Visit [facility] ADULT DENTAL [address] [place], [place] [phone] Kathy Pool DDS [address] [place], [place] [phone] 11/16/2024 8:45 AM EDT Office Visit [facility] MED & PEDS [address] [place] [address] Amparo Waters FNP 505 [place] [address] 02/18/2025 3:00 PM EST Office Visit [facility] ADULT DENT[facility] [address] [place] [address] Robbie, Fanta [address] [place] [address] documented as of this encounter Visit Diagnoses Not on filedocumented in this encounter Care Teams Fishing Worker Relationship Specialty Start Date End Date Julius Sahu MD PCP - General Family Medicine 05/15/20 04/29/22 Debra Hernández FNP PCP - General Family Medicine 04/30/22 09/14/22 Amparo Waters FNP [address] [place] [address] PCP - General Family Medicine 09/15/22 Mayra Yang NP [address] [place] [address] Urology 05/21/24 Blair Montoya MD 11 [place] [address] Cardiology 05/21/24 documented as of this encounter
--- OUTSIDE RECORDS SUMMARY | 2024-08-17 14:19 | XMS_ITS | Encounter Summary ---
Author Organization [employer] Address [address] [place] [address] 7 [place] [address] Care Team Providers Care Manager School Name Role Phone Amparo Waters Primary Care Provider Mayra Yang NP Unavailable Blair Montoya MD Unavailable Encounter Details Date Type Department Care Team (Late st Contact Info) Description 08/17/2024 9:30 AM EDT Office Visit [facility] MED & PEDS [address] [place], [place] [phone] Amparo Waters FNP 505 [place], [place] [phone] Palpitations (Primary Dx); Healthcare maintenance; Hypercholesterolemia; Essential hypertension; Allergic rhinitis, unspecified seasonality, unspecified trigger; Vitamin D deficiency; Gastroesophageal reflux disease without esophagitis; Mixed anxiety and depressive disorder; Fibromyalgia; Headache disorder; Mild persistent asthma without complication; Vaginal itching Social History Tobacco Use Types Packs/Day Years [...] 20 08/17/2024 9:33 AM EDT Oxygen Saturation - - Inhaled Oxygen Concentration - - Weight 66.7 kg (147 lb) 08/17/2024 9:33 AM EDT Height 162.6 cm (5' 4 ) 08/17/2024 9:33 AM EDT Body Mass Index 25.23 08/17/2024 9:33 AM EDT documented in this encounter Functional Status * Over the past 2 weeks, how often have you been bothered by any of the following problems? Question Answer Date of Assessment Author Patient Health Questionnaire -2 Score 2 08/17/2024 9:39 AM EDT PhalAmparo servin, Drew FINGERNAIL SCULPTURER * Little interest or pleasure in doing things Answer Date of Assessment Author Several days 08/17/2024 9:39 AM EDT Phalen, N icole, PHARMACY TEACHER * Feeling down, depressed, or hopeless Answer Date of Assessment Author Several days 08/17/2024 9:39 AM EDT Phalen, N icole, PHARMACY TEACHER * Trouble falling or staying asleep, or sleeping too much Answer Date of Assessment Author Not at all 08/17/2024 9:39 AM EDT Phalen, N icole, PHARMACY TEACHER * Feeling tired or having little energy Answer Date of Assessment Author Several days 08/17/2024 9:39 AM EDT Phalen, N icole, PHARMACY TEACHER * Poor appetite or overeating Answer Date of Assessment Author Several days 08/17/2024 9:39 AM EDT Phalen, N icole, PHARMACY TEACHER * Feeling bad about yourself - or that you are a failure or have let yourself or your family down Answer Date of Assessment Author Several days 08/17/2024 9:39 AM EDT Phalen, N icole, PHARMACY TEACHER * Trouble concentrating on things, such as reading the newspaper or watching television Answer Date of Assessment Author Several days 08/17/2024 9:39 AM EDT Phalen, N icole, PHARMACY TEACHER * Moving or speaking so slowly that other people could have noticed? Or the opposite - being so fidgety or restless that you have been moving around a lot more than usual. Answer Date of Assessment Author Several days 08/17/2024 9:39 AM EDT Phalen, N icole, PHARMACY TEACHER * Thoughts that you would be better off or hurting yourself in some way Answer Date of Assessment Author Not at all 08/17/2024 9:39 AM EDT Phalen, N icole, PHARMACY TEACHER * Patient Health Questionnaire-9 Score Answer Date of Assessment Author 7 08/17/2024 9:39 AM EDT Phalen, N icole, PHARMACY TEACHER * How difficult have these problems made it for you to do your work, take care of things at home, or get along with other people? Answer Date of Assessment Author Somewhat difficult 08/17/2024 9:39 AM EDT Amparo Waters FNP documented as of this encounter Patient Instructions * Patient Instructions* YENY Turk - 08/17/2024 9:30 AM EDT Referidos para Podiatra & Audiologo puestos hoy. Por favor llamanos si no has escuchado de las oficinas de las especialistas en 3 semanas. documented in this encounter Miscellaneous Notes * Assessment & Plan Note - YENY Turk - 08/17/2024 9:33 AM EDTAssociated Problem(s): Mild persistent asthma Maintenance med: switch Flovent 220 2 puffs BID to mometasone 200 mcg/act 2 puffs BID (d/t upcominginsurance coverage changes) Reliever: albuterol PRN (inhaler & neb machine) Reports feels well controlled at this time * Assessment & Plan Note - YENY Turk - 08/17/2024 9:32 AM EDTAssociated Problem(s): Gastroesophageal reflux disease without esophagitis Continues with Pantoprazole 40mg daily * Assessment & Plan Note - YENY Turk - 08/17/2024 9:31 AM EDTAssociated Problem(s): Allergic rhinitis Improvement noted with change to loratadine, cont current therapy * Assessment & Plan Note - YENY Turk - 08/17/2024 9:31 AM EDTAssociated Problem(s): Essential hypertension BP goal <140/90 mmHg, elevated in office but with home readings well controlled. F/up if home readings elevated Pt currently w/o pharmacotherapy, but does have medication at home as needed [place] [facility] [place] - Dr. Montoya for intermittent palpitations and chest tightness. Reports completed stress test and echo Encouraged to continue with lifestyle interventions such as physical activity and low salt diet at this time, as well as monitoring home readings documented in this encounter Plan of Treatment Upcoming Encounters Date Type Department Care Team (Late st Contact Info) Description 08/23/2024 10:30 AM EDT Office Visit [facility] ADULT DENT[facility] [address] [place] [address] Kathy Pool, DDS [address] [place] [address] 11/16/2024 8:45 AM EDT Office Visit [facility] MED [facility] PEDS 505 [place], [place] [phone] Amparo Waters FNP [address] [place] [address] 02/18/2025 3:00 PM EST Office Visit [facility] [address] [place] [address] Robbie, Fanta [address] [place] [address] Scheduled Orders Name Type Priority Associated Diagnoses Orde r Schedule Albumin, Random Urine W/Creatinine Lab Routine Healthcare maintenance Expected: 08/17/2024 (Approximate), Expires: 08/17/2025 Lipid Panel, Standard Lab Routine Healthcare maintenance Expected: 08/17/2024 (Approximate), Expires: 08/17/2025 Hemoglobin A1c Lab Routine Healthcare maintenance Expected: 08/17/2024 (Approximate), Expires: 08/17/2025 TSH with Reflex to Free T4 Lab Routine Healthcare maintenance Expected: 08/17/2024 (Approximate), Expires: 08/17/2025 Comprehensive Metabolic Panel Lab Routine Healthcare maintenance Expected: 08/17/2024 (Approximate), Expires: 08/17/2025 CBC auto differential Lab Routine Healthcare maintenance Expected: 08/17/2024, Expires: 08/17/2025 Hepatitis C Viral RNA, Quantitative, Real-Time PCR Lab Routine Healthcare maintenance Expected: 08/17/2024 (Approximate), Expires: 08/17/2025 RPR (Monitor) with Reflex to??Titer Lab Routine Healthcare maintenance Expected: 08/17/2024 (Approximate), Expires: 08/17/2025 HIV-1/2 Antigen and Antibodies, Fourth Generation, with Reflexes Lab Routine Healthcare maintenance Expected: 08/17/2024 (Approximate), Expires: 08/17/2025 Bacterial Vaginosis Microbiology Routine Healthcare maintenance Vaginal itching Ordered: 08/17/2024 Chlamydia/N. Gonorrhoeae RNA, TMA, Urogenitial Microbiology Routine Healthcare maintenance Vaginal itching Ordered: 08/17/2024 Vitamin D, 25-Hydroxy, Total, Immunoassay Lab Routine Healthcare maintenance Expected: 08/17/2024 (Approximate), Expires: 08/17/2025 Vitamin B12/Folate, Serum Panel Lab Routine Healthcare maintenance Expected: 08/17/2024, Expires: 08/17/2025 documented as of this encounter Visit Diagnoses Diagnosis Palpitations- Primary Healthcare maintenance Hypercholesterolemia Pure hypercholesterolemia Essential hypertension Unspecified essential hypertension Allergic rhinitis, unspecified seasonality, unspecified trigger Vitamin D deficiency Gastroesophageal reflux disease without esophagitis Esophageal reflux Mixed anxiety and depressive disorder Dysthymic disorder Fibromyalgia Unspecified myalgia and myositis Headache disorder Headache Mild persistent asthma without complication Vaginal itching Pruritus of genital organs documented in this encounter Additional Health Concerns Assessment Noted Time PHQ-9 Depression Total Score: 7 08/18/19 25 9:39 AM EDT documented as of this encounter Care Teams Manager School Relationship Specialty Start Date End Date Amparo Waters FNP [address] [place] [address] PCP - General Family Medicine 09/15/22 Mayra Yang NP [address] [address] Urology 05/21/24 Blair Montoya MD 11 [place] [address] Cardiology 05/21/24 documented as of this encounter
--- OUTSIDE RECORDS SUMMARY | 2024-08-17 14:19 | XMS_ITS | Encounter Summary ---
Author Organization [employer] Address [address] [place] [address] Care Team Providers Care Clinical Documentation Manager Name Role Phone Debra HernándezP Primary Care Provider [phone] Amparo Waters PLACEMENT MANAGER Primary Care Provider [phone] Mayra Yang NP Unavailable Blair Montoya MD Unavailable [phone] Reason for Visit * Reason Comments Med Refill Encounter Details Date Type Department Care Team (Late st Contact Info) Description 07/20/2022 Refill [facility] MEDICINE 230 [place] [address] Debra Hernández FNP [address] [place] [address] [place] [address] Seasonal allergic rhinitis, unspecified trigger Social History [...] Description 08/23/2024 10:30 AM EDT Office Visit [facility] ADULT DENTAL [address] [place] [address] Kathy Pool, DDS 230 [place] [address] 11/16/2024 8:45 AM EDT Office Visit [facility] MED & PEDS 505 [place] [address] Amparo Waters FNP 505 [place] [address] 02/18/2025 3:00 PM EST Office Visit [facility] ADULT DENTAL [address] [place] [address] Robbie, Fanta [address] [place] [address] documented as of this encounter Visit Diagnoses Diagnosis Seasonal allergic rhinitis, unspecified trigger documented in this encounter Care Teams Clinical Documentation Manager Relationship Specialty Start Date End Date Derba Hernández FNP PCP - General Family Medicine 04/30/22 09/14/22 Amparo Waters FNP 230 [place] [address] PCP - General Family Medicine 09/15/22 Mayra Yang NP [address] [place] [address] Urology 05/21/24 Blair Montoya MD 11 [place] [address] Cardiology 05/21/24 documented as of this encounter
--- OUTSIDE RECORDS SUMMARY | 2024-08-17 14:19 | XMS_ITS ---
Author Organization [facility] Address [address] [place] [address] Care Team Providers Care Supervisor Picking Crew Name Role Phone Luis Alberto, Julius Primary Care Provider Deepak Lane Jr Unavailable REASON FOR VISIT labs Encounters Encounter Location Date Provider Diagnosis [facility] [address] [place] [address] 03/10/2023 Deepak Rogers Jr Plan Of Treatment No Information Progress Notes * MARIAJOSE MELENDEZADOB:1960 (62 yo F)Acc No.[id number]:03/10/2023 Patient:?REMA MELENDEZ :1960???Age:62 Y???Sex:Female Address:[address] [facility] [address], [place] [address] * true * Date:? Generated for Lian aguirre/John/eTransmitting on:?08/17/2024 02:19 PM EDT
--- OUTSIDE RECORDS SUMMARY | 2024-08-17 14:19 | XMS_ITS | Encounter Summary ---
Author Organization [employer] Address [address] [facility] 7t [place] [address] Care Team Providers Care Photovoltaic Subcontractor Name Role Phone Amparo Waters YENY Primary Care Provider [phone] Mayra Yang NP Unavailable Blair Montoya MD Unavailable [phone] Encounter Details Date Type Department Care Team (Latest Contact Info) Description 08/17/2024 Travel Social History Tobacco Use Types Packs/Day [...] PM EDT documented as of this encounter Functional Status * Over the past 2 weeks, how often have you been bothered by any of the following problems? Question Answer Date of Assessment Author Patient Health Questionnaire -2 Score 2 08/17/2024 9:39 AM EDT Amparo Waters F TANYARD WORKER * Little interest or pleasure in doing things Answer Date of Assessment Author Several days 08/17/2024 9:39 AM EDT Aniya Watersole, LEATHER FINISHER * Feeling down, depressed, or hopeless Answer Date of Assessment Author Several days 08/17/2024 9:39 AM EDT Jt N icole, LEATHER FINISHER * Trouble falling or staying asleep, or sleeping too much Answer Date of Assessment Author Not at all 08/17/2024 9:39 AM EDT Aniya Watersole, LEATHER FINISHER * Feeling tired or having little energy Answer Date of Assessment Author Several days 08/17/2024 9:39 AM EDT Aniya Waters icole, LEATHER FINISHER * Poor appetite or overeating Answer Date of Assessment Author Several days 08/17/2024 9:39 AM EDT Aniya Watersole, LEATHER FINISHER * Feeling bad about yourself - or that you are a failure or have let yourself or your family down Answer Date of Assessment Author Several days 08/17/2024 9:39 AM EDT Aniya Watersole, LEATHER FINISHER * Trouble concentrating on things, such as reading the newspaper or watching television Answer Date of Assessment Author Several days 08/17/2024 9:39 AM EDT Aniya Waters FNP * Moving or speaking so slowly that other people could have noticed? Or the opposite - being so fidgety or restless that you have been moving around a lot more than usual. Answer Date of Assessment Author Several days 08/17/2024 9:39 AM EDT Aniya Waters FNP * Thoughts that you would be better off or hurting yourself in some way Answer Date of Assessment Author Not at all 08/17/2024 9:39 AM EDT Aniya Waters FNP * Patient Health Questionnaire-9 Score Answer Date of Assessment Author 7 08/17/2024 9:39 AM EDT Aniya Waters FNP * How difficult have these problems made it for you to do your work, take care of things at home, or get along with other people? Answer Date of Assessment Author Somewhat difficult 08/17/2024 9:39 AM EDT Amparo Waters FNP documented as of this encounter Plan of Treatment Upcoming Encounters Date Type Department Care Team (Late st Contact Info) Description 08/23/2024 10:30 AM EDT Office Visit [facility] ADULT DENTAL [address] [place] [address] Kathy Pool, DDS [address] [place] [address] 11/16/2024 8:45 AM EDT Office Visit [facility] MED [facility] PEDS 505 [place] [address] Amparo Waters FNP 505 [place] [address] 02/18/2025 3:00 PM EST Office Visit [facility] ADULT DENTAL [address] [place] [address] Fanta Avalos [address] [place] [address] documented as of this encounter Visit Diagnoses Not on filedocumented in this encounter Additional Health Concerns Assessment Noted Time PHQ-9 Depression Total Score: 7 05/16/20 25 9:39 AM EDT documented as of this encounter Care Teams Photovoltaic Subcontractor Relationship Specialty Start Date End Date Amparo Waters FNP [address] [place] [address] PCP - General Family Medicine 09/15/22 Mayra Yang NP [address] [place] [address] Urology 05/21/24 Blair Montoya MD 11 [place] [address] Cardiology 05/21/24 documented as of this encounter
--- OUTSIDE RECORDS SUMMARY | 2024-08-17 14:19 | XMS_ITS | Patient Health Record ---
Author Organization [facility] Address [address] [place] [address] Care Team Providers Care Varnish Maker Name Role Phone Julius Sahu Primary Care Provider Deepak Lane Jr Unavailable Allergies Allergen (clinical drug ingredient) Drug/Non Drug [...] MORNING NEEDED Nasal for 30 PRN Active [id number] - as directed Orally o nce a [...] Problem Status W/U Status Risk Notes Problem 02582215 Epigastric pain (R10.13) Active confirmed Problem Diverticulitis o f large intestine without perforation or abscess without bleeding (K57.32) Active confirmed Problem 934582531 Diverticulitis (K57.92) Active confirmed Problem 825832487 Elevated LFTs (R79.89) Active confirmed Problem 54021976 Dysphagia, unspecified type (R13.10) Active confirmed Problem 653401611 LLQ pain (R10.32) Active confirmed Problem 824581814 Diverticulitis o f colon (without mention of hemorrhage) (K57.32) Active confirmed Problem 750250751 Gastroesophageal reflux disease, unspecified whether esophagitis present [...] Start Date Coverage End Date MEDICAID OF [facility] [address] [place] [phone] [id number] REMA MELENDEZ Self - patient is the [...]
--- OUTSIDE RECORDS SUMMARY | 2024-08-17 14:19 | XMS_ITS | Encounter Summary ---
Author Organization [employer] Address [address] [place] [address] 7 [place] [address] Care Team Providers Care Roving Teller Name Role Phone Julius Sahu MD Primary Care Provider Debra Lloyd SAND BUFFER Primary Care Provider [phone] Amparo Waters SAND BUFFER Primary Care Provider Mayra Yang NP Unavailable Blair Montoya MD Unavailable [phone] Encounter Details Date Type Department Care Team (Latest Contact Info) Description 11/07/2018 Abstract [facility] CONVERSIONS Dental, Provider, DDS Social History [...] Upcoming Encounters Date Type Department Care Team ( Contact Info) Description 08/23/2024 10:30 AM EDT Office Visit [facility] ADULT DENTAL [address] [place], [place] [phone] Kathy Pool, DDS [address] [place] [address] 11/16/2024 8:45 AM EDT Office Visit [facility] PED[facility] [address] [place] [address] Amparo Waters FNP 505 [place] [address] 02/18/2025 3:00 PM EST Office Visit [facility] ADULT DENTAL [address] [place] [address] Robbie Fanta [address] [place] [address] documented as of this encounter Visit Diagnoses Not on filedocumented in this encounter Care Teams Roving Teller Relationship Specialty Start Date End Date Julius Sahu MD PCP - General Family Medicine 05/15/20 04/29/22 Debra Hernández FNP PCP - General Family Medicine 04/30/22 09/14/22 Amparo Waters FNP [address] [place] [address] PCP - General Family Medicine 09/15/22 Mayra Yang NP [address] [place] [address] Urology 05/21/24 Blair Montoya MD 11 [place] [address] Cardiology 05/21/24 documented as of this encounter
--- OUTSIDE RECORDS SUMMARY | 2024-08-17 14:19 | XMS_ITS | Encounter Summary ---
Author Organization [employer] Address [address] [place] [address] 7t [place] [address] Care Team Providers Care Inside Trucker Name Role Phone Amprao Waters YENY Primary Care Provider [phone] Mayra Yang NP Unavailable Blair Montoya MD Unavailable [phone] Reason for Visit * Reason Onset Date Comments APPT 07/16/2024 Encounter Details Date Type Department Care Team (Late st Contact Info) Description 07/16/2024 Telephone [facility] ADULT DENTAL 230 [place], [place] [phone] Robin Hillman DDS [address] [place], [place] [phone] APPT Social History Tobacco Use Types Packs/Day Years [...] encounter Miscellaneous Notes * Telephone Encounter - Elizabeth Caballero - 07/16/2024 8:36 AM EDT PT [facility]RIES [facility]PT [facility] UNABLE TO RUN COVERAGE FOR 1;00PM EMERGENCY APPT TODAY CS documented in this encounter Plan of Treatment Upcoming Encounters Date Type Department Care Team (Late st Contact Info) Description 08/23/2024 10:30 AM EDT Office Visit [facility] ADULT DENTAL [address] [place] [address] Kathy Pool DDS [address] [place] [address] 11/16/2024 8:45 AM EDT Office Visit [facility] MED [facility] PEDS 505 [place], [place] [phone] Amparo Waters FNP 505 [place] [address] 02/18/2025 3:00 PM EST Office Visit [facility] ADULT DENTAL [address] [place] [address] Fanta Avalos [address] [place] [address] documented as of this encounter Visit Diagnoses Not on filedocumented in this encounter Additional Health Concerns Assessment Noted Time PHQ-9 Depression Total Score: 2 01/06/20 24 10:02 AM EDT documented as of this encounter Care Teams Inside Trucker Relationship Specialty Start Date End Date Amparo Waters FNP 230 [place] [address] PCP - General Family Medicine 09/15/22 Mayra Yang NP [address] [place] [address] Urology 05/21/24 Blair Montoya MD [address] [place] [address] Cardiology 05/21/24 documented as of this encounter
--- OUTSIDE RECORDS SUMMARY | 2024-08-17 14:19 | XMS_ITS | Encounter Summary ---
Author Organization [employer] Address [address] [facility] 7t [place] [address] Care Team Providers Care Extracorporeal Circulation Specialist Name Role Phone Amparo Waters YENY Primary Care Provider [phone] Mayra Yang HOLLOW HANDLE BENCH WORKER Unavailable Blair Montoya MD Unavailable [phone] Encounter Details Date Type Department Care Team (Late st Contact Info) Description 01/09/2024 Orders Only [facility] MED & PEDS [address] [place], [place] [phone] ProviderSanjana MD Social History Tobacco Use Types Packs/Day Years [...] Description 08/23/2024 10:30 AM EDT Office Visit [facility] ADULT DENTAL [address] [place] [address] Kathy Pool DDS [address] [place] [address] 11/16/2024 8:45 AM EDT Office Visit [facility] CH[facility] MED & PEDS [address] [place] [address] Amparo Waters FNP 505 [place] [address] 02/18/2025 3:00 PM EST Office Visit [facility] ADULT DENTAL [address] [place] [address] Fanta Avalos [address] [place] [address] documented as of this encounter Procedures Procedure [...] documented as of this encounter Care Teams Extracorporeal Circulation Specialist Relationship Specialty Start Date End Date Amparo Waters FNP [address] [place] [address] PCP - General Family Medicine 09/15/22 Mayra Yang NP [address] [facility] [address] [place] [address] Urology 05/21/24 Blair Montoya MD 11 [place] [address] Cardiology 05/21/24 documented as of this encounter
--- OUTSIDE RECORDS SUMMARY | 2024-08-17 14:19 | XMS_ITS | Encounter Summary ---
Author Organization [employer] Address [address] [place] [address] 7 [place] [address] Care Team Providers Care Pipe Coremaker Name Role Phone Julius Sahu MD Primary Care Provider Debra Lloyd TOUR MANAGER Primary Care Provider [phone] Amparo Waters TOUR MANAGER Primary Care Provider [phone] Mayra Yang NP Unavailable Blair Montoya MD Unavailable [phone] Encounter Details Date Type Department Care Team (Latest Contact Info) Description 07/10/2020 Abstract [facility] Dental, Provider, DDS Social History Tobacco [...] Description 08/23/2024 10:30 AM EDT Office Visit [facility] ADULT DENTAL [address] [place], [place] [phone] Kathy Pool DDS [address] [place], [place] [phone] 11/16/2024 8:45 AM EDT Office Visit [facility] CHC MED & PEDS [address] [place] [address] Amparo Waters FNP 505 [place] [address] 02/18/2025 3:00 PM EST Office Visit [facility] ADULT DENTAL 230 [place] [address] Robbie, Fanta [address] [place] [address] documented as of this encounter Visit Diagnoses Not on filedocumented in this encounter Care Teams Pipe Coremaker Relationship Specialty Start Date End Date Julius Sahu MD PCP - General Family Medicine 05/15/20 04/29/22 Debra Hernández FNP PCP - General Family Medicine 04/30/22 09/14/22 Amparo Waters FNP [address] [place] [address] PCP - General Family Medicine 09/15/22 Mayra Yang NP [address] [place] [address] Urology 05/21/24 Blair Montoya MD 11 [place] [address] Cardiology 05/21/24 documented as of this encounter
--- OUTSIDE RECORDS SUMMARY | 2024-08-17 14:19 | XMS_ITS ---
Author Organization [facility] Address [address] [place] [address] Care Team Providers Care C D Still Operator Name Role Phone Luis Alberto, Julius Primary Care Provider Deepak Lane Jr Unavailable REASON FOR VISIT pathology Encounters Encounter Location Date Provider Diagnosis [facility] [address] [place] [address] 03/23/2023 Deepak Rogers Jr Plan Of Treatment No Information Progress Notes * MARIAJOSE MELENDEZADOB:1960 (62 yo F)Acc No.[id number]:03/23/2023 Patient:?REMA MELENDEZ :1960???Age:62 Y???Sex:Female Address:[address] [facility] [address], [place] [address] * true * Date:? Generated for Lian aguirre/John/eTransmitting on:?08/17/2024 05:56 AM EDT
--- OUTSIDE RECORDS SUMMARY | 2024-08-17 14:19 | XMS_ITS | Encounter Summary ---
Author Organization [employer] Address [address] [place] [address] 7t [place] [address] Care Team Providers Care Dispatcher Relay Name Role Phone Amparo Waters Primary Care Provider [phone] Mayra Yang NP Unavailable Blair Montoya MD Unavailable [phone] Encounter Details Date Type Department Care Team (Late st Contact Info) Description 10/08/2022 Abstract [facility] MEDICINE [address] [place] [address] Amparo Waters FNP [address] [place], [place] [phone] Healthcare maintenance (Primary Dx) Social History Tobacco [...] Description 08/23/2024 10:30 AM EDT Office Visit [facility] ADULT DENTAL 230 [place] [address] Simpson-Monahan, Kathy, DDS [address] [place] [address] 11/16/2024 8:45 AM EDT Office Visit [facility] CHC MED & PEDS 505 [place], [place] [phone] Amparo Waters, PHARMACY TECHNICIAN INPATIENT 505 [place] [address] 02/18/2025 3:00 PM EST Office Visit [facility] ADULT DENTAL [address] [place] [address] Robbie, Fanta [address] [place] [address] Scheduled Orders Name Type Priority Associated Diagnoses [...] documented as of this encounter Care Teams Dispatcher Relay Relationship Specialty Start Date End Date Amparo Waters FNP 230 [place] [address] PCP - General Family Medicine 09/15/22 Mayra Yang NP 10 [facility] [address] [place] [address] Urology 05/21/24 Blair Montoya MD [address] [place] [address] Cardiology 05/21/24 documented as of this encounter
== END 2024-08-17 14:17 | disposition home or self-care (01) ==
LOC: HO.MAMMO 14:16
PROVIDERS: PCP Registered Nurse; Visit Provider Advanced Practice Midwife
DX: Z13.820 Encounter for screening for osteoporosis (principal); Z78.0 Asymptomatic menopausal state
CPT/HCPCS: 77080

== ENCOUNTER → 2024-08-17 14:30 | Outpatient (BNV) | payer OTHER, SELFPAY | PROVIDERS: PCP Registered Nurse; Visit Provider Radiology Diagnostic Radiology | DX: E28.39 Other primary ovarian failure (principal) | CPT/HCPCS: 77080 ==

== ENCOUNTER 2024-08-17 15:13 | Outpatient (REF) | payer OTHER, SELFPAY ==
--- OUTSIDE RECORDS SUMMARY | 2024-08-17 15:16 | XMS_ITS | Encounter Summary ---
Author Organization [employer] Address [address] [place] [address] 7t [place] [address] Care Team Providers Care Railroad Car Cleaner Name Role Phone Amparo Waters YENY Primary Care Provider [phone] Mayra Yang NP Unavailable Blair Montoya MD Unavailable [phone] Reason for Visit * Reason Onset Date Comments APPT 07/16/2024 Encounter Details Date Type Department Care Team (Late st Contact Info) Description 07/16/2024 Telephone [facility] ADULT DENTAL [address] [place], [place] [phone] Robin Hillman DDS [address] [place], [place] [phone] APPT Social History Tobacco Use Types Packs/Day [...] 08/23/2024 10:30 AM EDT Office Visit [facility] ADULT DENTAL [address] [place] [address] Kathy Pool DDS [address] [place] [address] 11/16/2024 8:45 AM EDT Office Visit [facility] CHC MED & PEDS 505 [place], [place] [phone] Amparo Waters FNP 505 [place] [address] 02/18/2025 3:00 PM EST Office Visit [facility] ADULT DENTAL [address] [place] [address] Fanta Avalos [address] [place] [address] documented as of this encounter Visit Diagnoses Not on filedocumented in this encounter Additional Health Concerns Assessment Noted Time PHQ-9 Depression Total Score: 2 01/06/20 24 10:02 AM EDT documented as of this encounter Care Teams Railroad Car Cleaner Relationship Specialty Start Date End Date Amparo Waters FNP 230 [place] [address] PCP - General Family Medicine 09/15/22 Mayra Yang NP [address] [place] [address] Urology 05/21/24 Blair Montoya MD [address] [place] [address] Cardiology 05/21/24 documented as of this encounter
--- OUTSIDE RECORDS SUMMARY | 2024-08-17 15:16 | XMS_ITS | Encounter Summary ---
Author Organization [employer] Address [address] [place] [address] 7 [place] [address] Care Team Providers Care Prosthetic Aide Name Role Phone Amparo Waters Primary Care Provider Mayra Yang NP Unavailable Blair Montoya MD Unavailable [phone] Encounter Details Date Type Department Care Team (Late st Contact Info) Description 08/17/2024 9:30 AM EDT Office Visit [facility] MED & PEDS [address] [place], [place] [phone] Amparo Waters FNP [address] [place], [place] [phone] Palpitations (Primary Dx); Healthcare maintenance; Hypercholesterolemia; Essential [...] 08/17/2024 9:39 AM EDT PhalAmparo servin, Drew PACKAGE CRIMPER * Little interest or pleasure in doing things Answer Date of Assessment Author Several days 08/17/2024 9:39 AM EDT Phalen, N icole, PRODUCTION WELDING SUPERVISOR * Feeling down, depressed, or hopeless Answer Date of Assessment Author Several days 08/17/2024 9:39 AM EDT Phalen, N icole, PRODUCTION WELDING SUPERVISOR * Trouble falling or staying asleep, or sleeping too much Answer Date of Assessment Author Not at all 08/17/2024 9:39 AM EDT Phalen, N icole, PRODUCTION WELDING SUPERVISOR * Feeling tired or having little energy Answer Date of Assessment Author Several days 08/17/2024 9:39 AM EDT Phalen, N icole, PRODUCTION WELDING SUPERVISOR * Poor appetite or overeating Answer Date of Assessment Author Several days 08/17/2024 9:39 AM EDT Phalen, N icole, PRODUCTION WELDING SUPERVISOR * Feeling bad about yourself - or that you are a failure or have let yourself or your family down Answer Date of Assessment Author Several days 08/17/2024 9:39 AM EDT Phalen, N icole, PRODUCTION WELDING SUPERVISOR * Trouble concentrating on things, such as reading the newspaper or watching television Answer Date of Assessment Author Several days 08/17/2024 9:39 AM EDT Phalen, N icole, PRODUCTION WELDING SUPERVISOR * Moving or speaking so slowly that other people could have noticed? Or the opposite - being so fidgety or restless that you have been moving around a lot more than usual. Answer Date of Assessment Author Several days 08/17/2024 9:39 AM EDT Phalen, N icole, PRODUCTION WELDING SUPERVISOR * Thoughts that you would be better off or hurting yourself in some way Answer Date of Assessment Author Not at all 08/17/2024 9:39 AM EDT Phalen, N icole, PRODUCTION WELDING SUPERVISOR * Patient Health Questionnaire-9 Score Answer Date of Assessment Author 7 08/17/2024 9:39 AM EDT Phalen, N icole, PRODUCTION WELDING SUPERVISOR * How difficult have these problems made [...] at home as needed Following with [facility] Cards - Dr. [...] Description 08/23/2024 10:30 AM EDT Office Visit [facility] ADULT DENTAL 230 [place] [address] Kathy Pool, DDS [address] [place] [address] 11/16/2024 8:45 AM EDT Office Visit [facility] CHC MED & PEDS [address] [place], [place] [phone] Amparo Waters FNP [address] [place] [address] 02/18/2025 3:00 PM EST Office Visit [facility] ADULT DENTAL [address] [place] [address] Robbie, Fanta [address] [place] [address] Scheduled Orders Name Type Priority Associated Diagnoses [...] documented as of this encounter Care Teams Prosthetic Aide Relationship Specialty Start Date End Date Amparo Waters FNP [address] [place] [address] PCP - General Family Medicine 09/15/22 Mayra Yang NP [address] [address] Urology 05/21/24 Blair Montoya MD 11 [place] [address] Cardiology 05/21/24 documented as of this encounter
--- OUTSIDE RECORDS SUMMARY | 2024-08-17 15:16 | XMS_ITS | Clinical Summary ---
Author Organization [employer] Address [address] [place] [address] 7 [place] [address] Care Team Providers Care Elevator Starter Name Role Phone Amparo Waters YENY Primary Care Provider [phone] Mayra Yang NP Unavailable Blair Montoya MD Unavailable [phone] Allergies Active Allergy Reactions Criticality Noted Date [...] 07/16/2024 Palpitations 05/21/2024 Overview (08/17/2024): [place] [facility] [place] - Dr. Montoya/MOBILE DEVICE ENGINEER Bin May 2024 - 30 day holter June 2024: initiated metoprolol 25mg 0.5 tablet PRN History of endometriosis 05/21/2024 Assessment & Plan (05/21/2024 10:23 AM EST): - Reports previously following with [facility] for 15+ years, but says will need to re-establish with office closing down - Hx of endometriosis, and reports had been following for annual pelvic. - Plan: request notes from [facility], pelvic/pap with [facility] CNM. Referral to outside PRESS LEADER PRN. Vaginal dryness 07/18/2023 Assessment & Plan [...] - Dr. Barrow. Last CEE 05/17/23 Dental: [facility] Dental PE Form completed 07/15/23 for employment Fibromyalgia 09/27/2022 Assessment & Plan (10/01/2022 1:12 PM EDT): ?? Following [place] [facility] [place]um ?? Continues with gabapentin ?? During [...] medication at home as needed Following with [facility] Cards - Dr. Montoya for intermittent palpitations [...] medication at home as needed Following with [facility] Cards - Dr. Montoya for intermittent palpitations [...] medication at home as needed Following with [facility] Cards - Dr. Montoya for intermittent palpitations [...] Description 08/17/2024 9:30 AM EDT Office Visit [facility] CHC MED & PEDS [address] [place] [address] Amparo Waters FNP Palpitations (Primary Dx); Healthcare maintenance; Hypercholesterolemia; Essential hypertension; Allergic rhinitis, unspecified seasonality, unspecified trigger; Vitamin D deficiency; Gastroesophageal reflux disease without esophagitis; Mixed anxiety and depressive disorder; Fibromyalgia; Headache disorder; Mild persistent asthma without complication; Vaginal itching 08/17/2024 Travel 08/15/2024 Telephone [facility] MEDICINE [address] [place] [address] Amparo Waters FNP Chart Prep 08/06/2024 9:00 AM EDT Office Visit [facility] ADULT DENTAL [address] [place] [address] Robbie, Fanta Dental plaque (Primary Dx); Missing teeth, acquired; Gingival recession, localized 07/24/2024 9:30 AM EDT Office Visit [facility] ADULT DENTAL [address] [place] [address] Robin Hillman DDS Odontalgia; Dental abscess 07/16/2024 1:00 PM EDT Office Visit [facility] ADULT DENTAL [address] [place] [address] Robin Hillman DDS Odontalgia (Primary Dx); Dental abscess 07/16/2024 Telephone [facility] ADULT DENTAL [address] [place] [address] Robin Hillman DDS APPT 07/12/2024 10:30 AM EDT Procedure Visit [facility]EDS [address] [place] [address] Rell Mcgrath, [facility] Routine cervical smear (Primary Dx); Menopausal and postmenopausal disorder; Candidiasis of vulva and vagina; Atrophic vaginitis 07/12/2024 Orders Only [facility] MEDICINE [address] [place] [address] Rell Mcgrath, DORIS 07/12/2024 Refill [facility]EDS [address] [place] [address] Rell Mcgrath, [facility] 07/12/2024 Travel 07/07/2024 Refill [facility] MED [facility] PEDS [address] [place] [address] Amparo Waters FNP 06/30/2024 Refill [facility] MED & PEDS [address] [place] [address] Amparo Waters, CASKET ASSEMBLER Xerosis of skin 06/25/2024 1:00 PM EDT Office Visit [facility] ADULT DENTAL [address] [place] [address] Umm Ceja DDS 06/11/2024 1:00 PM EDT Office Visit [facility] ADULT DENTAL [address] [place] [address] Kathy Pool DDS Symptomatic irreversible pulpitis (Primary Dx) 06/08/2024 10:00 AM EST Office Visit [facility] ADULT DENTAL [address] [place] [address] Kathy Pool, EMYS Gingival recession, localized (Primary Dx); Tooth sensitivity to cold 06/01/2024 Telephone [facility] MEDICINE [address] [place] [address] Amparo Waters FNP Medication Question 05/25/2024 1:00 PM EST Office Visit [facility] ADULT DENTAL [address] [place] [address] Kathy Pool, DDS Clenching of teeth (Primary [...] the past 12 months, has t he [employer], gas, oil or water company threatened to [...] Description 08/23/2024 10:30 AM EDT Office Visit [facility] ADULT DENTAL [address] [place] [address] Simpson-Monahan, Kathy, DDS [address] [place] [address] 11/16/2024 8:45 AM EDT Office Visit [facility] CHC MED & PEDS [address] [place] [address] Amparo Waters, CASKET ASSEMBLER 505 [place] [address] 02/18/2025 3:00 PM EST Office Visit [facility] ADULT DENTAL [address] [place] [address] Robbie, Fanta [address] [place] [address] Health Maintenance Due Date Last Done Comments [...] AM EDT) HPV High Risk Negative Negative [facility] HPV Genotype 16 Negative Negative [facility] HPV Genotype 18 Negative Negative [facility] Comment:HPV testing performe d at [facility] (CLIA#[id number]), [address] [place] [phone].Testing for HPV was performed using the [employer]system. The presence of HPV in the female [...] GEORGE LAB BLOOD ORDERABLES Amy l Result [facility] [address] [place] [phone] * Pap Smear (07/12/2024 12:00 AM EDT) Swab Cervix uteri structure / Unknown 07/12/2024 07/13/2024 6:04 AM EDT Narrative [facility] - 07/17/2024 9:54 AM EDT ----- ------- Name: Spring De Oliveira ?Age/Sex: 63/F ? : 1960 Unit#: [id number] ?? Attend Dr: RELL MCGRATH CNM ?Re07/12/24 ?Status: DEP REF ? Location: HO.CHCLNP ? Disch: ? ----- ------- SPEC : [id number] ? RECD: 07/13/24 ? STATUS: ??SOUT ? REQ NUM: [id number] ? OLIVIA: 07/12/24- ? SUBM DR: RELL [...] GEORGE LAB CYTOLOGY ORDERABLES F inal Result [facility] [address] [place] [phone] * BI Mammogram Screening Tomosynthesis Bilateral (12/22/2023 2:00 PM EDT) Anatomical Region Laterality Modality Breast Bilateral Mammography 12/22/2023 2:00 PM EDT Narrative 01/04/2024 12:00 PM EDT ? [place] [facility] ? [address] [place] [address] ? Mammography Report ? Signed ? Patient: Maravilla Tyson,Spring ?MR#: [id number] ?? [id number] ? : 1960 ?Acct:[id number] ? Age/Sex: 63 / F ?ADM Date: 12/22/23 ? Loc: HO.MAMMO ? Attending Dr: Amparo Waters CASKET ASSEMBLER ? Ordering Physician: Amparo Waters CASKET ASSEMBLER ?Results: 1Negat ?? ankur ? Date of Service: 12/22/23 ?Follow Up: 1 Year From Orig ?? inal Mammogram ? Procedure(s): MM tomosynthesis screening BI ?? Accession Number(s): [id number] ? cc: Amparo Waters CASKET ASSEMBLER ? EXAMINATION: ?? MM SCREENING DIGITAL BREAST [...] DD/ 1400 ? TD/TT: 12/22/23 1415 ? Business Line Manager: ? Procedure Note Corey, Image - 01/04/2024 [facility] [address] [place] [address] Mammography Report Signed Patient: Farhan De Oliveira#: [id number] : 9Acct:[id number] Age/Sex: 63 / FADM Date: 12/22/23 Loc: HO.MAMMO Attending Dr: Amparo Waters CASKET ASSEMBLER Ordering Physician: Amparo Waters FNPResults: 1Negat ankur Date of Service: 12/22/23Follow Up: 1 Year From Orig inal Mammogram Procedure(s): MM tomosynthesis screening BI Accession Number(s): [id number] cc: Amparo Waters EXAMINATION: MM SCREENING DIGITAL [...] 01/04/24 1157 DD/ 1400 TD/TT: 12/22/23 1415 Business Line Manager: Amparo Waters CASKET ASSEMBLER IMG BI PROCEDURES Final Result * Hm Colonoscopy (03/15/2023 3:18 PM EST) Historical Provider HEALTH MAINTENANCE Final Result * Hepatitis C Ab (10/09/2022 8:06 AM EDT) Hepatitis C Antibody Nonreactive Nonreactive [facility] Comment:Antibodies to HCV no t detected; does not exclude early acuteHCV infection. 10/09/2022 8:06 AM EDT 10/09/2022 8:06 AM EDT [facility] External Provider LAB BLO OD ORDERABLES Final Result [facility] [address] [place] [phone] [phone] * Lipid Panel, Standard (10/09/2022 8:06 AM EDT) Triglycerides 79 mg/dL [facility] Comment:Desirable Triglyceri de: less than 150 mg/dLBorderline High Triglyceride 150-199 mg/dLHigh Triglyceride: 200-499 mg/dLVery High Triglyceride: greater than or equal to 5OO mg/dL Cholesterol 164 mg/dL [facility] Comment:Desirable Cholestero l: less than 200 mg/dLBorderline High Cholesterol: 200-239 mg/dLHigh Cholesterol: greater than 239 mg/dL LDL Cholesterol Calculated 100 mg/dl [facility] Comment:Desirable LDL: less than 100 mg/dLNear Optimal/Above Optimal LDL: 110- 129 mg/dLBorderline High LDL: 130-159 mg/dLHigh LDL: 160-189 mg/dLVery High LDL: greater than or equal to 190 mg/dL HDL Cholesterol 49 mg/dL [facility] Comment:Desirable HDL: great er than 40 mg/dL Note: This HDL assay may give artificially low results in patients with liver disease. 10/09/2022 8:06 AM EDT 10/09/2022 8:06 AM EDT [facility] External Provider LAB BLO OD ORDERABLES Final Result [facility] [address] [place] [address] [phone] from Last 3 Months or Most Recently Relevant to Health Maintenance Insurance [facility] INTERMEDIATE OPTIONS (HMO D-SNP) [employer] [id number] [facility] Care Teams Elevator Starter Relationship Specialty Start Date End Date Amparo Waters FNP [address] [place] [address] PCP - General Family Medicine 09/15/22 Mayra Yang NP [address] [place] [address] Urology 05/21/24 Blair Montoya MD [address] [place] [address] Cardiology 05/21/24
--- OUTSIDE RECORDS SUMMARY | 2024-08-17 15:16 | XMS_ITS | Encounter Summary ---
Author Organization [employer] Address [address] [place] [address] 7t [place] [address] Care Team Providers Care Internal Sales Engineer Name Role Phone Amparo Waters Primary Care Provider Mayra Yang NP Unavailable Blair Montoya MD Unavailable Encounter Details Date Type Department Care Team (Late st Contact Info) Description 10/08/2022 Abstract [facility] MEDICINE [address] [place] [address] Amparo Waters FNP [address] [place], [place] [phone] Healthcare maintenance (Primary Dx) Social History Tobacco [...] Description 08/23/2024 10:30 AM EDT Office Visit [facility] ADULT DENTAL [address] [place] [address] Simpson-Monahan, Kathy, DDS [address] [place] [address] 11/16/2024 8:45 AM EDT Office Visit [facility] MED & PEDS [address] [place], [place] [phone] Amparo Waters, LEADERSHIP PROGRAM INTERNSHIP [address] [place] [address] 02/18/2025 3:00 PM EST Office Visit [facility] ADULT DENTAL [address] [place] [address] Robbie, Fanta [address] [place] [address] Scheduled Orders Name Type Priority Associated Diagnoses [...] documented as of this encounter Care Teams Internal Sales Engineer Relationship Specialty Start Date End Date Amparo Waters FNP [address] [place] [address] PCP - General Family Medicine 09/15/22 Mayra Yang NP 10 [facility] [address] [place] [address] Urology 05/21/24 Blair Montoya MD [address] [place] [address] Cardiology 05/21/24 documented as of this encounter
--- OUTSIDE RECORDS SUMMARY | 2024-08-17 15:16 | XMS_ITS | Encounter Summary ---
Author Organization [employer] Address [address] [place] [address] Care Team Providers Care Shovel Loader Operator Name Role Phone Debra HernándezP Primary Care Provider [phone] Amparo Waters BROOM BUNDLER Primary Care Provider [phone] Mayra Yang NP Unavailable Blair Montoya MD Unavailable [phone] Reason for Visit * Reason Comments Med Refill Encounter Details Date Type Department Care Team (Late st Contact Info) Description 07/20/2022 Refill [facility] [address] [place] [address] Debra Hernández FNP [address] [place] [address] Dept [place] [address] Seasonal allergic rhinitis, unspecified trigger Social History [...] Description 08/23/2024 10:30 AM EDT Office Visit [facility] [address] [place] [address] Kathy Pool, DDS [address] [place] [address] 11/16/2024 8:45 AM EDT Office Visit [facility] [address] [place] [address] Amparo Waters FNP [address] [place] [address] 02/18/2025 3:00 PM EST Office Visit [facility] [address] [place] [address] Robbie, Fanta [address] [place] [address] documented as of this encounter Visit Diagnoses Diagnosis Seasonal allergic rhinitis, unspecified trigger documented in this encounter Care Teams Shovel Loader Operator Relationship Specialty Start Date End Date Debra Hernández FNP PCP - General Family Medicine 04/30/22 09/14/22 Amparo Waters FNP [address] [place] [address] PCP - General Family Medicine 09/15/22 Mayra Yang NP [address] [place] [address] Urology 05/21/24 Blair Montoya MD 11 [place] [address] Cardiology 05/21/24 documented as of this encounter
--- OUTSIDE RECORDS SUMMARY | 2024-08-17 15:16 | XMS_ITS | Encounter Summary ---
Author Organization [employer] Address [address] [facility] 7t [place] [address] Care Team Providers Care Master Ship Name Role Phone Amparo Waters YENY Primary Care Provider [phone] Mayra Yang ELECTRICAL APPLIANCE PREPARER Unavailable Blair Montoya MD Unavailable [phone] Encounter Details Date Type Department Care Team (Late st Contact Info) Description 01/09/2024 Orders Only [facility] & PEDS [address] [place], [place] [phone] ProviderSanjana MD Social History Tobacco Use Types [...] 10:30 AM EDT Office Visit [facility] ADULT DENTAL [address] [place] [address] Kathy Pool DDS [address] [place] [address] 11/16/2024 8:45 AM EDT Office Visit [facility] MED [facility] PEDS [address] [place] [address] Amparo Waters FNP 505 [place] [address] 02/18/2025 3:00 PM EST Office Visit [facility] ADULT DENTAL [address] [place] [address] Fanta Avalos [address] [place] [address] documented as of this encounter Procedures Procedure [...] documented as of this encounter Care Teams Master Ship Relationship Specialty Start Date End Date Amparo Waters FNP [address] [place] [address] PCP - General Family Medicine 09/15/22 Mayra Yang NP [address] [facility] [address] [place] [address] Urology 05/21/24 Blair Montoya MD 11 [place] [address] Cardiology 05/21/24 documented as of this encounter
--- OUTSIDE RECORDS SUMMARY | 2024-08-17 15:16 | XMS_ITS | Encounter Summary ---
Author Organization [employer] Address [address] [place] [address] 7 [place] [address] Care Team Providers Care Study Specialist Name Role Phone Julius Sahu MD Primary Care Provider Debra Lloyd RN RELIEF CHARGE Primary Care Provider [phone] Amparo Waters RN RELIEF CHARGE Primary Care Provider [phone] Mayra Yang NP Unavailable Blair Montoya MD Unavailable Encounter Details Date Type Department Care Team (Latest Contact Info) Description 07/17/2021 Abstract [facility] CONVERSIONS Dental, Provider, DDS Social History [...] Description 08/23/2024 10:30 AM EDT Office Visit [facility] ADULT DENTAL [address] [place], [place] [phone] Kathy Pool DDS [address] [place], [place] [phone] 11/16/2024 8:45 AM EDT Office Visit [facility] MED & PEDS [address] [place] [address] Amparo Waters FNP 505 [place] [address] 02/18/2025 3:00 PM EST Office Visit [facility] ADULT DENTAL [address] [place] [address] Robbie, Fanta [address] [place] [address] documented as of this encounter Visit Diagnoses Not on filedocumented in this encounter Care Teams Study Specialist Relationship Specialty Start Date End Date Julius Sahu MD PCP - General Family Medicine 05/15/20 04/29/22 Debra Hernández FNP PCP - General Family Medicine 04/30/22 09/14/22 Amparo Waters FNP [address] [place] [address] PCP - General Family Medicine 09/15/22 Mayra Yang NP [address] [place] [address] Urology 05/21/24 Blair Montoya MD 11 [place] [address] Cardiology 05/21/24 documented as of this encounter
--- OUTSIDE RECORDS SUMMARY | 2024-08-17 15:16 | XMS_ITS | Encounter Summary ---
Author Organization [employer] Address [address] [place] [address] 7 [place] [address] Care Team Providers Care Transit Mixer Driver Name Role Phone Julius Sahu MD Primary Care Provider Debra Lloyd GAMING TABLE OPERATOR Primary Care Provider [phone] Amparo Waters GAMING TABLE OPERATOR Primary Care Provider [phone] Mayra Yang NP Unavailable Blair Montoya MD Unavailable Encounter Details Date Type Department Care Team (Latest Contact Info) Description 07/10/2020 Abstract [facility] CONVERSIONS Dental, Provider, DDS Social History [...] 08/23/2024 10:30 AM EDT Office Visit [facility] ADULT DENT[facility] [address] [place], [place] [phone] Kathy Pool DDS [address] [place], [place] [phone] 11/16/2024 8:45 AM EDT Office Visit [facility] MED [facility] PEDS [address] [place] [address] Amparo Waters FNP [address] [place] [address] 02/18/2025 3:00 PM EST Office Visit [facility] ADULT DENT[facility] [address] [place] [address] Robbie, Fanta [address] [place] [address] documented as of this encounter Visit Diagnoses Not on filedocumented in this encounter Care Teams Transit Mixer Driver Relationship Specialty Start Date End Date Julius Sahu MD PCP - General Family Medicine 05/15/20 04/29/22 Debra Hernández FNP PCP - General Family Medicine 04/30/22 09/14/22 Amparo Waters FNP 230 [place] [address] PCP - General Family Medicine 09/15/22 Mayra Yang NP [address] [place] [address] Urology 05/21/24 Blair Montoya MD 11 [place] [address] Cardiology 05/21/24 documented as of this encounter
--- OUTSIDE RECORDS SUMMARY | 2024-08-17 15:16 | XMS_ITS | Encounter Summary ---
Author Organization [employer] Address [address] [place] [place] [address] Care Team Providers Care Manager Social Services Name Role Phone Debra Hernández Primary Care Provider [phone] Amparo Waters Primary Care Provider [phone] Mayra Yang NP Unavailable Blair Montoya MD Unavailable Encounter Details Date Type Department Care Team (Late Contact Info) Description 06/25/2022 Telephone [facility] [address] [place], [place] [phone] Debra Hernández FNP [address] [place] [address] Dept [place] [address] Social History Tobacco Use Types Packs/Day Years [...] Description 08/23/2024 10:30 AM EDT Office Visit [facility] ADULT DENTAL [address] [place] [address] Simpson-Monahan, Kathy, DDS [address] [place] [address] 11/16/2024 8:45 AM EDT Office Visit [facility] MED [facility] PEDS [address] [place] [address] Amparo Waters FNP 505 [place] [address] 02/18/2025 3:00 PM EST Office Visit [facility] ADULT DENTAL [address] [place] [address] Robbie Fanta [address] [place] [address] documented as of this encounter Visit Diagnoses Not on filedocumented in this encounter Care Teams Manager Social Services Relationship Specialty Start Date End Date Debra Hernández FNP PCP - General Family Medicine 04/30/22 09/14/22 Amparo Waters FNP [address] [place] [address] PCP - General Family Medicine 09/15/22 Mayra Ynag NP [address] [place] [address] Urology 05/21/24 Blair Montoya MD 11 [place] [address] Cardiology 05/21/24 documented as of this encounter
--- OUTSIDE RECORDS SUMMARY | 2024-08-17 15:16 | XMS_ITS | Encounter Summary ---
Author Organization [employer] Address [address] [facility] 7 [place] [address] Care Team Providers Care Special Certificate Dictator Name Role Phone Amparo Waters Primary Care Provider [phone] Mayra Yang NP Unavailable Blair Montoya MD Unavailable [phone] Reason for Visit * Reason Onset Date Comments Chart Prep 08/15/2024 Encounter Details Date Type Department Care Team (Late st Contact Info) Description 08/15/2024 Telephone [facility] MED[facility] [address] [place], [place] [phone] Amparo Waters FNP [address] [place], [place] [phone] Chart Prep Social History Tobacco Use Types [...] Description 08/23/2024 10:30 AM EDT Office Visit [facility] ADULT DENTAL [address] [place] [address] Kathy Pool, DDS [address] [place] [address] 11/16/2024 8:45 AM EDT Office Visit [facility] [address] [place] [address] Amparo Waters FNP 505 [place] [address] 02/18/2025 3:00 PM EST Office Visit [facility] ADULT DENTAL [address] [place] [address] Robbie, Fanta [address] [place] [address] documented as of this encounter Visit Diagnoses Not on filedocumented in this encounter Additional Health Concerns Assessment Noted Time PHQ-9 Depression Total Score: 2 01/06/20 24 10:02 AM EDT documented as of this encounter Care Teams Special Certificate Dictator Relationship Specialty Start Date End Date Amparo Waters FNP [address] [place] [address] PCP - General Family Medicine 09/15/22 Mayra Yang NP [address] [facility] [address] [place] [address] Urology 05/21/24 Blair Montoya MD 11 [place] [address] Cardiology 05/21/24 documented as of this encounter
--- OUTSIDE RECORDS SUMMARY | 2024-08-17 15:16 | XMS_ITS | Encounter Summary ---
Author Organization [employer] Address [address] [facility] 7t [place] [address] Care Team Providers Care Cleaner And Dyer Name Role Phone Amparo Waters YENY Primary Care Provider [phone] Mayra Yang NP Unavailable Blair Montoya MD Unavailable [phone] Encounter Details Date Type Department Care Team [...] 08/17/2024 9:39 AM EDT Amparo Waters F SHOTBLAST EQUIPMENT OPERATOR * Little interest or pleasure in doing things Answer Date of Assessment Author Several days 08/17/2024 9:39 AM EDT Aniya Watersole, GENERAL ASSEMBLER INSTALLER * Feeling down, depressed, or hopeless Answer Date of Assessment Author Several days 08/17/2024 9:39 AM EDT Jt N icole, GENERAL ASSEMBLER INSTALLER * Trouble falling or staying asleep, or sleeping too much Answer Date of Assessment Author Not at all 08/17/2024 9:39 AM EDT Aniya Watersole, GENERAL ASSEMBLER INSTALLER * Feeling tired or having little energy Answer Date of Assessment Author Several days 08/17/2024 9:39 AM EDT Aniya Waters icole, GENERAL ASSEMBLER INSTALLER * Poor appetite or overeating Answer Date of Assessment Author Several days 08/17/2024 9:39 AM EDT Aniya Watersole, GENERAL ASSEMBLER INSTALLER * Feeling bad about yourself - or that you are a failure or have let yourself or your family down Answer Date of Assessment Author Several days 08/17/2024 9:39 AM EDT Aniya Watersole, GENERAL ASSEMBLER INSTALLER * Trouble concentrating on things, such as [...] Description 08/23/2024 10:30 AM EDT Office Visit [facility] ADULT DENT[facility] [address] [place] [address] Kathy Pool, DDS [address] [place] [address] 11/16/2024 8:45 AM EDT Office Visit [facility] CH[facility] MED & PEDS 505 [place] [address] Amparo Waters FNP 505 [place] [address] 02/18/2025 3:00 PM EST Office Visit [facility] ADULT DENT[facility] [address] [place] [address] Fanta Avalos [address] [place] [address] documented as of this encounter Visit Diagnoses Not on filedocumented in this encounter Additional Health Concerns Assessment Noted Time PHQ-9 Depression Total Score: 7 05/16/20 25 9:39 AM EDT documented as of this encounter Care Teams Cleaner And Dyer Relationship Specialty Start Date End Date Amparo Waters FNP [address] [place] [address] PCP - General Family Medicine 09/15/22 Mayra Yang NP [address] [place] [address] Urology 05/21/24 Blair Montoya MD 11 [place] [address] Cardiology 05/21/24 documented as of this encounter
--- OUTSIDE RECORDS SUMMARY | 2024-08-17 15:16 | XMS_ITS | Encounter Summary ---
Author Organization [employer] Address [address] [place] [address] 7 [place] [address] Care Team Providers Care Wine And Spirits Clerk Name Role Phone Julius Sahu MD Primary Care Provider Debra Lloyd FRAME NAILER Primary Care Provider [phone] Amparo Waters FRAME NAILER Primary Care Provider [phone] Mayar Yang NP Unavailable Blair Montoya MD Unavailable [phone] Encounter Details Date Type Department Care Team (Latest Contact Info) Description 11/07/2018 Abstract [facility] CONVERSIONS Dental, Provider, DDS Social History [...] Description 08/23/2024 10:30 AM EDT Office Visit [facility] ADULT DENTAL [address] [place], [place] [phone] Kathy Pool, DDS [address] [place] [address] 11/16/2024 8:45 AM EDT Office Visit [facility] CHC MED & PEDS 505 [place] [address] Amparo Waters FNP [address] [place] [address] 02/18/2025 3:00 PM EST Office Visit [facility] ADULT DENTAL [address] [place] [address] Robbie Fanta [address] [place] [address] documented as of this encounter Visit Diagnoses Not on filedocumented in this encounter Care Teams Wine And Spirits Clerk Relationship Specialty Start Date End Date Julius Sahu MD PCP - General Family Medicine 05/15/20 04/29/22 Debra Hernández FNP PCP - General Family Medicine 04/30/22 09/14/22 Amparo Waters FNP [address] [place] [address] PCP - General Family Medicine 09/15/22 Mayra Yang NP [address] [facility] [address] [place] [address] Urology 05/21/24 Blair Montoya MD 11 [place] [address] Cardiology 05/21/24 documented as of this encounter
[2024-08-18 16:17] LABS: Bacterial Vaginosis PCR NEGATIVE (Negative); Candida Group PCR DETECTED (Not Detect); Candida glab krusei PCR NOT DETECTED (Not Detect); Trichomonas vaginalis PCR NOT DETECTED (Not Detect)
[2024-08-18 16:49] LABS: CT PCR NOT DETECTED (Not Detect.); NG PCR NOT DETECTED (Not Detect.)
== END 2024-08-17 15:14 | disposition home or self-care (01) ==
LOC: HO.CHCLNP 15:13
PROVIDERS: Visit Provider Registered Nurse
DX: Z00.00 Encounter for general adult medical examination without abnormal findings (principal); N89.8 Other specified noninflammatory disorders of vagina
CPT/HCPCS: 77080; 81515; 87491; 87591

== ENCOUNTER 2024-08-18 08:13 | Outpatient (REF) | payer OTHER, SELFPAY ==
--- OUTSIDE RECORDS SUMMARY | 2024-08-18 08:17 | XMS_ITS | Clinical Summary ---
Author Organization [employer] Address [address] [place] [address] 7 [place] [address] Care Team Providers Care Clinical Education Coordinator Name Role Phone Amparo Waters YENY Primary Care Provider [phone] Mayra Yang NP Unavailable Blair Montoya MD [...] 07/16/2024 Palpitations 05/21/2024 Overview (08/17/2024): Following with [facility] Cards - Dr. 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 - Plan: request notes from [facility], pelvic/pap with [facility] CNM. Referral to outside [facility] [facility] PR[facility]. Vaginal dryness 07/18/2023 Assessment & Plan [...] - Dr. Barrow. Last CEE 05/17/23 Dental: [facility] Dental PE Form completed 07/15/23 for employment Fibromyalgia 09/27/2022 Assessment & Plan (10/01/2022 1:12 PM EDT): ?? Following with [facility] Rheum ?? Continues with gabapentin ?? During [...] medication at home as needed Following with [facility] Cards - Dr. Montoya for intermittent palpitations [...] medication at home as needed Following with [facility] Cards - Dr. Montoya for intermittent palpitations [...] medication at home as needed Following with [facility] Cards - Dr. Montoya for intermittent palpitations [...] Description 08/17/2024 9:30 AM EDT Office Visit [facility] MED & PEDS [address] [place] [address] Amparo Waters FNP Palpitations (Primary Dx); Healthcare maintenance; Hypercholesterolemia; Essential hypertension; Allergic rhinitis, unspecified seasonality, unspecified trigger; Vitamin D deficiency; Gastroesophageal reflux disease without esophagitis; Mixed anxiety and depressive disorder; Fibromyalgia; Headache disorder; Mild persistent asthma without complication; Vaginal itching 08/17/2024 Travel 08/15/2024 Telephone [facility] MEDICINE [address] [place] [address] Amparo Waters FNP Chart Prep 08/06/2024 9:00 AM EDT Office Visit [facility] ADULT DENTAL [address] [place] [address] Robbie, Fanta Dental plaque (Primary Dx); Missing teeth, acquired; Gingival recession, localized 07/24/2024 9:30 AM EDT Office Visit [facility] ADULT DENTAL [address] [place] [address] Robin Hillman DDS Odontalgia; Dental abscess 07/16/2024 1:00 PM EDT Office Visit [facility] ADULT DENTAL [address] [place] [address] Robin Hillman DDS Odontalgia (Primary Dx); Dental abscess 07/16/2024 Telephone [facility] ADULT DENTAL [address] [place] [address] Robin Hillman DDS APPT 07/12/2024 10:30 AM EDT Procedure Visit [facility] MED & PEDS [address] [place] [address] Rell Mcgrath, [facility] Routine cervical smear (Primary Dx); Menopausal and postmenopausal disorder; Candidiasis of vulva and vagina; Atrophic vaginitis 07/12/2024 Orders Only [facility] MEDICINE [address] [place] [address] Rell Mcgrath, DORIS 07/12/2024 Refill [facility] MED & PEDS [address] [place] [address] Rell Mcgrath, [facility] 07/12/2024 Travel 07/07/2024 Refill [facility] MED & PEDS [address] [place] [address] Amparo Waters FNP 06/30/2024 Refill [facility] MED & PEDS [address] [place] [address] Amparo Waters, PIPING DRAFTER Xerosis of skin 06/25/2024 1:00 PM EDT Office Visit [facility] ADULT DENTAL [address] [place] [address] Umm Ceja DDS 06/11/2024 1:00 PM EDT Office Visit [facility] ADULT DENTAL [address] [place] [address] Kathy Pool DDS Symptomatic irreversible pulpitis (Primary Dx) 06/08/2024 10:00 AM EST Office Visit [facility] ADULT DENTAL [address] [place] [address] Kathy Pool, EMYS Gingival recession, localized (Primary Dx); Tooth sensitivity to cold 06/01/2024 Telephone [facility] MEDICINE [address] [place] [address] Amparo Waters FNP Medication Question 05/25/2024 1:00 PM EST Office Visit [facility] ADULT DENTAL [address] [place] [address] Kathy Pool, DDS Clenching of teeth (Primary [...] the past 12 months, has t he [employer], gas, oil or water company threatened to [...] Description 08/23/2024 10:30 AM EDT Office Visit [facility] ADULT DENTAL [address] [place] [address] Simpson-Monahan, Kathy, DDS [address] [place] [address] 11/16/2024 8:45 AM EDT Office Visit [facility] MED & PEDS [address] [place] [address] Amparo Waters, PIPING DRAFTER [address] [place] [address] 02/18/2025 3:00 PM EST Office Visit [facility] ADULT DENTAL [address] [place] [address] Robbie, Fanta [address] [place] [address] Health Maintenance Due Date Last Done Comments [...] Procedure Name Priority Date/Time Associated Diagnosis Comments BD DEXA AXIAL Routine 08/17/2024 2:43 PM EDT Menopausal and postmenopausal disorder PERIODIC ORAL EVALUATION - ESTABLISHED PATIENT Routine [...] cervical smear HPV DNA, LOW/HIGH RISK Routine 07/12/2024 12:00 AM EDT NO CHARGE PROCEDURE Routine [...] Recently Relevant to Health Maintenance Results * BD DEXA Axial (08/17/2024 2:43 PM EDT) Anatomical Region Laterality Modality Body Radiographic Michelle ging 08/17/2024 2:43 PM EDT Narrative 08/17/2024 3:18 PM EDT ? [facility] ? [address] ?[place] [address] ?[phone] ? Mammography Report ? Signed ? Patient: Maravilla Tyson,Spring ?MR#: [id number] ?? [id number] ? : 1960 ?Acct:[id number] ? Age/Sex: 63 / F ?ADM Date: 08/17/24 ? Loc: HO.MAMMO ? Attending Dr: Rell Mcgrath CNM ? Ordering Physician: RELL MCGRATH CNJuan Alberto ?Results: ? Date of Service: 08/17/24 ?Follow Up: ? Procedure(s): XR DEXA axial skeleton ?? Accession Number(s): [id number] ? cc: Amparo Waters PIPING DRAFTER; RELL MCGRATH CNM ? EXAMINATION: ??DXA BONE DENSITY AXIAL ? HISTORY: ??N95.9 MENOPAUSAL ? TECHNIQUE: [employer] Dual energy absorptiometry (DEXA) ?? of the lumbar spine, total left hip, and femoral neck was performed. ? COMPARISON: Comparison is made with the prior examination dated ?? 08/07/2021. ? FINDINGS: ? The bone mineral density of the lumbar spine is 0.987 with a T-score of ?? -1.6, and a Z-score of -0.1. This is indicative of osteopenia. ? This represents a BMD change of -11.6% compared to the prior exam. ? This is statistically significant. ? The bone mineral density of the left total hip is 0.934 with a T-score ?? of -0.6, and a Z-score of 0.6. This is indicative of normal bone ?? mineral density. ? This represents a BMD change of 4.5% compared to the prior exam. ??This ?? is statistically significant. ? The bone mineral density of the left femoral neck is 0.960 with a ?? T-score of -0.6, and a Z-score of 0.9. This is indicative of normal ?? bone mineral density. ? This represents a BMD change of 7.1% compared to the prior exam. ? FRACTURE RISK: ?? The FRAX index suggests a ten year probability of major osteoporotic ?? fracture of 5.3%, and of hip fracture 0.3%. ? MM/XR DEXA axial skeleton ?? IMPRESSION: ?? Based on bone mineral density, and according to World Health ?? Organization (WHO) criteria, the diagnosis is consistent with ?? osteopenia. ? All bone density values are in grams per centimeter squared (g/cm2). ?? Statistically, 68% of repeat scans fall within 1 SD (+/- 0.010 g/cm2 ?? for AP spine L1-L4) and 1 SD (+/- 0.012 g/cm2 for femur total) ?? FRAX is a trademark of the [employer] [facility]'s ?? [place] for Metabolic Bone Disease, a World Health Organization (WHO) ?? Collaborating Center. ? Electronically signed by: ??Jese Reddy MD ??08/17/2024 03:15 PM EDT ?? RP ? Dictated By: ?Jese Reddy MD ? Signed By: ?<Electronically signed by Jese Reddy MD in OV> ?08/17/24 1515 ? DD/DT: / 1443 ? TD/TT: 05/ 1443 ? Tax Appraiser: ? Procedure Note Donotuseinterpreter, Image - 08/17/2024 [facility] [address] [place], [place] [address] Mammography Report Signed Patient: Farhan De Oliveira#: [id number] : 9Acct:[id number] Age/Sex: 63 / FADM Date: 08/17/24 Loc: IRVIN Attending Dr: Rell Mcgrath CNM Ordering Physician: RELL MCGRATHesults: Date of Service: 08/17/24Follow Up: Procedure(s): XR DEXA axial skeleton Accession Number(s): [id number] cc: Amparo Waters; RELL MCGRATH CNM EXAMINATION: DXA BONE DENSITY AXIAL HISTORY: N95.9 MENOPAUSAL TECHNIQUE: [employer] Dual energy absorptiometry (DEXA) of the lumbar spine, total left hip, and femoral neck was performed. COMPARISON: Comparison is made with the prior examination dated 08/07/2021. FINDINGS: The bone mineral density of the lumbar spine is 0.987 with a T-score of -1.6, and a Z-score of -0.1. This is indicative of osteopenia. This represents a BMD change of -11.6% compared to the prior exam. This is statistically significant. The bone mineral density of the left total hip is 0.934 with a T-score of -0.6, and a Z-score of 0.6. This is indicative of normal bone mineral density. This represents a BMD change of 4.5% compared to the prior exam. This is statistically significant. The bone mineral density of the left femoral neck is 0.960 with a T-score of -0.6, and a Z-score of 0.9. This is indicative of normal bone mineral density. This represents a BMD change of 7.1% compared to the prior exam. FRACTURE RISK: The FRAX index suggests a ten year probability of major osteoporotic fracture of 5.3%, and of hip fracture 0.3%. MM/XR DEXA axial skeleton IMPRESSION: Based on bone mineral density, and according to World Health Organization (WHO) criteria, the diagnosis is consistent with osteopenia. All bone density values are in grams per centimeter squared (g/cm2). Statistically, 68% of repeat scans fall within 1 SD (+/- 0.010 g/cm2 for AP spine L1-L4) and 1 SD (+/- 0.012 g/cm2 for femur total) FRAX is a trademark of the [employer]'s [place] for Metabolic Bone Disease, a World Health Organization (WHO) Collaborating Center. Electronically signed by: Jese Reddy MD 08/17/2024 03:15 PM EDT RP Dictated By: Jese Reddy MD Signed By: <Electronically signed by Jese Reddy MD in OV> 08/17/24 1515 DD/ 1443 TD/TT: 08/17/24 1443 Tax Appraiser: Rell Mcgrath CNM IMG DXA PROCEDURES Final Result * POCT fern test, vaginal fluid manually resulted (07/12/2024 11:28 AM EDT) Pathologist [facility]WA Prep Positive Comment:pos hyphae, neg tric h, neg clue, neg wbc Vaginal Fluid Vaginal structure / Unknown 07/12/2024 11:28 AM EDT Rell GEORGE POINT OF CARE TEST ENTER/ EDIT ORDERABLES Final Result * HPV DNA, Low/High Risk (07/12/2024 12:00 AM EDT) Pathologist [facility] HPV High Risk Negative Negative [facility] HPV Genotype 16 Negative Negative [facility] HPV Genotype 18 Negative Negative [facility] Comment:HPV testing performe d at [facility] (CLIA#[id number]), [address] [place] [address].Testing for HPV was performed using the [employer]system. The presence of HPV in the female [...] detected. 07/12/2024 07/13/2024 6:0 4 AM EDT us Rell Mcgrath CNM LAB BLOOD ORDERABLES Amy womack Result [facility] [address] [place] [phone] * Pap Smear (07/12/2024 12:00 AM EDT) Swab Cervix uteri structure / Unknown 07/12/2024 07/13/2024 6:04 AM EDT Narrative [facility] - 07/17/2024 9:54 AM EDT ----- ------- Name: Spring De Oliveira ?Age/Sex: 63/F ? : 1960 Unit#: [id number] ?? Attend Dr: RELL MCGRATH CNM ?Re07/12/24 ?Status: DEP REF ? Location: HO.CHCLNP ? Disch: ? ----- ------- SPEC : [id number] ? RECD: 07/13/24 ? STATUS: ??SOUT ? REQ NUM: [id number] ? OLIVIA: 07/12/24 ? SUBM DR: RELL MCGRATH CNM ? ENTERED: ??07/13/24 ?SP TYPE: Pap Smr ?OTHR DR: ? ORDERED: ??Pap Smear ? Interpretation ?? Satisfactory for evaluation. ?? Negative for intraepithelial lesion or malignancy. ?? Atrophic. ? HPV High Risk: ??Negative ? HPV Genotyping 16: ??Negative ?? HPV Genotyping 18: ??Negative ?Clinical Information LMP:Post menopausal Previous PAP test:2021 ? Material Received ?? ThinPrep-Cervical ----- ------- Signed (signature on file) DORA Plata ([facility] 07/17/24 0954 ? ----- ------- ? END OF REPORT ? us Rell Mcgrath [facility] CYTOLOGY ORDERABLES F inal Result [facility] [address] [place] [phone] * BI Mammogram Screening Tomosynthesis Bilateral (12/22/2023 2:00 PM EDT) Anatomical Region Laterality Modality Breast Bilateral Mammography 12/22/2023 2:00 PM EDT Narrative 01/04/2024 12:00 PM EDT ? [facility] [place] ? [address] ?[place] [address] ? Mammography Report ? Signed ? Patient: Maravilla Tyson,Spring ?MR#: [id number] ?? [id number] ? : 1960 ?Acct:[id number] ? Age/Sex: 63 / F ?ADM Date: //24 ? Loc: HO.MAMMO ? Attending Dr: Amparo Waters PIPING DRAFTER ? Ordering Physician: Amparo Waters ?Results: 1Negat ?? ankur ? Date of Service: 12/22/23 ?Follow Up: 1 Year From Orig ?? inal Mammogram ? Procedure(s): MM tomosynthesis screening BI ?? Accession Number(s): [id number] ? cc: Amparo Waters PIPING DRAFTER ? EXAMINATION: ?? MM SCREENING DIGITAL BREAST [...] ??Joann Love DO ??01/04/2024 11:57 AM EDT ?? RP ? Dictated By: ?Joann Love DO ? Signed By: ?<Electronically signed by Joann Love, DO in OV> ? 01/04/24 1157 ? DD/ 1400 ? TD/TT: 12/22/23 1415 ? Tax Appraiser: ? Procedure Note Donotuseinterpreter, Image - 01/04/2024 [facility] [address] [place], [place] [address] Mammography Report Signed Patient: Nargis De OliveiraR#: [id number] : 9Acct:[id number] Age/Sex: 63 / FADM Date: 12/22/23 Loc: HO.MAMMO Attending Dr: Amparo Waters PIPING DRAFTER Ordering Physician: Amparo Waters FNPResults: 1Negat ankur Date of Service: 12/22/23Follow Up: 1 Year From Orig inal Mammogram Procedure(s): MM tomosynthesis screening BI Accession Number(s): [id number] cc: Amparo Waters EXAMINATION: MM SCREENING DIGITAL [...] 01/04/24 1157 DD/ 1400 TD/TT: 12/22/23 1415 Tax Appraiser: Amparo Waters PIPING DRAFTER IMG BI PROCEDURES Final Result * Hm Colonoscopy (03/15/2023 3:18 PM EST) Historical Provider MD HEALTH MAINTENANCE Final Result * Hepatitis C Ab (10/09/2022 8:06 AM EDT) Hepatitis C Antibody Nonreactive Nonreactive [facility] Comment:Antibodies to HCV no t detected; does not exclude early acuteHCV infection. 10/09/2022 8:06 AM EDT 10/09/2022 8:06 AM EDT [facility] External Provider LAB BLO OD ORDERABLES Final Result [facility] [address] [place], [place] [phone] * Lipid Panel, Standard (10/09/2022 8:06 AM EDT) Triglycerides 79 mg/dL [facility] Comment:Desirable Triglyceri de: less than 150 mg/dLBorderline High Triglyceride 150-199 mg/dLHigh Triglyceride: 200-499 mg/dLVery High Triglyceride: greater than or equal to 5OO mg/dL Cholesterol 164 mg/dL [facility] Comment:Desirable Cholestero l: less than 200 mg/dLBorderline High Cholesterol: 200-239 mg/dLHigh Cholesterol: greater than 239 mg/dL LDL Cholesterol Calculated 100 mg/dl [facility] Comment:Desirable LDL: less than 100 mg/dLNear Optimal/Above Optimal LDL: 110- 129 mg/dLBorderline High LDL: 130-159 mg/dLHigh LDL: 160-189 mg/dLVery High LDL: greater than or equal to 190 mg/dL HDL Cholesterol 49 mg/dL [facility] Comment:Desirable HDL: great er than 40 mg/dL Note: This HDL assay may give artificially low results in patients with liver disease. 10/09/2022 8:06 AM EDT 10/09/2022 8:06 AM EDT [facility] External Provider LAB BLO OD ORDERABLES Final Result [facility] [address] [place] [address] [phone] from Last 3 Months or Most Recently Relevant to Health Maintenance Insurance FORMERLY [facility] RETIREMENT OPTIONS (O D-SNP) [facility] Care Teams Clinical Education Coordinator Relationship Specialty Start Date End Date Amparo Waters FNP [address] [place] [address] PCP - General Family Medicine 09/15/22 Mayra Yang NP [address] [place] [address] Urology 05/21/24 Blair Montoya MD [address] [place] [address] Cardiology 05/21/24
--- OUTSIDE RECORDS SUMMARY | 2024-08-18 08:17 | XMS_ITS | Encounter Summary ---
Author Organization [employer] Address [address] [place] [address] Care Team Providers Care Box Toe Flanger Stitchdowns Name Role Phone Amparo Waters YENY Primary Care Provider [phone] Mayra Yang OPERATIONS PROFESSIONAL Unavailable Blair Montoya MD Unavailable [phone] Encounter Details Date Type Department Care Team (Late st Contact Info) Description 01/09/2024 Orders Only [facility] MED & PEDS [address] [place], [place] [phone] ProviderSanjana MD Social History Tobacco Use Types [...] 10:30 AM EDT Office Visit [facility] ADULT DENTAL [address] [place] [address] Kathy Pool DDS [address] [place] [address] 11/16/2024 8:45 AM EDT Office Visit [facility] MED & PEDS [address] [place] [address] Amparo Waters FNP [address] [place] [address] 02/18/2025 3:00 PM EST Office Visit [facility] ADULT DENTAL [address] [place] [address] Fanta Avalos [address] [place] [address] documented as of this encounter Procedures Procedure [...] documented as of this encounter Care Teams Box Toe Flanger Stitchdowns Relationship Specialty Start Date End Date Amparo Waters FNP [address] [place] [address] PCP - General Family Medicine 09/15/22 Mayra Yang NP [address] [place] [address] Urology 05/21/24 Blair Montoya MD [address] [place] [address] Cardiology 05/21/24 documented as of this encounter
--- OUTSIDE RECORDS SUMMARY | 2024-08-18 08:17 | XMS_ITS | Patient Health Record ---
Author Organization [facility] Address [address] [place] [address] Care Team Providers Care Strategic Marketing Leader Name Role Phone Julius Sahu Primary Care [...] MORNING NEEDED Nasal for 30 PRN Active Y20-Wbpdtb - as directed Orally o nce a [...] Problem Status W/U Status Risk Notes Problem 86409564 Epigastric pain (R10.13) Active confirmed Problem Diverticulitis o f large intestine without perforation or abscess without bleeding (K57.32) Active confirmed Problem 891152837 Diverticulitis (K57.92) Active confirmed Problem 787850699 Elevated LFTs (R79.89) Active confirmed Problem 14334530 Dysphagia, unspecified type (R13.10) Active confirmed Problem 823771419 LLQ pain (R10.32) Active confirmed Problem 383170349 Diverticulitis o f colon (without mention of hemorrhage) (K57.32) Active confirmed Problem 020379522 Gastroesophageal reflux disease, unspecified whether esophagitis present [...] Start Date Coverage End Date [facility]ICA[facility] [address] [place] [phone] [id number] REMA MELENDEZ Self - patient is the [...]
--- OUTSIDE RECORDS SUMMARY | 2024-08-18 08:17 | XMS_ITS ---
Author Organization [facility] Address [address] [place] [address] Care Team Providers Care Room Service Food Server Name Role Phone Julius Sahu Primary Care Provider Deepak Lane Jr Unavailable REASON FOR VISIT colon screening Problems Problem Type SNOMED Code ICD Code Onset Dates Problem Status W/U Status Risk Notes Problem Diverticulitis o f large intestine without perforation or abscess without bleeding (K57.32) Active confirmed Encounters Encounter Location Date Provider Diagnosis [facility] Outpatient [address] [place] [phone] 03/15/2023 Deepak Rogers Jr Colon polyps K63.5 [...] Notes * MARIAJOSE MELENDEZADOB:1960 (63 yo F)Acc No.[id number]:03/15/2023 COLON WITH MAC Patient:?REMA MELENDEZ Provider:?Deepak Rogers MD :1960???Age:62 Y???Sex:Female D ate:03/15/2023 Address:[address] [place], [place] [id number] Pcp:Julius Sahu Subjective: * Chief Complaints: * ???1. Colon screening. * Medical History:? Objective: * Vitals:? Assessment: * Assessment: 1.?Colon polyps - K63.5 (An terry)???2.?Diverticulitis of large intestine without perforation or abscess without bleeding - K57.32??? Plan: * Treatment: * Procedure Codes:?92846 COLON OSCOPY AND BIOPSY * * The named appointment provid er may or may not be the originator of this progress note, and it is not deemed complete until electronically signed by the appointment provider. Sign off status: Pending * Provider:?Deepak Rogers MD Date:?1 05/16/2022 Generated for Lian aguirre/John/eTchestersmitting on:?08/18/2024 08:17 AM EDT
--- OUTSIDE RECORDS SUMMARY | 2024-08-18 08:18 | XMS_ITS | Encounter Summary ---
Author Organization [email or web address] Address [address] [place] [address] [address] [place] [address] Care Team Providers Care Motion Picture Equipment Machinist Name Role Phone Julius Sahu MD Primary Care Provider Debra Lloyd BOAT CANVAS INSTALLER Primary Care Provider [phone] Amparo Waters BOAT CANVAS INSTALLER Primary Care Provider [phone] Mayra Yang NP Unavailable Blair Montoya MD Unavailable Encounter Details Date Type Department Care Team (Latest Contact Info) Description 07/10/2020 Abstract [facility] CONVERSIONS Dental, Provider, DDS Social History Tobacco [...] [facility] ADULT DENTAL [address] [place], [place] [phone] Kathy Pool DDS [address] [place], [place] [phone] 11/16/2024 8:45 AM EDT Office Visit [facility] CHC MED & PEDS [address] [place] [address] Amparo Waters FNP [address] [place] [address] 02/18/2025 3:00 PM EST Office Visit [facility] ADULT DENTAL [address] [place] [address] Robbie, Fanta [address] [place] [address] documented as of this encounter Visit Diagnoses Not on filedocumented in this encounter Care Teams Motion Picture Equipment Machinist Relationship Specialty Start Date End Date Julius Sahu MD PCP - General Family Medicine 05/15/20 04/29/22 Debra Hernández FNP PCP - General Family Medicine 04/30/22 09/14/22 Amparo Waters FNP [address] [place] [address] PCP - General Family Medicine 09/15/22 Mayra Yang NP [address] [place] [address] Urology 05/21/24 Blair Montoya MD [address] [place] [address] Cardiology 05/21/24 documented as of this encounter
--- OUTSIDE RECORDS SUMMARY | 2024-08-18 08:18 | XMS_ITS ---
Author Organization [facility] Address [address] [place] [address] Care Team Providers Care Insecticide Mixer Name Role Phone Luis Alberto, Julius Primary Care Provider Deepak Lane Jr Unavailable [phone] REASON FOR VISIT pathology Encounters Encounter Location Date Provider Diagnosis [facility] [address] [place] [address] 03/23/2023 Deepak Rogers Jr Plan Of Treatment No Information Progress Notes * MARIAJOSE MELENDEZADOB:1960 (62 yo F)Acc No.[id number]:03/23/2023 Patient:?REMA MELENDEZ :1960???Age:62 Y???Sex:Female Address:[address], [place] [address] * true * Date:? Generated for Lian aguirre/John/eTransmitting on:?08/18/2024 08:17 AM EDT
--- OUTSIDE RECORDS SUMMARY | 2024-08-18 08:18 | XMS_ITS | Encounter Summary ---
Author Organization [email or web address] Address [address] [place] [address] 7 [place] [address] Care Team Providers Care Rotary Drill Rig Operator Name Role Phone Julius Sahu MD Primary Care Provider Debra Lloyd RESOURCE EFFICIENCY MANAGER Primary Care Provider [phone] Amparo Waters RESOURCE EFFICIENCY MANAGER Primary Care Provider [phone] Mayra Yang NP Unavailable Blair Montoya MD Unavailable Encounter Details Date Type Department Care Team (Latest Contact Info) Description 11/07/2018 Abstract [facility] CONVERSIONS Dental, Provider, DDS Social History [...] Description 08/23/2024 10:30 AM EDT Office Visit [facility] ADULT DENTAL [address] [place], [place] [phone] Kathy Pool, DDS [address] [place] [address] 11/16/2024 8:45 AM EDT Office Visit [facility] CHC MED & PEDS [address] [place] [address] Amparo Waters FNP 505 [place] [address] 02/18/2025 3:00 PM EST Office Visit [facility] ADULT DENTAL [address] [place] [address] Robbie Fanta 230 [place] [address] documented as of this encounter Visit Diagnoses Not on filedocumented in this encounter Care Teams Rotary Drill Rig Operator Relationship Specialty Start Date End Date Julius Sahu MD PCP - General Family Medicine 05/15/20 04/29/22 Debra Hernández FNP PCP - General Family Medicine 04/30/22 09/14/22 Amparo Waters FNP [address] [place] [address] PCP - General Family Medicine 09/15/22 Mayra Yang NP [address] [place] [address] Urology 05/21/24 Blair Montoya MD [address] [place] [address] Cardiology 05/21/24 documented as of this encounter
--- OUTSIDE RECORDS SUMMARY | 2024-08-18 08:18 | XMS_ITS | Encounter Summary ---
Author Organization [employer] Address [address] [place] [address] 7t [place] [address] Care Team Providers Care Tank Welder Name Role Phone Amparo Waters Primary Care Provider Mayra Yang NP Unavailable Blair Montoya MD Unavailable Encounter Details Date Type Department Care Team (Late st Contact Info) Description 10/08/2022 Abstract [facility] MEDICINE [address] [place] [address] Amparo Waters FNP [address] [place], [place] [phone] Healthcare maintenance (Primary Dx) Social History Tobacco [...] Description 08/23/2024 10:30 AM EDT Office Visit [facility] ADULT DENTAL [address] [place] [address] Simpson-Monahan, Kathy, DDS [address] [place] [address] 11/16/2024 8:45 AM EDT Office Visit [facility] CHC MED & PEDS 505 [place], [place] [phone] Amparo Waters, WAREHOUSE DISTRIBUTION MANAGER 505 [place] [address] 02/18/2025 3:00 PM EST Office Visit [facility] ADULT DENTAL [address] [place] [address] Robbie, Fanta [address] [place] [address] Scheduled Orders Name Type Priority Associated Diagnoses [...] documented as of this encounter Care Teams Tank Welder Relationship Specialty Start Date End Date Amparo Waters FNP [address] [place] [address] PCP - General Family Medicine 09/15/22 Mayra Yang NP [address] [facility] [address] [place] [address] Urology 05/21/24 Blair Montoya MD [address] [place] [address] Cardiology 05/21/24 documented as of this encounter
--- OUTSIDE RECORDS SUMMARY | 2024-08-18 08:18 | XMS_ITS ---
Author Organization [facility] Address [address] [place] [address] Care Team Providers Care Groundskeeping Maintenance Worker Name Role Phone Luis Alberto, Julius Primary Care Provider Deepak Lane Jr Unavailable [phone] REASON FOR VISIT labs Encounters Encounter Location Date Provider Diagnosis [facility] [address] [place] [address] 03/10/2023 Deepak Rogesr Jr Plan Of Treatment No Information Progress Notes * MARIAJOSE MELENDEZADOB:1960 (62 yo F)Acc No.[id number]:03/10/2023 Patient:?REMA MELENDEZ :1960???Age:62 Y???Sex:Female Address:[address] [facility] [address], [place] [address] * true * Date:? Generated for Lian aguirre/John/eTransmitting on:?08/18/2024 08:18 AM EDT
--- OUTSIDE RECORDS SUMMARY | 2024-08-18 08:18 | XMS_ITS | Encounter Summary ---
Author Organization [employer] Address [address] [place] [address] Care Team Providers Care Autocad Detailer Name Role Phone Debra HernándezP Primary Care Provider [phone] Amparo Waters DISC RULER OPERATOR Primary Care Provider [phone] Mayra Yang NP Unavailable Blair Montoya MD Unavailable [phone] Reason for Visit * Reason Comments Med Refill Encounter Details Date Type Department Care Team (Late st Contact Info) Description 07/20/2022 Refill [facility] MEDICINE [address] [place] [address] Debra Hernández FNP [address] [place] [address] Dept [place] [address] Seasonal allergic rhinitis, unspecified trigger Social History [...] 10:30 AM EDT Office Visit [facility] ADULT DENTAL [address] [place] [address] Kathy Pool, DDS [address] [place] [address] 11/16/2024 8:45 AM EDT Office Visit [facility] CHC MED & PEDS 505 [place] [address] Amparo Waters FNP 505 [place] [address] 02/18/2025 3:00 PM EST Office Visit [facility] ADULT DENTAL 230 [place] [address] Robbie, Fanta 230 [place] [address] documented as of this encounter Visit Diagnoses Diagnosis Seasonal allergic rhinitis, unspecified trigger documented in this encounter Care Teams Autocad Detailer Relationship Specialty Start Date End Date Debra Hernández FNP PCP - General Family Medicine 04/30/22 09/14/22 Amparo Waters FNP 230 [place] [address] PCP - General Family Medicine 09/15/22 Mayra Yang NP [address] [place] [address] Urology 05/21/24 Blair Montoya MD 11 [place] [address] Cardiology 05/21/24 documented as of this encounter
--- OUTSIDE RECORDS SUMMARY | 2024-08-18 08:18 | XMS_ITS | Encounter Summary ---
Author Organization [employer] Address [address] [place] [address] Care Team Providers Care Stunt Woman Name Role Phone Debra Hernández Primary Care Provider [phone] Amparo Waters Primary Care Provider [phone] Mayra Yang NP Unavailable Blair Montoya MD Unavailable [phone] Encounter Details Date Type Department Care Team (Late Contact Info) Description 06/25/2022 Telephone [facility] MEDICINE [address] [place], [place] [phone] Debra Hernández FNP [address] [place] [address] Dept [place] [address] Social History Tobacco Use Types Packs/Day Years [...] 10:30 AM EDT Office Visit [facility] ADULT DENTAL [address] [place] [address] Simpson-Monahan, Kathy, DDS 230 [place] [address] 11/16/2024 8:45 AM EDT Office Visit [facility] CHC MED & PEDS 505 [place] [address] Amparo Waters FNP 505 [place] [address] 02/18/2025 3:00 PM EST Office Visit [facility] ADULT DENTAL [address] [place] [address] Robbie Fanta [address] [place] [address] documented as of this encounter Visit Diagnoses Not on filedocumented in this encounter Care Teams Stunt Woman Relationship Specialty Start Date End Date Debra Hernández FNP PCP - General Family Medicine 04/30/22 09/14/22 Amparo Waters FNP [address] [place] [address] PCP - General Family Medicine 09/15/22 Mayra Yang NP [address] [place] [address] Urology 05/21/24 Blair Montoya MD 11 [place] [address] Cardiology 05/21/24 documented as of this encounter
--- OUTSIDE RECORDS SUMMARY | 2024-08-18 08:19 | XMS_ITS | Encounter Summary ---
Author Organization [employer] Address [address] [place] [address] 7 [place] [address] Care Team Providers Care Operator Receptionist Name Role Phone Amparo Waters Primary Care Provider Mayra Yang NP Unavailable Blair Montoya MD Unavailable Encounter Details Date Type Department Care Team (Late st Contact Info) Description 08/17/2024 9:30 AM EDT Office Visit [facility] MED & PEDS 505 [place], [place] [phone] Amparo Waters FNP 505 [place], [place] [phone] Palpitations (Primary Dx); Healthcare maintenance; Hypercholesterolemia; Essential [...] 08/17/2024 9:39 AM EDT PhalAmparo servin, Drew MIXED ANIMAL VETERINARIAN * Little interest or pleasure in doing things Answer Date of Assessment Author Several days 08/17/2024 9:39 AM EDT Phalen, N icole, ENTRY LEVEL PROJECT ENGINEER * Feeling down, depressed, or hopeless Answer Date of Assessment Author Several days 08/17/2024 9:39 AM EDT Phalen, N icole, ENTRY LEVEL PROJECT ENGINEER * Trouble falling or staying asleep, or sleeping too much Answer Date of Assessment Author Not at all 08/17/2024 9:39 AM EDT Phalen, N icole, ENTRY LEVEL PROJECT ENGINEER * Feeling tired or having little energy Answer Date of Assessment Author Several days 08/17/2024 9:39 AM EDT Phalen, N icole, ENTRY LEVEL PROJECT ENGINEER * Poor appetite or overeating Answer Date of Assessment Author Several days 08/17/2024 9:39 AM EDT Phalen, N icole, ENTRY LEVEL PROJECT ENGINEER * Feeling bad about yourself - or that you are a failure or have let yourself or your family down Answer Date of Assessment Author Several days 08/17/2024 9:39 AM EDT Phalen, N icole, ENTRY LEVEL PROJECT ENGINEER * Trouble concentrating on things, such as reading the newspaper or watching television Answer Date of Assessment Author Several days 08/17/2024 9:39 AM EDT Phalen, N icole, ENTRY LEVEL PROJECT ENGINEER * Moving or speaking so slowly that other people could have noticed? Or the opposite - being so fidgety or restless that you have been moving around a lot more than usual. Answer Date of Assessment Author Several days 08/17/2024 9:39 AM EDT Phalen, N icole, ENTRY LEVEL PROJECT ENGINEER * Thoughts that you would be better off or hurting yourself in some way Answer Date of Assessment Author Not at all 08/17/2024 9:39 AM EDT Phalen, N icole, ENTRY LEVEL PROJECT ENGINEER * Patient Health Questionnaire-9 Score Answer Date of Assessment Author 7 08/17/2024 9:39 AM EDT Phalen, N icole, ENTRY LEVEL PROJECT ENGINEER * How difficult have these problems made [...] medication at home as needed Following with [facility] Cards - Dr. Montoya for intermittent palpitations [...] 10:30 AM EDT Office Visit [facility] ADULT DENTAL 230 [place] [address] Kathy Pool, DDS 230 [place] [address] 11/16/2024 8:45 AM EDT Office Visit [facility] CHC MED & PEDS 505 [place], [place] [phone] Amparo Waters FNP [address] [place] [address] 02/18/2025 3:00 PM EST Office Visit [facility] ADULT DENTAL 230 [place] [address] Robbie, Fanta 230 [place] [address] Scheduled Orders Name Type Priority Associated Diagnoses [...] documented as of this encounter Care Teams Operator Receptionist Relationship Specialty Start Date End Date Amparo Waters FNP [address] [place] [address] PCP - General Family Medicine 09/15/22 Mayra Yang NP [address] [address] Urology 05/21/24 Blair Montoya MD 11 [place] [address] Cardiology 05/21/24 documented as of this encounter
--- OUTSIDE RECORDS SUMMARY | 2024-08-18 08:19 | XMS_ITS | Encounter Summary ---
Author Organization [employer] Address [address] [facility] 7 [place] [address] Care Team Providers Care Networking Administrator Name Role Phone Amparo Waters Primary Care Provider [phone] Mayra Yang NP Unavailable Blair Montoya MD Unavailable [phone] Reason for Visit * Reason Onset Date Comments Chart Prep 08/15/2024 Encounter Details Date Type Department Care Team (Late st Contact Info) Description 08/15/2024 Telephone [facility] MEDICINE [address] [place], [place] [phone] Amparo Waters FNP [address] [place], [place] [phone] Chart Prep Social History Tobacco Use Types [...] 08/23/2024 10:30 AM EDT Office Visit [facility] ADULT DENTAL 230 [place] [address] Kathy Pool, DDS 230 [place] [address] 11/16/2024 8:45 AM EDT Office Visit [facility] CHC MED & PEDS [address] [place] [address] Amparo Waters FNP 505 [place] [address] 02/18/2025 3:00 PM EST Office Visit [facility] ADULT DENTAL 230 [place] [address] Robbie, Fanta [address] [place] [address] documented as of this encounter Visit Diagnoses Not on filedocumented in this encounter Additional Health Concerns Assessment Noted Time PHQ-9 Depression Total Score: 2 01/06/20 24 10:02 AM EDT documented as of this encounter Care Teams Networking Administrator Relationship Specialty Start Date End Date Amparo Waters FNP 230 [place] [address] PCP - General Family Medicine 09/15/22 Mayra Yang NP 10 [facility] [address] [place] [address] Urology 05/21/24 Blair Montoya MD 11 [place] [address] Cardiology 05/21/24 documented as of this encounter
--- OUTSIDE RECORDS SUMMARY | 2024-08-18 08:19 | XMS_ITS | Encounter Summary ---
Author Organization [employer] Address [address] [facility] 7t [place] [address] Care Team Providers Care Glue Cook Name Role Phone Amparo Waters YENY Primary Care Provider [phone] Mayra Yang NP Unavailable Blair Montoya MD Unavailable [phone] Encounter Details Date Type Department Care Team [...] 08/17/2024 9:39 AM EDT Amparo Waters F DIRECTOR HEALTH * Little interest or pleasure in doing things Answer Date of Assessment Author Several days 08/17/2024 9:39 AM EDT Aniya Watersole, KITCHEN OPERATOR * Feeling down, depressed, or hopeless Answer Date of Assessment Author Several days 08/17/2024 9:39 AM EDT Jt N icole, KITCHEN OPERATOR * Trouble falling or staying asleep, or sleeping too much Answer Date of Assessment Author Not at all 08/17/2024 9:39 AM EDT Aniya Watersole, KITCHEN OPERATOR * Feeling tired or having little energy Answer Date of Assessment Author Several days 08/17/2024 9:39 AM EDT Aniya Waters icole, KITCHEN OPERATOR * Poor appetite or overeating Answer Date of Assessment Author Several days 08/17/2024 9:39 AM EDT Aniya Watersole, KITCHEN OPERATOR * Feeling bad about yourself - or that you are a failure or have let yourself or your family down Answer Date of Assessment Author Several days 08/17/2024 9:39 AM EDT Aniya Watersole, KITCHEN OPERATOR * Trouble concentrating on things, such as [...] Description 08/23/2024 10:30 AM EDT Office Visit [facility] ADULT DENTAL 230 [place] [address] Kathy Pool, DDS 230 [place] [address] 11/16/2024 8:45 AM EDT Office Visit [facility] CHC MED & PEDS 505 [place] [address] Amparo Waters FNP 505 [place] [address] 02/18/2025 3:00 PM EST Office Visit [facility] ADULT DENTAL 230 [place] [address] Fanta Avalos 230 [place] [address] documented as of this encounter Visit Diagnoses Not on filedocumented in this encounter Additional Health Concerns Assessment Noted Time PHQ-9 Depression Total Score: 7 05/16/20 25 9:39 AM EDT documented as of this encounter Care Teams Glue Cook Relationship Specialty Start Date End Date Amparo Waters FNP 230 [place] [address] PCP - General Family Medicine 09/15/22 Mayra Yang NP [address] [place] [address] Urology 05/21/24 Blair Montoya MD 11 [place] [address] Cardiology 05/21/24 documented as of this encounter
--- OUTSIDE RECORDS SUMMARY | 2024-08-18 08:19 | XMS_ITS | Encounter Summary ---
Author Organization [employer] Address [address] [place] [address] 7t [place] [address] Care Team Providers Care Manager Eligibility Name Role Phone Amparo Waters YENY Primary Care Provider Mayra Yang NP Unavailable Blair Montoya MD Unavailable [phone] Reason for Visit * Reason Onset Date Comments APPT 07/16/2024 Encounter Details Date Type Department Care Team (Late st Contact Info) Description 07/16/2024 Telephone [facility] ADULT DENTAL 230 [place], [place] [phone] Robin Hillman DDS [address] [place], [place] [phone] APPT Social History Tobacco Use Types Packs/Day [...] [facility] [address] [place] [address] Kathy Pool DDS [address] [place] [address] 11/16/2024 8:45 AM EDT Office Visit [facility] CHC MED & PEDS 505 [place], [place] [phone] Amparo Waters FNP 505 [place] [address] 02/18/2025 3:00 PM EST Office Visit [facility] ADULT DENTAL 230 [place] [address] Fanta Avalos [address] [place] [address] documented as of this encounter Visit Diagnoses Not on filedocumented in this encounter Additional Health Concerns Assessment Noted Time PHQ-9 Depression Total Score: 2 01/06/20 24 10:02 AM EDT documented as of this encounter Care Teams Manager Eligibility Relationship Specialty Start Date End Date Amparo Waters FNP 230 [place] [address] PCP - General Family Medicine 09/15/22 Mayra Yang NP [address] [place] [address] Urology 05/21/24 Blair Montoya MD [address] [place] [address] Cardiology 05/21/24 documented as of this encounter
--- OUTSIDE RECORDS SUMMARY | 2024-08-18 08:19 | XMS_ITS | Encounter Summary ---
Author Organization [employer] Address [address] [place] [address] 7 [place] [address] Care Team Providers Care Unit Nurse Name Role Phone Julius Sahu MD Primary Care Provider Debra Lloyd SUTURE POLISHER Primary Care Provider [phone] Amparo Waters SUTURE POLISHER Primary Care Provider Mayra Yang NP Unavailable [...] Office Visit [facility] ADULT DENTAL [address] [place], [place] [phone] Kathy Pool DDS [address] [place], [place] [phone] 11/16/2024 8:45 AM EDT Office Visit [facility] CHC MED & PEDS [address] [place] [address] Amparo Waters FNP 505 [place] [address] 02/18/2025 3:00 PM EST Office Visit [facility] ADULT DENTAL [address] [place] [address] Robbie, Fanta [address] [place] [address] documented as of this encounter Visit Diagnoses Not on filedocumented in this encounter Care Teams Unit Nurse Relationship Specialty Start Date End Date Julius Sahu MD PCP - General Family Medicine 05/15/20 04/29/22 Debra Hernández FNP PCP - General Family Medicine 04/30/22 09/14/22 Amparo Waters FNP 230 [place] [address] PCP - General Family Medicine 09/15/22 Mayra Yang NP [address] [place] [address] Urology 05/21/24 Blair Montoya MD 11 [place] [address] Cardiology 05/21/24 documented as of this encounter
[2024-08-18 08:25] LABS: MANUAL DIFF FLAG NO
[2024-08-18 08:37] LABS: Basophils Percent Auto 0.8 % (0-2); Eosinophils Absolute Auto 0.1 X10*3/uL (0.0-0.4); Eosinophils Percent Auto 3.4 % (0-4); Hematocrit 41.1 % (37.0-47.0); Hemoglobin 13.7 g/dl (12.0-16.0); Lymphocytes Absolute Auto 1.8 X10*3/uL (1.2-4.9); Lymphocytes Percent Auto 45.6 % (20-40); Mean Corpuscular HGB Conc 33.3 g/dl (31.0-35.0); Mean Corpuscular Hemoglobin 28.6 pg (27.0-33.0); Mean Corpuscular Volume 85.8 fL (80.0-98.0); Mean Platelet Volume 10.1 fL (9.4-12.3); Monocytes Absolute Auto 0.5 X10*3/uL (0.1-1.2); Monocytes Percent Auto 13.9 % (2-11); Neutrophils Absolute Auto 1.4 x10*3/uL (2.0-8.3); Neutrophils Percent Auto 36.3 % (45-73); Platelet Count 218 X10*3/uL (160-400); Red Blood Count 4.79 X10*6/uL (4.20-5.50); Red Cell Distribution Width 13.2 % (11.0-16.0); White Blood Count 3.9 X10*3/uL (4.8-10.8)
[2024-08-18 08:44] LABS: Estimated Average Glucose 117 mg/dL; Hemoglobin A1C 138.5019 umol/L; Hemoglobin A1c % 5.7 % (<6.0); Total Hemoglobin (HGBA1C) 3604.8618 umol/L
[2024-08-18 09:08] LABS: Creatinine Urine 150.58 mg/dL; Microalbum/Creatinine Ratio Ur 9.2 ug/mg cr (<30)
[2024-08-18 09:22] LABS: Alanine Aminotransferase 25 U/L (0-31); Albumin Level 4.5 g/dL (3.5-5.0); Alkaline Phosphatase 117 U/L (39-117); Anion Gap 13 (12-20); Aspartate Amino Transferase 27 U/L (5-31); Bilirubin Total 0.7 mg/dL (0.0-1.0); Blood Urea Nitrogen 16 mg/dL (9-16); Calcium 9.9 mg/dL (8.4-10.2); Carbon Dioxide 27 mmol/L (22-29); Chloride 109 mmol/L (96-108); Cholesterol 164 mg/dL (<200); Estimated Glomerular Filt Rate > 60; Glucose Random 101 mg/dL (60-115); HDL Cholesterol 58 mg/dL (>40); LDL Cholesterol Calculated 91 mg/dL (<100); Potassium 4.4 mmol/L (3.3-5.1); Sodium 145 mmol/L (135-145); Total Protein 8.1 g/dL (6.5-8.0); Triglycerides 78 mg/dL (<150)
[2024-08-18 09:28] LABS: TSH reflex Free T4 1.24 uIU/mL (0.32-4.0); Vitamin D 25-OH Total 32.4 ng/mL (>30)
[2024-08-18 09:31] LABS: HIV AB/AG Nonreactive (Nonreactive); HIV Num 1 0.11 S/CO (0.00-0.99)
[2024-08-18 09:37] LABS: Folate 11.7 ng/mL (> or = 4.0); Vitamin B12 511 pg/mL (200-900)
[2024-08-20 14:58] LABS: RPR Rapid Plasma Reagin NON-REACTIVE (NON-REACTIVE)
[2024-08-22 18:28] LABS: HCV Log PCR <1.18 NOT DETECTED Log IU/mL (NOT DETECTED); HepC Viral Load <15 NOT DETECTED IU/mL (NOT DETECTED)
== END 2024-08-18 08:14 | disposition home or self-care (01) ==
LOC: HO.LAB 08:13
PROVIDERS: PCP Registered Nurse; Visit Provider Registered Nurse
DX: Z00.00 Encounter for general adult medical examination without abnormal findings (principal); Z13.1 Encounter for screening for diabetes mellitus; Z13.29 Encounter for screening for other suspected endocrine disorder; Z13.220 Encounter for screening for lipoid disorders; Z13.0 Encounter for screening for diseases of the blood and blood-forming organs and certain disorders involving the immune mechanism
CPT/HCPCS: 36415; 80053; 80061; 82043; 82306; 82570; 82607; 82746; 83036; 84443; 85025; 86592; 87389; 87522

== ENCOUNTER 2024-09-11 10:31 | Outpatient (AMB) | payer OTHER, SELFPAY ==
--- NOTE | 2024-09-11 10:37 | A.OFFVIS_ITS ---
Intake Visit Reasons: 6M PVR Intake Note: Patient presents today for follow up on: recurrent uti and lower urinary tract symptoms Urology Medications: none Blood Thinner: none PVR: 0ml's Stopper Grinder Required: Yes Stopper Grinder Language: Narrow Gauge Brakeman Name: Zainab [id number] Accompanied by: Self / Same As Patient Allergies aspirin [ASA] Allergy (Intermediate, Verified 09/11/24 11:12) STOMACH PAIN doxycycline Allergy (Intermediate, Verified 09/11/24 11:12) Abdominal Pain erythromycin base [Erythromycin Base] Allergy (Mild, Verified 09/11/24 11:12) SWELLING/STOMACH PAIN/ORAL BLISTERS tramadol [TRAMADOL] Adverse Reaction (Intermediate, Verified 09/11/24 11:12) DIZZY,NAUSEA Medication List - Last Reconciled 09/11/24 by YENY Lujan- albuterol sulfate 2.5 mg inhalation Q4H PRN albuterol sulfate 90 mcg/actuation (Ventolin HFA) 1 inh inhalation QID PRN cetirizine 10 mg PO QAM PRN cholecalciferol (vitamin D3) (Vitamin D3) 50 mcg PO DAILY clonazepam 0.5 mg PO BID PRN cyanocobalamin (vitamin B-12) 1,000 mcg PO DAILY fluticasone furoate 27.5 mcg/actuation (Flonase Sensimist) 1 spray intranasal BID fluticasone propionate 220 mcg/actuation (Flovent HFA) inhalation BID metoprolol succinate ER (Toprol XL) 25 mg PO DAILY PRN mometasone 200 mcg/actuation (Asmanex HFA) 1 inh inhalation BID pantoprazole 40 mg PO QAM rosuvastatin 10 mg PO BEDTIME sertraline 50 mg PO DAILY HPI Comments Details: Spring is a pleasant 63-year-old /Greenlandic speaking female patient of Dr. Waters. She has a past medical history of diverticulitis, headaches, fibromyalgia, allergic rhinitis, hypertension, GERD, anxiety, depression, legally blind, asthma, hypercholesteremia, ocular albinism, rheumatoid arthritis, vitamin-D deficiency, and Hermansky-Pudlak Syndrome. She presents to the office today for follow-up of her lower urinary tract symptoms. In discussion with the patient today she reports to be doing and feeling well. She reports feeling urinary symptoms are variable and at times experiences urinary urgency and frequency however describes these episodes as infrequent in managing well independently. In office urinalysis results reviewed with the patient today. PVR 0 mL. Previous workup has included a retroperitoneal ultrasound 06/25 noting bilateral kidneys with no lesions or calculi. Mild left hydronephrosis. Bladder is well distended and normal. Bilateral ureteral jets are demonstrated. Pre void bladder volume is approximately 315 mL. Postvoid bladder volume is approximately 20 mL. Discussed potential causes for lower urinary tract symptoms patient experiences from time to time. She currently denies any bothersome urinary issues or concerns. She denies urinary urgency, urinary frequency, incontinence, nocturia, hematuria, dysuria, foul smelling urine, changes to urinary stream, flank pain, fever, and or chills. She is happy with her current voiding parameters. Discussed bladder triggers/irritants. We discussed further treatment options of these lower urinary tract symptoms she is experiencing. All questions were answered. She otherwise offers no other issues or concerns at this time. 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 Vitamin D deficiency Rheumatoid arthritis Interstitial cystitis Arthritis Diverticulosis Depression GERD (gastroesophageal reflux disease) Peripheral neuropathy Psychiatric disorder Hypercholesteremia Asthma Surgical History Hx of cystoscopy Hx of colonoscopy Hx of esophagogastroduodenoscopy H/O ovarian cystectomy History of tonsillectomy and adenoidectomy History of endometrial ablation Family History Father Heart attack Mother Rheumatoid arthritis Social History Household Members: Family Housing: House Do you presently have visiting nurse or other home services: No Alcohol intake: never Comment: PT SLEEPING Patient Tobacco Use Status: Never used Tobacco Second Hand Smoke Exposure: No service: No Current occupational status: disabled Review of Systems Eyes Reports as per [facility] ENT Reports no additional complaints Card Reports as per [facility] Resp Reports as per [facility] GI Reports as per [facility] Reports as per [facility] Musc Reports as per [facility] Neuro Reports as per [facility] Psych Reports as per [facility] Endo Reports no additional complaints Castillo/Lymph Reports no additional complaints Aller/Immun Reports no additional complaints Physical Exam Const General: cooperative, healthy appearing, comfortable, no acute distress, well developed, alert and awake Orientation/consciousness: patient oriented x3 Limitations: no limitations HEENT Head: Yes normal to inspection, Yes normocephalic and Yes atraumatic Ears: hearing grossly normal bilaterally Eyes General: appearance normal, both eyes and all related structures Neck Neck: Yes normal visual inspection and Yes trachea midline Chest Chest palpation & inspection: normal inspection of the chest Resp Effort & Inspection: normal respiratory effort and able to speak in complete sentences Cardio Rate: regular rate GI Inspection: Yes normal to inspection General: Yes no CVA tenderness Back/Spine/Pelvis Back: no CVA tenderness Skin General skin exam: no rashes or lesions noted Neuro General: patient oriented x3 Extrem General: Yes normal to inspection Psych Appearance: grossly normal and well kempt Mental Status: mental status grossly normal Speech and movement: Normal speech and movement present and Clear speech present Affect: normal affect Attitude: cooperative Thought process: Normal thought process present Thought content: Normal thought content present Insight: Fair insight present (Psych) Judgement: Fair judgement present (Psych) Office Procedures Post Void Residual Post Residual Void Post Void Residual (PVR): 0 [id number]-Gqzh Void Residual by ultrasound Results AMB Urinalysis, Automated UA Leukoctes 0 Becky/uL Last Edit by TYSON Valentine on 09/11/24 10:52 UA Nitrite Last Edit by TYSON Valentine on 09/11/24 10:52 UA Urobilinogen 0.2 mg/dL Last Edit by TYSON Valentine on 09/11/24 10:5 2 UA Protein 15 mg/dL Last Edit by TYSON Valentine on 09/11/24 10:52 UA pH 6.0 Last Edit by Ramanaesmersam Guerra [facility] on 09/11/24 10:52 UA Blood 0 Denzel/uL Last Edit by Ramanaesmersam Guerra [facility] on 09/11/24 10:52 UA Specific [place] 1.010 Last Edit by Rome Alexiasony, [facility] on 09/11/24 10: 52 UA Ketone Last Edit by Rome Guerra [facility] on 09/11/24 10:52 UA Bilirubin 0 mg/dL Last Edit by Rome Guerra, [facility] on 09/11/24 10:52 UA Glucose 0 mg/dL Last Edit by Rome Guerra [facility] on 09/11/24 10:52 Results Reviewed Results Reviewed: Laboratory Last Values Urine pH (Auto) 6.0 09/11/24 10:39 Specific [place] (Auto) 1.010 09/11/24 10:39 Urine Protein (Auto) 15 mg/dL 09/11/24 10:39 Glucose (UA)(Auto) 0 mg/dL 09/11/24 10:39 Urine Blood (Auto) 0 Denzel/uL 09/11/24 10:39 Urine Bilirubin (Auto) 0 mg/dL 09/11/24 10:39 Urine Urobilinogen (Auto) 0.2 mg/dL 09/11/24 10:39 Leukocyte Esterase (Auto) 0 Becky/uL 09/11/24 10:39 Assessment & Plan Assessment & Plan (1) Lower urinary tract symptoms: Code(s): R39.9 - Unspecified symptoms and signs involving the genitourinary system Category: Medical Plan In office urinalysis results reviewed with the patient today; as noted above. PVR 0 mL. We discussed bladder triggers/irritants. We discussed potential causes of labile lower urinary tract symptoms patient is experiencing; we also discussed further treatment options and risks and benefits of these treatment options. Will continue with surveillance monitoring. She reports be happy with current voiding parameters. She currently denies any bothersome urinary issues or concerns. Discussed, educated, and stressed the importance of adequate hydration relation to lower urinary tract symptoms as well as overall health and well-being. Follow-up 1 year with PVR; or sooner with any issues, concerns, and or questions. Orders: Orders AMB Urinalysis Automated Today Z13.9 - Encounter for screening, unspecified AMB Post Void Residual by ultrasound Today R39.9 - Unspecified symptoms and signs involving the genitourinary system Patient Instructions: The patient had an opportunity to ask questions regarding the treatment plan. All questions were answered. Physical exam, labs, and imaging were discussed and reviewed in detail. As well as risks, benefits, and discussion of treatment choices. No major barriers to understanding were identified. The patient expressed understanding and agreement with the above treatment plan. The patient was made aware they should contact our office by phone for worsening of their current condition, the appearance of new symptoms, or with any questions or concerns. Compliance is encouraged with any medications and follow up testing that is ordered. It is a privilege to be allowed the opportunity to participate in? your urological care.? Again, if you have any questions or concerns If you have any questions or concerns please do not hesitate to contact me. The office is [phone]. This note is constructed using voice recognition software. While every effort has been made to ensure accuracy geophysical laboratory supervisor errors may have been included. Yours sincerely, OVIDIO Lujan Coding Level of Care Code Est Pt Level 3 (42472) Complex EM visit Add On G2211 Diagnoses Lower urinary tract symptoms R39.9 CPT Codes Post Residual Void - PVR CPT Code: 70405-Wqkb Void Residual by ultrasound ([id number])
--- OUTSIDE RECORDS SUMMARY | 2024-09-11 12:15 | XMS_ITS | Encounter Summary ---
Author Organization [employer] Address [address] [facility] [address] [place] [address] Care Team Providers Care Mainspring Strip Gauger Name Role Phone Amparo Waters YENY Primary Care Provider [phone] Mayra Yang SAP DATA ARCHITECT Unavailable Blair Montoya MD Unavailable Encounter Details Date Type Department Care Team (Late st Contact Info) Description 01/09/2024 Orders Only [facility] [address] [place], [place] [id number] ProviderSanjana MD Social History Tobacco Use Types [...] Care Team (Late st Contact Info) Description 11/16/2024 8:45 AM EDT Office Visit [facility] [address] [place] [address] Amparo Waters FNP [address] [place] [address] 02/18/2025 3:00 PM EST Office Visit [facility] ADULT DENTAL [address] [place] [address] Robbie Fanta [address] [place] [address] documented as of this encounter Procedures Procedure [...] documented as of this encounter Care Teams Mainspring Strip Gauger Relationship Specialty Start Date End Date Amparo Waters FNP [address] [place] [address] PCP - General Family Medicine 09/15/22 Mayra Yang NP [address] [facility] [address] [place] [address] Urology 05/21/24 Blair Montoya MD [address] [place] [address] Cardiology 05/21/24 documented as of this encounter
== END 2024-09-11 11:14 | disposition home or self-care (01) ==
LOC: HO.HUSH 10:31
PROVIDERS: PCP Registered Nurse; Visit Provider Nurse Practitioner Family
DX: Z13.9 Encounter for screening, unspecified (principal); R39.9 Unspecified symptoms and signs involving the genitourinary system
CPT/HCPCS: 99213; G2211

== ENCOUNTER → 2024-09-11 10:31 | Outpatient (BNVA) | payer OTHER, SELFPAY | PROVIDERS: PCP Registered Nurse; Visit Provider Nurse Practitioner Family | DX: R39.9 Unspecified symptoms and signs involving the genitourinary system (principal) | CPT/HCPCS: 51798; 81003; 99212 ==

== ENCOUNTER 2024-10-23 10:01 | Outpatient (AMB) | payer OTHER, SELFPAY ==
--- NOTE | 2024-10-23 10:23 | A.OFFVIS_ITS ---
Vital Signs 10/23/24 10:24 Height 5 ft 4 in Weight 147 lb 4.301 oz BMI 25.3 BP 120/82 Blood Pressure Location Rt brachial Position Sitting Pulse 66 Pulse Source Monitor Intake Visit Reasons: 4m follow up Box Truck Owner Operator Required: No Sap [place] Consultant: Sap [place] Consultant Present Allergies aspirin (ASA) Allergy (Intermediate, Verified 10/23/24 10:25) STOMACH PAIN doxycycline Allergy (Intermediate, Verified 10/23/24 10:25) Abdominal Pain erythromycin base (Erythromycin Base) Allergy (Mild, Verified 10/23/24 10:25) SWELLING/STOMACH PAIN/ORAL BLISTERS tramadol (TRAMADOL) Adverse Reaction (Intermediate, Verified 10/23/24 10:25) DIZZY,NAUSEA Medication List - Last Reconciled 10/23/24 by GIA Watt albuterol sulfate 2.5 mg inhalation Q4H PRN albuterol sulfate 90 mcg/actuation (Ventolin HFA) 1 inh inhalation QID PRN cetirizine 10 mg PO QAM PRN cholecalciferol (vitamin D3) (Vitamin D3) 50 mcg PO DAILY clonazepam 0.5 mg PO BID PRN cyanocobalamin (vitamin B-12) 1,000 mcg PO DAILY fluticasone furoate 27.5 mcg/actuation (Flonase Sensimist) 1 spray intranasal BID fluticasone propionate 220 mcg/actuation (Flovent HFA) inhalation BID metoprolol succinate ER (Toprol XL) 25 mg PO DAILY PRN mometasone 200 mcg/actuation (Asmanex HFA) 1 inh inhalation BID pantoprazole 40 mg PO QAM rosuvastatin 10 mg PO BEDTIME sertraline 50 mg PO DAILY HPI HPI 4m follow up: Details: Spring is a 63-year-old female with past medical history of hypertension, hyperlipidemia, nonobstructive coronary disease, prior reports of heart palpitations who presents for follow-up. Today she reports that she has been noticing less heart palpitations recent she will feel her heartbeat fast for a few sec and then go back to normal. No presyncope, syncope, falls. No chest discomfort, shortness of breath, no sustained rapid heart rates. She has been taking her metoprolol daily but breaks it in half and does half in the a.m. and half in the p.m.. She does not take aspirin as she has very easy bruising. She is legally blind. is present as this with Greek translation at their request. 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 Vitamin D deficiency Rheumatoid arthritis Interstitial cystitis Arthritis Diverticulosis Depression GERD (gastroesophageal reflux disease) Peripheral neuropathy Psychiatric disorder Hypercholesteremia Asthma Surgical History Hx of cystoscopy Hx of colonoscopy Hx of esophagogastroduodenoscopy H/O ovarian cystectomy History of tonsillectomy and adenoidectomy History of endometrial ablation Family History Father Heart attack Mother Rheumatoid arthritis Social History Household Members: Family Housing: House Do you presently have visiting nurse or other home services: No Alcohol intake: never Comment: PT SLEEPING Patient Tobacco Use Status: Never used Tobacco Second Hand Smoke Exposure: No service: No Current occupational status: disabled Review of Systems Const All systems reviewed & are unremarkable except as noted in HPI and below ENT Denies dizziness Card Details: palpitations Reports chest pain (random discomfort), Denies chest pain at rest, Denies chest pain with activity, Denies rapid heart rate, Denies pedal edema, Denies edema, Denies leg edema, Denies lightheadedness, Denies palpitations, Denies dyspnea, Denies dyspnea on exertion and Denies orthopnea Resp Denies cough, Denies dyspnea and Denies dyspnea on exertion GI Denies hematochezia and Denies change in stool character Musc Denies abnormal gait, Denies limited range of motion, Denies muscle cramps, D enies muscle weakness, Denies numbness, Denies radiating pain into limb, Denies stiffness and Denies tingling Neuro Denies abnormal gait, Denies dizziness, Denies numbness and Denies tingling Endo Denies palpitations Physical Exam Vital Signs: Last Vital Signs Pulse 66 10/23/24 10:24 BP 120/82 10/23/24 10:24 BMI result Body Mass Index 25.3 Const General: cooperative, healthy appearing, comfortable and no acute distress Orientation/consciousness: patient oriented x3 Neck Neck: Yes normal visual inspection and Yes no JVD Resp Effort & Inspection: normal respiratory effort Auscultation: clear to auscultation bilaterally, no crackles, no rales, no rhonchi and no wheezes Cardio Rate: regular rate Rhythm: regular rhythm Heart sounds: S1 normal heart sound present, S2 normal heart sound present, no gallops, no murmurs and no rubs Neuro General: patient oriented x3 Extrem General: Yes normal to inspection, No no pedal edema and No calf tenderness Psych Appearance: grossly normal Mental Status: mental status grossly normal Speech and movement: Normal speech and movement present Office Procedures EKG Details: Today, read by me, normal sinus rhythm, rate 66, QTC 410 milliseconds [id number], Complete Assessment & Plan Assessment & Plan (1) Heart palpitations: Code(s): R00.2 - Palpitations Category: Medical Plan: Reports of heart palpitations where she feels her heart going fast for a few seconds then has residual fatigue and weakness for up to a few hours. Holter monitor done 10/31/2023 for 2 days showed sinus rhythm, average rate 73, rare PACs and PVCs. Echocardiogram done 10/31/2023 showed EF 68%, no regional wall motion abnormalities, no valve abnormalities. A 30 day cardiac event monitor was done 04/23/2024 showing sinus rhythm with average heart rate 79, rare ectopy, 1 episode NSVT, 5 beats. Symptoms currently less than what she has previously reported. EKG today showing normal sinus rhythm, rate 66. Continue metoprolol. Reviewed reduction in caffeinated beverages, maintain good hydration. Emergency care if ever needed for sustained palpitations. Cardiology follow-up 6months, sooner if needed. (2) Chest tightness: Code(s): R07.89 - Other chest pain Category: Medical Plan: Prior Reports of intermittent chest tightness with shortness of breath, nonexertional. She did have a CTA of the coronary arteries in the recent past which showed mixed plaque in the LAD and RCA. She has nonobstructive coronary disease. Her echo showed normal EF and no regional wall motion abnormalities. Her symptoms are not from angina. She refuses aspirin as she has easy bruising. Continue rosuvastatin with ideal LDL goal less than 70. (3) Atherosclerotic cardiovascular disease: Code(s): I25.10 - Atherosclerotic heart disease of [place] coronary artery without angina pectoris Category: Medical Plan: As above (4) Essential hypertension: Code(s): I10 - Essential (primary) hypertension Category: Medical Plan: Blood pressure goal less than 130/80. Good at present. She is not on any antihypertensives. (5) Hypercholesteremia: Code(s): E78.00 - Pure hypercholesterolemia, unspecified Category: Medical Plan: Antelope LDL goal less than 70. Labs done 08/18/2024 shows LDL 91. Will increase rosuvastatin up to 20 mg daily from 10 mg daily. Plan Time spent on chart review, documentation, interview and assessment Medications: New rosuvastatin Dose increase 20 mg PO DAILY 90 tabs 3RF 90 days Coding Level of Care Code Est Pt Level 4 (76048) Complex EM visit Add On G2211 Diagnoses Heart palpitations R00.2 Chest tightness R07.89 Atherosclerotic cardiovascular disease I25.10 Essential hypertension I10 Hypercholesteremia E78.00 CPT Codes EKG - CPT: 80436-Vnhbdupyymlaghdxz, Complete ([id number]) Time Spent (min) 28
[2024-10-23 10:24] VITALS: BP 120/82; PULSE 66; BMI 25.3
--- OUTSIDE RECORDS SUMMARY | 2024-10-23 10:57 | XMS_ITS | Patient Health Record ---
Author Organization [facility] Address [address] [place] [address] Care Team Providers Care Document Review Specialist Name Role Phone Julius Sahu Primary Care [...] MORNING NEEDED Nasal for 30 PRN Active B54-Pryvnx - as directed Orally o nce a [...] Problem Status W/U Status Risk Notes Problem 67324322 Epigastric pain (R10.13) Active confirmed Problem Diverticulitis of colon (924099977) Diverticulitis of large intestine without perforation or abscess without bleeding (K57.32) Active confirmed Problem 828207262 Diverticulitis (K57.92) Active confirmed Problem 768752057 Elevated LFTs (R79.89) Active confirmed Problem 85560693 Dysphagia, unspecified type (R13.10) Active confirmed Problem 253515406 LLQ pain (R10.32) Active confirmed Problem 812820086 Diverticulitis o f colon (without mention of hemorrhage) (K57.32) Active confirmed Problem 814291730 Gastroesophageal reflux disease, unspecified whether esophagitis present [...] Start Date Coverage End Date MEDICAID OF [facility] [address] [place] [phone] [id number] REMA MELENDEZ Self - patient is the [...]
--- OUTSIDE RECORDS SUMMARY | 2024-10-23 10:57 | XMS_ITS | Encounter Summary ---
Author Organization [facility] Address [address] [place] [address] [place] [phone] Phone Care Team Providers Care Purchasing And Claims Supervisor Name Role Phone [facility] Unavailable Amparo Waters Primary Care Provider [phone] Encounter Details Date Type Department Care Team (Latest Contact Info) Description 03/12/2022 Transcribe Orders Virtual Department [address] [place] [address] Jese Antonio MD [address] [facility] [address] [place] [address] 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 It is not the complete legal health record.[facility]
--- OUTSIDE RECORDS SUMMARY | 2024-10-23 10:57 | XMS_ITS | Encounter Summary ---
Author Organization [employer] Address [address] [facility] [address] [place] [address] Care Team Providers Care Clinical Technician Name Role Phone Amparo Waters YENY Primary Care Provider [phone] Mayra Yang PHARMACOLOGY ASSOCIATE Unavailable Blair Montoya MD Unavailable [phone] Encounter Details Date Type Department Care Team (Late st Contact Info) Description 01/09/2024 Orders Only [facility] MED & PEDS [address] [place], [place] [phone] ProviderSanjana MD Social History Tobacco Use Types [...] Description 11/16/2024 8:45 AM EDT Office Visit [facility] PEDS [address] [place] [address] Amparo Waters FNP [address] [place] [address] 02/18/2025 3:00 PM EST Office Visit [facility] ADULT DENTAL [address] [place] [address] Robbie Fanta [address] [place] [address] documented as of this encounter Procedures Procedure [...] as of this encounter Care Teams Clinical Technician Relationship Specialty Start Date End Date Amparo Waters FNP [address] [place] [address] PCP - General Family Medicine 09/15/22 Mayra Yang NP [address] [facility] [address] [place] [address] Urology 05/21/24 Blair Montoya MD [address] [place] [address] Cardiology 05/21/24 documented as of this encounter
--- OUTSIDE RECORDS SUMMARY | 2024-10-23 10:58 | XMS_ITS | Clinical Summary ---
Author Organization 175 [facility] Address 175 [place] [address] Phone Care Team Providers Care Live In Companion Name Role Phone Physician, Pcp Unknown Primary Care Provider Thalia vailable Social History Tobacco Use Types Packs/Day Years Used Date Smoking Tobacco: Never Assessed Comments Unknown Sex and Gender Information Value Date Recorded Sex Assigned at Not on file Legal Sex Female 4:33 AM EST Gender Identity Not on file Sexual Orientation Not on file Plan of Treatment Upcoming Encounters Date Type Department Care Team ([facility] st Contact Info) Description 11/07/2024 9:15 AM EDT Consult Orthopedic Surgery - [place] [address] [address] Reinaldo Robbins, DPJuan Alberto [address] [address] Health Maintenance Due Date Last Done Comments Breast Cancer Screening 1960 DTaP,Tdap,and Td Vaccines (1 - Tdap) 1977 Cervical Cancer Screening: P ap Smear 12/18/1979 Pneumococcal Vaccine: 50+ Ye ars (1 of 1 - PCV) 2008 Zoster Vaccines (1 of 2) 2008 COVID-19 Vaccine (2023-2 5 season) 2023 Depression Screening 04/04/2024 Colorectal Cancer Screening: Colonoscopy 08/22/2024 Falls Risk Assessment 08/22/2024 Hepatitis C Screening 08/22/2024 Medicare Annual Wellness Visit 08/22/2024 Osteoporosis Screening (Bone Density Screening) 08/22/2024 Social Influencers of Health Screening 08/22/2024 Influenza Vaccine (#1) 2024 RSV Immunization Adult Patie nts (1 - 1-dose 75+ series) 2033 HIB Vaccines Aged Out No longer eligi ble based on patient's age to complete this topic HPV Vaccines Aged Out No longer eligi ble based on patient's age to complete this topic Hepatitis A Vaccines Aged Out No long er eligible based on patient's age to complete this topic Hepatitis B Vaccines Aged Out No long er eligible based on patient's age to complete this topic IPV Vaccines Aged Out No longer eligi ble based on patient's age to complete this topic MMR Vaccines Aged Out No longer eligi ble based on patient's age to complete this topic Meningococcal ACWY Vaccine Aged Out N o longer eligible based on patient's age to complete this topic Meningococcal B Vaccine Aged Out No l onger eligible based on patient's age to complete this topic RSV Immunization Patients Un dov 20 months Aged Out No longer eligible b ased on patient's age to complete this topic Varicella Vaccines Aged Out No longer eligible based on patient's age to complete this topic Insurance [facility] MEDIC[facility] Member Subscriber Plan / Payer (Ef fective 2024-Present) Name:Spring De Oliveira Relation to Subscriber:Self Name:Spring De Oliveira Payer ID:[id number] Group ID:[id number] Type:Not on file Address: [facility] [address] [address] Care Teams Live In Companion Relationship Specialty Start Date End Date Physician, Pcp Unknown PCP - General 08/22/24
== END 2024-10-23 10:51 | disposition home or self-care (01) ==
LOC: HO.HCS 10:02
PROVIDERS: PCP Registered Nurse; Visit Provider Nurse Practitioner Family
DX: R00.2 Palpitations (principal); R07.89 Other chest pain; I25.10 Atherosclerotic heart disease of native coronary artery without angina pectoris; I10 Essential (primary) hypertension; E78.00 Pure hypercholesterolemia, unspecified
CPT/HCPCS: 93010; 99214; G2211

== ENCOUNTER → 2024-10-23 10:01 | Outpatient (BNVA) | payer OTHER, SELFPAY | PROVIDERS: PCP Registered Nurse; Visit Provider Nurse Practitioner Family | DX: R00.2 Palpitations (principal); R07.89 Other chest pain; I25.10 Atherosclerotic heart disease of native coronary artery without angina pectoris; I10 Essential (primary) hypertension; E78.00 Pure hypercholesterolemia, unspecified | CPT/HCPCS: 93005; 99212 ==

== ENCOUNTER 2024-11-16 09:52 | Outpatient (REF) | payer OTHER, SELFPAY ==
--- OUTSIDE RECORDS SUMMARY | 2024-11-16 10:07 | XMS_ITS | Encounter Summary ---
Author Organization [facility] Address [address] [place] [address] [place] [address] Phone Care Team Providers Care Senior Engineering Manager Name Role Phone [facility] Unavailable Amparo Waters Primary Care Provider [phone] Encounter Details Date Type Department Care Team (Latest Contact Info) Description 03/12/2022 Transcribe Orders Virtual Department 30 [place] [address] Jese Antonio MD 100 [facility] 100 [place] [address] [email or web address] Dysphagia, unspecified type (Primary Dx); Benign [...] oropharynx documented in this encounter Care Teams Senior Engineering Manager Relationship Specialty Start Date End Date Amparo Waters FNP 230 [place] [address] PCP - General Nurse Practitioner 10/31/23 [facility] 230 [place] [address] 10/26/23 documented as of this encounter Additional Source Comments The information contained in this document represents components of the legal health record. It is not the complete legal health record.[facility]
--- OUTSIDE RECORDS SUMMARY | 2024-11-16 10:07 | XMS_ITS | Patient Health Record ---
Author Organization [facility] Address [address] [place] [address] Care Team Providers Care Capsule Maker Name Role Phone Julius Sahu Primary [...] MORNING NEEDED Nasal for 30 PRN Active L87-Chwfua - as directed Orally o nce a [...] Problem Status W/U Status Risk Notes Problem 21245874 Epigastric pain (R10.13) Active confirmed Problem Diverticulitis of colon (424177940) Diverticulitis of large intestine without perforation or abscess without bleeding (K57.32) Active confirmed Problem 869840769 Diverticulitis (K57.92) Active confirmed Problem 080739137 Elevated LFTs (R79.89) Active confirmed Problem 40118584 Dysphagia, unspecified type (R13.10) Active confirmed Problem 587478569 LLQ pain (R10.32) Active confirmed Problem 920690355 Diverticulitis o f colon (without mention of hemorrhage) (K57.32) Active confirmed Problem 369867202 Gastroesophageal reflux disease, unspecified whether esophagitis present [...] Start Date Coverage End Date MEDICAID OF [facility] [address] [place] [id number] REMA MELENDEZ Self - patient is the [...]
--- OUTSIDE RECORDS SUMMARY | 2024-11-16 10:07 | XMS_ITS | Encounter Summary ---
Author Organization [facility] Address 75 [facility] 7t [place] [address] Care Team Providers Care Keyseater Operator Name Role Phone Amparo Waters YENY Primary Care Provider [phone] Mayra Yang CABLE PLACER Unavailable Blair Montoya MD Unavailable [phone] Encounter Details Date Type Department Care Team (Late st Contact Info) Description 01/09/2024 Orders Only [facility] CHC MED & PEDS 505 [place], [place] [id number] ProviderSanjana MD Social History Tobacco Use Types [...] Care Team (Late st Contact Info) Description 02/18/2025 3:00 PM EST Office Visit [facility] ADULT DENTAL 230 [place] [address] Robbie, Fanta 230 [place] [address] documented as of this encounter Procedures Procedure [...] documented as of this encounter Care Teams Keyseater Operator Relationship Specialty Start Date End Date Amparo Waters FNP 230 [place] [address] PCP - General Family Medicine 09/15/22 Mayra Yang NP 10 [facility] [address] [place] [address] Urology 05/21/24 Blair Montoya MD 11 [place] [address] Cardiology 05/21/24 documented as of this encounter
--- OUTSIDE RECORDS SUMMARY | 2024-11-16 10:07 | XMS_ITS | Clinical Summary ---
Author Organization 175 [facility] Address 175 [place] [address] Phone Care Team Providers Care Clinical Engineer Name Role Phone Physician, Pcp Unknown Primary [...] Upcoming Encounters Date Type Department Care Team ([facility] st Contact Info) Description 01/08/2025 2:15 PM EDT Consult Orthopedic Surgery - [place] [address] [address] Reinaldo Robbins, DPJuan Alberto [address] [address] Health Maintenance Due Date Last Done Comments [...] patient's age to complete this topic Insurance [facility] MEDICARE Member Subscriber Plan / Payer (Ef fective 2024-Present) Name:Rema De Oliveira Relation to Subscriber:Self Name:Rema De Oliveira Payer ID:[id number] Group ID:[id number] Type:Not on file Address: [address] [address] MEDICAID - [place] Care Teams Clinical Engineer Relationship Specialty Start Date End Date Physician, Pcp Unknown PCP - General 08/22/24
[2024-11-16 14:14] LABS: MANUAL DIFF FLAG NO
[2024-11-16 14:28] LABS: Hematocrit 38.4 % (37.0-47.0); Hemoglobin 12.9 g/dl (12.0-16.0); Imm Gran Abs Auto 0.01 X10*3/uL (0.00-0.03); Imm Gran Pct Auto 0.2 % (0.0-0.4); Lymphocytes Absolute Auto 1.7 X10*3/uL (1.2-4.9); Mean Corpuscular HGB Conc 33.6 g/dl (31.0-35.0); Mean Corpuscular Hemoglobin 28.7 pg (27.0-33.0); Mean Corpuscular Volume 85.3 fL (80.0-98.0); NRBC Abs Auto 0.000 X10*3/uL (0.0-0.012); NRBC Pct Auto 0.0 /100WBC (0.0-0.2); Platelet Count 177 X10*3/uL (160-400); Red Blood Count 4.50 X10*6/uL (4.20-5.50); White Blood Count 4.1 X10*3/uL (4.8-10.8)
== END 2024-11-16 09:53 | disposition home or self-care (01) ==
LOC: HO.CHCLDS 09:52
PROVIDERS: Visit Provider Registered Nurse
DX: Z00.00 Encounter for general adult medical examination without abnormal findings (principal)
CPT/HCPCS: 36415; 85025

== ENCOUNTER 2024-11-24 09:24 | Outpatient (REF) | payer OTHER, SELFPAY ==
--- OUTSIDE RECORDS SUMMARY | 2024-11-24 09:27 | XMS_ITS | Encounter Summary ---
Author Organization [facility] Address [address] [place] [address] [place] [address] Phone Care Team Providers Care Chief Crna Name Role Phone [facility] Unavailable Amparo Waters Primary Care Provider Encounter Details Date Type Department Care Team (Latest Contact Info) Description 03/12/2022 Transcribe Orders Virtual Department 30 [place] [address] Jese Antonio MD [address] [facility] 100 [place] [address] [email or web address] Dysphagia, unspecified type (Primary Dx); Benign [...] oropharynx documented in this encounter Care Teams Chief Crna Relationship Specialty Start Date End Date Amparo Waters FNP 230 [place] [address] PCP - General Nurse Practitioner 10/31/23 [facility] 230 [place] [address] 10/26/23 documented as of this encounter Additional Source Comments The information contained in this document represents components of the legal health record. It is not the complete legal health record.[facility]
--- OUTSIDE RECORDS SUMMARY | 2024-11-24 09:27 | XMS_ITS | Patient Health Record ---
Author Organization [facility] Address [address] [place] [address] Care Team Providers Care Information Technology Instructor Name Role Phone Julius Sahu Primary Care [...] MORNING NEEDED Nasal for 30 PRN Active Z47-Ncgiqj - as directed Orally o nce a [...] Problem Status W/U Status Risk Notes Problem 84150236 Epigastric pain (R10.13) Active confirmed Problem Diverticulitis o f large intestine without perforation or abscess without bleeding (K57.32) Active confirmed Problem 285745880 Diverticulitis (K57.92) Active confirmed Problem 252360078 Elevated LFTs (R79.89) Active confirmed Problem 12287682 Dysphagia, unspecified type (R13.10) Active confirmed Problem 332394900 LLQ pain (R10.32) Active confirmed Problem 757096788 Diverticulitis o f colon (without mention of hemorrhage) (K57.32) Active confirmed Problem 962193507 Gastroesophageal reflux disease, unspecified whether esophagitis present [...] Start Date Coverage End Date [facility] [address] [place] [phone] [id number] REMA MELENDEZ Self - patient is the [...]
--- OUTSIDE RECORDS SUMMARY | 2024-11-24 09:27 | XMS_ITS | Clinical Summary ---
Author Organization 175 [facility] Address 175 [place] [address] Phone Care Team Providers Care Retail Receiving Clerk Name Role Phone Physician, Pcp Unknown Primary [...] Upcoming Encounters Date Type Department Care Team ([facility] st Contact Info) Description 01/08/2025 2:15 PM EDT Consult Orthopedic Surgery - [place] [address] [address] Reinaldo Robbins, DPJuan Alberto [address] [address] Health Maintenance Due Date Last Done Comments [...] patient's age to complete this topic Insurance [facility] MEDICARE Member Subscriber Plan / Payer (Ef fective 2024-Present) Name:Rema De Oliveira Relation to Subscriber:Self Name:Rema De Oliveira Payer ID:[id number] Group ID:[id number] Type:Not on file Address: [address] [address] MEDICAID - [place] Care Teams Retail Receiving Clerk Relationship Specialty Start Date End Date Physician, Pcp Unknown PCP - General 08/22/24
[2024-11-24 09:34] LABS: MANUAL DIFF FLAG NO
[2024-11-24 09:52] LABS: Hematocrit 39.2 % (37.0-47.0); Hemoglobin 13.3 g/dl (12.0-16.0); Imm Gran Abs Auto 0.01 X10*3/uL (0.00-0.03); Imm Gran Pct Auto 0.3 % (0.0-0.4); Lymphocytes Absolute Auto 1.5 X10*3/uL (1.2-4.9); Mean Corpuscular HGB Conc 33.9 g/dl (31.0-35.0); Mean Corpuscular Hemoglobin 28.7 pg (27.0-33.0); Mean Corpuscular Volume 84.7 fL (80.0-98.0); NRBC Abs Auto 0.000 X10*3/uL (0.0-0.012); NRBC Pct Auto 0.0 /100WBC (0.0-0.2); Platelet Count 178 X10*3/uL (160-400); Red Blood Count 4.63 X10*6/uL (4.20-5.50); White Blood Count 4.0 X10*3/uL (4.8-10.8)
== END 2024-11-24 09:25 | disposition home or self-care (01) ==
LOC: HO.LAB 09:24
PROVIDERS: PCP Registered Nurse; Visit Provider Registered Nurse
DX: D72.819 Decreased white blood cell count, unspecified (principal)
CPT/HCPCS: 85025

== ENCOUNTER 2024-12-27 13:50 | Outpatient (REF) | payer OTHER, SELFPAY ==
--- OUTSIDE RECORDS SUMMARY | 2024-12-27 18:21 | XMS_ITS | Encounter Summary ---
Author Organization [employer] Address [address] [place] [address] 7 [place] [address] Care Team Providers Care Radiopharmacist Name Role Phone Julius Sahu MD Primary Care Provider Debra Lloyd DIRECTOR OF CONTENT MARKETING Primary Care Provider Thalia Amparo Sousa DIRECTOR OF CONTENT MARKETING Primary Care Provider [phone] Mayra Yang NP Unavailable Blair Montoya MD Unavailable [phone] Encounter Details Date Type Department Care Team (Latest Contact Info) Description 07/17/2021 Abstract [facility] CONVERSIONS Dental, Provider, DDS Social [...] Description 02/18/2025 3:00 PM EST Office Visit [facility] ADULT DENTAL 230 [place], [place] [phone] Robbie, Fanta 230 [place], [place] [phone] documented as of this encounter Visit Diagnoses Not on filedocumented in this encounter Care Teams Radiopharmacist Relationship Specialty Start Date End Date Julius Sahu MD PCP - General Family Medicine 05/15/20 04/29/22 Debra Hernández FNP PCP - General Family Medicine 04/30/22 09/14/22 Amparo Waters FNP [address] [place] [address] PCP - General Family Medicine 09/15/22 Mayra Yang NP [address] [address] Urology 05/21/24 Blair Montoya MD 11 [place] [address] Cardiology 05/21/24 documented as of this encounter
--- OUTSIDE RECORDS SUMMARY | 2024-12-27 18:21 | XMS_ITS | Patient Health Record ---
Author Organization [facility] Address [address] [place] [address] Care Team Providers Care Industrial Custodian Name Role Phone Julius Sahu Primary Care [...] MORNING NEEDED Nasal for 30 PRN Active L13-Znfmze - as directed Orally o nce a [...] Problem Status W/U Status Risk Notes Problem 75183359 Epigastric pain (R10.13) Active confirmed Problem Diverticulitis of colon (078653455) Diverticulitis of large intestine without perforation or abscess without bleeding (K57.32) Active confirmed Problem 093686725 Diverticulitis (K57.92) Active confirmed Problem 861194279 Elevated LFTs (R79.89) Active confirmed Problem 23017879 Dysphagia, unspecified type (R13.10) Active confirmed Problem 518255100 LLQ pain (R10.32) Active confirmed Problem 068152668 Diverticulitis o f colon (without mention of hemorrhage) (K57.32) Active confirmed Problem 526747333 Gastroesophageal reflux disease, unspecified whether esophagitis present [...] Start Date Coverage End Date MEDICAID OF [facility] [address] [place] [address] [id number] REMA MELENDEZ Self - patient is the [...]
--- OUTSIDE RECORDS SUMMARY | 2024-12-27 18:21 | XMS_ITS | Encounter Summary ---
Author Organization [employer] Address [address] [place] [address] [place], [place] [address] Care Team Providers Care Forklift Truck Operator Name Role Phone Julius Sahu MD Primary Care Provider Debra Lloyd RAMP MANAGER Primary Care Provider Thalia Amparo Sousa RAMP MANAGER Primary Care Provider [phone] Mayra Yang NP Unavailable Blair Montoya MD Unavailable [phone] Encounter Details Date Type Department Care Team (Latest Contact Info) Description 11/07/2018 Abstract [facility] CONVERSIONS Dental, Provider, DDS Social History [...] Description 02/18/2025 3:00 PM EST Office Visit [facility] ADULT DENTAL 230 [place], [place] [phone] Robbie, Fanta 230 [place], [place] [phone] documented as of this encounter Visit Diagnoses Not on filedocumented in this encounter Care Teams Forklift Truck Operator Relationship Specialty Start Date End Date Julius Sahu MD PCP - General Family Medicine 05/15/20 04/29/22 Debra Hernández FNP PCP - General Family Medicine 04/30/22 09/14/22 Amparo Waters FNP [address] [place] [address] PCP - General Family Medicine 09/15/22 Mayra Yang NP [address] [address] Urology 05/21/24 Blair Montoya MD 11 [place] [address] Cardiology 05/21/24 documented as of this encounter
--- OUTSIDE RECORDS SUMMARY | 2024-12-27 18:21 | XMS_ITS | Encounter Summary ---
Author Organization [employer] [facility] Address [address] [place] [address] 7t [place] [address] Care Team Providers Care Supervisor Cigar Processing Name Role Phone Amparo Waters Primary Care Provider Mayra Yang NP Unavailable Blair Montoya MD Unavailable Encounter Details Date Type Department Care Team (Late st Contact Info) Description 10/08/2022 Abstract [facility] MEDICINE [address] [place] [address] Amparo Waters FNP [address] [place], [place] [address] Healthcare maintenance (Primary Dx) Social History Tobacco [...] In the last 10 days, have rosalind u been in contact with someone who was confirmed or suspected to have Coronavirus/COVID-19? No / Unsure 09/27/2022 10:20 AM EDT documented as of this encounter Plan of Treatment Upcoming Encounters Date Type Department Care Team (Late st Contact Info) Description 02/18/2025 3:00 PM EST Office Visit [facility] ADULT DENTAL 230 [place], [place] [phone] Robbie, Fanta 230 [place] [address] Scheduled Orders Name Type Priority Associated Diagnoses [...] Expires: 10/09/2023 RPR (Diagnosis) with Reflex to Titer and Confirmatory Testing Lab Routine Healthcare maintenance Expected: 10/08/2022 (Approximate), Expires: 10/09/2023 documented as of this encounter Visit Diagnoses Diagnosis Healthcare maintenance- Primary documented in this encounter Additional Health Concerns Assessment Noted Time PHQ-9 Depression Total Score: 6 09/28/19 23 11:07 AM EDT documented as of this encounter Care Teams Supervisor Cigar Processing Relationship Specialty Start Date End Date Amparo Waters FNP 230 [place] [address] PCP - General Family Medicine 09/15/22 Mayra Yang NP [address] [place] [address] Urology 05/21/24 Blair Montoya MD 11 [place] [address] Cardiology 05/21/24 documented as of this encounter
--- OUTSIDE RECORDS SUMMARY | 2024-12-27 18:21 | XMS_ITS | Encounter Summary ---
Author Organization [employer] Address [address] [place] [address] 7 [place] [address] Care Team Providers Care Classroom Teacher Name Role Phone Amparo Waters Primary Care Provider [phone] Mayra Yang NP Unavailable Blair Montoya MD Unavailable [phone] Reason for Visit * Reason Comments Med Refill Encounter Details Date Type Department Care Team (Late st Contact Info) Description 12/23/2024 Refill [facility] MED & PEDS 505 [place], [place] [phone] Amparo Waters FNP 505 [place], [place] [phone] Xerosis of skin Social History Tobacco Use Types Packs/Day Years [...] 3:00 PM EST Office Visit [facility] ADULT DENTAL 230 [place] [address] Robbie, Fanta 230 [place] [address] documented as of this encounter Visit Diagnoses Diagnosis Xerosis of skin documented in this encounter Additional Health Concerns Assessment Noted Time PHQ-9 Depression Total Score: 7 08/18/19 9:39 AM EDT documented as of this encounter Care Teams Classroom Teacher Relationship Specialty Start Date End Date Amparo Waters FNP 230 [place] [address] PCP - General Family Medicine 09/15/22 Mayra Yang NP [address] [place] [address] Urology 05/21/24 Blair Montoya MD [address] [place] [address] Cardiology 05/21/24 documented as of this encounter
--- OUTSIDE RECORDS SUMMARY | 2024-12-27 18:21 | XMS_ITS | Encounter Summary ---
Author Organization [employer] [facility] Address 75 [facility] 7t [place] [address] Care Team Providers Care Dive Supervisor Name Role Phone Amparo Waters YENY Primary Care Provider [phone] Mayra Yang CRISIS CLINICIAN Unavailable Blair Montoya MD Unavailable [phone] Encounter Details Date Type Department Care Team (Late st Contact Info) Description 01/09/2024 Orders Only [facility] 505 [place], [place] [phone] ProviderSanjana MD Social History Tobacco Use Types [...] 02/18/2025 3:00 PM EST Office [facility] 230 [place] [address] Robbie, Fanta 230 [place] [address] documented as of this encounter Procedures Procedure [...] documented as of this encounter Care Teams Dive Supervisor Relationship Specialty Start Date End Date Amparo Waters FNP 230 [place] [address] PCP - General Family Medicine 09/15/22 Mayra Yang NP 10 [facility] [address] [place] [address] Urology 05/21/24 Blair Montoya MD 11 [place] [address] Cardiology 05/21/24 documented as of this encounter
--- OUTSIDE RECORDS SUMMARY | 2024-12-27 18:21 | XMS_ITS | Encounter Summary ---
Author Organization [employer] Address [address] [place] [address] 7 [place] [address] Care Team Providers Care Freelance Court Reporter Name Role Phone Amparo Waters Primary Care Provider Mayra Yang NP Unavailable Blair Montoya MD Unavailable [phone] Reason for Visit * Reason Comments Med Change Request Encounter Details Date Type Department Care Team ([facility] st Contact Info) Description 11/23/2024 Refill [facility] CHC MED & PEDS 505 [place], [place] [phone] Amparo Waters FNP 505 [place], [place] [phone] Social History Tobacco Use Types Packs/Day Years [...] Description 02/18/2025 3:00 PM EST Office Visit [facility] ADULT DENTAL 230 [place] [address] Javier Avalosaris 230 [place] [address] documented as of this encounter Visit Diagnoses Not on filedocumented in this encounter Additional Health Concerns Assessment Noted Time PHQ-9 Depression Total Score: 7 08/18/19 25 9:39 AM EDT documented as of this encounter Care Teams Freelance Court Reporter Relationship Specialty Start Date End Date Amparo Waters FNP 230 [place] [address] PCP - General Family Medicine 09/15/22 Mayra Yang NP [address] [place] [address] Urology 05/21/24 Blair Montoya MD [address] [place] [address] Cardiology 05/21/24 documented as of this encounter
--- OUTSIDE RECORDS SUMMARY | 2024-12-27 18:21 | XMS_ITS | Clinical Summary ---
Author Organization [facility] Address [address] [place], [place] [id number] Phone Care Team Providers Care Catalog Library Assistant Name Role Phone [facility] MD Unavailable Amparo Waters Primary Care Provider [phone] Social History Tobacco Use Types Packs/Day Years Used Date Smoking Tobacco: Never Assessed Education Answer Date Recorded Are you interested in more education? Not on bernie e 10/31/2023 Are you concerned about learning? Not on file 10/31/2023 No 10/31/2023 No 10/31/2023 Digital Access Answer Date Recorded No 10/31/2023 No 10/31/2023 Reliable internet access at home? Not on file 10/31/2023 Device with a working camera? Not on file Comments Unknown Sex and Gender Information Value Date Recorded Sex Assigned at Not on file Legal Sex Female 3:29 PM EDT Gender Identity Not on file Sexual Orientation Not on file Plan of Treatment Health Maintenance Due Date Last Done Comments Adult Td,Tdap Booster 1958 LIPID PANEL 1958 DEPRESSION SCREENING 1970 SMOKING Hx and SMOKELESS TOB ACCO SCREENING 12/18/1971 HEPATITIS C SCREENING 1976 MAMMOGRAM 1998 COLOGUARD 12/18/2003 COLONOSCOPY 12/18/2003 COLORECTAL CANCER SCREENING 12/18/2003 FIT TEST 12/18/2003 FOBT 12/18/2003 SIGMOIDOSCOPY 12/18/2003 VIRTUAL COLONOSCOPY 12/18/2003 PNEUMOCOCCAL VACCINES (50+ y ears) (1 of 1 - PCV) 2008 ZOSTER VACCINES (1 of 2) 2008 OSTEOPOROSIS SCREENING INITI AL (ONE-TIME) 12/18/2023 INFLUENZA VACCINE (#1) 2024 COVID-19 VACCINE ( - 2023-2 5 season) 2024 RSV VACCINE (1 - 1-dose 75+ series) 2033 HEPATITIS A VACCINES Aged Out No long er eligible based on patient's age to complete this topic HIB VACCINES Aged Out No longer eligi ble based on patient's age to complete this topic MENINGOCOCCAL VACCINES (ACWY) Aged Out No longer eligible based on patient's age to complete this topic MENINGOCOCCAL VACCINES (B) Aged Out N o longer eligible based on patient's age to complete this topic Medical Devices Not on file Insurance MEDICARE PART A & B [facility] MED[facility] REPLACEMENT MEDICARE PART A & B [facility] MED[facility] REPLACEMENT MEDICARE PART A & B Member Subscriber Plan / Payer (Ef fective 2024-) Name:Spring Maravilla Member ID:[id number] Relation to Subscriber:Self Name:Spring Maravilla Subscriber ID:[id number] Payer ID:[id number] Group ID:Not on file Type:Medicare Address: [employer] [address] [place] [id number] [facility] MEDICARE REPLACEMENT MEDICARE PART A & B [facility] MEDICARE REPLACEMENT [employer] [place] [id number] MEDICARE PART A & B [facility] MEDICARE REPLACEMENT MEDICARE PART A & B [facility] MEDICARE REPLACEMENT Care Teams Catalog Library Assistant Relationship Specialty Start Date End Date Amparo Waters FNP [address] [place] [address] PCP - General Nurse Practitioner [facility] [address] [place] [address] 10/26/23 Additional Source Comments The information contained in this document represents components of the legal health record. It is not the complete legal health record.[facility]
--- OUTSIDE RECORDS SUMMARY | 2024-12-27 18:21 | XMS_ITS | Encounter Summary ---
Author Organization [employer] Address [address] [place] [address] [address] [place] [address] Care Team Providers Care Backup Operator Name Role Phone Julius Sahu MD Primary Care Provider Debra Lloyd COLLISION CENTER MANAGER Primary Care Provider Thalia Amparo Sousa COLLISION CENTER MANAGER Primary Care Provider [phone] Mayra Yang NP Unavailable Blair Montoya MD Unavailable [phone] Encounter Details Date Type Department Care Team (Latest Contact Info) Description 07/10/2020 Abstract [facility] Dental, Provider, DDS Social History [...] Description 02/18/2025 3:00 PM EST Office Visit [facility] [address] [place], [place] [phone] Robbie, Fanta [address] [place], [place] [phone] documented as of this encounter Visit Diagnoses Not on filedocumented in this encounter Care Teams Backup Operator Relationship Specialty Start Date End Date Julius Sahu MD PCP - General Family Medicine 05/15/20 04/29/22 Debra Hernández FNP PCP - General Family Medicine 04/30/22 09/14/22 Amparo Waters FNP [address] [place] [address] PCP - General Family Medicine 09/15/22 Mayra Yang NP [address] [address] Urology 05/21/24 Blair Montoya MD 11 [place] [address] Cardiology 05/21/24 documented as of this encounter
--- OUTSIDE RECORDS SUMMARY | 2024-12-27 18:21 | XMS_ITS | Encounter Summary ---
Author Organization [employer] Address [address] [place] [address] [address] [place] [address] Care Team Providers Care Long Chain Dyeing Machine Operator Name Role Phone Debra Hernández Primary Care Provider Thalia Amparo Sousa Primary Care Provider Mayra Yang NP Unavailable Blair Montoya MD Unavailable [phone] Reason for Visit * Reason Comments Med Refill Encounter Details Date Type Department Care Team (Late st Contact Info) Description 07/20/2022 Refill [facility] [address] [place] [address] Debra Hernández FNP Seasonal allergic rhinitis, unspecified trigger Social History [...] Description 02/18/2025 3:00 PM EST Office Visit [facility] [address] [place] [address] Fanta Avalos [address] [place] [address] documented as of this encounter Visit Diagnoses Diagnosis Seasonal allergic rhinitis, unspecified trigger documented in this encounter Care Teams Long Chain Dyeing Machine Operator Relationship Specialty Start Date End Date Debra Hernández FNP PCP - General Family Medicine 04/30/22 09/14/22 Amparo Waters FNP [address] [place] [address] PCP - General Family Medicine 09/15/22 Mayra Yang NP [address] [place] [address] Urology 05/21/24 Blair Montoya MD [address] [place] [address] Cardiology 05/21/24 documented as of this encounter
--- OUTSIDE RECORDS SUMMARY | 2024-12-27 18:21 | XMS_ITS | Encounter Summary ---
Author Organization [facility] Address [address] [place] [address] [place] [address] Phone Care Team Providers Care Tabular Typist Name Role Phone [facility] Unavailable Amparo Waters Primary Care Provider [phone] Encounter Details Date Type Department Care Team (Latest Contact Info) Description 03/12/2022 Transcribe Orders Virtual Department [address] [place] [address] Jese Antonio MD 100 [facility] [address] [place] [address] [email or web address] Dysphagia, unspecified type (Primary Dx); [...] oropharynx documented in this encounter Care Teams Tabular Typist Relationship Specialty Start Date End Date Amparo Waters FNP [address] [place] [address] PCP - General Nurse Practitioner 10/31/23 [facility] [address] [place] [address] 10/26/23 documented as of this encounter Additional Source Comments The information contained in this document represents components of the legal health record. It is not the complete legal health record.[facility]
--- OUTSIDE RECORDS SUMMARY | 2024-12-27 18:21 | XMS_ITS | Encounter Summary ---
Author Organization [employer] Address [address] [place] [address] [address] [place] [address] Care Team Providers Care Triage Specialist Name Role Phone Amparo Waters YENY Primary Care Provider [phone] Mayra Yang NP Unavailable Blair Montoya MD Unavailable [phone] Reason for Visit * Reason Onset Date Comments APPT 07/16/2024 Encounter Details Date Type Department Care Team (Late st Contact Info) Description 07/16/2024 Telephone [facility] [address] [place], [place] [phone] Robin Hillman DDS [address] [place], [place] [phone] APPT Social History Tobacco Use Types Packs/Day [...] Description 02/18/2025 3:00 PM EST Office Visit [facility] [address] [place] [address] Javier Avalosaris [address] [place] [address] documented as of this encounter Visit Diagnoses Not on filedocumented in this encounter Additional Health Concerns Assessment Noted Time PHQ-9 Depression Total Score: 2 01/06/20 24 10:02 AM EDT documented as of this encounter Care Teams Triage Specialist Relationship Specialty Start Date End Date Amparo Waters FNP [address] [place] [address] PCP - General Family Medicine 09/15/22 Mayra Yang NP [address] [address] Urology 05/21/24 Blair Montoya MD 11 [place] [address] Cardiology 05/21/24 documented as of this encounter
--- OUTSIDE RECORDS SUMMARY | 2024-12-27 18:21 | XMS_ITS | Encounter Summary ---
Author Organization [employer] Address [address] [place] [address] [address], [place] [address] Care Team Providers Care Seo Executive Name Role Phone Debra Hernández AUTO PARTS HANDLER Primary Care Provider Thalia Amparo Sousa Primary Care Provider [phone] Mayra Yang NP Unavailable Blair Montoya MD Unavailable [phone] Encounter Details Date Type Department Care Team (Late st Contact Info) Description 06/25/2022 Telephone [facility] [address] [place], [place] [phone] Debra Hernández FNP Social History Tobacco Use Types Packs/Day Years [...] Description 02/18/2025 3:00 PM EST Office Visit [facility] [address] [place], [place] [phone] Fanta Avalos [address] [place] [address] documented as of this encounter Visit Diagnoses Not on filedocumented in this encounter Care Teams Seo Executive Relationship Specialty Start Date End Date Debra Hernández FNP PCP - General Family Medicine 04/30/22 09/14/22 Amparo Waters FNP [address] [place] [address] PCP - General Family Medicine 09/15/22 Mayra Yang NP [address] [place] [address] Urology 05/21/24 Blair Montoya MD 11 [place] [address] Cardiology 05/21/24 documented as of this encounter
--- OUTSIDE RECORDS SUMMARY | 2024-12-27 18:21 | XMS_ITS | Clinical Summary ---
Author Organization [employer] Address [address] [place] [address] 7 [place] [address] Care Team Providers Care Billet Recorder Name Role Phone Amparo Waters YENY Primary Care Provider [phone] Mayra Yang NP Unavailable Blair Montoya MD Unavailable Allergies Active Allergy Reactions Criticality Noted Date Comments Doxycycline Unknown 04/14/2016 Other reaction(s): vomiting, dizziness, abd pain Erythromycin Unknown 06/23/2010 Other reaction(s): unspecified Shrimp (Diagnostic) Anaphylaxis High 07/15/2023 Medications albuterol 108 (90 Base) MCG/ACT inhaler Inhale 2 puffs every 4 (four) hours. 09/30/19 22 Active clonazePAM (KlonoPIN) 0.5 MG tablet (Schedule IV Drug) TOME DELPHINE TABLETA TODOS LOS D EN LA MA LINDA CUANDO SEA NECESARIO Active cyanocobalamin (Vitamin B-12) 1000 MCG tablet Take by mouth at bed time. 09/30/19 22 Active Docusate Sodium (DSS) 100 MG capsule Take 1 capsule by mouth in the morning and 1 capsule in the evening. 03/14/20 19 Active sertraline (Zoloft) 25 MG tablet TOME DELPHINE TABLETA TODOS LOS D 02/17/20 22 Active alpha tocopherol (Vitamin E) 400 units capsule Take 1 capsule by mouth at bed time. 05/06/19 18 Active Mometasone Furoate (Asmanex HFA) 200 MCG/ACT aerosol INHALE 2 PUFFS BY MOUTH TWICE A DAY 39 g 1 03/08/20 23 Active Additional Information Patient not taking.Reported on 06/27/2023 albuterol (2.5 MG/3ML) 0.083% nebulizer solution Take 3 mL (2.5 mg) by nebulization every 6 (six) hours if needed for wheezing or shortness of breath. 75 mL 1 05/18/19 25 Active metoprolol succinate XL (Toprol-XL) 25 MG 24 hr tablet 25 mg. 05/31/19 25 Active pantoprazole (ProtoNix) 40 MG EC tablet TOME 1 TABLETA POR VIA ORAL TODOS LOS MENDOZA EN LA TEXARK[place]ANA 90 tablet 3 07/10/19 25 Active estradiol (Estrace) 0.1 MG/GM vaginal cream 1 g vaginally nightly x 14 days, then 1 g vaginally twice weekly ongoing. 42.5 g 07/14/19 25 Active acetaminophen (Tylenol 8 Hour) 650 MG ER tabletIndicati ons:Odontalgia ,Dental abscess Take 1 tablet (650 mg) by mouth every 8 (eight) hours if needed for mild pain. Do not crush, chew, or split. 30 tablet 07/25/19 25 Active fluticasone (Flonase Sensimist) 27.5 MCG/SPRAY nasal sprayIndicatio ns:Allergic rhinitis, unspecified seasonality, unspecified trigger use 1 spray per nostril BID 10 g 11 08/18/19 25 Active loratadine (Claritin) 10 MG tabletIndicati ons:Allergic rhinitis, unspecified seasonality, unspecified trigger Take 1 tablet (10 mg) by mouth Once per day. 90 tablet 3 08/18/19 25 2025 Active fluconazole (Diflucan) 150 MG tabletIndicati ons:Vaginal itching,Candid iasis of vulva and vagina Take 1 tablet by mouth daily 3 tablet 08/25/19 25 Active tiZANidine (Zanaflex) 2 MG tablet Take 1-2 tablets (2-4 mg) by mouth if needed at bedtime for muscle spasms. 30 tablet 1 11/17/19 25 2025 Active rosuvastatin (Crestor) 20 MG tablet Take 20 mg by mouth at bedtime. Active triamcinolone (Kenalog) 0.1 % creamIndicatio ns:Xerosis of skin MIX 80G TUBE OF TRIAMCINOLONE 0.1% CREAM WITH 16OZ JAR OF CERAVE CREAM. APPLY 1-2 TIMES PER DAY AFTER SHOWER OR BATH FROM THE NECK DOWN (NOT ON FACE) 80 g 3 12/25/19 Active triamcinolone (Kenalog) 0.1 % creamIndicatio ns:Xerosis of skin MIX 80G TUBE OF TRIAMCINOLONE 0.1% CREAM WITH 16OZ JAR OF CERAVE CREAM. APPLY 1-2 TIMES PER DAY AFTER SHOWER OR BATH FROM THE NECK DOWN (NOT ON FACE) 80 g 3 08/29/19 25 2024 Discontinued Active Problems Problem Noted Date Diagnosed Date Osteopenia 11/26/2024 Assessment & Plan (11/26/2024 3:03 PM EDT): 08/17/24: Bone density - osteopenia. recommend calcium/Vit D supplement and lifestyle interventions Leukopenia 11/26/2024 Overview (11/26/2024): Lab Results Component Value Date WBC 4.0 (L) 11/24/2024 WBC 4.1 (L) 11/16/2024 WBC 3.9 (L) 08/18/2024 WBC 4.7 (L) 10/09/2022 Assessment & Plan (11/26/2024 3:05 PM EDT): Plan to repeat CBC and check path smear. If leukopenia persistent --> referral to Heme/Onc for further evaluation Lower urinary tract symptoms 11/26/2024 Overview (11/26/2024): Following with [facility] Urology - GUICHO Yang Assessment & Plan (11/26/2024 3:06 PM EDT): - Consult September 2024 - symptoms well controlled. F/up 1 year. Dental plaque 08/06/2024 Missing teeth, acquired 08/06/2024 Dental abscess 07/16/2024 Odontalgia 07/16/2024 Palpitations 05/21/2024 Overview (08/17/2024): Following with [facility] Cards - Dr. Montoya/[employer] OPERATOR Bin May 2024 - 30 day holter June 2024: initiated metoprolol 25mg 0.5 tablet PRN History of endometriosis 05/21/2024 Assessment & Plan (05/21/2024 10:23 AM EST): - Reports previously following with [facility] for 15+ years, but says will need to re-establish with office closing down - Hx of endometriosis, and reports had been following for annual pelvic. - Plan: request notes from [facility], pelvic/pap with [facility] CNM. Referral to outside BENEFITS DIRECTOR PRN. Vaginal dryness 07/18/2023 Assessment & Plan [...] discuss surgery Headache disorder 10/01/2022 Overview (10/01/2022): Following with Neurology Continues on topiramate nightly Healthcare maintenance 10/01/2022 Overview (11/26/2024): Mammo: BIRADs 1 on 12/22/23 Pap: NILM/HPV Neg 07/12/24 Colonoscopy: Colonoscopy June 2019 w/ diverticulosis (). Repeat Colonoscopy Mar 2023 (Dr. Rogers) that revealed fragments of tubular adenoma, neg for high-grade dysplasia or carcinoma. DXA: 08/17/24 - osteopenia Optometry: [facility] - Dr. Barrow Dental: [facility] Dental Last comprehensive exam: 08/17/24 Assessment & Plan (08/18/2024 4:44 PM EDT): -Cardiopulmonary exam WNL -Encouraged healthy lifestyle habits including routine physical exercise and diet rich in fruits and vegetables Fibromyalgia 09/27/2022 Assessment & Plan (08/18/2024 4:43 PM EDT): Following with [facility] Rheum Previous tx: gabapentin APAP and ibuprofen PRN Assessment & Plan (10/01/2022 1:12 PM EDT): Following with [facility] Rheum Continues with gabapentin During last consult referred to PT APAP and ibuprofen PRN 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 Assessment & Plan (08/18/2024 4:41 PM EDT): - Continues following with [facility] Gastroesophageal reflux disease without esophagi tis 03/18/2022 Assessment & Plan (08/17/2024 9:32 AM EDT): Continues with Pantoprazole 40mg daily Assessment & Plan (09/27/2022 6:49 AM EDT): Continues with Pantoprazole 40mg daily Seronegative rheumatoid arthritis 07/12/2017 Essential hypertension 07/12/2017 Assessment & Plan (11/26/2024 3:11 PM EDT): BP goal <140/90 mmHg Elevated in office, although Well controlled per home readings Encouraged to continue with lifestyle interventions such as physical activity and low salt diet at this time, as well as monitoring home readings Assessment & Plan (08/18/2024 4:39 PM EDT): BP goal <140/90 mmHg Well controlled Encouraged to continue with lifestyle interventions such as physical activity and low salt diet at this time, as well as monitoring home readings Assessment & Plan (05/21/2024 10:10 AM EST): BP goal <140/90 mmHg, elevated in office but with home readings well controlled. F/up if home readings elevated Pt currently w/o pharmacotherapy, but does have medication at home as needed Following with [facility] Cards - Dr. Montoya for intermittent palpitations [...] at home as needed Following with [facility] Cards - Dr. Montoya for intermittent palpitations [...] Assessment & Plan (03/20/2023 10:39 PM EST): BP goal <140/90 mmHg, home readings well controlled Plan to cont w/o pharmacotherapy Encouraged to continue with lifestyle interventions such as physical activity and low salt diet at this time, as well as monitoring home readings Advised to call office if home readings continue to be elevated/above goal Assessment & Plan (02/12/2023 5:33 PM EST): BP goal <140/90 mmHg, initial and repeat readings in office above goal Shared decision making regarding proceeding with lifestyle interventions vs med initiation Plan to START chlorthalidone 25mg daily. Reviewed med use and SE Encouraged to continue with lifestyle interventions such as physical activity and low salt diet at this time, as well as monitoring home readings Advised to call office if home readings continue to be elevated/above goal Assessment & Plan (10/14/2022 7:43 PM EDT): Not currently using pharmacotherapy Home readings on average below goal <140/90 mmHg Shared decision making regarding proceeding with lifestyle interventions vs med initiation Plan to continue with lifestyle interventions such as physical activity and low salt diet at this time, as well as monitoring home readings Advised to call office if home readings continue to be elevated/above goal Pt in agreement with plan Vitamin D deficiency 01/31/2017 Spondylosis without myelopathy 04/08/2015 Hypercholesterolemia 04/08/2015 Overview (11/26/2024): Lab Results Component Value Date CHOL 164 08/18/2024 CHOL 164 10/09/2022 TRIG 78 08/18/2024 TRIG 79 10/09/2022 HDL 58 08/18/2024 HDL 49 10/09/2022 LDLCHOLCAL 91 08/18/2024 LDLCHOLCAL 100 10/09/2022 -continue lifestyle modification -cont rosuvastatin 20mg nightly (rx by Cards) Mild persistent asthma 04/08/2015 Assessment & Plan (08/18/2024 4:44 PM EDT): Maintenance med: mometasone 200mcg/act, 2 puffs BID Reliever: albuterol PRN (inhaler & neb machine) Reports feels well controlled at this time Assessment & Plan (03/20/2023 10:40 PM EST): Maintenance med: switch Flovent 220 2 puffs BID to mometasone 200 mcg/act 2 puffs BID (d/t upcoming insurance coverage changes) Reliever: albuterol PRN (inhaler & neb machine) Reports feels well controlled at this time Assessment & Plan (10/01/2022 1:12 PM EDT): Maintenance med: Flovent 220 2 puffs BID Reliever: albuterol PRN (inhaler & neb machine) Reports feels well controlled at this time Mixed anxiety and depressive disorder 04/08/2015 Overview (08/18/2024): Following with mental health team (per last notes, psych prescriber Q3 months and therapist 2x/month) Continues with sertraline 25mg daily and clonazepam 0.5mg BID PRN 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 Assessment & Plan (08/18/2024 4:40 PM EDT): No reported changes/updates in the past year Cobalamin deficiency 04/08/2015 Benign paroxysmal positional vertigo [...] Encounters Date Type Department Care Team Description 12/23/2024 Refill [facility] [address] [place] [address] Amparo Waters FNP Xerosis of skin 11/23/2024 Refill [facility] [address] [facility] [place] [address] Amparo Waters FNP 11/16/2024 8:45 AM EDT Office Visit [facility] [address] [facility] [place] [address] Amparo Waters FNP Osteopenia, unspecified location (Primary Dx); Healthcare maintenance; Leukopenia, unspecified type; Lower urinary tract symptoms; Palpitations; Hypercholesterolemia; Essential hypertension; Numbness and tingling in left hand 11/16/2024 Travel 11/15/2024 Travel 11/15/2024 Telephone [facility] [address] [facility] [place] [address] Amparo Waters FNP Chart Prep from Last 3 Months Immunizations Immunization Administration [...] Sign Reading Time Taken Comments Blood Pressure 142/90 11/16/2024 8:51 AM EDT Pulse 72 11/16/2024 8:51 AM EDT Temperature 36.9 C (98.4 F) 11/16/2024 8:51 AM EDT Respiratory Rate 20 11/16/2024 8:51 AM EDT Oxygen Saturation 97% 11/16/2024 8:51 AM EDT Inhaled Oxygen Concentration - - Weight 67 kg (147 lb 9.6 oz) 11/16/2024 8:51 AM EDT Height 163 cm (5' 4.17 ) 11/16/2024 8:51 AM EDT Body Mass Index 25.2 11/16/2024 8:51 AM EDT Plan of Treatment Upcoming Encounters Date Type Department Care Team (Late st Contact Info) Description 02/18/2025 3:00 PM EST Office Visit [facility] [address] [place] [address] Robbie, [place] [address] [place] [address] Health Maintenance Due Date Last Done Comments CT Colonography 1960 FIT DNA/Cologuard 1960 FIT 1960 FOBT 1960 Sigmoidoscopy 1960 RSV Patients and Patients Aged 60 years or older (1 - Risk 60-74 years 1-dose series) 2018 Zoster Vaccines (2 of 2) 04/05/2019 02/08/2019 SDOH Screening 10/12/2024 10/13/2023 COVID-19 Vaccine ( season) 2024 03/09/2021, 07/31/2020, 07/03/2020 Influenza Vaccine (#1) 2024 , 02/11/2023, 04/02/2022, Additional history exists Mammogram 12/21/2024 12/22/2023, 12/03, 12/14/2021, Additional history exists Dental Oral Exam 02/07/2025 08/06/2024, , 02/22/2022, Additional history exists Dental Prophylaxis 02/07/2025 08/06/2024, 1 04/07/2023, 06/27/2023, Additional history exists Dental X-Ray: Bitewings 08/07/2025 08/07/19, 06/11/2024, 05/25/2024, Additional history exists Alcohol/Substance Use Screening 08/17/2025 08/17/2024 Depression Screening 08/17/2025 08/17/2024, 08/18/19 Diabetes: Hemoglobin A1C 08/18/2025 025, 10/09/2022, 07/04/2021, Additional history exists Tobacco Screening 08/24/2025 08/24/2024 Colonoscopy 03/15/2026 03/15/2023 Colorectal Cancer Screening 03/15/2026 HPV/Cotest 07/13/2027 07/12/2024 Pap Smear 07/13/2027 07/12/2024, 01/29/2022 Dental X-Ray: Full Mouth 08/08/2027 025, 07/10/2020, 09/10/2013 Lipid Panel 08/18/2029 08/18/2024, 07/11/2022, 07/04/2021 DTaP/Tdap/Td Vaccines (3 - Td or Tdap) 07/14/2033 07/15/2023, 04/18/2012, 04/25/2006, Additional history exists Hepatitis B Vaccines Completed 05/15/2019, 10/20/2018, 09/15/2018 Pneumococcal Vaccine: 50+ Years Completed 02/11/2023, 01/09/2013 Hepatitis C Screening Completed 08/18/2024, 023 HIB Vaccines Aged Out No longer eligi [...] Procedure Name Priority Date/Time Associated Diagnosis Comments PATHOLOGIST REVIEW - CBC Routine 11/24/2024 9:32 AM EDT Leukopenia, unspecified type CBC WITH AUTO DIFFERENTIAL Routine 11/24/2024 9:32 AM EDT Leukopenia, unspecified type CBC WITH AUTO DIFFERENTIAL Routine 11/16/2024 9:53 AM EDT Healthcare maintenance HEPATITIS C VIRAL RNA, QUANTITATIVE, REAL-TIME PCR Routine 08/18/2024 8:24 AM EDT Healthcare maintenance HEMOGLOBIN A1C Routine 08/18/2024 8:24 AM EDT Healthcare maintenance LIPID PANEL, STANDARD Routine 08/18/2024 8:24 AM EDT Healthcare maintenance PROPHYLAXIS - ADULT Routine 08/06/2024 9 :00 AM EDT Dental plaque Missing teeth, acquired INTRAORAL - COMPLETE SERIES OF RADIOGRAPHIC IMAGES Routine 08/06/2024 9:00 AM EDT Dental plaque Missing teeth, acquired PERIODIC ORAL EVALUATION - ESTABLISHED PATIENT Routine 08/06/2024 9:00 AM EDT HPV DNA, LOW/HIGH RISK Routine 12:00 AM EDT PAP SMEAR Routine 07/12/2024 12:00 AM EDT Routine cervical smear BI MAMMOGRAM SCREENING TOMOSYNTHESIS BILATERAL Routine 12/22/2023 2:00 PM EDT HM COLONOSCOPY Routine 03/15/2023 3:18 PM EST from Last 3 Months or Most Recently Relevant to Health Maintenance Results * Pathologist Review Of Peripheral Smear (11/24/2024 9:32 AM EDT) Pathologist Review - CBC SEE NOTE [facility] Comment:White blood cells ar e mildly decreased in number butotherwise normal-appearing.- Waldo Fuentes M.D. Pathology Blood Venous blood specimen / Unknown 11/24/2024 9:32 AM EDT 11/24/2024 9:32 AM EDT us Amparo Waters SPECIAL PROJECTS MANAGER LAB BLOOD ORDERABLES Final Res ult [facility] [address], [place] [phone] * (ABNORMAL) CBC auto differential (11/24/2024 9:32 AM EDT) Only the most recent of2 resultswithin the time period is included. White Blood Count 4.0(L) 4.8 - 10.8 X10*3/uL [facility] Red Blood Count 4.63 4.20 - 5.50 X10*6/uL [facility] Hemoglobin 13.3 12.0 - 16.0 g/dl [facility] Hematocrit 39.2 37.0 - 47.0 % [facility] Mean Corpuscular Volume 84.7 80.0 - 98.0 fL [facility] Mean Corpuscular Hemoglobin 28.7 27.0 - 33.0 pg [facility] Mean Corpuscular HGB Conc 33.9 31.0 - 35.0 g/dl [facility] Red Cell Distribution Width 13.3 11.0 - 16.0 % [facility] Platelet Count 178 160 - 400 X10*3/uL [facility] Mean Platelet Volume 10.4 9.4 - 12.3 fL [facility] Neutrophils Percent Auto 44.7(L) 45 - 73 % [facility] Imm Gran Pct Auto 0.3 0.0 - 0.4 % [facility] Lymphocytes Percent Auto 36.4 20 - 40 % [facility] Monocytes Percent Auto 16.3(H) 2 - 11 % [facility] Eosinophils Percent Auto 1.8 0 - 4 % [facility] Basophils Percent Auto 0.5 0 - 2 % [facility] NRBC Pct Auto 0.0 0.0 - 0.2 /100WBC [facility] Neutrophils Absolute Auto 1.8(L) 2.0 - 8.3 x10*3/uL [facility] Imm Gran Abs Auto 0.01 0.00 - 0.03 X10*3/uL [facility] Lymphocytes Absolute Auto 1.5 1.2 - 4.9 X10*3/uL [facility] Monocytes Absolute Auto 0.7 0.1 - 1.2 X10*3/uL [facility] Eosinophils Absolute Auto 0.1 0.0 - 0.4 X10*3/uL [facility] Basophils Absolute Auto 0.0 0.0 - 0.2 X10*3/uL [facility] NRBC Abs Auto 0.000 0.0 - 0.012 X10*3/uL [facility] Blood Venous blood specimen / Unknown 11/24/2024 9:32 AM EDT 11/24/2024 9:32 AM EDT Amparo Waters [facility] LAB BLOOD ORDERABLES Final Res ult [facility] [address] [place] [phone] * Hepatitis C Viral RNA, Quantitative, Real-Time PCR (08/18/2024 8:24 AM EDT) Hepatitis C Viral Load <15 NOT DETECTED NOT DETECTED IU/mL [facility] HCV Log PCR <1.18 NOT DETECTED NOT DETECTED Log IU/mL [facility] Comment:For additional infor demetrice, please refer [email or web address].BigDoor/faq/[email or web address](This link is being provided for informational/educational purposes only.)THIS TEST WAS PERFORMED AT:[employer] [place] [phone] OTERO MD Blood 08/18/2024 8:24 AM EDT 08/18/2024 8:24 AM EDT Amparo Waters [facility] LAB BLOOD ORDERABLES Final Res ult Performing Organization Address [facility] Phone Number [facility] [address] [place] [phone] * Hemoglobin A1c (08/18/2024 8:24 AM EDT) Hemoglobin A1c 5.7 <6.0 % [facility] Comment:Hemoglobin A1C Refer ence Range Adults: 4.8 - 6.0 % Non diabetic: < 6.0 % Goal: < 7.0 %Additional Action Suggested: > 8.0 %Note: Hemoglobin A1c results are invalid for patients with abnormal amounts of HbF. Blood transfusions may impact the HbA1c concentration in the patient sample. Estimated Average Glucose 117 mg/dL [facility] Comment:eAG = Estimated ave rage glucose which is %A1C expressed asaverage glucose, using the formula of the P4S-IkpzzbxGbzrgpu Glucose study (ADAG), Diabetes Care, Vol.31,#8,Nov. 2007 Blood Venous blood specimen / Unknown 08/18/2024 8:24 AM EDT 08/18/2024 8:24 AM EDT Amparo Waters [facility] LAB BLOOD ORDERABLES Final Res ult Performing Organization Address [facility] Co de Phone Number [facility] [address] [place] [phone] * Lipid Panel, Standard (08/18/2024 8:24 AM EDT) Triglycerides 78 <150 mg/dL [facility] Comment:Desirable Triglyceri de: less than 150 mg/dLBorderline High Triglyceride 150-199 mg/dLHigh Triglyceride: 200-499 mg/dLVery High Triglyceride: greater than or equal to 5OO mg/dL Cholesterol 164 <200 mg/dL [facility] Comment:Desirable Cholestero l: less than 200 mg/dLBorderline High Cholesterol: 200-239 mg/dLHigh Cholesterol: greater than 239 mg/dL LDL Cholesterol Calculated 91 <100 mg/dL [facility] Comment:Desirable LDL: less than 100 mg/dLNear Optimal/Above Optimal LDL: 110- 129 mg/dLBorderline High LDL: 130-159 mg/dLHigh LDL: 160-189 mg/dLVery High LDL: greater than or equal to 190 mg/dL HDL Cholesterol 58 >40 mg/dL [facility] Comment:Desirable HDL: great er than 40 mg/dL Note: This HDL assay may give artificially low results in patients with liver disease. Blood Venous blood specimen / Unknown 08/18/2024 8:24 AM EDT 08/18/2024 8:24 AM EDT us Amparo Waters SPECIAL PROJECTS MANAGER LAB BLOOD ORDERABLES Final Res ult [facility] [address] [place] [phone] * HPV DNA, Low/High Risk (07/12/2024 12:00 AM EDT) HPV High Risk Negative Negative [facility] HPV Genotype 16 Negative Negative [facility] HPV Genotype 18 Negative Negative [facility] Comment:HPV testing performe d at [facility] (CLIA#[id number]), [address] [place] [address].Testing for HPV was performed using the Phil JENNIFER 6800system. The presence of HPV in the female [...] 07/12/2024 07/13/2024 6:0 4 AM EDT Rell Mcgrath CNM LAB BLOOD ORDERABLES Amy womack Result [facility] [address] [place] [phone] * Pap Smear (07/12/2024 12:00 AM EDT) Swab Cervix uteri structure / Unknown 07/12/2024 07/13/2024 6:04 AM EDT Narrative [facility] - 07/17/2024 9:54 AM EDT ----- ------- Name: Taiwo TysonSpring Age/Sex: 63/F : 1960 Unit#: [id number] Attend Dr: RELL MCGRATH CNM Re07/12/24 Status: DEP REF Location: HO.CHCLNP Disch: ----- ------- SPEC : [id number] RECD: 07/13/24 STATUS: TRISHA CONNER NUM: [id number] OLIVIA: 07/12/24-[address]: RELL MCGRATH CNM ENTERED: 07/13/24 SP TYPE: Pap Smr OTHR DR: ORDERED: Pap Smear Interpretation Satisfactory for evaluation. Negative for intraepithelial lesion or malignancy. Atrophic. HPV High Risk: Negative HPV Genotyping 16: Negative HPV Genotyping 18: Negative Clinical Information LMP:Post menopausal Previous PAP test:2021 Material Received ThinPrep-Cervical ----- ------- Signed (signature on file) DORA Plata (ASCP) 07/17/24 0954 ----- ------- END OF REPORT Rell GEORGE LAB CYTOLOGY ORDERABLES F inal Result [facility] [address] [place] [phone] * BI Mammogram Screening Tomosynthesis Bilateral (12/22/2023 2:00 PM EDT) Anatomical Region Laterality Modality Breast Bilateral Mammography 12/22/2023 2:00 PM EDT Narrative 01/04/2024 12:00 PM EDT [facility] [address] [place] [address] [place] [address] Mammography Report Signed Patient: Spring De Oliveira MR#: [id number] : 1960 Acct:[id number] Age/Sex: 63 / F ADM Date: 12/22/23 Loc: [facility] Attending Dr: Amparo Waters SPECIAL PROJECTS MANAGER Ordering Physician: Amparo Waters Results: 1Negat ankur Date of Service: 12/22/23 Follow Up: 1 Year From Orig ina Mammogram Procedure(s): MM tomosynthesis screening BI Accession Number(s): [id number] cc: Amparo Waters EXAMINATION: MM SCREENING DIGITAL [...] 01/04/24 1157 DD/ 1400 TD/TT: 12/22/23 1415 Prop Maker: Procedure Note Donotuseinterpreter, Image - 01/04/2024 [facility] [address] [place] [address] Mammography Report Signed Patient: Nargis De OliveiraR#: [id number] : 9Acct:[id number] Age/Sex: 63 / FADM Date: 12/22/23 Loc: HO.MAMMO Attending Dr: Amparo SAINI Ordering Physician: Amparo Waters FNPResults: 1Negat ankur Date of Service: 12/22/23Follow Up: 1 Year From Orig inal Mammogram Procedure(s): MM tomosynthesis screening BI Accession Number(s): [id number] cc: Amparo Waters SPECIAL PROJECTS MANAGER EXAMINATION: MM SCREENING DIGITAL BREAST TOMOSYNTHESIS, BILATERAL [...] 01/04/24 1157 DD/ 1400 TD/TT: 12/22/23 1415 Prop Maker: Amparo Waters SPECIAL PROJECTS MANAGER IMG BI PROCEDURES Final Result * Colonoscopy (03/15/2023 3:18 PM EST) Historical Provider HEALTH MAINTENANCE Final Result from Last 3 Months or Most Recently Relevant to Health Maintenance Insurance [facility] ALF OPTIONS (O D-SNP) DENTAL - [facility] Care Teams Billet Recorder Relationship Specialty Start Date End Date Amparo Waters FNP [address] [place] [address] PCP - General Family Medicine 09/15/22 Mayra Yang NP [address] [place], [place] Urology 05/21/24 Blair Montoya MD [address] [place] [id number] Cardiology 05/21/24
== END 2024-12-27 13:51 | disposition home or self-care (01) ==
LOC: HO.MAMMO 13:50
PROVIDERS: PCP Registered Nurse; Visit Provider Registered Nurse
DX: Z12.31 Encounter for screening mammogram for malignant neoplasm of breast (principal)
CPT/HCPCS: 77063; 77067

== ENCOUNTER → 2024-12-27 14:15 | Outpatient (BNV) | payer OTHER, SELFPAY | PROVIDERS: PCP Registered Nurse; Visit Provider Internal Medicine | DX: Z12.31 Encounter for screening mammogram for malignant neoplasm of breast (principal) | CPT/HCPCS: 77063; 77067 ==

== ENCOUNTER → 2025-01-09 15:46 | Outpatient (BNV) | payer OTHER, SELFPAY | PROVIDERS: PCP Physician Assistant; Referring Provider Physician Assistant; Visit Provider Internal Medicine | DX: D72.819 Decreased white blood cell count, unspecified (principal); Z80.3 Family history of malignant neoplasm of breast | CPT/HCPCS: 99203 ==